=== PATIENT | male | born 1960 | race African-American/Black ===

== ENCOUNTER 2018-09-04 16:33 | Inpatient (IN) | payer MEDICAID, OTHER ==
[~2018-09-04] VITALS: Ht 175.3 cm; Wt 108.0 kg
[~2018-09-04 16:33] MED LIST: ABILIFY2 MG ORAL; ACETAMINOPHEN-1 EAC1 ORAL; BACLOFEN10 MG ORAL; BACTRIM DS TAB1 EAC1 ORAL; CELEBREX200 MG ORAL; COLACE250 MG ORAL; FUROSEMIDE40 MG ORAL; MAGNESIUM OXID400 M1 ORAL; MIRALAX17 G2 ORAL; MULTIVITAMINS1 EAC2 ORAL; NEURONTIN100 MG ORAL; NORCO 10/3251 EA ORAL; POTASSIUM CHLO20 ME2 ORAL; PROZAC40 MG ORAL; TRAMADOL HCL50 MG ORAL; TYLENOL650 MG/20. ORAL; VANCOMYCIN HCL1 G1 IV; VITAMIN C500 M1 ORAL; ZAROXOLYN5 MG ORAL
[2018-09-04 16:38] VITALS: BP 129/83
[2018-09-04] MEDS ORDERED: BISACODYL PO (16:39)
[2018-09-04] MEDS ORDERED: BACTROBAN15 GM TOPIC (16:39)
[2018-09-04] MEDS ORDERED: ZOFRAN4 M1 ORAL (16:48)
[2018-09-04] MEDS ORDERED: Morphine Sulfate 4mg/ml Inj (IV/IM USE ONLY) IVP ONE (17:15)
[2018-09-04 17:27] LABS: BASOPHILS % (AUTO) 0.6 % (0.0-2.0); EOSINOPHILS % (AUTO) 1.3 % (0.0-3.0); HEMATOCRIT 42.5 % (42.0-52.0); HEMOGLOBIN 14.2 G/DL (14.2-18.0); LYMPHOCYTES % (AUTO) 21.1 % (20.0-45.0); MEAN CORPUSCULAR VOLUME 84 FL (80-99); MONOCYTES % (AUTO) 5.4 % (1.0-10.0); NEUTROPHILS % (AUTO) 71.6 % (45.0-75.0); PLATELET COUNT 243 K/UL (150-450); RED BLOOD COUNT 5.05 M/UL (4.70-6.10); RED CELL DISTRIBUTION WIDTH 12.6 % (11.6-14.8); WHITE BLOOD COUNT 9.9 K/UL (4.8-10.8)
[2018-09-04 17:33] LABS: APPEARANCE,URINE CLEAR; BILIRUBIN, URINE NEGATIVE (NEGATIVE); COLOR,URINE PALE YELLOW; GLUCOSE, URINE (UA) NEGATIVE (NEGATIVE); KETONES,URINE NEGATIVE (NEGATIVE); LEUKOCYTE ESTERASE ,URINE NEGATIVE (NEGATIVE); NITRITE,URINE NEGATIVE (NEGATIVE); PH,URINE 6 (4.5-8.0); PROTEIN,URINE NEGATIVE (NEGATIVE); UROBILINOGEN,URINE NORMAL MG/DL (0.0-1.0)
[2018-09-04 17:43] LABS: ALANINE AMINOTRANSFERASE 22 U/L (12-78); ALBUMIN 3.5 G/DL (3.4-5.0); ALBUMIN/GLOBULIN RATIO 0.6 (1.0-2.7); ALKALINE PHOSPHATASE 111 U/L (46-116); ANION GAP 13 mmol/L (5-15); ASPARTATE AMINO TRANSFERASE 13 U/L (15-37); BILIRUBIN,TOTAL 0.3 MG/DL (0.2-1.0); BLOOD UREA NITROGEN 26 mg/dL (7-18); CALCIUM 9.2 MG/DL (8.5-10.1); CARBON DIOXIDE 27 MMOL/L (21-32); CHLORIDE 98 MMOL/L (98-107); CREATINE KINASE 74 U/L (26-308); CREATININE 1.4 MG/DL (0.55-1.30); SODIUM 138 MMOL/L (136-145)
[2018-09-04 17:47] LABS: POTASSIUM 2.6 MMOL/L (3.5-5.1)
--- NOTE | 2018-09-04 18:40 | Emergency Room Report ---
History of Present Illness General Chief Complaint: Abnormal Labs Source: Patient, Medical Record Present Illness HPI The patient is sent in by his private physician as his potassium has and resistant to correction. He's been given oral potassium for several days now and it still remains below 3. The patient complains about weakness. He fell 2 days ago and hit his left shoulder. There is no loss of consciousness. Patient denies any vomiting or diarrhea. He denies taking any diuretics medication at this time (although lasix is one of his medications). He has chronic stasis ulcers on both legs. He denies fever, URI, cough, chest pain, dyspnea, NVD, dysuria, anxiety, headache. H/O schizoaffective disorder. Allergies: Coded Allergies: No Known Allergies (Unverified , 06/22/14) Patient History Past Medical History: see triage record Past Surgical History: other - colostomy Social History: Denies: smoking Social History Narrative SNF Reviewed Nursing Documentation: PMH: Agreed; PSxH: Agreed Nursing Documentation-PMH Past Medical History: No History, Except For Hx Hypertension: Yes Hx Cancer: No Hx Gastrointestinal Problems: Yes - colostomy Hx Neurological Problems: No Review of Systems All Other Systems: negative except mentioned in HPI Physical Exam Vital Signs Date Time Temp Pulse Resp B/P (MAP) Pulse Ox O2 Delivery O2 Flow Rate FiO2 09/04/18 16:28 98.2 101 18 129/83 95 Room Air Sp02 EP Interpretation: reviewed, normal General Appearance: no apparent distress, alert, Chronically Ill Head: normocephalic Eyes: bilateral eye normal inspection, bilateral eye PERRL ENT: moist mucus membranes Neck: supple Respiratory: lungs clear, normal breath sounds Cardiovascular #1: regular rate, rhythm Cardiovascular #2: 2+ radial (R) Gastrointestinal: normal inspection, normal bowel sounds, non tender, no mass, non-distended, other - colostomy LLQ Musculoskeletal: back normal, normal range of motion, other - GISELL boots bilat Neurologic: alert, motor strength/tone normal, DTRs symmetric, sensory intact, speech normal, oriented - X2 Psychiatric: mood/affect normal Skin: normal inspection, warm/dry Medical Decision Making Diagnostic Impression: Primary Impression: Hypokalemia Additional Impressions: Hypomagnesemia Renal insufficiency Contusion of left shoulder Qualified Codes: S40.012A - Contusion of left shoulder, initial encounter ER Course Patient presents with weakness and falling episodes a with a history of low potassium. Differential includes hypo-kalemia, hypomagnesemia, surreptitious diuretic use, dumping syndrome amongst others. Patient is evaluated with EKG, chest x-ray, left shoulder x-ray and labs. The patient will begin to get IV potassium replenishment. EKG with sinus tachycardia and flattened T waves. Chest x-ray with atelectasis , left shoulder without fracture. Labs with low potassium and renal insufficiency. His magnesium was also low. Magnesium is ordered. Patient admitted to the hospital for potassium replacement and magnesium replacement to Dr. Quiros. Sling was applied by biotechnologist. Position is excellent and neurovascular is checked by me with improvement. Labs Test 09/04/18 17:00 09/05/18 00:10 09/05/18 05:54 09/06/18 05:42 White Blood Count 9.9 K/UL (4.8-10.8) 8.4 K/UL (4.8-10.8) 7.1 K/UL (4.8-10.8) Red Blood Count 5.05 M/UL (4.70-6.10) 4.90 M/UL (4.70-6.10) 4.87 M/UL (4.70-6.10) Hemoglobin 14.2 G/DL (14.2-18.0) 13.4 G/DL (14.2-18.0) 13.2 G/DL (14.2-18.0) Hematocrit 42.5 % (42.0-52.0) 40.9 % (42.0-52.0) 40.7 % (42.0-52.0) Mean Corpuscular Volume 84 FL (80-99) 83 FL (80-99) 84 FL (80-99) Mean Corpuscular Hemoglobin 28.1 PG (27.0-31.0) 27.4 PG (27.0-31.0) 27.1 PG (27.0-31.0) Mean Corpuscular Hemoglobin Concent 33.4 G/DL (32.0-36.0) 32.8 G/DL (32.0-36.0) 32.4 G/DL (32.0-36.0) Red Cell Distribution Width 12.6 % (11.6-14.8) 13.2 % (11.6-14.8) 13.1 % (11.6-14.8) Platelet Count 243 K/UL (150-450) 232 K/UL (150-450) 235 K/UL (150-450) Mean Platelet Volume 7.3 FL (6.5-10.1) 8.0 FL (6.5-10.1) 7.2 FL (6.5-10.1) Neutrophils (%) (Auto) 71.6 % (45.0-75.0) 59.3 % (45.0-75.0) 60.3 % (45.0-75.0) Lymphocytes (%) (Auto) 21.1 % (20.0-45.0) 31.9 % (20.0-45.0) 31.6 % (20.0-45.0) Monocytes (%) (Auto) 5.4 % (1.0-10.0) 6.9 % (1.0-10.0) 6.1 % (1.0-10.0) Eosinophils (%) (Auto) 1.3 % (0.0-3.0) 1.4 % (0.0-3.0) 1.3 % (0.0-3.0) Basophils (%) (Auto) 0.6 % (0.0-2.0) 0.5 % (0.0-2.0) 0.6 % (0.0-2.0) Prothrombin Time 10.9 SEC (9.30-11.50) Prothromb Time International Ratio 1.0 (0.9-1.1) Activated Partial Thromboplast Time 32 SEC (23-33) Urine Color Pale yellow Urine Appearance Clear Urine pH 6 (4.5-8.0) Urine Specific [place] 1.005 (1.005-1.035) Urine Protein Negative (NEGATIVE) Urine Glucose (UA) Negative (NEGATIVE) Urine Ketones Negative (NEGATIVE) Urine Blood Negative (NEGATIVE) Urine Nitrite Negative (NEGATIVE) Urine Bilirubin Negative (NEGATIVE) Urine Urobilinogen Normal MG/DL (0.0-1.0) Urine Leukocyte Esterase Negative (NEGATIVE) Sodium Level 138 MMOL/L (136-145) 138 MMOL/L (136-145) 137 MMOL/L (136-145) Potassium Level 2.6 MMOL/L (3.5-5.1) 2.9 MMOL/L (3.5-5.1) 3.0 MMOL/L (3.5-5.1) Chloride Level 98 MMOL/L (98-107) 100 MMOL/L (98-107) 99 MMOL/L (98-107) Carbon Dioxide Level 27 MMOL/L (21-32) 29 MMOL/L (21-32) 29 MMOL/L (21-32) Anion Gap 13 mmol/L (5-15) 10 mmol/L (5-15) 10 mmol/L (5-15) Blood Urea Nitrogen 26 mg/dL (7-18) 21 mg/dL (7-18) 22 mg/dL (7-18) Creatinine 1.4 MG/DL (0.55-1.30) 1.1 MG/DL (0.55-1.30) 1.1 MG/DL (0.55-1.30) Estimat Glomerular Filtration Rate > 60 mL/min (>60) > 60 mL/min (>60) > 60 mL/min (>60) Glucose Level 116 MG/DL (74-106) 101 MG/DL (74-106) 107 MG/DL (74-106) Calcium Level 9.2 MG/DL (8.5-10.1) 8.7 MG/DL (8.5-10.1) 8.7 MG/DL (8.5-10.1) Magnesium Level 1.1 MG/DL (1.8-2.4) 2.3 MG/DL (1.8-2.4) 1.5 MG/DL (1.8-2.4) Total Bilirubin 0.3 MG/DL (0.2-1.0) 0.8 MG/DL (0.2-1.0) 0.7 MG/DL (0.2-1.0) Aspartate Amino Transf (AST/SGOT) 13 U/L (15-37) 15 U/L (15-37) 13 U/L (15-37) Alanine Aminotransferase (ALT/SGPT) 22 U/L (12-78) 16 U/L (12-78) 14 U/L (12-78) Alkaline Phosphatase 111 U/L (46-116) 96 U/L (46-116) 95 U/L (46-116) Total Creatine Kinase 74 U/L (26-308) 73 U/L (26-308) 76 U/L (26-308) Troponin I 0.000 ng/mL (0.000-0.056) Pro-B-Type Natriuretic Peptide 61 pg/mL (0-125) 69 pg/mL (0-125) Total Protein 9.2 G/DL (6.4-8.2) 8.3 G/DL (6.4-8.2) 8.5 G/DL (6.4-8.2) Albumin 3.5 G/DL (3.4-5.0) 3.2 G/DL (3.4-5.0) 3.1 G/DL (3.4-5.0) Globulin 5.7 g/dL 5.1 g/dL 5.4 g/dL Albumin/Globulin Ratio 0.6 (1.0-2.7) 0.6 (1.0-2.7) 0.6 (1.0-2.7) Urine Opiates Screen Negative (NEGATIVE) Urine Barbiturates Screen Negative (NEGATIVE) Phencyclidine (PCP) Screen Negative (NEGATIVE) Urine Amphetamines Screen Negative (NEGATIVE) Urine Benzodiazepines Screen Negative (NEGATIVE) Urine Cocaine Screen Negative (NEGATIVE) Urine Marijuana (THC) Screen Negative (NEGATIVE) Urine Random Sodium 45 mmol/L (20-110) Uric Acid 10.9 MG/DL (2.6-7.2) 10.6 MG/DL (2.6-7.2) Phosphorus Level 3.1 MG/DL (2.5-4.9) 2.4 MG/DL (2.5-4.9) Gamma Glutamyl Transpeptidase 19 U/L (5-85) 19 U/L (5-85) C-Reactive Protein, Quantitative 9.4 mg/dL (0.00-0.90) Thyroid Stimulating Hormone (TSH) 1.814 uiU/mL (0.358-3.740) Test 09/06/18 05:45 C-Reactive Protein, Quantitative 17.2 mg/dL (0.00-0.90) EKG Diagnostic Results Rhythm: NSR ST Segments: no acute changes - low T waves Rhythm Strip Diag. Results EP Interpretation: yes Rhythm: no PVC's, no ectopy, other - tachycardia Chest X-Ray Diagnostic Results Chest X-Ray Diagnostic Results : Chest X-Ray Ordered: Yes # of Views/Limited/Complete: 1 View Indication: Other EP Interpretation: Yes Interpretation: no effusion, no pneumothorax, other - atelectasis Impression: Other Electronically Signed by: Electronically signed by Ephraim Chaparro MD Other X-Ray Diagnostic Results Other X-Ray Diagnostic Results : X-Ray ordered: Left shoulder # of Views/Limited Vs Complete: 3 View Indication: Pain Interpretation: no dislocation, no soft tissue swelling Electronically Signed by: Electronically signed by Ephraim Chaparro MD Status: improved Disposition: ADMITTED INPATIENT Condition: Serious Referrals: Jono Quiros MD (PCP) Ephraim hCaparro MD Sep 04, 2018 18:40
[2018-09-04 19:03] VITALS: BP 121/87
[2018-09-04] MEDS ORDERED: GABAPENTIN100 MG ORAL (19:03)
[2018-09-04] MEDS ORDERED: VITAMELTS FAST15 MG PO (19:05)
[2018-09-04] MEDS ORDERED: HEPARIN SO5000 UNIT2 SUBQ (19:05)
[2018-09-04 19:29] VITALS: BP 122/84
[2018-09-04 20:30] VITALS: BP 128/79
[2018-09-04 21:20] VITALS: BP 127/86
[2018-09-04 21:30] VITALS: BP 128/79
[2018-09-04] MEDS ORDERED: D5NS w/KCl 40mEq 1000ml 1,000 ML IV SCH (22:00)
--- NOTE | 2018-09-04 22:31 | History and Physical Report ---
DATE OF ADMISSION: 09/04/2018 HISTORY OF PRESENT ILLNESS: The patient admitted for severe hypokalemia despite taking potassium. The patient has dementia, poor historian. The patient also has azotemia. The patient has no nausea, vomiting, or diarrhea. No fever or chills. No shortness of breath. Denies cough. Denies fever or chills. PAST MEDICAL HISTORY: Hypokalemia, CHF, constipation, organic brain syndrome, chronic pain syndrome, venous stasis, chronic renal insufficiency, and history of decubitus ulcer. MEDICATIONS: Bisacodyl, Colace, Lasix, gabapentin, aspirin, multivitamin, potassium, and tramadol. FAMILY HISTORY: Noncontributory. SOCIAL HISTORY: Denies use of alcohol or street drugs. Comes from a long-term. REVIEW OF SYSTEMS: HEENT: Denies headaches. RESPIRATORY: Denies shortness of breath. Denies cough. CARDIOVASCULAR: Denies chest pain. GASTROINTESTINAL: Denies nausea, vomiting, or diarrhea. EXTREMITIES: No extremity pain. CENTRAL NERVOUS SYSTEM: No change in vision or speech pattern. PHYSICAL EXAMINATION: VITAL SIGNS: Temperature 98.2, pulse is 101, and blood pressure 129/83. HEENT: PERRLA. NECK: Supple. No lymphadenopathy. CHEST: Clear to auscultation. GASTROINTESTINAL: Soft, nontender, and nondistended. EXTREMITIES: No edema. Reflexes are equal on both sides. He is bedbound. LABORATORY DATA: WBC of 9.9, hemoglobin 14.2, and platelets of 243. Sodium , potassium , BUN 22, creatinine 1.3, and glucose of 116. ASSESSMENT/PLAN: Severe hypokalemia despite being on potassium. The most likely reason for hypokalemia is his headaches. Dr. Lee has been consulted for the azotemia as well as for potassium management. We will follow the patient closely for the medications from the long-term. Jono Quiros M.D. DR: ANA JOB#: [id number] CC:
[2018-09-04] MEDS ORDERED: Acetaminophen 650mg/20.3ml ORAL PRN (23:15)
[2018-09-05] VITALS: BP 129/79
[2018-09-05] MEDS: traMADol 50mg tab ORAL PRN (02:08)
[2018-09-05 04:00] VITALS: BP 115/69
[2018-09-05 06:37] LABS: BASOPHILS % (AUTO) 0.5 % (0.0-2.0); EOSINOPHILS % (AUTO) 1.4 % (0.0-3.0); HEMATOCRIT 40.9 % (42.0-52.0); HEMOGLOBIN 13.4 G/DL (14.2-18.0); LYMPHOCYTES % (AUTO) 31.9 % (20.0-45.0); MEAN CORPUSCULAR VOLUME 83 FL (80-99); MONOCYTES % (AUTO) 6.9 % (1.0-10.0); NEUTROPHILS % (AUTO) 59.3 % (45.0-75.0); PLATELET COUNT 232 K/UL (150-450); RED CELL DISTRIBUTION WIDTH 13.2 % (11.6-14.8); WHITE BLOOD COUNT 8.4 K/UL (4.8-10.8)
[2018-09-05 07:31] LABS: ALANINE AMINOTRANSFERASE 16 U/L (12-78); ALBUMIN 3.2 G/DL (3.4-5.0); ALBUMIN/GLOBULIN RATIO 0.6 (1.0-2.7); ALKALINE PHOSPHATASE 96 U/L (46-116); ANION GAP 10 mmol/L (5-15); ASPARTATE AMINO TRANSFERASE 15 U/L (15-37); BILIRUBIN,TOTAL 0.8 MG/DL (0.2-1.0); BLOOD UREA NITROGEN 21 mg/dL (7-18); CALCIUM 8.7 MG/DL (8.5-10.1); CARBON DIOXIDE 29 MMOL/L (21-32); CHLORIDE 100 MMOL/L (98-107); CREATINE KINASE 73 U/L (26-308); CREATININE 1.1 MG/DL (0.55-1.30); GAMMA GLUTAMYL TRANSPEPTIDASE 19 U/L (5-85); PHOSPHORUS 3.1 MG/DL (2.5-4.9); POTASSIUM 2.9 MMOL/L (3.5-5.1); SODIUM 138 MMOL/L (136-145)
[2018-09-05 08:53] VITALS: BP 114/79
[2018-09-05] MEDS ORDERED: Furosemide 40mg tab ORAL SCH (09:00)
[2018-09-05] MEDS ORDERED: Magnesium Oxide 400mg tab ORAL SCH (09:00)
[2018-09-05] MEDS: Ascorbic Acid 500mg tab ORAL SCH (09:21)
[2018-09-05] MEDS: Heparin 5000 units/ml inj SUBQ SCH ×2 (09:28→20:45)
[2018-09-05] MEDS: Docusate 250mg cap ORAL SCH (09:30)
--- NOTE | 2018-09-05 11:16 | Diagnostic Imaging Report ---
Indication: Chest pain Technique: One view of the chest Comparison: none Findings: Suboptimal inspiration. There is atelectasis at the left lung base. The remainder the lungs and pleural spaces are clear. The heart size is normal. Impression: Hypoventilatory exam with left basilar atelectasis. No acute process otherwise
--- NOTE | 2018-09-05 11:17 | Diagnostic Imaging Report ---
Indication: Trauma, pain Technique: 3 views of the left shoulder Comparison: none Findings: No acute fractures. No dislocations. The joint spaces are preserved Impression: Negative
[2018-09-05 12:24] VITALS: BP 113/72
--- NOTE | 2018-09-05 13:19 | Consultation ---
Consult Note Consult Note asked to eval for persistent Low K The patient is sent in by his private physician as his potassium has and resistant to correction. He's been given oral potassium for several days now and it still remains below 3. The patient complains about weakness. He fell 2 days ago and hit his left shoulder. There is no loss of consciousness. Patient denies any vomiting or diarrhea. He denies taking any diuretics medication at this time. Allergies: No Known Allergies (Unverified , 06/22/14) Past Medical History: No History, Except For Hx Hypertension: Yes Hx Gastrointestinal Problems: Yes - colostomy Hx Neurological Problems: No patient un coaporative and easily agitated data reviewed Assessment/Plan Hypokalemia On Lasiz and Zaroxylin Hypomagnesemia Renal insufficiency Contusion of left shoulder Colostomy K and Mag supplement Adjust diuretics on patient's med list Monitor lytes check CPK 2D Echo Per orders Curtis Lee MD Sep 05, 2018 13:19
[2018-09-05] MEDS: D5NS w/KCl 40mEq 1000ml 1,000 ML IV SCH (14:55)
--- NOTE | 2018-09-05 15:04 | Cardiology Report ---
APPROVED REPORT EKG Measurement Heart [id number] Sinus tachycardia Nonspecific ST and T wave abnormality Abnormal ECG
--- NOTE | 2018-09-05 15:07 | Cardiology Report ---
APPROVED REPORT EXAM: Two-dimensional and M-mode echocardiogram with Doppler and color Doppler. INDICATION Congestive Heart Failure M-Mode DIMENSIONS IVSd1.1 (0.7-1.1cm)Left Atrium (MM)2.7 (1.6-4.0cm) LVDd4.9 (3.5-5.6cm)Aortic Root3.5 (2.0-3.7cm) PWd1.3 (0.7-1.1cm)Aortic Cusp Exc.1.6 (1.5-2.0cm) IVSs1.3 cm LVDs3.0 (2.5-4.0cm) PWs1.2 cm Technically difficult study due to poor acoustical windows. Normal left ventricular chamber size, systolic function and wall motion to extent visualized. Left ventricular ejection fraction estimated to be 70 %. Mild left ventricular hypertrophy by 2-D. No evidence of pericardial effusion. All other cardiac chamber sizes are within normal limits. Focal aortic valve sclerosis with adequate cusp excursion. Thickened mitral valve leaflets with normal excursion. Mitral annulus and aortic root calcification. Pulmonic valve not well visualized. Normal tricuspid valve structure. IVC at normal size with physiologic collapse. A color flow and spectral Doppler study was performed and revealed: Trace mitral regurgitation. Mitral inflow indicates normal left ventricular diastolic function. Trace tricuspid regurgitation. Tricuspid systolic velocities suggests peak right ventricular systolic pressure of 20 mmHg.
[2018-09-05 15:56] VITALS: BP 111/71
--- NOTE | 2018-09-05 16:22 | General Progress Note ---
Assessment/Plan Problem List: (1) GIDEON (acute kidney injury) ICD Codes: N17.9 - GIDEON (acute kidney injury) SNOMED: 16071794 (2) Hypokalemia ICD Codes: E87.6 - Hypokalemia SNOMED: 17594556 (3) Hypomagnesemia ICD Codes: E83.42 - Hypomagnesemia SNOMED: 541139884, 282863863 (4) Renal insufficiency ICD Codes: N28.9 - Disorder of kidney and ureter, unspecified SNOMED: 904405380, 573283506 Status: progressing Assessment/Plan afebrile hypokalemia is improving arf is improving needs fluid and k replacement Subjective ROS Limited/Unobtainable: Yes Allergies: Coded Allergies: No Known Allergies (Unverified , 06/22/14) Objective Last 24 Hour Vital Signs Date Time Temp Pulse Resp B/P (MAP) Pulse Ox O2 Delivery O2 Flow Rate FiO2 09/05/18 15:56 99.3 90 20 111/71 (84) 99 09/05/18 12:24 97.2 79 18 113/72 (86) 96 09/05/18 09:00 Room Air 09/05/18 08:53 97.9 87 18 114/79 (91) 95 09/05/18 04:00 98.2 77 19 115/69 (84) 96 09/05/18 00:00 98.8 91 19 129/79 (96) 100 09/04/18 21:58 Room Air 09/04/18 21:20 97.3 100 20 127/86 (100) 97 09/04/18 20:30 92 20 128/79 93 Room Air 09/04/18 20:30 98.4 92 20 128/79 93 Room Air 09/04/18 19:29 98.4 90 18 122/84 96 Room Air 09/04/18 19:29 98.4 09/04/18 19:03 98.5 88 25 121/87 96 Room Air 09/04/18 16:38 98.2 18 129/83 95 Room Air 09/04/18 16:28 98.2 101 18 129/83 95 Room Air Intake and Output 09/04/18 09/05/18 18:59 06:59 Intake Total 220 ml Output Total 700 ml Balance -480 ml Intake Oral 120 ml IV Total 100 ml Output Urine Total 700 ml # Voids 1 Laboratory Tests 09/04/18 17:00: White Blood Count 9.9, Red Blood Count 5.05, Hemoglobin 14.2, Hematocrit 42.5, Mean Corpuscular Volume 84, Mean Corpuscular Hemoglobin 28.1, Mean Corpuscular Hemoglobin Concent 33.4, Red Cell Distribution Width 12.6, Platelet Count 243, Mean Platelet Volume 7.3, Neutrophils (%) (Auto) 71.6, Lymphocytes (%) (Auto) 21.1, Monocytes (%) (Auto) 5.4, Eosinophils (%) (Auto) 1.3, Basophils (%) (Auto ) 0.6, Prothrombin Time 10.9, Prothromb Time International Ratio 1.0, Activated Partial Thromboplast Time 32, Urine Color Pale yellow, Urine Appearance Clear, Urine pH 6, Urine Specific [place] 1.005, Urine Protein Negative, Urine Glucose (UA) Negative, Urine Ketones Negative, Urine Blood Negative, Urine Nitrite Negative, Urine Bilirubin Negative, Urine Urobilinogen Normal, Urine Leukocyte Esterase Negative, Sodium Level 138, Potassium Level 2.6*L, Chloride Level 98, Carbon Dioxide Level 27, Anion Gap 13, Blood Urea Nitrogen 26H, Creatinine 1.4H , Estimat Glomerular Filtration Rate > 60, Glucose Level 116H, Calcium Level 9.2 , Magnesium Level 1.1L, Total Bilirubin 0.3, Aspartate Amino Transf (AST/SGOT) 13L, Alanine Aminotransferase (ALT/SGPT) 22, Alkaline Phosphatase 111, Total Creatine Kinase 74, Troponin I 0.000, Pro-B-Type Natriuretic Peptide 61, Total Protein 9.2H, Albumin 3.5, Globulin 5.7, Albumin/Globulin Ratio 0.6L, Urine Opiates Screen Negative, Urine Barbiturates Screen Negative, Phencyclidine (PCP ) Screen Negative, Urine Amphetamines Screen Negative, Urine Benzodiazepines Screen Negative, Urine Cocaine Screen Negative, Urine Marijuana (THC) Screen Negative 09/05/18 00:10: Urine Random Sodium 45 09/05/18 05:54: White Blood Count 8.4, Red Blood Count 4.90, Hemoglobin 13.4L, Hematocrit 40.9L , Mean Corpuscular Volume 83, Mean Corpuscular Hemoglobin 27.4, Mean Corpuscular Hemoglobin Concent 32.8, Red Cell Distribution Width 13.2, Platelet Count 232, Mean Platelet Volume 8.0, Neutrophils (%) (Auto) 59.3, Lymphocytes (% ) (Auto) 31.9, Monocytes (%) (Auto) 6.9, Eosinophils (%) (Auto) 1.4, Basophils ( %) (Auto) 0.5, Sodium Level 138, Potassium Level 2.9L, Chloride Level 100, Carbon Dioxide Level 29, Anion Gap 10, Blood Urea Nitrogen 21H, Creatinine 1.1, Estimat Glomerular Filtration Rate > 60, Glucose Level 101, Calcium Level 8.7, Magnesium Level 2.3, Total Bilirubin 0.8, Aspartate Amino Transf (AST/SGOT) 15, Alanine Aminotransferase (ALT/SGPT) 16, Alkaline Phosphatase 96, Total Creatine Kinase 73, Pro-B-Type Natriuretic Peptide 69, Total Protein 8.3H, Albumin 3.2L, Globulin 5.1, Albumin/Globulin Ratio 0.6L, Uric Acid 10.9H, Phosphorus Level 3.1 , Gamma Glutamyl Transpeptidase 19, C-Reactive Protein, Quantitative 9.4H, Thyroid Stimulating Hormone (TSH) 1.814 Height (Feet): 5 Height (Inches): 9.00 Weight (Pounds): 190 EENT: PERRL/EOMI Neck: supple Cardiovascular: normal rate Respiratory/Chest: lungs clear Jono Quiros MD Sep 05, 2018 16:22
[2018-09-05 20:00] VITALS: BP 125/72
[2018-09-06] VITALS: BP 121/80
[2018-09-06 04:00] VITALS: BP 130/70
[2018-09-06] MEDS: D5NS w/KCl 40mEq 1000ml 1,000 ML IV SCH ×2 (04:54→16:40)
[2018-09-06 06:15] LABS: BASOPHILS % (AUTO) 0.6 % (0.0-2.0); EOSINOPHILS % (AUTO) 1.3 % (0.0-3.0); HEMATOCRIT 40.7 % (42.0-52.0); HEMOGLOBIN 13.2 G/DL (14.2-18.0); LYMPHOCYTES % (AUTO) 31.6 % (20.0-45.0); MEAN CORPUSCULAR VOLUME 84 FL (80-99); MONOCYTES % (AUTO) 6.1 % (1.0-10.0); NEUTROPHILS % (AUTO) 60.3 % (45.0-75.0); PLATELET COUNT 235 K/UL (150-450); RED BLOOD COUNT 4.87 M/UL (4.70-6.10); RED CELL DISTRIBUTION WIDTH 13.1 % (11.6-14.8); WHITE BLOOD COUNT 7.1 K/UL (4.8-10.8)
[2018-09-06 06:35] LABS: ALANINE AMINOTRANSFERASE 14 U/L (12-78); ALBUMIN 3.1 G/DL (3.4-5.0); ALBUMIN/GLOBULIN RATIO 0.6 (1.0-2.7); ALKALINE PHOSPHATASE 95 U/L (46-116); ANION GAP 10 mmol/L (5-15); ASPARTATE AMINO TRANSFERASE 13 U/L (15-37); BILIRUBIN,TOTAL 0.7 MG/DL (0.2-1.0); BLOOD UREA NITROGEN 22 mg/dL (7-18); CALCIUM 8.7 MG/DL (8.5-10.1); CARBON DIOXIDE 29 MMOL/L (21-32); CHLORIDE 99 MMOL/L (98-107); CREATINE KINASE 76 U/L (26-308); CREATININE 1.1 MG/DL (0.55-1.30); GAMMA GLUTAMYL TRANSPEPTIDASE 19 U/L (5-85); PHOSPHORUS 2.4 MG/DL (2.5-4.9); SODIUM 137 MMOL/L (136-145)
[2018-09-06 08:00] VITALS: BP 123/72
[2018-09-06] MEDS: Heparin 5000 units/ml inj SUBQ SCH ×2 (10:21→20:22)
[2018-09-06] MEDS: traMADol 50mg tab ORAL PRN (10:27)
[2018-09-06] MEDS: Ascorbic Acid 500mg tab ORAL SCH (10:31)
[2018-09-06] MEDS: Docusate 250mg cap ORAL SCH (10:38)
--- NOTE | 2018-09-06 11:17 | Nephrology Progress Note ---
Assessment/Plan Problem List: (1) GIDEON (acute kidney injury) (2) Hypokalemia (3) Hypomagnesemia Assessment Hypokalemia was On Lasix and Zaroxylin Hypomagnesemia Renal insufficiency Contusion of left shoulder Colostomy Plan K and Mag supplement Adjust diuretics on patient's med list Monitor lytes check CPK 2D Echo ej fx 70 % Per orders Subjective ROS Limited/Unobtainable: No Constitutional: Reports: malaise Objective Objective Last 24 Hour Vital Signs Date Time Temp Pulse Resp B/P (MAP) Pulse Ox O2 Delivery O2 Flow Rate FiO2 09/06/18 09:00 Room Air 09/06/18 08:00 98.8 95 20 123/72 (89) 96 09/06/18 04:00 98.0 85 20 130/70 (90) 98 09/06/18 00:00 98.2 91 17 121/80 (94) 97 09/05/18 21:00 Room Air 09/05/18 20:00 98.8 99 18 125/72 (89) 95 09/05/18 15:56 99.3 90 20 111/71 (84) 99 09/05/18 12:24 97.2 79 18 113/72 (86) 96 Intake and Output 09/05/18 09/06/18 19:00 07:00 Intake Total 1320 ml 800 ml Output Total 1425 ml 2000 ml Balance -105 ml -1200 ml Intake Oral 720 ml 800 ml IV Total 600 ml Output Urine Total 1425 ml 2000 ml # Voids 2 Laboratory Tests 09/06/18 05:42: White Blood Count 7.1, Red Blood Count 4.87, Hemoglobin 13.2L, Hematocrit 40.7L , Mean Corpuscular Volume 84, Mean Corpuscular Hemoglobin 27.1, Mean Corpuscular Hemoglobin Concent 32.4, Red Cell Distribution Width 13.1, Platelet Count 235, Mean Platelet Volume 7.2, Neutrophils (%) (Auto) 60.3, Lymphocytes (% ) (Auto) 31.6, Monocytes (%) (Auto) 6.1, Eosinophils (%) (Auto) 1.3, Basophils ( %) (Auto) 0.6, Sodium Level 137, Potassium Level 3.0L, Chloride Level 99, Carbon Dioxide Level 29, Anion Gap 10, Blood Urea Nitrogen 22H, Creatinine 1.1, Estimat Glomerular Filtration Rate > 60, Glucose Level 107H, Uric Acid 10.6H, Calcium Level 8.7, Phosphorus Level 2.4L, Magnesium Level 1.5L, Total Bilirubin 0.7, Gamma Glutamyl Transpeptidase 19, Aspartate Amino Transf (AST/SGOT) 13L, Alanine Aminotransferase (ALT/SGPT) 14, Alkaline Phosphatase 95, Total Creatine Kinase 76, Total Protein 8.5H, Albumin 3.1L, Globulin 5.4, Albumin/Globulin Ratio 0.6L 09/06/18 05:45: C-Reactive Protein, Quantitative 17.2H Height (Feet): 5 Height (Inches): 9.00 Weight (Pounds): 238 General Appearance: no apparent distress Cardiovascular: tachycardia Respiratory/Chest: decreased breath sounds Objective no change Curtis Lee MD Sep 06, 2018 11:17
[2018-09-06 12:00] VITALS: BP 114/71
[2018-09-06] MEDS ORDERED: Metoprolol Tartrate 12.5mg TAB ORAL SCH (12:36)
--- NOTE | 2018-09-06 13:29 | General Progress Note ---
Assessment/Plan Problem List: (1) GIDEON (acute kidney injury) ICD Codes: N17.9 - GIDEON (acute kidney injury) SNOMED: 18200720 (2) Hypokalemia ICD Codes: E87.6 - Hypokalemia SNOMED: 54302912 (3) Hypomagnesemia ICD Codes: E83.42 - Hypomagnesemia SNOMED: 902896221, 192860801 (4) Renal insufficiency ICD Codes: N28.9 - Disorder of kidney and ureter, unspecified SNOMED: 599014785, 636786192 Status: progressing Assessment/Plan afebrile hypokalemia is improving arf is improving check mg level as well afebrile Subjective ROS Limited/Unobtainable: Yes Allergies: Coded Allergies: No Known Allergies (Unverified , 06/22/14) Objective Last 24 Hour Vital Signs Date Time Temp Pulse Resp B/P (MAP) Pulse Ox O2 Delivery O2 Flow Rate FiO2 09/06/18 12:36 91 114/71 09/06/18 12:00 98.2 91 20 114/71 (85) 98 09/06/18 09:00 Room Air 09/06/18 08:00 98.8 95 20 123/72 (89) 96 09/06/18 04:00 98.0 85 20 130/70 (90) 98 09/06/18 00:00 98.2 91 17 121/80 (94) 97 09/05/18 21:00 Room Air 09/05/18 20:00 98.8 99 18 125/72 (89) 95 09/05/18 15:56 99.3 90 20 111/71 (84) 99 Intake and Output 09/05/18 09/06/18 19:00 07:00 Intake Total 1320 ml 800 ml Output Total 1425 ml 2000 ml Balance -105 ml -1200 ml Intake Oral 720 ml 800 ml IV Total 600 ml Output Urine Total 1425 ml 2000 ml # Voids 2 Laboratory Tests 09/06/18 05:42: White Blood Count 7.1, Red Blood Count 4.87, Hemoglobin 13.2L, Hematocrit 40.7L , Mean Corpuscular Volume 84, Mean Corpuscular Hemoglobin 27.1, Mean Corpuscular Hemoglobin Concent 32.4, Red Cell Distribution Width 13.1, Platelet Count 235, Mean Platelet Volume 7.2, Neutrophils (%) (Auto) 60.3, Lymphocytes (% ) (Auto) 31.6, Monocytes (%) (Auto) 6.1, Eosinophils (%) (Auto) 1.3, Basophils ( %) (Auto) 0.6, Sodium Level 137, Potassium Level 3.0L, Chloride Level 99, Carbon Dioxide Level 29, Anion Gap 10, Blood Urea Nitrogen 22H, Creatinine 1.1, Estimat Glomerular Filtration Rate > 60, Glucose Level 107H, Uric Acid 10.6H, Calcium Level 8.7, Phosphorus Level 2.4L, Magnesium Level 1.5L, Total Bilirubin 0.7, Gamma Glutamyl Transpeptidase 19, Aspartate Amino Transf (AST/SGOT) 13L, Alanine Aminotransferase (ALT/SGPT) 14, Alkaline Phosphatase 95, Total Creatine Kinase 76, Total Protein 8.5H, Albumin 3.1L, Globulin 5.4, Albumin/Globulin Ratio 0.6L 09/06/18 05:45: C-Reactive Protein, Quantitative 17.2H Height (Feet): 5 Height (Inches): 9.00 Weight (Pounds): 238 EENT: PERRL/EOMI Neck: supple Cardiovascular: normal rate Respiratory/Chest: lungs clear Jono Quiros MD Sep 06, 2018 13:29
[2018-09-06] MEDS ORDERED: Potassium Phosphate 30 MM in NS 275 ML IV ONE (14:00)
[2018-09-06 16:00] VITALS: BP 116/74
[2018-09-06] MEDS ORDERED: NS 500ML ONE (16:02)
[2018-09-06] MEDS ORDERED: Tubing IV Secondary IV ONE ×2 (16:02→16:53)
[2018-09-06 20:00] VITALS: BP 117/79
[2018-09-06] MEDS: Metoprolol Tartrate 12.5mg TAB ORAL SCH (20:21)
[2018-09-07] VITALS: BP 143/71
[2018-09-07] MEDS: traMADol 50mg tab ORAL PRN ×2 (01:00→23:26)
[2018-09-07 04:00] VITALS: BP 137/81
[2018-09-07] MEDS: D5NS w/KCl 40mEq 1000ml 1,000 ML IV SCH ×2 (05:29→19:20)
[2018-09-07 06:37] LABS: BASOPHILS % (AUTO) 0.3 % (0.0-2.0); EOSINOPHILS % (AUTO) 0.7 % (0.0-3.0); HEMATOCRIT 38.3 % (42.0-52.0); HEMOGLOBIN 12.8 G/DL (14.2-18.0); LYMPHOCYTES % (AUTO) 21.7 % (20.0-45.0); MEAN CORPUSCULAR VOLUME 84 FL (80-99); MONOCYTES % (AUTO) 7.4 % (1.0-10.0); PLATELET COUNT 206 K/UL (150-450); RED BLOOD COUNT 4.58 M/UL (4.70-6.10); RED CELL DISTRIBUTION WIDTH 12.8 % (11.6-14.8); WHITE BLOOD COUNT 8.4 K/UL (4.8-10.8)
[2018-09-07 07:09] LABS: ALANINE AMINOTRANSFERASE 14 U/L (12-78); ALBUMIN 2.8 G/DL (3.4-5.0); ALBUMIN/GLOBULIN RATIO 0.5 (1.0-2.7); ALKALINE PHOSPHATASE 83 U/L (46-116); ANION GAP 5 mmol/L (5-15); ASPARTATE AMINO TRANSFERASE 11 U/L (15-37); BILIRUBIN,TOTAL 0.6 MG/DL (0.2-1.0); BLOOD UREA NITROGEN 19 mg/dL (7-18); CALCIUM 8.7 MG/DL (8.5-10.1); CARBON DIOXIDE 29 MMOL/L (21-32); CHLORIDE 100 MMOL/L (98-107); PHOSPHORUS 2.5 MG/DL (2.5-4.9); POTASSIUM 3.5 MMOL/L (3.5-5.1); SODIUM 134 MMOL/L (136-145)
[2018-09-07 08:00] VITALS: BP 130/81
[2018-09-07] MEDS: Metoprolol Tartrate 12.5mg TAB ORAL SCH ×2 (08:34→20:47)
[2018-09-07] MEDS: Ascorbic Acid 500mg tab ORAL SCH (08:34)
[2018-09-07] MEDS: Docusate 250mg cap ORAL SCH (08:34)
[2018-09-07] MEDS: Heparin 5000 units/ml inj SUBQ SCH ×2 (08:36→20:48)
--- NOTE | 2018-09-07 09:15 | General Progress Note ---
Assessment/Plan Assessment/Plan (1) B/L LE pain (2) B/L LE Non healing ulcers seen dictated Subjective Allergies: Coded Allergies: No Known Allergies (Unverified , 06/22/14) Objective Last 24 Hour Vital Signs Date Time Temp Pulse Resp B/P (MAP) Pulse Ox O2 Delivery O2 Flow Rate FiO2 09/07/18 08:34 100 130/81 09/07/18 08:00 99.4 100 18 130/81 (97) 99 09/07/18 04:00 98.2 95 16 137/81 (99) 92 09/07/18 00:00 99.3 93 18 143/71 (95) 95 09/06/18 21:00 Room Air 09/06/18 20:21 89 117/79 09/06/18 20:00 98.2 89 18 117/79 (92) 96 09/06/18 16:00 98.2 85 20 116/74 (88) 97 09/06/18 12:36 91 114/71 09/06/18 12:00 98.2 91 20 114/71 (85) 98 Intake and Output 09/06/18 09/07/18 19:00 07:00 Intake Total 1080 ml 375 ml Output Total 200 ml 600 ml Balance 880 ml -225 ml Intake Oral 780 ml 300 ml IV Total 300 ml 75 ml Output Urine Total 200 ml 600 ml # Voids 1 Laboratory Tests 09/07/18 06:27: White Blood Count 8.4, Red Blood Count 4.58L, Hemoglobin 12.8L, Hematocrit 38.3L , Mean Corpuscular Volume 84, Mean Corpuscular Hemoglobin 27.8, Mean Corpuscular Hemoglobin Concent 33.3, Red Cell Distribution Width 12.8, Platelet Count 206, Mean Platelet Volume 7.5, Neutrophils (%) (Auto) 70.0, Lymphocytes (% ) (Auto) 21.7, Monocytes (%) (Auto) 7.4, Eosinophils (%) (Auto) 0.7, Basophils ( %) (Auto) 0.3, Sodium Level 134L, Potassium Level 3.5, Chloride Level 100, Carbon Dioxide Level 29, Anion Gap 5, Blood Urea Nitrogen 19H, Creatinine 1.0, Estimat Glomerular Filtration Rate > 60, Glucose Level 114H, Uric Acid 7.4H, Calcium Level 8.7, Phosphorus Level 2.5, Magnesium Level 1.6L, Total Bilirubin 0.6, Aspartate Amino Transf (AST/SGOT) 11L, Alanine Aminotransferase (ALT/SGPT) 14, Alkaline Phosphatase 83, Pro-B-Type Natriuretic Peptide 159H, Total Protein 8.1, Albumin 2.8L, Globulin 5.3, Albumin/Globulin Ratio 0.5L Height (Feet): 5 Height (Inches): 9.00 Weight (Pounds): 238 Lokesh Pierce Sep 07, 2018 09:15
[2018-09-07 12:00] VITALS: BP 123/78
--- NOTE | 2018-09-07 12:36 | Nephrology Progress Note ---
Assessment/Plan Problem List: (1) GIDEON (acute kidney injury) (2) Hypokalemia (3) Hypomagnesemia Assessment Hypokalemia was On Lasix and Zaroxylin Hypomagnesemia Renal insufficiency Contusion of left shoulder Colostomy Plan K and Mag supplement Adjust diuretics on patient's med list Monitor lytes check CPK 2D Echo ej fx 70 % Per orders Subjective ROS Limited/Unobtainable: No Objective Objective Last 24 Hour Vital Signs Date Time Temp Pulse Resp B/P (MAP) Pulse Ox O2 Delivery O2 Flow Rate FiO2 09/07/18 12:00 98.1 86 20 123/78 (93) 95 09/07/18 09:00 Room Air 09/07/18 08:34 100 130/81 09/07/18 08:00 99.4 100 18 130/81 (97) 99 09/07/18 04:00 98.2 95 16 137/81 (99) 92 09/07/18 00:00 99.3 93 18 143/71 (95) 95 09/06/18 21:00 Room Air 09/06/18 20:21 89 117/79 09/06/18 20:00 98.2 89 18 117/79 (92) 96 09/06/18 16:00 98.2 85 20 116/74 (88) 97 09/06/18 12:36 91 114/71 Intake and Output 09/06/18 09/07/18 19:00 07:00 Intake Total 1080 ml 375 ml Output Total 200 ml 600 ml Balance 880 ml -225 ml Intake Oral 780 ml 300 ml IV Total 300 ml 75 ml Output Urine Total 200 ml 600 ml # Voids 1 Laboratory Tests 09/07/18 06:27: White Blood Count 8.4, Red Blood Count 4.58L, Hemoglobin 12.8L, Hematocrit 38.3L , Mean Corpuscular Volume 84, Mean Corpuscular Hemoglobin 27.8, Mean Corpuscular Hemoglobin Concent 33.3, Red Cell Distribution Width 12.8, Platelet Count 206, Mean Platelet Volume 7.5, Neutrophils (%) (Auto) 70.0, Lymphocytes (% ) (Auto) 21.7, Monocytes (%) (Auto) 7.4, Eosinophils (%) (Auto) 0.7, Basophils ( %) (Auto) 0.3, Sodium Level 134L, Potassium Level 3.5, Chloride Level 100, Carbon Dioxide Level 29, Anion Gap 5, Blood Urea Nitrogen 19H, Creatinine 1.0, Estimat Glomerular Filtration Rate > 60, Glucose Level 114H, Uric Acid 7.4H, Calcium Level 8.7, Phosphorus Level 2.5, Magnesium Level 1.6L, Total Bilirubin 0.6, Aspartate Amino Transf (AST/SGOT) 11L, Alanine Aminotransferase (ALT/SGPT) 14, Alkaline Phosphatase 83, Pro-B-Type Natriuretic Peptide 159H, Total Protein 8.1, Albumin 2.8L, Globulin 5.3, Albumin/Globulin Ratio 0.5L Height (Feet): 5 Height (Inches): 9.00 Weight (Pounds): 238 General Appearance: no apparent distress, lethargic Cardiovascular: normal rate Respiratory/Chest: decreased breath sounds Abdomen: soft Objective no change Curtis Lee MD Sep 07, 2018 12:36
[2018-09-07 16:00] VITALS: BP 133/58
--- NOTE | 2018-09-07 18:45 | Consultation ---
DATE OF CONSULTATION: 09/06/2018 CONSULTING PHYSICIAN: Jono Quiros M.D. REASON FOR CONSULTATION: Ulceration to bilateral legs. HISTORY OF PRESENT ILLNESS: This is a 58-year-old with peripheral vascular disease, who was admitted to [facility] with bilateral leg ulceration. The patient states that he has the ulceration for years, has been treating it by himself with local wound care, states that the ulceration is pretty much the same, but has been getting better slowly. He denies fever, chills, nausea, vomiting. WBC was noted to be within normal limits. PAST MEDICAL HISTORY: Per Dr. Quiros. PODIATRY EXAMINATION: VASCULAR: Dorsalis pedis is palpable 2/4. Capillary refilling time is within 2 seconds. Posterior tibial artery is not palpable due to edema of the ankles bilaterally. Edema is noted to both legs consistent with peripheral vascular disease. NEUROLOGIC: Sharp and dull proprioception, vibratory sensation, protected threshold noted to be within normal limits. MUSCULOSKELETAL: The patient has contracted digits 2 through 5 PIPJ consistent with hammertoes. Muscle strength is noted to be 5/5 in the lower quadrants. DERMATOLOGIC: After removal of bandages to bilateral legs, ulcers are noted to lateral aspect of the leg mid leg and right lateral mid leg. There is an ulceration to the posterior aspect of the ankle. Ulceration to bilateral legs noted to be superficial. No drainage, discharge, or purulent matter is noted. There is pretty much granulating base, slight gangrenous changes. No sign of infection noted. Posterior ankle ulceration noted to be 4 cm x 1 cm in diameter into the subcutaneous/tendon junction. Fibrotic base is noted. There gangrenous in nature. No purulent matter is noted. edema is seen. Probing and undermining to subcutaneous tendon junction area. The ulceration site noted to be slightly tender to touch and painful. There is hyperpigmentation throughout both legs consistent with peripheral vascular disease and vein pathology. ASSESSMENT AND PLAN: The patient is a 58-year-old with peripheral vascular disease and venous stasis ulceration to bilateral legs. Order was written to cleanse the wound with normal saline and apply Unna boot to bilateral legs. The patient is stable for discharge. I believe compression dressings with Unna boot would result in better healing to bilateral ulceration. Ephraim Dash D.P.M DR: Sonu JOB#: [id number] CC:
[2018-09-07 20:12] VITALS: BP 122/75
--- NOTE | 2018-09-07 21:38 | General Progress Note ---
Assessment/Plan Problem List: (1) GIDEON (acute kidney injury) ICD Codes: N17.9 - GIDEON (acute kidney injury) SNOMED: 55433739 (2) Hypokalemia ICD Codes: E87.6 - Hypokalemia SNOMED: 04574358 (3) Hypomagnesemia ICD Codes: E83.42 - Hypomagnesemia SNOMED: 389245639, 169379705 (4) Renal insufficiency ICD Codes: N28.9 - Disorder of kidney and ureter, unspecified SNOMED: 801216271, 547426382 Status: progressing Assessment/Plan wound care azotemia improving check lyte in am hypokalemia is improving Subjective ROS Limited/Unobtainable: Yes Allergies: Coded Allergies: No Known Allergies (Unverified , 06/22/14) Objective Last 24 Hour Vital Signs Date Time Temp Pulse Resp B/P (MAP) Pulse Ox O2 Delivery O2 Flow Rate FiO2 09/07/18 20:47 98 122/75 09/07/18 20:12 98.7 98 18 122/75 (91) 96 09/07/18 16:00 97.9 72 20 133/58 (83) 100 09/07/18 12:00 98.1 86 20 123/78 (93) 95 09/07/18 09:00 Room Air 09/07/18 08:34 100 130/81 09/07/18 08:00 99.4 100 18 130/81 (97) 99 09/07/18 04:00 98.2 95 16 137/81 (99) 92 09/07/18 00:00 99.3 93 18 143/71 (95) 95 Intake and Output 09/06/18 09/07/18 18:59 06:59 Intake Total 1080 ml 375 ml Output Total 200 ml 600 ml Balance 880 ml -225 ml Intake Oral 780 ml 300 ml IV Total 300 ml 75 ml Output Urine Total 200 ml 600 ml # Voids 1 Laboratory Tests 09/07/18 06:27: White Blood Count 8.4, Red Blood Count 4.58L, Hemoglobin 12.8L, Hematocrit 38.3L , Mean Corpuscular Volume 84, Mean Corpuscular Hemoglobin 27.8, Mean Corpuscular Hemoglobin Concent 33.3, Red Cell Distribution Width 12.8, Platelet Count 206, Mean Platelet Volume 7.5, Neutrophils (%) (Auto) 70.0, Lymphocytes (% ) (Auto) 21.7, Monocytes (%) (Auto) 7.4, Eosinophils (%) (Auto) 0.7, Basophils ( %) (Auto) 0.3, Sodium Level 134L, Potassium Level 3.5, Chloride Level 100, Carbon Dioxide Level 29, Anion Gap 5, Blood Urea Nitrogen 19H, Creatinine 1.0, Estimat Glomerular Filtration Rate > 60, Glucose Level 114H, Uric Acid 7.4H, Calcium Level 8.7, Phosphorus Level 2.5, Magnesium Level 1.6L, Total Bilirubin 0.6, Aspartate Amino Transf (AST/SGOT) 11L, Alanine Aminotransferase (ALT/SGPT) 14, Alkaline Phosphatase 83, Pro-B-Type Natriuretic Peptide 159H, Total Protein 8.1, Albumin 2.8L, Globulin 5.3, Albumin/Globulin Ratio 0.5L 09/07/18 08:27: C-Reactive Protein, Quantitative 22.1H Height (Feet): 5 Height (Inches): 9.00 Weight (Pounds): 238 Neck: supple Cardiovascular: normal rate Respiratory/Chest: lungs clear Abdomen: soft Jono Quiros MD Sep 07, 2018 21:38
--- NOTE | 2018-09-08 | Consultation ---
DATE OF CONSULTATION: 09/07/2018 CONSULTING PHYSICIAN: Benigno Trevino M.D. REFERRING PHYSICIAN: Jono Quiros M.D. PHYSICIAN [employer] ATTENDANT: Owen Machado CHIEF COMPLAINT: Bilateral lower extremity pain. HISTORY OF PRESENT ILLNESS: This is a 58-year-old male who is being seen on the Med/Surg floor of [facility] for initial comprehensive pain management consultation. The patient was admitted under the care of Dr. Quiros complaining of hypokalemia. He has bilateral lower extremity pain due to nonhealing ulcers. The patient is confused due to history of dementia. Information was mainly received from the patient as well as from the nurse who is taking care of the patient. The patient seems comfortable in the bed. Reports no pain at this time. On tramadol 50 mg tablet every 12 hours. However, does have pain throughout the day and night. Due to this, we were consulted to help the patient to have adequate pain control while here in the hospital. PAST MEDICAL HISTORY: Morbid obesity, dementia, hypertension, CHF, peripheral vascular disease, and history of decubitus ulcer. SOCIAL HISTORY: As per chart, denies smoking, drinking, or drug abuse. ALLERGIES: No known drug allergies. REVIEW OF SYSTEMS: Denies rash, fever, chills, sweating, dizziness, drowsiness, blurred vision, sore throat, or change in weight. C/o pain in bilateral lower extremities. PHYSICAL EXAMINATION: GENERAL: Alert, awake, and oriented. VITAL SIGNS: Blood pressure 130/81, heart rate is 100, oxygen saturation 99%, respiratory rate 18, and temperature is 99.4 degrees Fahrenheit. HEENT: PERRLA. NECK: Range of motion is full in all directions. No tenderness to paracervical muscles. No adenopathy. LUNGS: Decreased breath sounds bilaterally. HEART: S1 and S2 regular. ABDOMEN: Soft and nontender. BACK: Range of motion is full on flexion and extension. EXTREMITIES: Upper extremity range of motion is full in all directions. No cyanosis. No clubbing. No edema. Sensory is intact. Reflexes are not obtainable. No adenopathy. Lower extremity with reduced range of motion due to the patient's condition with bandages applied and tenderness to palpation. ASSESSMENT AND PLAN: This is a 58-year-old male with bilateral nonhealing ulcers and bilateral lower extremity pain. The patient will be continued on tramadol 50 mg tablet every six hours as needed for pain. The patient was discussed with Dr. Trevino and Dr. Trevino concurred. We will follow this patient. Thank you very much for the courtesy of this consultation. Benigno Trevino M.D. ZHANNA Machado DR: EMILY JOB#: [id number] CC: KALIE
[2018-09-08] MEDS: D5NS w/KCl 40mEq 1000ml 1,000 ML IV SCH (00:05)
[2018-09-08 00:07] VITALS: BP 126/86
[2018-09-08 04:00] VITALS: BP 120/76
[2018-09-08 06:18] VITALS: BP 120/76
[2018-09-08 06:47] LABS: BASOPHILS % (AUTO) 0.4 % (0.0-2.0); EOSINOPHILS % (AUTO) 1.7 % (0.0-3.0); HEMATOCRIT 36.8 % (42.0-52.0); HEMOGLOBIN 12.5 G/DL (14.2-18.0); LYMPHOCYTES % (AUTO) 27.3 % (20.0-45.0); MEAN CORPUSCULAR VOLUME 83 FL (80-99); MONOCYTES % (AUTO) 6.5 % (1.0-10.0); NEUTROPHILS % (AUTO) 64.1 % (45.0-75.0); PLATELET COUNT 216 K/UL (150-450); RED BLOOD COUNT 4.41 M/UL (4.70-6.10); RED CELL DISTRIBUTION WIDTH 12.7 % (11.6-14.8); WHITE BLOOD COUNT 8.9 K/UL (4.8-10.8)
[2018-09-08 07:02] LABS: ALANINE AMINOTRANSFERASE 20 U/L (12-78); ALBUMIN 2.7 G/DL (3.4-5.0); ALBUMIN/GLOBULIN RATIO 0.5 (1.0-2.7); ALKALINE PHOSPHATASE 84 U/L (46-116); ANION GAP 7 mmol/L (5-15); ASPARTATE AMINO TRANSFERASE 18 U/L (15-37); BILIRUBIN,TOTAL 0.8 MG/DL (0.2-1.0); BLOOD UREA NITROGEN 16 mg/dL (7-18); CALCIUM 8.9 MG/DL (8.5-10.1); CARBON DIOXIDE 28 MMOL/L (21-32); CHLORIDE 99 MMOL/L (98-107); PHOSPHORUS 2.6 MG/DL (2.5-4.9); POTASSIUM 3.7 MMOL/L (3.5-5.1); SODIUM 134 MMOL/L (136-145)
[2018-09-08 08:00] VITALS: BP 123/83
[2018-09-08] MEDS: Docusate 250mg cap ORAL SCH (09:03)
[2018-09-08] MEDS: Metoprolol Tartrate 12.5mg TAB ORAL SCH (09:03)
[2018-09-08] MEDS: Ascorbic Acid 500mg tab ORAL SCH (09:04)
[2018-09-08] MEDS: Heparin 5000 units/ml inj SUBQ SCH (09:06)
--- NOTE | 2018-09-08 09:10 | General Progress Note ---
Assessment/Plan Assessment/Plan (1) B/L LE pain (2) B/L LE Non healing ulcers Pt to be continued on Tramadol as needed. D/w Dr. Trevino and he concurred. Subjective Date patient seen: Sep 08, 2018 Time patient seen: 07:30 - am Constitutional: Reports: weakness HEENT: Reports: no symptoms Cardiovascular: Reports: no symptoms Respiratory: Reports: no symptoms Gastrointestinal/Abdominal: Reports: no symptoms Genitourinary: Reports: no symptoms Neurologic/Psychiatric: Reports: weakness Endocrine: Reports: no symptoms Hematologic/Lymphatic: Reports: no symptoms Allergies: Coded Allergies: No Known Allergies (Unverified , 06/22/14) Subjective Patient is in bed showing no signs of pain. Says that he is feeling better. Has requested on dose of Tramadol in the last 24hrs. Objective Last 24 Hour Vital Signs Date Time Temp Pulse Resp B/P (MAP) Pulse Ox O2 Delivery O2 Flow Rate FiO2 09/08/18 09:03 89 123/83 09/08/18 08:00 97.9 89 20 123/83 (96) 98 09/08/18 04:00 97.3 86 19 120/76 (91) 97 09/08/18 00:07 98.1 86 19 126/86 (99) 94 09/07/18 23:56 98.7 09/07/18 22:08 Room Air 09/07/18 20:47 98 122/75 09/07/18 20:12 98.7 98 18 122/75 (91) 96 09/07/18 16:00 97.9 72 20 133/58 (83) 100 09/07/18 12:00 98.1 86 20 123/78 (93) 95 Intake and Output 09/07/18 09/08/18 19:00 07:00 Intake Total 1270 ml 1065 ml Output Total 1200 ml 1250 ml Balance 70 ml -185 ml Intake Oral 420 ml 240 ml IV Total 850 ml 825 ml Output Urine Total 1200 ml 1250 ml Laboratory Tests 09/08/18 05:20: White Blood Count 8.9, Red Blood Count 4.41L, Hemoglobin 12.5L, Hematocrit 36.8L , Mean Corpuscular Volume 83, Mean Corpuscular Hemoglobin 28.3, Mean Corpuscular Hemoglobin Concent 33.9, Red Cell Distribution Width 12.7, Platelet Count 216, Mean Platelet Volume 7.5, Neutrophils (%) (Auto) 64.1, Lymphocytes (% ) (Auto) 27.3, Monocytes (%) (Auto) 6.5, Eosinophils (%) (Auto) 1.7, Basophils ( %) (Auto) 0.4, Sodium Level 134L, Potassium Level 3.7, Chloride Level 99, Carbon Dioxide Level 28, Anion Gap 7, Blood Urea Nitrogen 16, Creatinine 1.0, Estimat Glomerular Filtration Rate > 60, Glucose Level 114H, Uric Acid 6.2, Calcium Level 8.9, Phosphorus Level 2.6, Magnesium Level 1.8, Total Bilirubin 0.8, Aspartate Amino Transf (AST/SGOT) 18, Alanine Aminotransferase (ALT/SGPT) 20, Alkaline Phosphatase 84, Total Protein 8.2, Albumin 2.7L, Globulin 5.5, Albumin/Globulin Ratio 0.5L Height (Feet): 5 Height (Inches): 9.00 Weight (Pounds): 238 General Appearance: no apparent distress, alert EENT: PERRL/EOMI, normal ENT inspection Cardiovascular: normal rate, regular rhythm Respiratory/Chest: lungs clear, normal breath sounds Abdomen: non tender, soft Extremities: swelling Edema: trace edema Neurologic: alert, responsive Lokesh Pierce Sep 08, 2018 09:10
[2018-09-08] MEDS: traMADol 50mg tab ORAL PRN (09:14)
--- NOTE | 2018-09-08 09:49 | Nephrology Progress Note ---
Assessment/Plan Problem List: (1) GIDEON (acute kidney injury) (2) Hypokalemia (3) Hypomagnesemia Assessment Hypokalemia was On Lasix and Zaroxylin Hypomagnesemia Renal insufficiency Contusion of left shoulder Colostomy Plan K and Mag supplement Adjust diuretics on patient's med list Monitor lytes check CPK 2D Echo ej fx 70 % Per orders Subjective ROS Limited/Unobtainable: No Objective Objective Last 24 Hour Vital Signs Date Time Temp Pulse Resp B/P (MAP) Pulse Ox O2 Delivery O2 Flow Rate FiO2 09/08/18 09:03 89 123/83 09/08/18 09:00 Room Air 09/08/18 08:00 97.9 89 20 123/83 (96) 98 09/08/18 04:00 97.3 86 19 120/76 (91) 97 09/08/18 00:07 98.1 86 19 126/86 (99) 94 09/07/18 23:56 98.7 09/07/18 22:08 Room Air 09/07/18 20:47 98 122/75 09/07/18 20:12 98.7 98 18 122/75 (91) 96 09/07/18 16:00 97.9 72 20 133/58 (83) 100 09/07/18 12:00 98.1 86 20 123/78 (93) 95 Intake and Output 09/07/18 09/08/18 19:00 07:00 Intake Total 1270 ml 1065 ml Output Total 1200 ml 1250 ml Balance 70 ml -185 ml Intake Oral 420 ml 240 ml IV Total 850 ml 825 ml Output Urine Total 1200 ml 1250 ml Laboratory Tests 09/08/18 05:20: White Blood Count 8.9, Red Blood Count 4.41L, Hemoglobin 12.5L, Hematocrit 36.8L , Mean Corpuscular Volume 83, Mean Corpuscular Hemoglobin 28.3, Mean Corpuscular Hemoglobin Concent 33.9, Red Cell Distribution Width 12.7, Platelet Count 216, Mean Platelet Volume 7.5, Neutrophils (%) (Auto) 64.1, Lymphocytes (% ) (Auto) 27.3, Monocytes (%) (Auto) 6.5, Eosinophils (%) (Auto) 1.7, Basophils ( %) (Auto) 0.4, Sodium Level 134L, Potassium Level 3.7, Chloride Level 99, Carbon Dioxide Level 28, Anion Gap 7, Blood Urea Nitrogen 16, Creatinine 1.0, Estimat Glomerular Filtration Rate > 60, Glucose Level 114H, Uric Acid 6.2, Calcium Level 8.9, Phosphorus Level 2.6, Magnesium Level 1.8, Total Bilirubin 0.8, Aspartate Amino Transf (AST/SGOT) 18, Alanine Aminotransferase (ALT/SGPT) 20, Alkaline Phosphatase 84, Total Protein 8.2, Albumin 2.7L, Globulin 5.5, Albumin/Globulin Ratio 0.5L Height (Feet): 5 Height (Inches): 9.00 Weight (Pounds): 238 General Appearance: no apparent distress Objective no change Curtis Lee MD Sep 08, 2018 09:49
[2018-09-08 12:00] VITALS: BP 121/81
--- NOTE | 2018-09-11 09:47 | Discharge Summary ---
Discharge Summary Discharge Summary _ DATE OF ADMISSION: 09/04/2018 DATE OF DISCHARGE: 09/08/2018 REASON FOR ADMISSION: 58 years old male with past medical history of peripheral vascular disease, hypertension, hypercholesterolemia, colostomy, was sent from the retirement facility by his primary physician for evaluationdue to resistant hypokalemia. Patient also reported fall 2 days ago with ensuing pain in the left shoulder. Patient apparently had hypokalemia , which was resistant to oral replacement . Patient received oral supplementation of potassium for several days, however on admission potassium was still 2.6, magnesium was 1.1 . BMP revealed evidence of renal insufficiency with BUN 26 creatinine 1.4. Troponin was negative. EKG revealed sinus rhythm with flattened T waves. Chest x-ray showed left basilar atelectasis, otherwise no acute process was noted. X-ray of left shoulder revealed no evidence of trauma or dislocation. In emergency department sling to left shoulder was applied. Neurovascular status afterwards was checked and was stable. Patient admitted for replacement of electrolytes and further management with diagnosis of hypokalemia ,hypomagnesemia ,acute kidney injury ,left shoulder contusion, colostomy, peripheral vascular disease. CONSULTANTS: fire truck driver Dr. Lee pain specialist Dr. Trevino [facility] COURSE: Patient admitted to Med Surg floor. Nephrology consult was requested. Patient apparently was on Lasix and Zaroxolyn prior to discovery of low potassium. Potassium and magnesium were repleted. Potassium 3.7 prior to discharge. Echocardiogram revealed preserved ejection fraction of 70%. Renal parameters were closely monitored. Nephrotoxins were avoided. Prior to discharge BUN from 26 down to 16, and creatinine from 1.4 down to 1.0. Acute kidney injury resolve, likely due to diuretic use as well. Diuretic regimen was optimized as per fire truck driver with close further monitoring of electrolytes and renal parameters in the facility. Colostomy care provided. DVT prophylaxis provided. Pain management was addressed as per pain specialist recommendations, and pain was controlled. Podiatry consult was requested due to venous stasis ulcers bilateral legs. Burning Plant Operator recommended wound care with compression dressing and Ulna boots. He anticipated better healing of bilateral ulceration with this treatment. Supportive care provided. Bowel regimen instituted . Patient clinically improved and was stable for discharge back to retirement facility for continuation of care. FINAL DIAGNOSES: Hypokalemia secondary to diuretic ( Lasix and Zaroxyline, resistant to oral replacement) -resolved Hypomagnesemia Acute kidney injury -resolved Left shoulder contusion Colostomy status Peripheral vascular disease Venous stasis ulcer bilateral legs DISCHARGE MEDICATIONS: See Medication Reconciliation list. DISCHARGE INSTRUCTIONS: Patient was discharged to the retirement facility. Follow up with medical doctor at the facility. I have been assigned to dictate discharge summary for this account. I was not involved in the patient's management. Bev Gonzalez NP Sep 11, 2018 09:47
== END 2018-09-08 16:19 | DRG 425 ==
LOC: EDBD 16:33 → EMR 17:18 → 4E 17:35 → EDBEDREQ 18:22 → 4E 09-05 00:07
DX: E87.6 Hypokalemia (principal); N17.9 Acute kidney failure, unspecified; E83.42 Hypomagnesemia; F03.90 Unspecified dementia, unspecified severity, without behavioral disturbance, psychotic disturbance, mood disturbance, and anxiety; I83.018 Varicose veins of right lower extremity with ulcer other part of lower leg; L97.811 Non-pressure chronic ulcer of other part of right lower leg limited to breakdown of skin; Z43.3 Encounter for attention to colostomy; T50.1X5A Adverse effect of loop [high-ceiling] diuretics, initial encounter; T50.2X5A Adverse effect of carbonic-anhydrase inhibitors, benzothiadiazides and other diuretics, initial encounter; S40.012A Contusion of left shoulder, initial encounter; X58.XXXA Exposure to other specified factors, initial encounter; I73.9 Peripheral vascular disease, unspecified; L97.821 Non-pressure chronic ulcer of other part of left lower leg limited to breakdown of skin; I83.028 Varicose veins of left lower extremity with ulcer other part of lower leg
CPT/HCPCS: 36415; 71045; 80053; 80307; 81003; 82550; 82977; 83735; 83880; 84100; 84300; 84443; 84484; 84550; 85025; 85610; 85730; 86140; 87070; 87081; 87181; 87205; 93005; 93306; 96365; 96367; 96375; 99285; J2405; J8499

== ENCOUNTER 2019-06-04 12:18 | Inpatient (IN) | payer MEDICAID ==
[~2019-06-04] VITALS: Ht 165.1 cm; Wt 111.6 kg
[~2019-06-04 12:18] MED LIST changes: +BACTROBAN15 GM TOPIC; +BISACODYL PO; +GABAPENTIN100 MG ORAL; +HEPARIN SO5000 UNIT2 SUBQ; +VITAMELTS FAST15 MG PO; +ZOFRAN4 M1 ORAL
[2019-06-04] MEDS ORDERED: CELEBREX200 MG ORAL (12:30)
--- NOTE | 2019-06-04 12:30 | NUR ---
ED Nurse Note: pt relates he vomited this am while eating breakfast and states he saw a little dark blood in it. relates mild abd discomfort earlier but none now. pt also reports that his colostomy bag is leaking and needs to be changed no heme noted in stool in colostomy bag. pt is awake and alert at his normal mentation
[2019-06-04 12:45] LABS: APPEARANCE,URINE CLEAR; BILIRUBIN, URINE NEGATIVE (NEGATIVE); GLUCOSE, URINE (UA) NEGATIVE (NEGATIVE); KETONES,URINE 1+ (NEGATIVE); LEUKOCYTE ESTERASE ,URINE 1+ (NEGATIVE); NITRITE,URINE NEGATIVE (NEGATIVE); PH,URINE 5 (4.5-8.0); PROTEIN,URINE 1+ (NEGATIVE); UROBILINOGEN,URINE NORMAL MG/DL (0.0-1.0)
[2019-06-04] MEDS ORDERED: Pantoprazole Inj IV ONE (12:45)
[2019-06-04 12:49] LABS: BASOPHILS % (AUTO) 0.4 % (0.0-2.0); EOSINOPHILS % (AUTO) 0.6 % (0.0-3.0); HEMATOCRIT 47.4 % (42.0-52.0); HEMOGLOBIN 14.8 G/DL (14.2-18.0); LYMPHOCYTES % (AUTO) 22.5 % (20.0-45.0); MEAN CORPUSCULAR VOLUME 86 FL (80-99); MONOCYTES % (AUTO) 5.2 % (1.0-10.0); NEUTROPHILS % (AUTO) 71.4 % (45.0-75.0); PLATELET COUNT 324 K/UL (150-450); RED BLOOD COUNT 5.51 M/UL (4.70-6.10); RED CELL DISTRIBUTION WIDTH 12.8 % (11.6-14.8); WHITE BLOOD COUNT 10.3 K/UL (4.8-10.8)
[2019-06-04 12:57] LABS: COLOR,URINE YELLOW
[2019-06-04 13:00] LABS: ANION GAP 9 mmol/L (5-15); BLOOD UREA NITROGEN 38 mg/dL (7-18); CALCIUM 9.4 MG/DL (8.5-10.1); CARBON DIOXIDE 29 MMOL/L (21-32); CHLORIDE 102 MMOL/L (98-107); CREATININE 1.6 MG/DL (0.55-1.30); INR 1.1 (0.9-1.1); POTASSIUM 3.7 MMOL/L (3.5-5.1); SODIUM 140 MMOL/L (136-145)
[2019-06-04 13:05] LABS: ALANINE AMINOTRANSFERASE 16 U/L (12-78); ALBUMIN 3.6 G/DL (3.4-5.0); ALBUMIN/GLOBULIN RATIO 0.7 (1.0-2.7); ALKALINE PHOSPHATASE 102 U/L (46-116); ASPARTATE AMINO TRANSFERASE 17 U/L (15-37); BILIRUBIN,TOTAL 0.5 MG/DL (0.2-1.0)
[2019-06-04 13:10] VITALS: BP 108/68
--- NOTE | 2019-06-04 13:30 | NUR ---
ED Nurse Note: pt without n/v/ abd pain while in ed tolerating ivf well.
--- NOTE | 2019-06-04 13:33 | Emergency Room Report ---
History of Present Illness General Chief Complaint: Gastrointestinal Bleed Source: Medical Record Present Illness HPI 59-year-old male presents ED for evaluation. Brought in by EMS from [facility] facility. Had multiple episodes of coffee-ground emesis this morning. History of dementia. History of colostomy. Denies abdominal pain. States he feels nauseous. Denies fevers or chills. Denies chest pain. No other aggravating relieving factors. Denies any other associated symptoms Allergies: Coded Allergies: No Known Allergies (Unverified , 06/22/14) Patient History Past Medical History: HTN, dementia, other - colostomy Past Surgical History: none Pertinent Family History: none Social History: Denies: smoking, alcohol use, drug use Immunizations: UTD Reviewed Nursing Documentation: PMH: Agreed; PSxH: Agreed Nursing Documentation-PMH Past Medical History: No History, Except For Hx Cardiac Problems: Yes - Hyperlipidemia, generalized atherosclerosis, venous insufficency Hx Hypertension: Yes Hx Cancer: No Hx Gastrointestinal Problems: Yes - colostomy Hx Neurological Problems: Yes Hx Dementia: Yes Review of Systems All Other Systems: negative except mentioned in HPI Physical Exam Vital Signs Date Time Temp Pulse Resp B/P (MAP) Pulse Ox O2 Delivery O2 Flow Rate FiO2 06/04/19 12:24 98.1 72 18 132/85 (101) 99 Room Air Sp02 EP Interpretation: reviewed, normal General Appearance: no apparent distress, alert, GCS 15, non-toxic, obese Head: normocephalic, atraumatic Eyes: bilateral eye normal inspection, bilateral eye PERRL ENT: hearing grossly normal, normal pharynx, no angioedema, normal voice Neck: full range of motion, supple/symm/no masses Respiratory: chest non-tender, lungs clear, normal breath sounds, speaking full sentences Cardiovascular #1: regular rate, rhythm, no edema Cardiovascular #2: 2+ carotid (R), 2+ carotid (L), 2+ radial (R), 2+ radial (L) , 2+ dorsalis pedis (R), 2+ dorsalis pedis (L) Gastrointestinal: normal bowel sounds, non tender, soft, non-distended, no guarding, no rebound, other - colostomy patent Rectal: deferred Genitourinary: normal inspection, no CVA tenderness Musculoskeletal: back normal, gait/station normal, normal range of motion, non- tender Neurologic: alert, oriented x3, responsive, motor strength/tone normal, sensory intact, speech normal Psychiatric: judgement/insight normal, memory normal, mood/affect normal, no suicidal/homicidal ideation Reflexes: 3+ bicep (R), 3+ bicep (L), 3+ tricep (R), 3+ tricep (L), 3+ knee (R) , 3+ knee (L) Lymphatic: no adenopathy Medical Decision Making Diagnostic Impression: Primary Impression: UGIB (upper gastrointestinal bleed) Additional Impression: Renal insufficiency ER Course Hospital Course 59 yo M presents to ED with coffee ground emesis. Differential diagnoses include: UGIB, LGIB, hemorrhoids Clinical course Patient placed on stretcher. library monitor. After initial history and physical I ordered labs, IV fluids, EKG, zofran, pepcid. Labs - no leukocytosis, Hb/Hct stable. BUN/Cr elevated. EKG - NSR, no acute ischemic changes interpreted by me Case discussed with Dr. Quiros and he agreed to accept the patient to his service for further care and support I feel this is a highly complex case requiring extensive working including EKG/ Rhythm strip, Xray/CT/US, Blood/urine lab work, repeat exams while in ED, and administration of strong opiates/narcotics for pain control, admission to hospital or close patient follow up. Diagnosis - UGIB, renal insuffieincy Patient admitted to telemetry in serious condition Labs Test 06/04/19 12:25 06/04/19 12:35 Urine Color Yellow Urine Appearance Clear Urine pH 5 (4.5-8.0) Urine Specific [place] 1.020 (1.005-1.035) Urine Protein 1+ (NEGATIVE) Urine Glucose (UA) Negative (NEGATIVE) Urine Ketones 1+ (NEGATIVE) Urine Blood Negative (NEGATIVE) Urine Nitrite Negative (NEGATIVE) Urine Bilirubin Negative (NEGATIVE) Urine Urobilinogen Normal MG/DL (0.0-1.0) Urine Leukocyte Esterase 1+ (NEGATIVE) Urine RBC 0-2 /HPF (0 - 0) Urine WBC 2-4 /HPF (0 - 0) Urine Squamous Epithelial Cells Occasional /LPF Urine Bacteria Occasional /HPF (NONE) Urine Hyaline Casts 0-2 /LPF (NONE) White Blood Count 10.3 K/UL (4.8-10.8) Red Blood Count 5.51 M/UL (4.70-6.10) Hemoglobin 14.8 G/DL (14.2-18.0) Hematocrit 47.4 % (42.0-52.0) Mean Corpuscular Volume 86 FL (80-99) Mean Corpuscular Hemoglobin 26.8 PG (27.0-31.0) Mean Corpuscular Hemoglobin Concent 31.1 G/DL (32.0-36.0) Red Cell Distribution Width 12.8 % (11.6-14.8) Platelet Count 324 K/UL (150-450) Mean Platelet Volume 7.1 FL (6.5-10.1) Neutrophils (%) (Auto) 71.4 % (45.0-75.0) Lymphocytes (%) (Auto) 22.5 % (20.0-45.0) Monocytes (%) (Auto) 5.2 % (1.0-10.0) Eosinophils (%) (Auto) 0.6 % (0.0-3.0) Basophils (%) (Auto) 0.4 % (0.0-2.0) Prothrombin Time 11.4 SEC (9.30-11.50) Prothromb Time International Ratio 1.1 (0.9-1.1) Activated Partial Thromboplast Time 33 SEC (23-33) Sodium Level 140 MMOL/L (136-145) Potassium Level 3.7 MMOL/L (3.5-5.1) Chloride Level 102 MMOL/L (98-107) Carbon Dioxide Level 29 MMOL/L (21-32) Anion Gap 9 mmol/L (5-15) Blood Urea Nitrogen 38 mg/dL (7-18) Creatinine 1.6 MG/DL (0.55-1.30) Estimat Glomerular Filtration Rate 53.9 mL/min (>60) Glucose Level 92 MG/DL (74-106) Calcium Level 9.4 MG/DL (8.5-10.1) Total Bilirubin 0.5 MG/DL (0.2-1.0) Aspartate Amino Transf (AST/SGOT) 17 U/L (15-37) Alanine Aminotransferase (ALT/SGPT) 16 U/L (12-78) Alkaline Phosphatase 102 U/L (46-116) Total Protein 9.1 G/DL (6.4-8.2) Albumin 3.6 G/DL (3.4-5.0) Globulin 5.5 g/dL Albumin/Globulin Ratio 0.7 (1.0-2.7) Lipase 60 U/L (73-393) EKG Diagnostic Results Rate: normal Rhythm: NSR ST Segments: no acute changes ASA given to the pt in ED: No Rhythm Strip Diag. Results EP Interpretation: yes Rhythm: NSR, no PVC's, no ectopy Last Vital Signs Date Time Temp Pulse Resp B/P (MAP) Pulse Ox O2 Delivery O2 Flow Rate FiO2 06/04/19 13:10 83 16 108/68 99 Room Air 06/04/19 12:24 98.1 Status: improved Disposition: ADMITTED INPATIENT Condition: Serious Referrals: Jono Quiros MD (PCP) Bakari Teixeira MD Jun 04, 2019 13:33
--- NOTE | 2019-06-04 14:10 | NUR ---
ED Nurse Note: pt with cleansing of stoma/colostomy site of stool.new colostomy bag applied. pt with bilat lower legs redressed with kerlix wrap due to skin with crusted serosanguinous wounds. pt tolerates all well. images scanned as noted in emr. mrsa, vre, cre swabs sent as protocol. pt with mild exp wheezes noted when repositioning self during rn interventions.
--- NOTE | 2019-06-04 15:01 | NUR ---
ED Nurse Note: report given to shahrzad madrid
[2019-06-04 15:02] VITALS: BP 108/69
--- NOTE | 2019-06-04 15:02 | NUR ---
ED Nurse Note: PA here to corrina pt prior to tele transfer to 221
--- NOTE | 2019-06-04 15:33 | GI Initial Consult Note ---
History of Present Illness General Date patient seen: Jun 04, 2019 Time patient seen: 15:22 Reason for Hospitalization: Gastrointestinal Bleed Referring physician: VIKTOR RAGSDALE Reason for Consultation: HEMATEMESIS Present Illness HPI 59-year-old male presents ED for evaluation. Brought in by EMS from long term facility. Had multiple episodes of coffee-ground emesis this morning. History of dementia. History of colostomy. Denies abdominal pain. States he feels nauseous. Denies fevers or chills. Denies chest pain. No other aggravating relieving factors. Denies any other associated symptoms. GI consulted for reported multiple episodes of coffee-ground. Patient seen in the emergency room, awake alert and oriented x4. No apparent distress. Denies any abdominal pain at this time. Denies any patient. Noted that the patient has a colostomy present, which the stoma appears of red dark and inflamed and with scant amounts of blood in the colostomy bag. The patient stated he had an episode of hematemesis x1 after p.o. intake. Patient has no history of endoscopy. Labs reviewed: Hemoglobin 14.8, hematocrit 47.4. PT 11.4, INR 1.1, PTT 33. Creatinine 1.6, lipase of 60. Home Meds Reported Medications Celecoxib* (CELEBREX*) 200 Mg Capsule, 200 MG ORAL DAILY, CAP 06/04/19 Heparin Sod (Porcine) (HEPARIN SODIUM*) 5 000/1 Ml Vial, 5000 UNITS SUBQ EVERY 12 HOURS, VIAL 09/04/18 Zinc Oxide (Vitamelts Fast Dissolve) 15 Mg Tab.rapdis, 15 MG PO, TAB 09/04/18 Gabapentin* (GABAPENTIN*) 100 Mg Capsule, 300 MG ORAL THREE TIMES A DAY, CAP 09/04/18 Ondansetron (Zofran) 4 Mg Tablet, 4 MG ORAL Q6H PRN for Nausea & Vomiting, TAB 09/04/18 Bisacodyl (BISACODYL) 1 Gm Powder, 5 MG PO BID, GM 09/04/18 Mupirocin (BACTROBAN CR) 15 Gm Cream..g., 1 APPLIC TOPIC DAILY, GM 09/04/18 Ascorbic Acid* (VITAMIN C*) 500 Mg Tablet, 500 MG ORAL DAILY, #30 TAB 0 Refills 06/22/14 Tramadol Hcl* (ULTRAM*) 50 Mg Tablet, 100 MG ORAL Q6H PRN for For Pain, #30 TAB 0 Refills 06/22/14 Acetaminophen (Acetaminophen) 650 Mg/20.3 Ml Soln, 650 MG ORAL Q6H PRN for Prn Headache/Temp > 101, ML 0 Refills 06/22/14 Potassium Chloride (POTASSIUM CHLORIDE) 20 Meq Packet, 100 MEQ ORAL DAILY, PKT 0 Refills 06/22/14 Multivitamins* (MULTIVITAMINS*) 1 Each Tablet, 1 TAB ORAL DAILY, TAB 0 Refills 06/22/14 Metolazone* (ZAROXOLYN*) 5 Mg Tablet, 5 MG ORAL DAILY, TAB 06/22/14 Magnesium Oxide (MAGNESIUM OXIDE) 400 Mg Tablet, 400 MG ORAL BID, #30 TAB 0 Refills 06/22/14 Furosemide* (LASIX*) 40 Mg Tablet, 40 MG ORAL DAILY, TAB 06/22/14 Docusate Sodium (Docusate Sodium) 250 Mg Cap, 250 MG ORAL DAILY, CAP 06/22/14 Med list reviewed/reconciled: Yes Allergies: Coded Allergies: No Known Allergies (Unverified , 06/22/14) Patient History History Provided By: Patient, Medical Record PMH Narrative Past Medical History: HTN, dementia, other - colostomy Past Surgical History: none Pertinent Family History: none Social History: Denies: smoking, alcohol use, drug use Immunizations: UTD Reviewed Nursing Documentation: PMH: Agreed; PSxH: Agreed Nursing Documentation-PM Past Medical History: No History, Except For Hx Cardiac Problems: Yes - Hyperlipidemia, generalized atherosclerosis, venous insufficiency Hx Hypertension: Yes Hx Cancer: No Hx Gastrointestinal Problems: Yes - colostomy Hx Neurological Problems: Yes Hx Dementia: Yes Social History: Denies: smoking, alcohol use, drug use, other Review of Systems All Other Systems: negative except mentioned in HPI Physical Exam Vital Signs Date Time Temp Pulse Resp B/P (MAP) Pulse Ox O2 Delivery O2 Flow Rate FiO2 06/04/19 12:24 98.1 72 18 132/85 (101) 99 Room Air Sp02 EP Interpretation: reviewed, normal Labs Laboratory Tests Test 06/04/19 12:25 06/04/19 12:35 Urine Color Yellow Urine Appearance Clear Urine pH 5 (4.5-8.0) Urine Specific [place] 1.020 (1.005-1.035) Urine Protein 1+ (NEGATIVE) H Urine Glucose (UA) Negative (NEGATIVE) Urine Ketones 1+ (NEGATIVE) H Urine Blood Negative (NEGATIVE) Urine Nitrite Negative (NEGATIVE) Urine Bilirubin Negative (NEGATIVE) Urine Urobilinogen Normal MG/DL (0.0-1.0) Urine Leukocyte Esterase 1+ (NEGATIVE) H Urine RBC 0-2 /HPF (0 - 0) H Urine WBC 2-4 /HPF (0 - 0) Urine Squamous Epithelial Cells Occasional /LPF Urine Bacteria Occasional /HPF (NONE) Urine Hyaline Casts 0-2 /LPF (NONE) H White Blood Count 10.3 K/UL (4.8-10.8) Red Blood Count 5.51 M/UL (4.70-6.10) Hemoglobin 14.8 G/DL (14.2-18.0) Hematocrit 47.4 % (42.0-52.0) Mean Corpuscular Volume 86 FL (80-99) Mean Corpuscular Hemoglobin 26.8 PG (27.0-31.0) L Mean Corpuscular Hemoglobin Concent 31.1 G/DL (32.0-36.0) L Red Cell Distribution Width 12.8 % (11.6-14.8) Platelet Count 324 K/UL (150-450) Mean Platelet Volume 7.1 FL (6.5-10.1) Neutrophils (%) (Auto) 71.4 % (45.0-75.0) Lymphocytes (%) (Auto) 22.5 % (20.0-45.0) Monocytes (%) (Auto) 5.2 % (1.0-10.0) Eosinophils (%) (Auto) 0.6 % (0.0-3.0) Basophils (%) (Auto) 0.4 % (0.0-2.0) Prothrombin Time 11.4 SEC (9.30-11.50) Prothromb Time International Ratio 1.1 (0.9-1.1) Activated Partial Thromboplast Time 33 SEC (23-33) Sodium Level 140 MMOL/L (136-145) Potassium Level 3.7 MMOL/L (3.5-5.1) Chloride Level 102 MMOL/L (98-107) Carbon Dioxide Level 29 MMOL/L (21-32) Anion Gap 9 mmol/L (5-15) Blood Urea Nitrogen 38 mg/dL (7-18) H Creatinine 1.6 MG/DL (0.55-1.30) H Estimat Glomerular Filtration Rate 53.9 mL/min (>60) Glucose Level 92 MG/DL (74-106) Calcium Level 9.4 MG/DL (8.5-10.1) Total Bilirubin 0.5 MG/DL (0.2-1.0) Aspartate Amino Transf (AST/SGOT) 17 U/L (15-37) Alanine Aminotransferase (ALT/SGPT) 16 U/L (12-78) Alkaline Phosphatase 102 U/L (46-116) C-Reactive Protein, Quantitative 9.7 mg/dL (0.00-0.90) H Total Protein 9.1 G/DL (6.4-8.2) H Albumin 3.6 G/DL (3.4-5.0) Globulin 5.5 g/dL Albumin/Globulin Ratio 0.7 (1.0-2.7) L Lipase 60 U/L (73-393) L General Appearance: well appearing, no apparent distress, alert Head: normocephalic EENT: PERRL/EOMI, normal ENT inspection Neck: supple Respiratory: normal breath sounds, no respiratory distress Cardiovascular: normal rate Gastrointestinal: normal inspection, non tender, soft, normal bowel sounds, non -distended, other - colostomy, see HPI. Rectal: deferred Genitourinary: deferred Musculoskeletal: normal inspection, back normal Neurologic: normal inspection, alert, oriented x3, responsive Psychiatric: normal inspection, judgement/insight normal, memory normal Skin: normal inspection, normal color, no rash, warm/dry, palpation normal, well hydrated Lymphatic: normal inspection, no adenopathy GI: Plan Problems: (1) Bleeding from colostomy (2) UGIB (upper gastrointestinal bleed) (3) Renal insufficiency Plan EGD scheduled for tomorrow. Maintain n.p.o. plus IV fluids PPI twice daily Monitor H&H, PRN transfusions recommend wound care consultation for inflamed stoma Zofran as needed IV and PO hydration follow-up with additional recommendations postprocedure Discussed with Dr. Petersen. Thank you for this patient referral, we will follow. The patient was seen and examined at bedside and all new and available data was reviewed in the patients chart. I agree with the above findings, impression and plan. (Patient seen earlier today. Signature stamp does not reflect patient encounter time.). - MD Silvina BlairDignity [facility] And Medical CenterBryant LI Jun 04, 2019 15:33
--- NOTE | 2019-06-04 16:13 | NUR ---
NURSE NOTES:WOUND CARE NOTES:Pt presented on admission with keloid scar with hyperpigmentation from previous wound sacrum and L ischial area. Xerosis skin R and L lower ext with scattered petechiae. Hemosiderin noted to both lower ext. Pt denied itching. Both heels are soft but blanchable. Tx.Plan: Wash both lower ext with Chlorhexidine Soap .Apply Lac Hydrin 12% lotion to Damp skin. Wrap with Kerlix from base of toes Twice daily and prn. Elevate both lower ext with pillows. Apply Moisture Barrier Paste to sacrum. Cover with Optifoam drsg. Change every 3 days and prn. Apply Moisture Barrier to both ischial areas and scrotum with each perineal care. Reposition at least every 2hours or as tolerated.
[2019-06-04 16:18] VITALS: BP 102/55
--- NOTE | 2019-06-04 16:20 | Consultation ---
Consult Note Consult Note I am asked to evaluate the patient for renal failure- Known to me from his Aug 2018 admission patient vomited last evening which contained blood Past Medical History: No History, Except For Hx Hypertension: Yes Hx Gastrointestinal Problems: Yes - colostomy interviewed examined has colostomy legs are bandaged data reviewed . Assessment/Plan Renal Failure: On Lasix and Zaroxilyn Upper GI bleed Colostomy ? UTI Plan: Urine culture Urine studies slow Hydrate Pain meds per orders Curtis Lee MD Jun 04, 2019 16:20
[2019-06-04] MEDS ORDERED: Acetaminophen 650mg/20.3ml ORAL PRN (16:30)
[2019-06-04] MEDS ORDERED: D5 1/2NS w/KCl 20mEq 1,000 ML IV SCH (17:00)
--- NOTE | 2019-06-04 17:18 | NUR ---
NURSE NOTES: received pt from ER with DX UPPER GI BLEED, awake, alert, oriented, vital signs stable, no co pain, no SOB, respiration regular, no any bleeding noted, pt has discoloration on sacral area, both low legs venous stasis dermatitis, wound nurse asses the pt, changed dressing, dr. Hirsch aware, pt has colostomy, bed in low position, call light within reach.
[2019-06-04] MEDS: Docusate 100mg tablet ORAL SCH (17:49)
[2019-06-04] MEDS: D5 1/2NS w/KCl 20mEq 1,000 ML IV SCH (17:51)
--- NOTE | 2019-06-04 19:21 | NUR ---
HAND-OFF: Report given to DANITA HINOJOSA.
--- NOTE | 2019-06-04 19:30 | NUR ---
NURSE NOTES: Received report fromDara RN, patient in bed resting no acute distress noted. Patient alert and oriented x4, able to make needs known. Will continue to monitor.
[2019-06-04 20:00] VITALS: BP_SYST 146; BP_SYST 86; BP_DIAS 100; BP_DIAS 57
[2019-06-04] MEDS: Pantoprazole Inj IVP SCH (21:32)
[2019-06-05] VITALS: BP_SYST 149; BP_SYST 92; BP_DIAS 63; BP_DIAS 99
[2019-06-05 04:00] VITALS: BP 85/57
[2019-06-05 07:18] LABS: INR 1.1 (0.9-1.1)
[2019-06-05 07:28] LABS: BASOPHILS % (AUTO) 0.7 % (0.0-2.0); EOSINOPHILS % (AUTO) 3.8 % (0.0-3.0); HEMATOCRIT 40.5 % (42.0-52.0); HEMOGLOBIN 12.8 G/DL (14.2-18.0); LYMPHOCYTES % (AUTO) 38.3 % (20.0-45.0); MEAN CORPUSCULAR VOLUME 86 FL (80-99); MONOCYTES % (AUTO) 6.1 % (1.0-10.0); NEUTROPHILS % (AUTO) 51.1 % (45.0-75.0); PLATELET COUNT 252 K/UL (150-450); RED CELL DISTRIBUTION WIDTH 12.7 % (11.6-14.8); WHITE BLOOD COUNT 5.4 K/UL (4.8-10.8)
--- NOTE | 2019-06-05 07:35 | NUR ---
NURSE NOTES: Nurse report given by ASHISH Mcwilliams. Patient's stable, sleeping in bed, supine position, no s/s of acute distress or SOB. Bed at lowest position, break engaged, call light within reach. IV is running fluid, no sign of redness or tenderness. Will continue to monitor.
--- NOTE | 2019-06-05 07:39 | NUR ---
HAND-OFF: Report given to ASHISH Skinner. Patient stable at hand-off.
[2019-06-05 07:43] LABS: % IRON SATURATION 39 % (15-50); IRON 86 ug/dL (50-175); TOTAL IRON BINDING CAPACITY 218 ug/dL (250-450)
--- NOTE | 2019-06-05 07:44 | Anethesia Preoperative Eval ---
Anesthesia Pre-op PMH/ROS General Date of Evaluation: Jun 05, 2019 Time of Evaluation: 07:41 Anesthesiologist: sandy ASA Score: ASA 3 Mallampati Score Class I : Soft palate, uvula, fauces, pillars visible Class II: Soft palate, uvula, fauces visible Class III: Soft palate, base of uvula visible Class IV: Only hard plate visible Mallampati Classification: Class II Surgeon: kamilah Diagnosis: gi bleed Surgical Procedure: egd Anesthesia History: none Social History: smoking - nonsmoker Family History: no anesthesia problems Allergies: Coded Allergies: No Known Allergies (Unverified , 06/22/14) Medications: see eMAR Patient NPO?: Yes Past Medical History Cardiovascular: Reports: HTN, other - atherosclerotic heart disease, hypercholesterolemia Gastrointestinal/Genitourinary: Reports: other - gi bleed, colostomy Neurologic/Psychiatric: Reports: dementia, depression/anxiety Hematology/Immune: Reports: anemia Musculoskeletal/Integumentary: Reports: OA, other - gout, decubitus ulcers, cellulitis Other: obesity Anesthesia Pre-op Phys. Exam Physician Exam Last Vital Signs Date Time Temp Pulse Resp B/P (MAP) Pulse Ox O2 Delivery O2 Flow Rate FiO2 06/05/19 04:00 65 06/05/19 04:00 97.5 16 85/57 (66) 95 06/04/19 21:00 Room Air Airway Exam Mallampati Score: Class II Anesthesia Pre-op A/P Labs Hematology Test 06/04/19 12:35 06/05/19 06:31 White Blood Count 10.3 K/UL (4.8-10.8) 5.4 K/UL (4.8-10.8) Red Blood Count 5.51 M/UL (4.70-6.10) 4.70 M/UL (4.70-6.10) Hemoglobin 14.8 G/DL (14.2-18.0) 12.8 G/DL (14.2-18.0) L Hematocrit 47.4 % (42.0-52.0) 40.5 % (42.0-52.0) L Mean Corpuscular Volume 86 FL (80-99) 86 FL (80-99) Mean Corpuscular Hemoglobin 26.8 PG (27.0-31.0) L 27.2 PG (27.0-31.0) Mean Corpuscular Hemoglobin Concent 31.1 G/DL (32.0-36.0) L 31.5 G/DL (32.0-36.0) L Red Cell Distribution Width 12.8 % (11.6-14.8) 12.7 % (11.6-14.8) Platelet Count 324 K/UL (150-450) 252 K/UL (150-450) Mean Platelet Volume 7.1 FL (6.5-10.1) 7.1 FL (6.5-10.1) Neutrophils (%) (Auto) 71.4 % (45.0-75.0) 51.1 % (45.0-75.0) Lymphocytes (%) (Auto) 22.5 % (20.0-45.0) 38.3 % (20.0-45.0) Monocytes (%) (Auto) 5.2 % (1.0-10.0) 6.1 % (1.0-10.0) Eosinophils (%) (Auto) 0.6 % (0.0-3.0) 3.8 % (0.0-3.0) H Basophils (%) (Auto) 0.4 % (0.0-2.0) 0.7 % (0.0-2.0) Coagulation Test 06/04/19 12:35 06/05/19 06:31 Prothrombin Time 11.4 SEC (9.30-11.50) 11.3 SEC (9.30-11.50) Prothromb Time International Ratio 1.1 (0.9-1.1) 1.1 (0.9-1.1) Activated Partial Thromboplast Time 33 SEC (23-33) 31 SEC (23-33) Chemistry Test 06/04/19 12:35 06/05/19 06:31 Sodium Level 140 MMOL/L (136-145) Pending Potassium Level 3.7 MMOL/L (3.5-5.1) Pending Chloride Level 102 MMOL/L (98-107) Pending Carbon Dioxide Level 29 MMOL/L (21-32) Pending Anion Gap 9 mmol/L (5-15) Blood Urea Nitrogen 38 mg/dL (7-18) H Pending Creatinine 1.6 MG/DL (0.55-1.30) H Pending Estimat Glomerular Filtration Rate 53.9 mL/min (>60) Pending Glucose Level 92 MG/DL (74-106) Pending Calcium Level 9.4 MG/DL (8.5-10.1) Pending Total Bilirubin 0.5 MG/DL (0.2-1.0) Pending Aspartate Amino Transf (AST/SGOT) 17 U/L (15-37) Pending Alanine Aminotransferase (ALT/SGPT) 16 U/L (12-78) Pending Alkaline Phosphatase 102 U/L (46-116) Pending C-Reactive Protein, Quantitative 9.7 mg/dL (0.00-0.90) H Total Protein 9.1 G/DL (6.4-8.2) H Pending Albumin 3.6 G/DL (3.4-5.0) Pending Globulin 5.5 g/dL Pending Albumin/Globulin Ratio 0.7 (1.0-2.7) L Lipase 60 U/L (73-393) L Uric Acid Pending Phosphorus Level Pending Magnesium Level Pending Iron Level Pending Unsaturated Iron Binding Pending Ferritin Pending Gamma Glutamyl Transpeptidase Pending Triglycerides Level Pending Cholesterol Level Pending LDL Cholesterol Pending HDL Cholesterol Pending Cholesterol/HDL Ratio Pending Thyroid Stimulating Hormone (TSH) Pending Risk Assessment & Plan Assessment: asa3 hypotensive. hypokalemia is being corrected with supplemental iv infusion of potassium. Plan: mac when patient's clinical status is optimized Status Change Before Surgery: No Pre-Antibiotics Drug: Jo Chin MD Jun 05, 2019 07:44
[2019-06-05] MEDS ORDERED: Midazolam 2mg/2ml Inj IVP PRN (07:45)
[2019-06-05] MEDS ORDERED: DiphenhydrAMINE 50mg/ml Inj IVP PRN (07:45)
[2019-06-05] MEDS ORDERED: fentaNYL 100 mcg/2 mL IV PRN (07:45)
[2019-06-05] MEDS ORDERED: Atropine Inj 1mg/10ml Syr IV PRN (07:45)
[2019-06-05 08:00] VITALS: BP 102/57
[2019-06-05 08:04] LABS: ALANINE AMINOTRANSFERASE 11 U/L (12-78); ALBUMIN/GLOBULIN RATIO 0.6 (1.0-2.7); ALKALINE PHOSPHATASE 84 U/L (46-116); ANION GAP 7 mmol/L (5-15); ASPARTATE AMINO TRANSFERASE 17 U/L (15-37); BILIRUBIN,TOTAL 0.6 MG/DL (0.2-1.0); BLOOD UREA NITROGEN 28 mg/dL (7-18); CALCIUM 8.7 MG/DL (8.5-10.1); CARBON DIOXIDE 30 MMOL/L (21-32); CHLORIDE 102 MMOL/L (98-107); CHOLESTEROL 133 MG/DL (< 200); CREATININE 1.3 MG/DL (0.55-1.30); FERRITIN 132 NG/ML (8-388); GAMMA GLUTAMYL TRANSPEPTIDASE 11 U/L (5-85); HDL CHOLESTEROL 29 MG/DL (40-60); PHOSPHORUS 2.9 MG/DL (2.5-4.9); POTASSIUM 2.8 MMOL/L (3.5-5.1); SODIUM 139 MMOL/L (136-145); TRIGLYCERIDES 125 MG/DL (30-150)
[2019-06-05] MEDS: Docusate 100mg tablet ORAL SCH ×3 (08:51→18:00)
[2019-06-05] MEDS: Pantoprazole Inj IVP SCH ×2 (08:51→21:13)
--- NOTE | 2019-06-05 10:28 | GI Progress Note ---
Assessment/Plan Problems: (1) UGIB (upper gastrointestinal bleed) ICD Codes: K92.2 - Gastrointestinal hemorrhage, unspecified SNOMED: 87709364 (2) Bleeding from colostomy ICD Codes: K94.01 - Colostomy hemorrhage SNOMED: [id number] Status: unchanged Status Narrative Discussed with Dr. Petersen. Assessment/Plan EGD rescheduled until tomorrow due to hypokalemia. Advance diet, n.p.o. at midnight Electrolyte correction Zofran as needed PPI PRN transfusions Follow-up wound care recommendations The patient was seen and examined at bedside and all new and available data was reviewed in the patients chart. I agree with the above findings, impression and plan. (Patient seen earlier today. Signature stamp does not reflect patient encounter time.). - Dimas Petersen MD Subjective Gastrointestinal/Abdominal: Reports: no symptoms Subjective No recurrent vomiting Objective Last 24 Hour Vital Signs Date Time Temp Pulse Resp B/P (MAP) Pulse Ox O2 Delivery O2 Flow Rate FiO2 06/05/19 04:00 65 06/05/19 04:00 97.5 73 16 85/57 (66) 95 06/05/19 00:00 97.8 76 19 92/63 (73) 97 06/05/19 00:00 73 06/04/19 21:00 Room Air 06/04/19 20:00 96 06/04/19 20:00 98.1 79 18 86/57 (67) 96 06/04/19 16:54 Room Air 06/04/19 16:18 97.3 22 102/55 (71) 96 06/04/19 16:07 83 06/04/19 15:02 98.1 77 18 108/69 98 Room Air 06/04/19 14:58 74 18 108/69 98 Room Air 06/04/19 13:10 83 16 108/68 99 Room Air 06/04/19 13:02 72 18 Room Air 06/04/19 12:24 98.1 72 18 132/85 (101) 99 Room Air Intake and Output 06/04/19 06/05/19 18:59 06:59 Intake Total 1550 ml 600 ml Output Total 260 ml Balance 1290 ml 600 ml Intake Oral 0 ml IV Total 1550 ml 600 ml Output Urine Total 260 ml # Voids 3 # Bowel Movements 1 Laboratory Tests Test 06/04/19 12:25 06/04/19 12:35 06/05/19 06:31 Urine Color Yellow Urine Appearance Clear Urine pH 5 (4.5-8.0) Urine Specific [place] 1.020 (1.005-1.035) Urine Protein 1+ (NEGATIVE) H Urine Glucose (UA) Negative (NEGATIVE) Urine Ketones 1+ (NEGATIVE) H Urine Blood Negative (NEGATIVE) Urine Nitrite Negative (NEGATIVE) Urine Bilirubin Negative (NEGATIVE) Urine Urobilinogen Normal MG/DL (0.0-1.0) Urine Leukocyte Esterase 1+ (NEGATIVE) H Urine RBC 0-2 /HPF (0 - 0) H Urine WBC 2-4 /HPF (0 - 0) Urine Squamous Epithelial Cells Occasional /LPF Urine Bacteria Occasional /HPF (NONE) Urine Hyaline Casts 0-2 /LPF (NONE) H White Blood Count 10.3 K/UL (4.8-10.8) 5.4 K/UL (4.8-10.8) Red Blood Count 5.51 M/UL (4.70-6.10) 4.70 M/UL (4.70-6.10) Hemoglobin 14.8 G/DL (14.2-18.0) 12.8 G/DL (14.2-18.0) L Hematocrit 47.4 % (42.0-52.0) 40.5 % (42.0-52.0) L Mean Corpuscular Volume 86 FL (80-99) 86 FL (80-99) Mean Corpuscular Hemoglobin 26.8 PG (27.0-31.0) L 27.2 PG (27.0-31.0) Mean Corpuscular Hemoglobin Concent 31.1 G/DL (32.0-36.0) L 31.5 G/DL (32.0-36.0) L Red Cell Distribution Width 12.8 % (11.6-14.8) 12.7 % (11.6-14.8) Platelet Count 324 K/UL (150-450) 252 K/UL (150-450) Mean Platelet Volume 7.1 FL (6.5-10.1) 7.1 FL (6.5-10.1) Neutrophils (%) (Auto) 71.4 % (45.0-75.0) 51.1 % (45.0-75.0) Lymphocytes (%) (Auto) 22.5 % (20.0-45.0) 38.3 % (20.0-45.0) Monocytes (%) (Auto) 5.2 % (1.0-10.0) 6.1 % (1.0-10.0) Eosinophils (%) (Auto) 0.6 % (0.0-3.0) 3.8 % (0.0-3.0) H Basophils (%) (Auto) 0.4 % (0.0-2.0) 0.7 % (0.0-2.0) Prothrombin Time 11.4 SEC (9.30-11.50) 11.3 SEC (9.30-11.50) Prothromb Time International Ratio 1.1 (0.9-1.1) 1.1 (0.9-1.1) Activated Partial Thromboplast Time 33 SEC (23-33) 31 SEC (23-33) Sodium Level 140 MMOL/L (136-145) 139 MMOL/L (136-145) Potassium Level 3.7 MMOL/L (3.5-5.1) 2.8 MMOL/L (3.5-5.1) L Chloride Level 102 MMOL/L (98-107) 102 MMOL/L (98-107) Carbon Dioxide Level 29 MMOL/L (21-32) 30 MMOL/L (21-32) Anion Gap 9 mmol/L (5-15) 7 mmol/L (5-15) Blood Urea Nitrogen 38 mg/dL (7-18) H 28 mg/dL (7-18) H Creatinine 1.6 MG/DL (0.55-1.30) H 1.3 MG/DL (0.55-1.30) Estimat Glomerular Filtration Rate 53.9 mL/min (>60) > 60 mL/min (>60) Glucose Level 92 MG/DL (74-106) 103 MG/DL (74-106) Calcium Level 9.4 MG/DL (8.5-10.1) 8.7 MG/DL (8.5-10.1) Total Bilirubin 0.5 MG/DL (0.2-1.0) 0.6 MG/DL (0.2-1.0) Aspartate Amino Transf (AST/SGOT) 17 U/L (15-37) 17 U/L (15-37) Alanine Aminotransferase (ALT/SGPT) 16 U/L (12-78) 11 U/L (12-78) L Alkaline Phosphatase 102 U/L (46-116) 84 U/L (46-116) C-Reactive Protein, Quantitative 9.7 mg/dL (0.00-0.90) H Total Protein 9.1 G/DL (6.4-8.2) H 7.7 G/DL (6.4-8.2) Albumin 3.6 G/DL (3.4-5.0) 3.0 G/DL (3.4-5.0) L Globulin 5.5 g/dL 4.7 g/dL Albumin/Globulin Ratio 0.7 (1.0-2.7) L 0.6 (1.0-2.7) L Lipase 60 U/L (73-393) L Uric Acid 12.8 MG/DL (2.6-7.2) H Phosphorus Level 2.9 MG/DL (2.5-4.9) Magnesium Level 1.4 MG/DL (1.8-2.4) L Iron Level 86 ug/dL (50-175) Total Iron Binding Capacity 218 ug/dL (250-450) L Percent Iron Saturation 39 % (15-50) Unsaturated Iron Binding 132 ug/dL (112-346) Ferritin 132 NG/ML (8-388) Gamma Glutamyl Transpeptidase 11 U/L (5-85) Triglycerides Level 125 MG/DL (30-150) Cholesterol Level 133 MG/DL (< 200) LDL Cholesterol 88 mg/dL (<100) HDL Cholesterol 29 MG/DL (40-60) L Cholesterol/HDL Ratio 4.6 (3.3-4.4) H Thyroid Stimulating Hormone (TSH) 0.726 uiU/mL (0.358-3.740) Microbiology Date/Time Source Procedure Growth Status 06/04/19 19:11 Urine,Clean Catch Urine Culture - Preliminary NO GROWTH Resulted Height (Feet): 5 Height (Inches): 7.00 Weight (Pounds): 200 General Appearance: WD/WN, no apparent distress, alert Cardiovascular: normal rate Respiratory/Chest: normal breath sounds, no respiratory distress Abdominal Exam: normal bowel sounds, non tender, soft Extremities: normal range of motion, non-tender Rickie Cool NP Jun 05, 2019 10:28
--- NOTE | 2019-06-05 11:46 | NUR ---
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
[2019-06-05 12:00] VITALS: BP 98/65
--- NOTE | 2019-06-05 12:23 | Nephrology Progress Note ---
Assessment/Plan Problem List: (1) GIDEON (acute kidney injury) (2) Hypokalemia (3) UGIB (upper gastrointestinal bleed) (4) Colostomy care Assessment Renal Failure: On Lasix and Zaroxilyn Upper GI bleed Colostomy ? UTI Plan Plan: k and Mag supplement Allopurinil Urine culture Urine studies slow Hydrate Pain meds per orders Subjective ROS Limited/Unobtainable: No Constitutional: Reports: malaise Objective Objective Last 24 Hour Vital Signs Date Time Temp Pulse Resp B/P (MAP) Pulse Ox O2 Delivery O2 Flow Rate FiO2 06/05/19 09:00 Room Air 06/05/19 08:00 65 06/05/19 08:00 97.7 70 16 102/57 (72) 95 06/05/19 04:00 65 06/05/19 04:00 97.5 73 16 85/57 (66) 95 06/05/19 00:00 97.8 76 19 92/63 (73) 97 06/05/19 00:00 73 06/04/19 21:00 Room Air 06/04/19 20:00 96 06/04/19 20:00 98.1 79 18 86/57 (67) 96 06/04/19 16:54 Room Air 06/04/19 16:18 97.3 22 102/55 (71) 96 06/04/19 16:07 83 06/04/19 15:02 98.1 77 18 108/69 98 Room Air 06/04/19 14:58 74 18 108/69 98 Room Air 06/04/19 13:10 83 16 108/68 99 Room Air 06/04/19 13:02 72 18 Room Air 06/04/19 12:24 98.1 72 18 132/85 (101) 99 Room Air Intake and Output 06/04/19 06/05/19 19:00 07:00 Intake Total 1550 ml 600 ml Output Total 260 ml Balance 1290 ml 600 ml Intake Oral 0 ml IV Total 1550 ml 600 ml Output Urine Total 260 ml # Voids 3 # Bowel Movements 1 Laboratory Tests 06/04/19 12:25: Urine Color Yellow, Urine Appearance Clear, Urine pH 5, Urine Specific [place] 1.020, Urine Protein 1+H, Urine Glucose (UA) Negative, Urine Ketones 1+H, Urine Blood Negative, Urine Nitrite Negative, Urine Bilirubin Negative, Urine Urobilinogen Normal, Urine Leukocyte Esterase 1+H, Urine RBC 0-2H, Urine WBC 2-4 , Urine Squamous Epithelial Cells Occasional, Urine Bacteria Occasional, Urine Hyaline Casts 0-2H 06/04/19 12:35: White Blood Count 10.3, Red Blood Count 5.51, Hemoglobin 14.8, Hematocrit 47.4, Mean Corpuscular Volume 86, Mean Corpuscular Hemoglobin 26.8L, Mean Corpuscular Hemoglobin Concent 31.1L, Red Cell Distribution Width 12.8, Platelet Count 324, Mean Platelet Volume 7.1, Neutrophils (%) (Auto) 71.4, Lymphocytes (%) (Auto) 22.5, Monocytes (%) (Auto) 5.2, Eosinophils (%) (Auto) 0.6, Basophils (%) (Auto ) 0.4, Prothrombin Time 11.4, Prothromb Time International Ratio 1.1, Activated Partial Thromboplast Time 33, Sodium Level 140, Potassium Level 3.7, Chloride Level 102, Carbon Dioxide Level 29, Anion Gap 9, Blood Urea Nitrogen 38H, Creatinine 1.6H, Estimat Glomerular Filtration Rate 53.9, Glucose Level 92, Calcium Level 9.4, Total Bilirubin 0.5, Aspartate Amino Transf (AST/SGOT) 17, Alanine Aminotransferase (ALT/SGPT) 16, Alkaline Phosphatase 102, C-Reactive Protein, Quantitative 9.7H, Total Protein 9.1H, Albumin 3.6, Globulin 5.5, Albumin/Globulin Ratio 0.7L, Lipase 60L 06/05/19 06:31: White Blood Count 5.4, Red Blood Count 4.70, Hemoglobin 12.8L, Hematocrit 40.5L , Mean Corpuscular Volume 86, Mean Corpuscular Hemoglobin 27.2, Mean Corpuscular Hemoglobin Concent 31.5L, Red Cell Distribution Width 12.7, Platelet Count 252, Mean Platelet Volume 7.1, Neutrophils (%) (Auto) 51.1, Lymphocytes (%) (Auto) 38.3, Monocytes (%) (Auto) 6.1, Eosinophils (%) (Auto) 3.8H, Basophils (%) (Auto) 0.7, Prothrombin Time 11.3, Prothromb Time International Ratio 1.1, Activated Partial Thromboplast Time 31, Sodium Level 139, Potassium Level 2.8L, Chloride Level 102, Carbon Dioxide Level 30, Anion Gap 7, Blood Urea Nitrogen 28H, Creatinine 1.3, Estimat Glomerular Filtration Rate > 60, Glucose Level 103, Calcium Level 8.7, Total Bilirubin 0.6, Aspartate Amino Transf (AST/SGOT) 17, Alanine Aminotransferase (ALT/SGPT) 11L, Alkaline Phosphatase 84, Total Protein 7.7, Albumin 3.0L, Globulin 4.7, Albumin/Globulin Ratio 0.6L, Uric Acid 12.8H, Phosphorus Level 2.9, Magnesium Level 1.4L, Iron Level 86, Total Iron Binding Capacity 218L, Percent Iron Saturation 39, Unsaturated Iron Binding 132, Ferritin 132, Gamma Glutamyl Transpeptidase 11, Triglycerides Level 125, Cholesterol Level 133, LDL Cholesterol 88, HDL Cholesterol 29L, Cholesterol/HDL Ratio 4.6H, Thyroid Stimulating Hormone (TSH) 0.726 Height (Feet): 5 Height (Inches): 7.00 Weight (Pounds): 200 General Appearance: no apparent distress Cardiovascular: normal rate Respiratory/Chest: decreased breath sounds Abdomen: soft, other - colostomy Extremities: other Curtis Lee MD Jun 05, 2019 12:23
--- NOTE | 2019-06-05 13:07 | NUR ---
*-* INSURANCE *-* ALL CLINICALS AND REVIEWS HAVE BEEN FAXED TO: [facility] F: [phone]
[2019-06-05] MEDS: Lac Hydrin 12% Lotion 8oz TOPIC SCH ×2 (13:23→18:00)
[2019-06-05] MEDS: D5 1/2NS w/KCl 20mEq 1,000 ML IV SCH (13:55)
[2019-06-05 16:00] VITALS: BP 107/54
--- NOTE | 2019-06-05 19:40 | NUR ---
HAND-OFF: Report given to ASHISH Bourne. Plan of care endorsed. Patient's in stable condition. :
--- NOTE | 2019-06-05 19:41 | NUR ---
NURSE NOTES: Received report from ASHISH Skinner. Pt is awake resting in bed. AOx2. In no acute distress. Bed in lowest position, call light within reach. Will continue plan of care.
[2019-06-05 20:00] VITALS: BP 118/63
--- NOTE | 2019-06-05 22:07 | Consultation ---
History of Present Illness General Reason for Hospitalization: Gastrointestinal Bleed Present Illness HPI This is a very pleasant 59 year old male with multiple medical comorbidities who presented with coffee ground emesis. Admitted for care and management. on admission noted to have large protrusion of colostomy and LE wounds. surgery called to evaluate and assist with care. states he is unsure why he has a colostomy and that he has had it for some time. unsure how long he has had protrusion. no n/v/f/c. labs noted. Allergies: Coded Allergies: No Known Allergies (Unverified , 06/22/14) Medication History Scheduled Ascorbic Acid* (Vitamin C*), 500 MG ORAL DAILY, (Reported) Bisacodyl (Bisacodyl), 5 MG PO BID, (Reported) Celecoxib* (Celebrex*), 200 MG ORAL DAILY, (Reported) Docusate Sodium (Docusate Sodium), 250 MG ORAL DAILY, (Reported) Furosemide* (Lasix*), 40 MG ORAL DAILY, (Reported) Gabapentin* (Gabapentin*), 300 MG ORAL THREE TIMES A DAY, (Reported) Heparin Sod (Porcine) (Heparin Sodium*), 5,000 UNITS SUBQ EVERY 12 HOURS, ( Reported) Magnesium Oxide (Magnesium Oxide), 400 MG ORAL BID, (Reported) Metolazone* (Zaroxolyn*), 5 MG ORAL DAILY, (Reported) Multivitamins* (Multivitamins*), 1 TAB ORAL DAILY, (Reported) Mupirocin (Bactroban Cr), 1 APPLIC TOPIC DAILY, (Reported) Potassium Chloride (Potassium Chloride), 100 MEQ ORAL DAILY, (Reported) Scheduled PRN Acetaminophen (Acetaminophen), 650 MG ORAL Q6H PRN for Prn Headache/Temp > 101, (Reported) Ondansetron (Zofran), 4 MG ORAL Q6H PRN for Nausea & Vomiting, (Reported) Tramadol Hcl* (Ultram*), 100 MG ORAL Q6H PRN for For Pain, (Reported) Miscellaneous Medications Zinc Oxide (Vitamelts Fast Dissolve), 15 MG PO, (Reported) Patient History Limited by: other History Provided By: Patient, Medical Record, PMD Healthcare decision maker Resuscitation status Full Code Advanced Directive on File No Past Medical/Surgical History Past Medical/Surgical History: (1) Pressure ulcer (2) Transaminitis (3) Wrist pain, acute (4) Fall (5) Venous stasis ulcer (6) Cellulitis (7) Abnormal laboratory test result (8) Renal insufficiency (9) Bleeding from colostomy (10) Wound cellulitis (11) UGIB (upper gastrointestinal bleed) (12) Hypokalemia (13) GIDEON (acute kidney injury) (14) Colostomy care Review of Systems Review of Symptoms General ROS: no weight loss or fever Psychological ROS: no depression or mood changes, no memory loss Ophthalmic ROS: no visual changes or eye irritation ENT ROS: no nasal congestion, hearing loss, dizziness Allergy and Immunology ROS: no allergic symptoms or urticaria Hematological and Lymphatic ROS: no swollen glands, unusual bleeding or bruising Endocrine ROS: no polyuria, polydipsia, weight changes, temperature intolerance Respiratory ROS: no cough, shortness of breath, or wheezing Cardiovascular ROS: no chest pain or dyspnea on exertion Gastrointestinal ROS: denies abdominal pain, bright red blood in stool. Musculoskeletal ROS: no myalgias or arthralgias Neurological ROS: no TIA or stroke symptoms Dermatological ROS: no new or changing skin lesions, rashes or pruritis Physical Exam Physical Exam General appearance: alert, cooperative, no distress, appears stated age Head: Normocephalic, without obvious abnormality, atraumatic Eyes: conjunctivae/corneas clear. PERRL, EOM's intact. Fundi benign Throat: Lips, mucosa, and tongue normal. Teeth and gums normal Neck: supple, symmetrical, trachea midline, no adenopathy, thyroid: not enlarged, symmetric, no tenderness/mass/nodules, no carotid bruit and no JVD Lungs: clear to auscultation bilaterally Heart: regular rate and rhythm, S1, S2 normal, no murmur, click, rub or gallop Abdomen: soft, non-tender. Bowel sounds normal. No masses, no organomegaly + colostomy with hernia Extremities: extremities normal, atraumatic, no cyanosis or edema Pulses: 2+ and symmetric Skin: Skin color, texture, turgor normal. No rashes or lesions Neurologic: Grossly normal Last 24 Hour Vital Signs Date Time Temp Pulse Resp B/P (MAP) Pulse Ox O2 Delivery O2 Flow Rate FiO2 06/05/19 20:00 97.7 87 20 118/63 (81) 95 06/05/19 20:00 87 06/05/19 16:00 97.5 76 20 107/54 (71) 99 06/05/19 16:00 77 06/05/19 12:00 65 06/05/19 12:00 97.9 65 20 98/65 (76) 94 06/05/19 09:00 Room Air 06/05/19 08:00 65 06/05/19 08:00 97.7 70 16 102/57 (72) 95 06/05/19 04:00 65 06/05/19 04:00 97.5 73 16 85/57 (66) 95 06/05/19 00:00 97.8 76 19 92/63 (73) 97 06/05/19 00:00 73 Intake and Output 06/04/19 06/05/19 19:00 07:00 Intake Total 1550 ml 600 ml Output Total 260 ml Balance 1290 ml 600 ml Intake Oral 0 ml IV Total 1550 ml 600 ml Output Urine Total 260 ml # Voids 3 # Bowel Movements 1 Laboratory Tests Test 06/05/19 06:31 White Blood Count 5.4 K/UL (4.8-10.8) Red Blood Count 4.70 M/UL (4.70-6.10) Hemoglobin 12.8 G/DL (14.2-18.0) L Hematocrit 40.5 % (42.0-52.0) L Mean Corpuscular Volume 86 FL (80-99) Mean Corpuscular Hemoglobin 27.2 PG (27.0-31.0) Mean Corpuscular Hemoglobin Concent 31.5 G/DL (32.0-36.0) L Red Cell Distribution Width 12.7 % (11.6-14.8) Platelet Count 252 K/UL (150-450) Mean Platelet Volume 7.1 FL (6.5-10.1) Neutrophils (%) (Auto) 51.1 % (45.0-75.0) Lymphocytes (%) (Auto) 38.3 % (20.0-45.0) Monocytes (%) (Auto) 6.1 % (1.0-10.0) Eosinophils (%) (Auto) 3.8 % (0.0-3.0) H Basophils (%) (Auto) 0.7 % (0.0-2.0) Prothrombin Time 11.3 SEC (9.30-11.50) Prothromb Time International Ratio 1.1 (0.9-1.1) Activated Partial Thromboplast Time 31 SEC (23-33) Sodium Level 139 MMOL/L (136-145) Potassium Level 2.8 MMOL/L (3.5-5.1) L Chloride Level 102 MMOL/L (98-107) Carbon Dioxide Level 30 MMOL/L (21-32) Anion Gap 7 mmol/L (5-15) Blood Urea Nitrogen 28 mg/dL (7-18) H Creatinine 1.3 MG/DL (0.55-1.30) Estimat Glomerular Filtration Rate > 60 mL/min (>60) Glucose Level 103 MG/DL (74-106) Uric Acid 12.8 MG/DL (2.6-7.2) H Calcium Level 8.7 MG/DL (8.5-10.1) Phosphorus Level 2.9 MG/DL (2.5-4.9) Magnesium Level 1.4 MG/DL (1.8-2.4) L Iron Level 86 ug/dL (50-175) Total Iron Binding Capacity 218 ug/dL (250-450) L Percent Iron Saturation 39 % (15-50) Unsaturated Iron Binding 132 ug/dL (112-346) Ferritin 132 NG/ML (8-388) Total Bilirubin 0.6 MG/DL (0.2-1.0) Gamma Glutamyl Transpeptidase 11 U/L (5-85) Aspartate Amino Transf (AST/SGOT) 17 U/L (15-37) Alanine Aminotransferase (ALT/SGPT) 11 U/L (12-78) L Alkaline Phosphatase 84 U/L (46-116) Total Protein 7.7 G/DL (6.4-8.2) Albumin 3.0 G/DL (3.4-5.0) L Globulin 4.7 g/dL Albumin/Globulin Ratio 0.6 (1.0-2.7) L Triglycerides Level 125 MG/DL (30-150) Cholesterol Level 133 MG/DL (< 200) LDL Cholesterol 88 mg/dL (<100) HDL Cholesterol 29 MG/DL (40-60) L Cholesterol/HDL Ratio 4.6 (3.3-4.4) H Thyroid Stimulating Hormone (TSH) 0.726 uiU/mL (0.358-3.740) Height (Feet): 5 Height (Inches): 7.00 Weight (Pounds): 200 Medications Current Medications Medications (Trade) Dose Ordered Sig/Jl Route PRN Reason Start Time Stop Time Status Last Admin Dose Admin Acetaminophen (Tylenol) 650 mg Q6H PRN ORAL Prn Headache/Temp > 101 06/04/19 16:30 07/04/19 16:29 Allopurinol (Allopurinol) 300 mg DAILY ORAL 06/06/19 09:00 07/06/19 08:59 Ammonium Lactate (Lac Hydrin) 1 applic TWICE A DAY TOPIC 06/05/19 12:00 07/05/19 11:59 06/05/19 18:00 Dextrose/ Electrolytes 1,000 ml @ 50 mls/hr Q20H IV 06/04/19 17:00 07/04/19 16:59 06/05/19 13:55 Docusate Sodium (Colace) 100 mg TID ORAL 06/04/19 18:00 07/04/19 17:59 06/05/19 18:00 Gabapentin (Neurontin) 300 mg THREE TIMES A DAY ORAL 06/04/19 18:00 07/04/19 17:59 06/05/19 19:04 Pantoprazole (Protonix) 40 mg EVERY 12 HOURS IVP 06/04/19 21:00 07/04/19 20:59 06/05/19 21:13 Tramadol HCl (Ultram) 50 mg Q6H PRN ORAL For Pain 06/04/19 16:15 06/11/19 16:14 Assessment/Plan Problem List: (1) Parastomal hernia Assessment & Plan: large left sided colostomy parastomal hernia. stable chronic no acute intervention can have elective repair as outpatient ICD Codes: K43.5 - Parastomal hernia without obstruction or gangrene SNOMED: 594587376 (2) UGIB (upper gastrointestinal bleed) Assessment & Plan: as per GI available in case hemorrhage ICD Codes: K92.2 - Gastrointestinal hemorrhage, unspecified SNOMED: 31075215 (3) Cellulitis Assessment & Plan: Pt presented on admission with keloid scar with hyperpigmentation from previous wound sacrum and L ischial area. Xerosis skin R and L lower ext with scattered petechiae. Hemosiderin noted to both lower ext. Pt denied itching. Both heels are soft but blanchable. Tx.Plan: Wash both lower ext with Chlorhexidine Soap .Apply Lac Hydrin 12% lotion to Damp skin. Wrap with Kerlix from base of toes Twice daily and prn. Elevate both lower ext with pillows. Apply Moisture Barrier Paste to sacrum. Cover with Optifoam drsg. Change every 3 days and prn. Apply Moisture Barrier to both ischial areas and scrotum with each perineal care. Reposition at least every 2hours or as tolerated. ICD Codes: L03.90 - Cellulitis SNOMED: 756855233 (4) Venous stasis ulcer ICD Codes: I83.009 - Venous stasis ulcer SNOMED: 364301678 Ricci Sharpe Jun 05, 2019 22:07
[2019-06-06] VITALS (12 sets, daily range): BP systolic 99–120; BP diastolic 55–73
--- NOTE | 2019-06-06 07:17 | NUR ---
HAND-OFF: Report given to ASHISH Skinner.
--- NOTE | 2019-06-06 07:20 | NUR ---
NURSE NOTES: Nurse report given by ASHISH Bourne. Patient's awake and staying in bed. AO x 2-3. Denies pain, no s/s of acute distress or SOB. IV is running fluid, patent and asymptomatic. Bed at lowest position, break engaged and call light within reach. Will continue to monitor.
[2019-06-06 07:28] LABS: BASOPHILS % (AUTO) 0.8 % (0.0-2.0); EOSINOPHILS % (AUTO) 4.2 % (0.0-3.0); HEMATOCRIT 37.8 % (42.0-52.0); HEMOGLOBIN 11.9 G/DL (14.2-18.0); LYMPHOCYTES % (AUTO) 33.4 % (20.0-45.0); MEAN CORPUSCULAR VOLUME 86 FL (80-99); MONOCYTES % (AUTO) 5.7 % (1.0-10.0); NEUTROPHILS % (AUTO) 55.9 % (45.0-75.0); PLATELET COUNT 230 K/UL (150-450); RED BLOOD COUNT 4.42 M/UL (4.70-6.10); RED CELL DISTRIBUTION WIDTH 12.4 % (11.6-14.8); WHITE BLOOD COUNT 5.9 K/UL (4.8-10.8)
[2019-06-06 07:35] LABS: ALANINE AMINOTRANSFERASE 13 U/L (12-78); ALBUMIN 3.1 G/DL (3.4-5.0); ALBUMIN/GLOBULIN RATIO 0.8 (1.0-2.7); ALKALINE PHOSPHATASE 80 U/L (46-116); ANION GAP 7 mmol/L (5-15); ASPARTATE AMINO TRANSFERASE 15 U/L (15-37); BILIRUBIN,TOTAL 0.4 MG/DL (0.2-1.0); BLOOD UREA NITROGEN 15 mg/dL (7-18); CALCIUM 8.4 MG/DL (8.5-10.1); CARBON DIOXIDE 28 MMOL/L (21-32); CHLORIDE 105 MMOL/L (98-107); CREATININE 1.1 MG/DL (0.55-1.30); POTASSIUM 2.9 MMOL/L (3.5-5.1); SODIUM 140 MMOL/L (136-145)
[2019-06-06 07:37] LABS: PHOSPHORUS 2.3 MG/DL (2.5-4.9)
--- NOTE | 2019-06-06 08:44 | History and Physical Report ---
DATE OF ADMISSION: 06/04/2019 HISTORY OF PRESENT ILLNESS: The patient comes from a halfway, admitted for vomiting blood-tinged material. The patient also has chronic venous stasis . Denies abdominal pain. Does have also leg pain. Denies history of peptic ulcer disease. Denies shortness of breath. Denies cough. Denies chills. Denies orthopnea. PAST MEDICAL HISTORY: History of pressure ulcers, history of chronic venous stasis, history of constipation, and degenerative joint disease. PAST SURGICAL HISTORY: None. SOCIAL HISTORY: Denies history of smoking. Does have a history of alcohol abuse. Denies history of drug abuse. ALLERGIES: No known allergies. MEDICATIONS: Bisacodyl, furosemide, multivitamin, potassium, and tramadol. FAMILY HISTORY: Noncontributory. REVIEW OF SYSTEMS: HEENT: Denies headaches. PULMONARY: Denies shortness of breath. Denies cough. CARDIOVASCULAR: Denies chest pain or orthopnea. GASTROINTESTINAL: Reports coffee-ground emesis . Denies constipation. EXTREMITIES: Does have leg pain. CENTRAL NERVOUS SYSTEM: Denies change in vision or speech pattern. PHYSICAL EXAMINATION: VITAL SIGNS: Temperature is 97.7 degrees, pulse 78, and blood pressure 102/67. HEENT: PERRLA. NECK: Supple. No lymphadenopathy. CHEST: Clear to auscultation. CARDIOVASCULAR: Regular rate and rhythm. No murmurs or extra sounds. GI: Soft, nontender, nondistended. No organomegaly. EXTREMITIES: He does have edema, scaly from very poor hygiene. Reflexes, the patient is bedbound with lower extremity weakness, which is chronic. LABORATORY DATA: WBC 10.3, hemoglobin . Sodium 140, potassium 3.7, BUN of 13, creatinine 1.6, and glucose of 92. ASSESSMENT AND PLAN: GI bleed and acute renal failure. I have asked Dr. Lee and Dr. Petersen to see the patient for the workup of the above-mentioned diagnosis as well as for management. Jono Quiros M.D. DR: Tierney JOB#: [id number] CC:
[2019-06-06] MEDS: Docusate 100mg tablet ORAL SCH ×3 (08:52→17:38)
[2019-06-06] MEDS: D5 1/2NS w/KCl 20mEq 1,000 ML IV SCH (09:00)
[2019-06-06] MEDS ORDERED: Lac Hydrin 12% Lotion 8oz TOPIC SCH (09:00)
[2019-06-06] MEDS ORDERED: Potassium Phosphate 30 MM in NS 275 ML IV SCH (10:00)
[2019-06-06] MEDS: Lac Hydrin 12% Lotion 8oz TOPIC SCH ×2 (11:16→18:04)
[2019-06-06] MEDS: Dyna-Hex 2% Top Sol 2oz TOPIC PRN (11:16)
[2019-06-06] MEDS ORDERED: LR 1000ml 1,000 ML IVLG SCH (11:21)
--- NOTE | 2019-06-06 11:23 | General Progress Note ---
Assessment/Plan Problem List: (1) Parastomal hernia ICD Codes: K43.5 - Parastomal hernia without obstruction or gangrene SNOMED: 910601778 (2) Transaminitis ICD Codes: R74.0 - Transaminitis SNOMED: 468722329 (3) UGIB (upper gastrointestinal bleed) ICD Codes: K92.2 - Gastrointestinal hemorrhage, unspecified SNOMED: 78632433 Status: unchanged Assessment/Plan: needs GI procedures no family available for consent plan MD consent Subjective ROS Limited/Unobtainable: No Allergies: Coded Allergies: No Known Allergies (Unverified , 06/22/14) Objective Last 24 Hour Vital Signs Date Time Temp Pulse Resp B/P (MAP) Pulse Ox O2 Delivery O2 Flow Rate FiO2 06/06/19 08:00 98.1 76 18 99/55 (70) 96 06/06/19 04:00 97.5 68 20 107/64 (78) 97 06/06/19 04:00 68 06/06/19 00:00 85 06/06/19 00:00 97.5 87 20 115/63 (80) 95 06/05/19 21:00 Room Air 06/05/19 20:00 97.7 87 20 118/63 (81) 95 06/05/19 20:00 87 06/05/19 16:00 97.5 76 20 107/54 (71) 99 06/05/19 16:00 77 06/05/19 12:00 65 06/05/19 12:00 97.9 65 20 98/65 (76) 94 Intake and Output 06/05/19 06/06/19 19:00 07:00 Intake Total 480 ml 620 ml Output Total 800 ml Balance -320 ml 620 ml Intake Oral 480 ml 120 ml IV Total 500 ml Output Urine Total 800 ml # Voids 3 # Bowel Movements 1 2 Laboratory Tests 06/06/19 06:42: White Blood Count 5.9, Red Blood Count 4.42L, Hemoglobin 11.9L, Hematocrit 37.8L , Mean Corpuscular Volume 86, Mean Corpuscular Hemoglobin 27.0, Mean Corpuscular Hemoglobin Concent 31.6L, Red Cell Distribution Width 12.4, Platelet Count 230, Mean Platelet Volume 6.3L, Neutrophils (%) (Auto) 55.9, Lymphocytes (%) (Auto) 33.4, Monocytes (%) (Auto) 5.7, Eosinophils (%) (Auto) 4.2H, Basophils (%) (Auto) 0.8, Prothrombin Time 10.9, Prothromb Time International Ratio 1.0, Activated Partial Thromboplast Time 30, Sodium Level 140, Potassium Level 2.9L, Chloride Level 105, Carbon Dioxide Level 28, Anion Gap 7, Blood Urea Nitrogen 15, Creatinine 1.1, Estimat Glomerular Filtration Rate > 60, Glucose Level 111H, Uric Acid 10.6H, Calcium Level 8.4L, Phosphorus Level 2.3L, Magnesium Level 1.8, Total Bilirubin 0.4, Aspartate Amino Transf ( AST/SGOT) 15, Alanine Aminotransferase (ALT/SGPT) 13, Alkaline Phosphatase 80, Total Protein 7.2, Albumin 3.1L, Globulin 4.1, Albumin/Globulin Ratio 0.8L, Vitamin B12 Level 673, Folate 16.0 Height (Feet): 5 Height (Inches): 5.00 Weight (Pounds): 246 General Appearance: no apparent distress EENT: normal ENT inspection Neck: supple Cardiovascular: normal rate Respiratory/Chest: lungs clear Abdomen: normal bowel sounds, non tender, soft Extremities: non-tender Dimas Petersen MD Jun 06, 2019 11:23
[2019-06-06] MEDS ORDERED: DiphenhydrAMINE 50mg/ml Inj IVP PRN (11:30)
[2019-06-06] MEDS ORDERED: Lidocaine 1% MPF 10mg/ml 5ml ONE (11:30)
[2019-06-06] MEDS ORDERED: Propofol 200mg/20ml IV ONE (11:30)
--- NOTE | 2019-06-06 11:30 | NUR ---
NURSE NOTES: Patient's off the floor for EGD procedure. Made charge nurse and pharmacy technician program director aware.
[2019-06-06] MEDS ORDERED: NS 500ML IVPB ONE (11:35)
--- NOTE | 2019-06-06 11:40 | Pre-Procedure Note/Attestation ---
Pre-Procedure Note/Attestation Complete Prior to Procedure Planned Procedure: not applicable Procedure Narrative: egd Indications for Procedure Pre-Operative Diagnosis: gib Attestation I attest that I discussed the nature of the procedure; its benefits; risks and complications; and alternatives (and the risks and benefits of such alternatives ), prior to the procedure, with the patient (or the patient's legal sales representative leather goods). I attest that, if there was a reasonable possibility of needing a blood transfusion, the patient (or the patient's legal sales representative leather goods) was given the [facility] standardized written summary, pursuant to the Geovani Deidra Blood Safety Act ([place] Health and Safety Code # 1645, as amended). I attest that I re-evaluated the patient just prior to the surgery and that there has been no change in the patient's H&P, except as documented below: Dimas Petersen MD Jun 06, 2019 11:40
--- NOTE | 2019-06-06 11:51 | Endoscopy Procedure Note ---
Endoscopy Procedure Note General Indication for Procedure: gib Procedures Performed: EGD Operative Findings/Diagnosis: esophagitis Specimen: yes Pt Tolerated Procedure Well: Yes Estimated Blood Loss: none Anesthesia Anesthesiologist: sherri Anesthesia: MAC Inserted Devices Implant(s) used?: No GI Core Measures 50 yrs or older w/o bx or poly: Not Applicable 10yrs. F/U recommended: Not Applicable Dimas Petersen MD Jun 06, 2019 11:51
--- NOTE | 2019-06-06 11:59 | Immediate Post-Op Evaluation ---
Immediate Post-Op Evalulation Immediate Post-Op Evalulation Procedure: EGD Date of Evaluation: Jun 06, 2019 Time of Evaluation: 12:01 IV Fluids: 200 Blood Products: 0 Estimated Blood Loss: 0 Urinary Output: 0 Blood Pressure Systolic: 101 Blood Pressure Diastolic: 68 Pulse Rate: 79 Respiratory Rate: 16 O2 Sat by Pulse Oximetry: 99 Temperature (Fahrenheit): 97 Pain Score (1-10): 0 Nausea: No Vomiting: No Complications 0 Patient Status: awake, reacts, patent, none Hydration Status: adequate Drug: N/A Jess Morrison MD Jun 06, 2019 11:59
--- NOTE | 2019-06-06 11:59 | 48 Hour Post Anesthesia Eval ---
Post Anesthesia Evaluation Procedure: EGD Date of Evaluation: Jun 06, 2019 Airway: patent Nausea: No Vomiting: No Hydration Status: adequate Cardiopulmonary Status: at baseline Mental Status/LOC: patient returned to baseline Post-Anesthesia Complications: 0 Follow-up care needed: N/A - further care as per primary team Jess Morrison MD Jun 06, 2019 11:59
--- NOTE | 2019-06-06 13:34 | Nephrology Progress Note ---
Assessment/Plan Problem List: (1) GIDEON (acute kidney injury) (2) Hypokalemia (3) UGIB (upper gastrointestinal bleed) (4) Colostomy care Assessment Renal Failure: On Lasix and Zaroxilyn Upper GI bleed Colostomy ? UTI Plan Plan: k and Mag supplement Allopurinil Urine culture Urine studies slow Hydrate Pain meds per orders Subjective ROS Limited/Unobtainable: No Objective Objective Last 24 Hour Vital Signs Date Time Temp Pulse Resp B/P (MAP) Pulse Ox O2 Delivery O2 Flow Rate FiO2 06/06/19 12:45 97.6 6 15 118/73 97 Nasal Cannula 3 06/06/19 12:37 97.6 68 16 117/71 97 Nasal Cannula 3 06/06/19 12:20 66 14 120/70 96 Nasal Cannula 3 06/06/19 12:10 65 16 116/73 97 Nasal Cannula 3 06/06/19 12:05 80 17 111/72 95 Nasal Cannula 3 06/06/19 12:00 74 15 104/65 96 Nasal Cannula 3 06/06/19 12:00 97.8 72 20 110/69 (83) 98 06/06/19 11:59 79 16 99 06/06/19 11:56 97.0 79 16 101/68 98 Nasal Cannula 3 06/06/19 09:00 Room Air 06/06/19 08:00 98.1 76 18 99/55 (70) 96 06/06/19 04:00 97.5 68 20 107/64 (78) 97 06/06/19 04:00 68 06/06/19 00:00 85 06/06/19 00:00 97.5 87 20 115/63 (80) 95 06/05/19 21:00 Room Air 06/05/19 20:00 97.7 87 20 118/63 (81) 95 06/05/19 20:00 87 06/05/19 16:00 97.5 76 20 107/54 (71) 99 06/05/19 16:00 77 Intake and Output 06/05/19 06/06/19 19:00 07:00 Intake Total 480 ml 620 ml Output Total 800 ml Balance -320 ml 620 ml Intake Oral 480 ml 120 ml IV Total 500 ml Output Urine Total 800 ml # Voids 3 # Bowel Movements 1 2 Laboratory Tests 06/06/19 06:42: White Blood Count 5.9, Red Blood Count 4.42L, Hemoglobin 11.9L, Hematocrit 37.8L , Mean Corpuscular Volume 86, Mean Corpuscular Hemoglobin 27.0, Mean Corpuscular Hemoglobin Concent 31.6L, Red Cell Distribution Width 12.4, Platelet Count 230, Mean Platelet Volume 6.3L, Neutrophils (%) (Auto) 55.9, Lymphocytes (%) (Auto) 33.4, Monocytes (%) (Auto) 5.7, Eosinophils (%) (Auto) 4.2H, Basophils (%) (Auto) 0.8, Prothrombin Time 10.9, Prothromb Time International Ratio 1.0, Activated Partial Thromboplast Time 30, Sodium Level 140, Potassium Level 2.9L, Chloride Level 105, Carbon Dioxide Level 28, Anion Gap 7, Blood Urea Nitrogen 15, Creatinine 1.1, Estimat Glomerular Filtration Rate > 60, Glucose Level 111H, Uric Acid 10.6H, Calcium Level 8.4L, Phosphorus Level 2.3L, Magnesium Level 1.8, Total Bilirubin 0.4, Aspartate Amino Transf ( AST/SGOT) 15, Alanine Aminotransferase (ALT/SGPT) 13, Alkaline Phosphatase 80, Total Protein 7.2, Albumin 3.1L, Globulin 4.1, Albumin/Globulin Ratio 0.8L, Vitamin B12 Level 673, Folate 16.0 Height (Feet): 5 Height (Inches): 5.00 Weight (Pounds): 246 General Appearance: no apparent distress Objective no change Curtis Lee MD Jun 06, 2019 13:34
--- NOTE | 2019-06-06 16:06 | NUR ---
*-* INSURANCE *-* ALL CLINICALS AND REVIEWS HAVE BEEN FAXED TO: [facility] F: [phone]
--- NOTE | 2019-06-06 16:15 | Procedure Note ---
DATE OF PROCEDURE: 06/06/2019 SURGEON: Dimas Petersen M.D. PROCEDURE: Upper endoscopy with biopsy. ANESTHESIA: Per Dr. Parks. INSTRUMENT: Olympus adult flexible upper endoscope. INDICATION: GI bleeding. REASON FOR PROCEDURE: The procedure, risks, benefits, and possible consequences, including hemorrhage, aspiration, perforation and infection, and alternative treatments, were explained to the patient/legal guardian by Dr. Dimas Petersen and the patient/legal guardian understood and accepted these risks. PROCEDURE IN DETAIL: After informed consent was obtained and the patient was adequately sedated, Olympus upper endoscope was advanced from mouth into the second portion of the duodenum and retroflexion was performed in the stomach. The patient had some retained food material in the stomach making examination of stomach somewhat limited. The patient had evidence of minimum distal esophagitis, some gastritis. Random biopsy from antrum was obtained to rule out H. pylori infection. At this time, the upper endoscope was retrieved and procedure was terminated. SUMMARY OF FINDINGS: 1. Minimum esophagitis. 2. Limited study of the stomach given there was food material in the stomach. 3. Gastritis, status biopsy. RECOMMENDATIONS: 1. Follow labs. 2. PPI daily. 3. Follow pathology. 4. Resume diet. 5. Consider colonoscopy if needed. I want to thank Dr. Quiros for this kind referral. Dimas Petersen M.D. DR: Susan JOB#: [id number] CC: Jono Quiros M.D.; Fax#: [phone]
--- NOTE | 2019-06-06 17:22 | Surgery Progress Note ---
Surgery Progress Note Subjective Additional Comments stoma bag fell and stool spillage. unfortunately has been using small appliance. will get fitted for larger one today Objective Last 24 Hour Vital Signs Date Time Temp Pulse Resp B/P (MAP) Pulse Ox O2 Delivery O2 Flow Rate FiO2 06/06/19 16:00 98.0 80 18 112/73 (86) 100 06/06/19 16:00 72 06/06/19 12:45 97.6 6 15 118/73 97 Nasal Cannula 3 06/06/19 12:37 97.6 68 16 117/71 97 Nasal Cannula 3 06/06/19 12:20 66 14 120/70 96 Nasal Cannula 3 06/06/19 12:10 65 16 116/73 97 Nasal Cannula 3 06/06/19 12:05 80 17 111/72 95 Nasal Cannula 3 06/06/19 12:00 74 15 104/65 96 Nasal Cannula 3 06/06/19 12:00 68 06/06/19 12:00 97.8 72 20 110/69 (83) 98 06/06/19 11:59 79 16 99 06/06/19 11:56 97.0 79 16 101/68 98 Nasal Cannula 3 06/06/19 09:00 Room Air 06/06/19 08:00 98.1 76 18 99/55 (70) 96 06/06/19 08:00 72 06/06/19 04:00 97.5 68 20 107/64 (78) 97 06/06/19 04:00 68 06/06/19 00:00 85 06/06/19 00:00 97.5 87 20 115/63 (80) 95 06/05/19 21:00 Room Air 06/05/19 20:00 97.7 87 20 118/63 (81) 95 06/05/19 20:00 87 I&O Intake and Output 06/05/19 06/06/19 19:00 07:00 Intake Total 480 ml 620 ml Output Total 800 ml Balance -320 ml 620 ml Intake Oral 480 ml 120 ml IV Total 500 ml Output Urine Total 800 ml # Voids 3 # Bowel Movements 1 2 Cardiovascular: RSR Respiratory: clear Abdomen: soft, non-tender, present bowel sounds, other Extremities: edema, other Laboratory Tests Test 06/06/19 06:42 White Blood Count 5.9 K/UL (4.8-10.8) Red Blood Count 4.42 M/UL (4.70-6.10) L Hemoglobin 11.9 G/DL (14.2-18.0) L Hematocrit 37.8 % (42.0-52.0) L Mean Corpuscular Volume 86 FL (80-99) Mean Corpuscular Hemoglobin 27.0 PG (27.0-31.0) Mean Corpuscular Hemoglobin Concent 31.6 G/DL (32.0-36.0) L Red Cell Distribution Width 12.4 % (11.6-14.8) Platelet Count 230 K/UL (150-450) Mean Platelet Volume 6.3 FL (6.5-10.1) L Neutrophils (%) (Auto) 55.9 % (45.0-75.0) Lymphocytes (%) (Auto) 33.4 % (20.0-45.0) Monocytes (%) (Auto) 5.7 % (1.0-10.0) Eosinophils (%) (Auto) 4.2 % (0.0-3.0) H Basophils (%) (Auto) 0.8 % (0.0-2.0) Prothrombin Time 10.9 SEC (9.30-11.50) Prothromb Time International Ratio 1.0 (0.9-1.1) Activated Partial Thromboplast Time 30 SEC (23-33) Sodium Level 140 MMOL/L (136-145) Potassium Level 2.9 MMOL/L (3.5-5.1) L Chloride Level 105 MMOL/L (98-107) Carbon Dioxide Level 28 MMOL/L (21-32) Anion Gap 7 mmol/L (5-15) Blood Urea Nitrogen 15 mg/dL (7-18) Creatinine 1.1 MG/DL (0.55-1.30) Estimat Glomerular Filtration Rate > 60 mL/min (>60) Glucose Level 111 MG/DL (74-106) H Uric Acid 10.6 MG/DL (2.6-7.2) H Calcium Level 8.4 MG/DL (8.5-10.1) L Phosphorus Level 2.3 MG/DL (2.5-4.9) L Magnesium Level 1.8 MG/DL (1.8-2.4) Total Bilirubin 0.4 MG/DL (0.2-1.0) Aspartate Amino Transf (AST/SGOT) 15 U/L (15-37) Alanine Aminotransferase (ALT/SGPT) 13 U/L (12-78) Alkaline Phosphatase 80 U/L (46-116) Total Protein 7.2 G/DL (6.4-8.2) Albumin 3.1 G/DL (3.4-5.0) L Globulin 4.1 g/dL Albumin/Globulin Ratio 0.8 (1.0-2.7) L Vitamin B12 Level 673 PG/ML (193-986) Folate 16.0 NG/ML (8.6-58.9) Plan Problems: (1) Parastomal hernia Assessment & Plan: large left sided colostomy parastomal hernia. stable chronic no acute intervention can have elective repair as outpatient fitted with large 70mm appliance (2) UGIB (upper gastrointestinal bleed) Assessment & Plan: as per GI available in case hemorrhage (3) Cellulitis Assessment & Plan: Pt presented on admission with keloid scar with hyperpigmentation from previous wound sacrum and L ischial area. Xerosis skin R and L lower ext with scattered petechiae. Hemosiderin noted to both lower ext. Pt denied itching. Both heels are soft but blanchable. Tx.Plan: Wash both lower ext with Chlorhexidine Soap .Apply Lac Hydrin 12% lotion to Damp skin. Wrap with Kerlix from base of toes Twice daily and prn. Elevate both lower ext with pillows. Apply Moisture Barrier Paste to sacrum. Cover with Optifoam drsg. Change every 3 days and prn. Apply Moisture Barrier to both ischial areas and scrotum with each perineal care. Reposition at least every 2hours or as tolerated. (4) Venous stasis ulcer Ricci Sharpe Jun 06, 2019 17:22
--- NOTE | 2019-06-06 19:45 | NUR ---
HAND-OFF: Report given to ASHISH Schwartz. Plan of care endorsed.
--- NOTE | 2019-06-06 19:46 | NUR ---
NURSE NOTES: Received patient awake, lying in semi-hutton's; resting comfortably. A/O x 4. Denies pain at this time. No signs of cardio-respiratory distress noted. Checked IV site intact and flushed. No signs of erythema, bleeding or infiltration noted. With colostomy bag intact. Bed at lowest position, brakes on, siderails x 3. Call light within reach. Comfort care provided. Will continue to monitor.
--- NOTE | 2019-06-06 22:22 | General Progress Note ---
Assessment/Plan Problem List: (1) GIDEON (acute kidney injury) ICD Codes: N17.9 - GIDEON (acute kidney injury) SNOMED: 47570356 (2) Hypokalemia ICD Codes: E87.6 - Hypokalemia SNOMED: 94304256 (3) Pressure ulcer ICD Codes: L89.90 - Pressure ulcer SNOMED: 517059488 (4) Venous stasis ulcer ICD Codes: I83.009 - Venous stasis ulcer SNOMED: 001712236 (5) Renal insufficiency ICD Codes: N28.9 - Disorder of kidney and ureter, unspecified SNOMED: 321883124, 309012152 (6) UGIB (upper gastrointestinal bleed) ICD Codes: K92.2 - Gastrointestinal hemorrhage, unspecified SNOMED: 17514341 Status: progressing, unchanged Assessment/Plan: hemetemsis endoscopy per gi afebrile lyte abnormlaity reviewed chart and labs Subjective ROS Limited/Unobtainable: Yes Allergies: Coded Allergies: No Known Allergies (Unverified , 06/22/14) Objective Last 24 Hour Vital Signs Date Time Temp Pulse Resp B/P (MAP) Pulse Ox O2 Delivery O2 Flow Rate FiO2 06/06/19 20:00 76 06/06/19 20:00 97.9 76 18 117/70 (86) 95 06/06/19 16:00 98.0 80 18 112/73 (86) 100 06/06/19 16:00 72 06/06/19 12:45 97.6 6 15 118/73 97 Nasal Cannula 3 06/06/19 12:37 97.6 68 16 117/71 97 Nasal Cannula 3 06/06/19 12:20 66 14 120/70 96 Nasal Cannula 3 06/06/19 12:10 65 16 116/73 97 Nasal Cannula 3 06/06/19 12:05 80 17 111/72 95 Nasal Cannula 3 06/06/19 12:00 74 15 104/65 96 Nasal Cannula 3 06/06/19 12:00 68 06/06/19 12:00 97.8 72 20 110/69 (83) 98 06/06/19 11:59 79 16 99 06/06/19 11:56 97.0 79 16 101/68 98 Nasal Cannula 3 06/06/19 09:00 Room Air 06/06/19 08:00 98.1 76 18 99/55 (70) 96 06/06/19 08:00 72 06/06/19 04:00 97.5 68 20 107/64 (78) 97 06/06/19 04:00 68 06/06/19 00:00 85 06/06/19 00:00 97.5 87 20 115/63 (80) 95 Intake and Output 06/05/19 06/06/19 19:00 07:00 Intake Total 480 ml 620 ml Output Total 800 ml Balance -320 ml 620 ml Intake Oral 480 ml 120 ml IV Total 500 ml Output Urine Total 800 ml # Voids 3 # Bowel Movements 1 2 Laboratory Tests 06/06/19 06:42: White Blood Count 5.9, Red Blood Count 4.42L, Hemoglobin 11.9L, Hematocrit 37.8L , Mean Corpuscular Volume 86, Mean Corpuscular Hemoglobin 27.0, Mean Corpuscular Hemoglobin Concent 31.6L, Red Cell Distribution Width 12.4, Platelet Count 230, Mean Platelet Volume 6.3L, Neutrophils (%) (Auto) 55.9, Lymphocytes (%) (Auto) 33.4, Monocytes (%) (Auto) 5.7, Eosinophils (%) (Auto) 4.2H, Basophils (%) (Auto) 0.8, Prothrombin Time 10.9, Prothromb Time International Ratio 1.0, Activated Partial Thromboplast Time 30, Sodium Level 140, Potassium Level 2.9L, Chloride Level 105, Carbon Dioxide Level 28, Anion Gap 7, Blood Urea Nitrogen 15, Creatinine 1.1, Estimat Glomerular Filtration Rate > 60, Glucose Level 111H, Uric Acid 10.6H, Calcium Level 8.4L, Phosphorus Level 2.3L, Magnesium Level 1.8, Total Bilirubin 0.4, Aspartate Amino Transf ( AST/SGOT) 15, Alanine Aminotransferase (ALT/SGPT) 13, Alkaline Phosphatase 80, Total Protein 7.2, Albumin 3.1L, Globulin 4.1, Albumin/Globulin Ratio 0.8L, Vitamin B12 Level 673, Folate 16.0 Height (Feet): 5 Height (Inches): 5.00 Weight (Pounds): 246 Neck: supple Cardiovascular: normal rate Respiratory/Chest: lungs clear Jono Quiros MD Jun 06, 2019 22:22
[2019-06-07] VITALS: BP 111/70
[2019-06-07] MEDS: D5 1/2NS w/KCl 20mEq 1,000 ML IV SCH (00:45)
--- NOTE | 2019-06-07 03:04 | NUR ---
NURSE NOTES: Rested well, no significant change of condition noted throughout the night. Safety maintained.
[2019-06-07 04:00] VITALS: BP 109/70
[2019-06-07] MEDS: Dyna-Hex 2% Top Sol 2oz TOPIC PRN (05:38)
[2019-06-07 06:45] LABS: ANION GAP 7 mmol/L (5-15); BLOOD UREA NITROGEN 12 mg/dL (7-18); CALCIUM 8.5 MG/DL (8.5-10.1); CARBON DIOXIDE 28 MMOL/L (21-32); CHLORIDE 103 MMOL/L (98-107); POTASSIUM 3.5 MMOL/L (3.5-5.1); SODIUM 137 MMOL/L (136-145)
[2019-06-07 06:52] LABS: ALANINE AMINOTRANSFERASE 14 U/L (12-78); ALBUMIN 3.3 G/DL (3.4-5.0); ALKALINE PHOSPHATASE 90 U/L (46-116); ASPARTATE AMINO TRANSFERASE 14 U/L (15-37); BILIRUBIN,DIRECT < 0.1 MG/DL (0.0-0.3); BILIRUBIN,TOTAL 0.3 MG/DL (0.2-1.0); PHOSPHORUS 2.3 MG/DL (2.5-4.9)
[2019-06-07 07:15] LABS: BASOPHILS % (AUTO) 0.8 % (0.0-2.0); HEMATOCRIT 38.5 % (42.0-52.0); HEMOGLOBIN 12.2 G/DL (14.2-18.0); LYMPHOCYTES % (AUTO) 34.7 % (20.0-45.0); MEAN CORPUSCULAR VOLUME 85 FL (80-99); MONOCYTES % (AUTO) 6.4 % (1.0-10.0); NEUTROPHILS % (AUTO) 52.1 % (45.0-75.0); PLATELET COUNT 241 K/UL (150-450); RED BLOOD COUNT 4.53 M/UL (4.70-6.10); RED CELL DISTRIBUTION WIDTH 12.6 % (11.6-14.8); WHITE BLOOD COUNT 7.3 K/UL (4.8-10.8)
--- NOTE | 2019-06-07 07:43 | NUR ---
HAND-OFF: Report given to ASHISH Quevedo. Plan of care endorsed.
--- NOTE | 2019-06-07 07:46 | NUR ---
NURSE NOTES: Received patient awake, A/O x 4. Denies any pain at this time. No signs of distress noted. IV site intact, patent, and flushed. No signs of erythema, bleeding or infiltration noted. Patient has a colostomy bag and intact. Bed is in lowest position, brakes on, siderails x 3. Call light within reach. Comfort care provided. Will continue with the plan of care.
[2019-06-07 08:00] VITALS: BP 114/68
[2019-06-07] MEDS: Docusate 100mg tablet ORAL SCH ×3 (08:15→17:57)
[2019-06-07] MEDS: Lac Hydrin 12% Lotion 8oz TOPIC SCH ×2 (08:18→17:57)
--- NOTE | 2019-06-07 09:45 | GI Progress Note ---
Assessment/Plan Problems: (1) UGIB (upper gastrointestinal bleed) ICD Codes: K92.2 - Gastrointestinal hemorrhage, unspecified SNOMED: 01312239 (2) Bleeding from colostomy ICD Codes: K94.01 - Colostomy hemorrhage SNOMED: 1024116555031378 Status: stable Status Narrative Discussed with Dr. Petersen. Assessment/Plan SUMMARY OF FINDINGS: 1. Minimum esophagitis. 2. Limited study of the stomach given there was food material in the stomach. 3. Gastritis, status biopsy. RECOMMENDATIONS: Consider colonoscopy if needed. resume diet Electrolyte correction Zofran as needed PPI PRN transfusions wound care The patient was seen and examined at bedside and all new and available data was reviewed in the patients chart. I agree with the above findings, impression and plan. (Patient seen earlier today. Signature stamp does not reflect patient encounter time.). - Dimas Petersen MD Subjective Subjective No recurrent vomiting Objective Last 24 Hour Vital Signs Date Time Temp Pulse Resp B/P (MAP) Pulse Ox O2 Delivery O2 Flow Rate FiO2 06/07/19 04:00 98.0 68 18 109/70 (83) 96 06/07/19 04:00 56 06/07/19 00:00 98.3 75 18 111/70 (84) 95 06/07/19 00:00 69 06/06/19 21:00 Room Air 06/06/19 20:00 76 06/06/19 20:00 97.9 76 18 117/70 (86) 95 06/06/19 16:00 98.0 80 18 112/73 (86) 100 06/06/19 16:00 72 06/06/19 12:45 97.6 6 15 118/73 97 Nasal Cannula 3 06/06/19 12:37 97.6 68 16 117/71 97 Nasal Cannula 3 06/06/19 12:20 66 14 120/70 96 Nasal Cannula 3 06/06/19 12:10 65 16 116/73 97 Nasal Cannula 3 06/06/19 12:05 80 17 111/72 95 Nasal Cannula 3 06/06/19 12:00 74 15 104/65 96 Nasal Cannula 3 06/06/19 12:00 68 06/06/19 12:00 97.8 72 20 110/69 (83) 98 06/06/19 11:59 79 16 99 06/06/19 11:56 97.0 79 16 101/68 98 Nasal Cannula 3 Intake and Output 06/06/19 06/07/19 19:00 07:00 Intake Total 315 ml 563 ml Output Total 550 ml 800 ml Balance -235 ml -237 ml Intake Oral 240 ml IV Total 75 ml 563 ml Output Urine Total 550 ml 800 ml # Bowel Movements 1 1 Laboratory Tests Test 06/07/19 06:10 White Blood Count 7.3 K/UL (4.8-10.8) Red Blood Count 4.53 M/UL (4.70-6.10) L Hemoglobin 12.2 G/DL (14.2-18.0) L Hematocrit 38.5 % (42.0-52.0) L Mean Corpuscular Volume 85 FL (80-99) Mean Corpuscular Hemoglobin 26.9 PG (27.0-31.0) L Mean Corpuscular Hemoglobin Concent 31.6 G/DL (32.0-36.0) L Red Cell Distribution Width 12.6 % (11.6-14.8) Platelet Count 241 K/UL (150-450) Mean Platelet Volume 6.5 FL (6.5-10.1) Neutrophils (%) (Auto) 52.1 % (45.0-75.0) Lymphocytes (%) (Auto) 34.7 % (20.0-45.0) Monocytes (%) (Auto) 6.4 % (1.0-10.0) Eosinophils (%) (Auto) 6.0 % (0.0-3.0) H Basophils (%) (Auto) 0.8 % (0.0-2.0) Sodium Level 137 MMOL/L (136-145) Potassium Level 3.5 MMOL/L (3.5-5.1) Chloride Level 103 MMOL/L (98-107) Carbon Dioxide Level 28 MMOL/L (21-32) Anion Gap 7 mmol/L (5-15) Blood Urea Nitrogen 12 mg/dL (7-18) Creatinine 1.0 MG/DL (0.55-1.30) Estimat Glomerular Filtration Rate > 60 mL/min (>60) Glucose Level 99 MG/DL (74-106) Calcium Level 8.5 MG/DL (8.5-10.1) Phosphorus Level 2.3 MG/DL (2.5-4.9) L Magnesium Level 1.4 MG/DL (1.8-2.4) L Total Bilirubin 0.3 MG/DL (0.2-1.0) Direct Bilirubin < 0.1 MG/DL (0.0-0.3) Aspartate Amino Transf (AST/SGOT) 14 U/L (15-37) L Alanine Aminotransferase (ALT/SGPT) 14 U/L (12-78) Alkaline Phosphatase 90 U/L (46-116) Total Protein 7.0 G/DL (6.4-8.2) Albumin 3.3 G/DL (3.4-5.0) L Height (Feet): 5 Height (Inches): 5.00 Weight (Pounds): 246 General Appearance: WD/WN, no apparent distress, alert Cardiovascular: normal rate Respiratory/Chest: normal breath sounds, no respiratory distress Abdominal Exam: normal bowel sounds, non tender, soft Extremities: non-tender Rickie Cool NP Jun 07, 2019 09:45
[2019-06-07] MEDS ORDERED: Potassium Phosphate 30 MM in NS 275 ML IV SCH (10:00)
[2019-06-07 12:00] VITALS: BP 114/71
--- NOTE | 2019-06-07 12:09 | Nephrology Progress Note ---
Assessment/Plan Problem List: (1) GIDEON (acute kidney injury) (2) Hypokalemia (3) UGIB (upper gastrointestinal bleed) (4) Colostomy care Assessment Renal Failure: On Lasix and Zaroxilyn Upper GI bleed Colostomy ? UTI Plan Plan: k and Mag supplement Allopurinol Urine culture Urine studies slow Hydrate Pain meds per orders med surg Subjective ROS Limited/Unobtainable: No Constitutional: Reports: malaise Objective Objective Last 24 Hour Vital Signs Date Time Temp Pulse Resp B/P (MAP) Pulse Ox O2 Delivery O2 Flow Rate FiO2 06/07/19 09:00 Room Air 06/07/19 08:00 97.5 78 18 114/68 (83) 96 06/07/19 08:00 78 06/07/19 04:00 98.0 68 18 109/70 (83) 96 06/07/19 04:00 56 06/07/19 00:00 98.3 75 18 111/70 (84) 95 06/07/19 00:00 69 06/06/19 21:00 Room Air 06/06/19 20:00 76 06/06/19 20:00 97.9 76 18 117/70 (86) 95 06/06/19 16:00 98.0 80 18 112/73 (86) 100 06/06/19 16:00 72 06/06/19 12:45 97.6 6 15 118/73 97 Nasal Cannula 3 06/06/19 12:37 97.6 68 16 117/71 97 Nasal Cannula 3 06/06/19 12:20 66 14 120/70 96 Nasal Cannula 3 06/06/19 12:10 65 16 116/73 97 Nasal Cannula 3 Intake and Output 06/06/19 06/07/19 19:00 07:00 Intake Total 315 ml 563 ml Output Total 550 ml 800 ml Balance -235 ml -237 ml Intake Oral 240 ml IV Total 75 ml 563 ml Output Urine Total 550 ml 800 ml # Bowel Movements 1 1 Laboratory Tests 06/07/19 06:10: White Blood Count 7.3, Red Blood Count 4.53L, Hemoglobin 12.2L, Hematocrit 38.5L , Mean Corpuscular Volume 85, Mean Corpuscular Hemoglobin 26.9L, Mean Corpuscular Hemoglobin Concent 31.6L, Red Cell Distribution Width 12.6, Platelet Count 241, Mean Platelet Volume 6.5, Neutrophils (%) (Auto) 52.1, Lymphocytes (%) (Auto) 34.7, Monocytes (%) (Auto) 6.4, Eosinophils (%) (Auto) 6.0H, Basophils (%) (Auto) 0.8, Sodium Level 137, Potassium Level 3.5, Chloride Level 103, Carbon Dioxide Level 28, Anion Gap 7, Blood Urea Nitrogen 12, Creatinine 1.0, Estimat Glomerular Filtration Rate > 60, Glucose Level 99, Calcium Level 8.5, Phosphorus Level 2.3L, Magnesium Level 1.4L, Total Bilirubin 0.3, Direct Bilirubin < 0.1, Aspartate Amino Transf (AST/SGOT) 14L, Alanine Aminotransferase (ALT/SGPT) 14, Alkaline Phosphatase 90, Total Protein 7.0, Albumin 3.3L Height (Feet): 5 Height (Inches): 5.00 Weight (Pounds): 246 General Appearance: no apparent distress Cardiovascular: normal rate Respiratory/Chest: lungs clear Abdomen: soft Objective no change Curtis Lee MD Jun 07, 2019 12:09
--- NOTE | 2019-06-07 14:21 | Surgery Progress Note ---
Surgery Progress Note Subjective Symptoms: improved, tolerating diet, passing flatus, pain decreased Objective Last 24 Hour Vital Signs Date Time Temp Pulse Resp B/P (MAP) Pulse Ox O2 Delivery O2 Flow Rate FiO2 06/07/19 12:00 72 06/07/19 12:00 97.4 72 18 114/71 (85) 95 06/07/19 09:00 Room Air 06/07/19 08:00 97.5 78 18 114/68 (83) 96 06/07/19 08:00 78 06/07/19 04:00 98.0 68 18 109/70 (83) 96 06/07/19 04:00 56 06/07/19 00:00 98.3 75 18 111/70 (84) 95 06/07/19 00:00 69 06/06/19 21:00 Room Air 06/06/19 20:00 76 06/06/19 20:00 97.9 76 18 117/70 (86) 95 06/06/19 16:00 98.0 80 18 112/73 (86) 100 06/06/19 16:00 72 I&O Intake and Output 06/06/19 06/07/19 19:00 07:00 Intake Total 315 ml 563 ml Output Total 550 ml 800 ml Balance -235 ml -237 ml Intake Oral 240 ml IV Total 75 ml 563 ml Output Urine Total 550 ml 800 ml # Bowel Movements 1 1 Dressing: dry Wound: clean Cardiovascular: RSR Respiratory: clear Abdomen: soft, non-tender, present bowel sounds Extremities: no cyanosis Laboratory Tests Test 06/07/19 06:10 White Blood Count 7.3 K/UL (4.8-10.8) Red Blood Count 4.53 M/UL (4.70-6.10) L Hemoglobin 12.2 G/DL (14.2-18.0) L Hematocrit 38.5 % (42.0-52.0) L Mean Corpuscular Volume 85 FL (80-99) Mean Corpuscular Hemoglobin 26.9 PG (27.0-31.0) L Mean Corpuscular Hemoglobin Concent 31.6 G/DL (32.0-36.0) L Red Cell Distribution Width 12.6 % (11.6-14.8) Platelet Count 241 K/UL (150-450) Mean Platelet Volume 6.5 FL (6.5-10.1) Neutrophils (%) (Auto) 52.1 % (45.0-75.0) Lymphocytes (%) (Auto) 34.7 % (20.0-45.0) Monocytes (%) (Auto) 6.4 % (1.0-10.0) Eosinophils (%) (Auto) 6.0 % (0.0-3.0) H Basophils (%) (Auto) 0.8 % (0.0-2.0) Sodium Level 137 MMOL/L (136-145) Potassium Level 3.5 MMOL/L (3.5-5.1) Chloride Level 103 MMOL/L (98-107) Carbon Dioxide Level 28 MMOL/L (21-32) Anion Gap 7 mmol/L (5-15) Blood Urea Nitrogen 12 mg/dL (7-18) Creatinine 1.0 MG/DL (0.55-1.30) Estimat Glomerular Filtration Rate > 60 mL/min (>60) Glucose Level 99 MG/DL (74-106) Calcium Level 8.5 MG/DL (8.5-10.1) Phosphorus Level 2.3 MG/DL (2.5-4.9) L Magnesium Level 1.4 MG/DL (1.8-2.4) L Total Bilirubin 0.3 MG/DL (0.2-1.0) Direct Bilirubin < 0.1 MG/DL (0.0-0.3) Aspartate Amino Transf (AST/SGOT) 14 U/L (15-37) L Alanine Aminotransferase (ALT/SGPT) 14 U/L (12-78) Alkaline Phosphatase 90 U/L (46-116) Total Protein 7.0 G/DL (6.4-8.2) Albumin 3.3 G/DL (3.4-5.0) L Plan Problems: (1) Parastomal hernia Assessment & Plan: large left sided colostomy parastomal hernia. stable chronic no acute intervention can have elective repair as outpatient fitted with large 70mm appliance (2) UGIB (upper gastrointestinal bleed) Assessment & Plan: as per GI available in case hemorrhage (3) Cellulitis Assessment & Plan: Pt presented on admission with keloid scar with hyperpigmentation from previous wound sacrum and L ischial area. Xerosis skin R and L lower ext with scattered petechiae. Hemosiderin noted to both lower ext. Pt denied itching. Both heels are soft but blanchable. Tx.Plan: Wash both lower ext with Chlorhexidine Soap .Apply Lac Hydrin 12% lotion to Damp skin. Wrap with Kerlix from base of toes Twice daily and prn. Elevate both lower ext with pillows. Apply Moisture Barrier Paste to sacrum. Cover with Optifoam drsg. Change every 3 days and prn. Apply Moisture Barrier to both ischial areas and scrotum with each perineal care. Reposition at least every 2hours or as tolerated. (4) Venous stasis ulcer Ricci Sharpe Jun 07, 2019 14:21
--- NOTE | 2019-06-07 15:13 | NUR ---
RD ASSESSMENT & RECOMMENDATIONS SEE CARE ACTIVITY FOR COMPLETE ASSESSMENT DAILY ESTIMATED NEEDS: Needs based on Wound, cardiac, pulm 77kg adj 25-30 kcals/kg 0957-5542 total kcals 1.25-1.5 g protein/kg 96-116 g total protein 25-30 mL/kg 3088-5467 total fluid mLs NUTRITION DIAGNOSIS: * Altered nutrition related lab values R/T clinical status as evidenced by low phos (2.3), low mag (1.4). * Obesity R/T excessive energy intake, life style factors as evidenced by possible significant wt gain of 56lbs/29% in 9 months, pt at 151% IBW, BMI >35. CURRENT DIET:REGULAR PO DIET RECOMMENDATIONS: CARDIAC ADDITIONAL RECOMMENDATIONS: 1) Rec standing weight for accurate CBW -> possible wt gain of 56lbs/29% in 9 months since last Aug 2018 adm -> rec weekly wt monitoring 2) Check lytes daily for repletion (low phos and mag)
[2019-06-07 16:00] VITALS: BP 126/76
--- NOTE | 2019-06-07 16:10 | NUR ---
WORK ORDER DETAILERSURGICAL ELASTIC KNITTER SI: UPPER GI BLEED, GIDEON, HYPOKALEMIA T. 98.0 HR 56 RR 18 B/P 109/70 RA SAT 96% PHOSPHORUS 2.3 MAGNESIUM 1.4 AST 14 RBC 4.53 HGB 12.2 HCT 38.5 MCH 26.9 HCHC 31.6 IS: K-DUR ORAL GABAPENTIN ORAL LAC HYDRIN TOPICAL PROTONIX ORAL D5 1/2NS W/ KCL IV ALLOPURINOL ORAL MED SURG STATUS
--- NOTE | 2019-06-07 16:27 | NUR ---
*-* INSURANCE *-* ALL CLINICALS AND REVIEWS HAVE BEEN FAXED TO: [facility] F: [phone]
--- NOTE | 2019-06-07 19:25 | NUR ---
HAND-OFF: Report given to ASHISH Ndiaye.Patient is in stable condition
--- NOTE | 2019-06-07 19:30 | NUR ---
NURSE NOTES: Received report from Gisell Padgett RN. Patient in bed AAO X4 with no complaints of acute pain or discomfort at this time. Patient is on bedrest for bilateral venous ulcers, MD and nurse aware. Kept clean, dry, and comfortable in bed. IV line intact and patent and placed on continuous cardiac monitoring per protocol. Colostomy on LLQ observed, stoma intact with no S/S of infection noted, bag in place and secured. Safety precaution in place; siderails X3 up, call light within reach, bed in lowest position, brakes and alarm on at all times. needs and wants anticipated and attended. Will continue plan of care and monitor for any changes noted.
[2019-06-07 20:00] VITALS: BP 114/59
--- NOTE | 2019-06-07 22:26 | General Progress Note ---
Assessment/Plan Problem List: (1) GIDEON (acute kidney injury) ICD Codes: N17.9 - GIDEON (acute kidney injury) SNOMED: 09938224 (2) Hypokalemia ICD Codes: E87.6 - Hypokalemia SNOMED: 75464968 (3) Pressure ulcer ICD Codes: L89.90 - Pressure ulcer SNOMED: 794889104 (4) Venous stasis ulcer ICD Codes: I83.009 - Venous stasis ulcer SNOMED: 737658749 (5) Renal insufficiency ICD Codes: N28.9 - Disorder of kidney and ureter, unspecified SNOMED: 911491438, 860592135 (6) UGIB (upper gastrointestinal bleed) ICD Codes: K92.2 - Gastrointestinal hemorrhage, unspecified SNOMED: 38847346 Status: stable Assessment/Plan: hemetemsis dc planning afebrile lyte abnormlaity is improving reviewed chart and labs Subjective ROS Limited/Unobtainable: Yes Allergies: Coded Allergies: No Known Allergies (Unverified , 06/22/14) Objective Last 24 Hour Vital Signs Date Time Temp Pulse Resp B/P (MAP) Pulse Ox O2 Delivery O2 Flow Rate FiO2 06/07/19 21:00 Room Air 06/07/19 20:00 97.8 75 20 114/59 (77) 96 06/07/19 16:00 74 06/07/19 16:00 97.3 76 18 126/76 (93) 96 06/07/19 12:00 72 06/07/19 12:00 97.4 72 18 114/71 (85) 95 06/07/19 09:00 Room Air 06/07/19 08:00 97.5 78 18 114/68 (83) 96 06/07/19 08:00 78 06/07/19 04:00 98.0 68 18 109/70 (83) 96 06/07/19 04:00 56 06/07/19 00:00 98.3 75 18 111/70 (84) 95 06/07/19 00:00 69 Intake and Output 06/06/19 06/07/19 19:00 07:00 Intake Total 315 ml 563 ml Output Total 550 ml 800 ml Balance -235 ml -237 ml Intake Oral 240 ml IV Total 75 ml 563 ml Output Urine Total 550 ml 800 ml # Bowel Movements 1 1 Laboratory Tests 06/07/19 06:10: White Blood Count 7.3, Red Blood Count 4.53L, Hemoglobin 12.2L, Hematocrit 38.5L , Mean Corpuscular Volume 85, Mean Corpuscular Hemoglobin 26.9L, Mean Corpuscular Hemoglobin Concent 31.6L, Red Cell Distribution Width 12.6, Platelet Count 241, Mean Platelet Volume 6.5, Neutrophils (%) (Auto) 52.1, Lymphocytes (%) (Auto) 34.7, Monocytes (%) (Auto) 6.4, Eosinophils (%) (Auto) 6.0H, Basophils (%) (Auto) 0.8, Sodium Level 137, Potassium Level 3.5, Chloride Level 103, Carbon Dioxide Level 28, Anion Gap 7, Blood Urea Nitrogen 12, Creatinine 1.0, Estimat Glomerular Filtration Rate > 60, Glucose Level 99, Calcium Level 8.5, Phosphorus Level 2.3L, Magnesium Level 1.4L, Total Bilirubin 0.3, Direct Bilirubin < 0.1, Aspartate Amino Transf (AST/SGOT) 14L, Alanine Aminotransferase (ALT/SGPT) 14, Alkaline Phosphatase 90, Total Protein 7.0, Albumin 3.3L Height (Feet): 5 Height (Inches): 5.00 Weight (Pounds): 246 Cardiovascular: regular rhythm Respiratory/Chest: lungs clear Abdomen: soft Jono Quiros MD Jun 07, 2019 22:26
[2019-06-08] VITALS: BP 118/73
[2019-06-08] MEDS: D5 1/2NS w/KCl 20mEq 1,000 ML IV SCH (00:46)
[2019-06-08 04:00] VITALS: BP 113/75
[2019-06-08 07:00] LABS: ANION GAP 7 mmol/L (5-15); BLOOD UREA NITROGEN 10 mg/dL (7-18); CALCIUM 8.9 MG/DL (8.5-10.1); CARBON DIOXIDE 26 MMOL/L (21-32); CHLORIDE 104 MMOL/L (98-107); POTASSIUM 3.8 MMOL/L (3.5-5.1); SODIUM 136 MMOL/L (136-145)
--- NOTE | 2019-06-08 07:00 | NUR ---
HAND-OFF: Report given to Ethel Mejía RN. Patient asleep in bed with no S/S of distress. Endorsed plan of care.
[2019-06-08 07:01] LABS: BASOPHILS % (AUTO) 1.2 % (0.0-2.0); EOSINOPHILS % (AUTO) 4.5 % (0.0-3.0); HEMATOCRIT 39.8 % (42.0-52.0); HEMOGLOBIN 12.9 G/DL (14.2-18.0); LYMPHOCYTES % (AUTO) 22.5 % (20.0-45.0); MEAN CORPUSCULAR VOLUME 85 FL (80-99); MONOCYTES % (AUTO) 5.5 % (1.0-10.0); NEUTROPHILS % (AUTO) 66.4 % (45.0-75.0); PLATELET COUNT 216 K/UL (150-450); RED BLOOD COUNT 4.67 M/UL (4.70-6.10); RED CELL DISTRIBUTION WIDTH 12.4 % (11.6-14.8); WHITE BLOOD COUNT 9.1 K/UL (4.8-10.8)
--- NOTE | 2019-06-08 07:02 | NUR ---
NURSE NOTES: Received report from ASHISH Ndiaye. Pt is resting in bed. No distress noted. Bed is in lowest position, side rails up X2, and call light is within reach. Will continue to monitor.
[2019-06-08 08:00] VITALS: BP 121/76
[2019-06-08] MEDS: Docusate 100mg tablet ORAL SCH ×3 (08:25→17:22)
[2019-06-08] MEDS: traMADol 50mg tab ORAL PRN ×2 (08:31→14:39)
[2019-06-08 09:32] LABS: PHOSPHORUS 2.5 MG/DL (2.5-4.9)
[2019-06-08] MEDS: Lac Hydrin 12% Lotion 8oz TOPIC SCH (10:36)
--- NOTE | 2019-06-08 10:53 | GI Progress Note ---
Assessment/Plan Problems: (1) UGIB (upper gastrointestinal bleed) ICD Codes: K92.2 - Gastrointestinal hemorrhage, unspecified SNOMED: 12904901 (2) Bleeding from colostomy ICD Codes: K94.01 - Colostomy hemorrhage SNOMED: 1213503260089859 Status: stable Status Narrative Discussed with Dr. Petersen. Assessment/Plan SUMMARY OF FINDINGS: 1. Minimum esophagitis. 2. Limited study of the stomach given there was food material in the stomach. 3. Gastritis, status biopsy. RECOMMENDATIONS: stable H&H, will defer colonoscopy at this time resume diet Electrolyte correction Zofran as needed PPI PRN transfusions wound care dc planning per primary The patient was seen and examined at bedside and all new and available data was reviewed in the patients chart. I agree with the above findings, impression and plan. (Patient seen earlier today. Signature stamp does not reflect patient encounter time.). - Dimas Petersen MD Subjective Subjective No recurrent vomiting Objective Last 24 Hour Vital Signs Date Time Temp Pulse Resp B/P (MAP) Pulse Ox O2 Delivery O2 Flow Rate FiO2 06/08/19 09:00 Room Air 06/08/19 08:00 88 06/08/19 08:00 98.2 86 18 121/76 (91) 95 06/08/19 04:00 98.5 85 20 113/75 (88) 94 06/08/19 04:00 81 06/08/19 00:00 98.0 71 18 118/73 (88) 94 06/08/19 00:00 67 06/07/19 21:00 Room Air 06/07/19 20:00 69 06/07/19 20:00 97.8 75 20 114/59 (77) 96 06/07/19 16:00 74 06/07/19 16:00 97.3 76 18 126/76 (93) 96 06/07/19 12:00 72 06/07/19 12:00 97.4 72 18 114/71 (85) 95 Intake and Output 06/07/19 06/08/19 19:00 07:00 Intake Total 240 ml 360 ml Output Total 500 ml 950 ml Balance -260 ml -590 ml Intake Oral 240 ml 360 ml Output Urine Total 500 ml 950 ml # Bowel Movements 1 1 Laboratory Tests Test 06/08/19 06:12 06/08/19 06:22 Phosphorus Level 2.5 MG/DL (2.5-4.9) Magnesium Level 1.6 MG/DL (1.8-2.4) L White Blood Count 9.1 K/UL (4.8-10.8) Red Blood Count 4.67 M/UL (4.70-6.10) L Hemoglobin 12.9 G/DL (14.2-18.0) L Hematocrit 39.8 % (42.0-52.0) L Mean Corpuscular Volume 85 FL (80-99) Mean Corpuscular Hemoglobin 27.6 PG (27.0-31.0) Mean Corpuscular Hemoglobin Concent 32.4 G/DL (32.0-36.0) Red Cell Distribution Width 12.4 % (11.6-14.8) Platelet Count 216 K/UL (150-450) Mean Platelet Volume 7.3 FL (6.5-10.1) Neutrophils (%) (Auto) 66.4 % (45.0-75.0) Lymphocytes (%) (Auto) 22.5 % (20.0-45.0) Monocytes (%) (Auto) 5.5 % (1.0-10.0) Eosinophils (%) (Auto) 4.5 % (0.0-3.0) H Basophils (%) (Auto) 1.2 % (0.0-2.0) Sodium Level 136 MMOL/L (136-145) Potassium Level 3.8 MMOL/L (3.5-5.1) Chloride Level 104 MMOL/L (98-107) Carbon Dioxide Level 26 MMOL/L (21-32) Anion Gap 7 mmol/L (5-15) Blood Urea Nitrogen 10 mg/dL (7-18) Creatinine 1.0 MG/DL (0.55-1.30) Estimat Glomerular Filtration Rate > 60 mL/min (>60) Glucose Level 112 MG/DL (74-106) H Calcium Level 8.9 MG/DL (8.5-10.1) Height (Feet): 5 Height (Inches): 5.00 Weight (Pounds): 246 General Appearance: WD/WN, no apparent distress, alert Cardiovascular: normal rate Respiratory/Chest: normal breath sounds, no respiratory distress Abdominal Exam: normal bowel sounds, non tender, soft Extremities: normal range of motion, non-tender Rickie Cool NP Jun 08, 2019 10:53
[2019-06-08 12:00] VITALS: BP 117/71
--- NOTE | 2019-06-08 13:44 | Nephrology Progress Note ---
Assessment/Plan Problem List: (1) GIDEON (acute kidney injury) (2) Hypokalemia (3) UGIB (upper gastrointestinal bleed) (4) Colostomy care Assessment Renal Failure: On Lasix and Zaroxilyn Upper GI bleed Colostomy ? UTI Plan Plan: k and Mag supplement Allopurinol Urine culture Urine studies slow Hydrate Pain meds per orders med surg Subjective ROS Limited/Unobtainable: No Constitutional: Reports: malaise Objective Objective Last 24 Hour Vital Signs Date Time Temp Pulse Resp B/P (MAP) Pulse Ox O2 Delivery O2 Flow Rate FiO2 06/08/19 12:00 97.8 81 20 117/71 (86) 93 06/08/19 12:00 84 06/08/19 09:00 Room Air 06/08/19 08:00 88 06/08/19 08:00 98.2 86 18 121/76 (91) 95 06/08/19 04:00 98.5 85 20 113/75 (88) 94 06/08/19 04:00 81 06/08/19 00:00 98.0 71 18 118/73 (88) 94 06/08/19 00:00 67 06/07/19 21:00 Room Air 06/07/19 20:00 69 06/07/19 20:00 97.8 75 20 114/59 (77) 96 06/07/19 16:00 74 06/07/19 16:00 97.3 76 18 126/76 (93) 96 Intake and Output 06/07/19 06/08/19 19:00 07:00 Intake Total 240 ml 360 ml Output Total 500 ml 950 ml Balance -260 ml -590 ml Intake Oral 240 ml 360 ml Output Urine Total 500 ml 950 ml # Bowel Movements 1 1 Laboratory Tests 06/08/19 06:12: Phosphorus Level 2.5, Magnesium Level 1.6L 06/08/19 06:22: White Blood Count 9.1, Red Blood Count 4.67L, Hemoglobin 12.9L, Hematocrit 39.8L , Mean Corpuscular Volume 85, Mean Corpuscular Hemoglobin 27.6, Mean Corpuscular Hemoglobin Concent 32.4, Red Cell Distribution Width 12.4, Platelet Count 216, Mean Platelet Volume 7.3, Neutrophils (%) (Auto) 66.4, Lymphocytes (% ) (Auto) 22.5, Monocytes (%) (Auto) 5.5, Eosinophils (%) (Auto) 4.5H, Basophils (%) (Auto) 1.2, Sodium Level 136, Potassium Level 3.8, Chloride Level 104, Carbon Dioxide Level 26, Anion Gap 7, Blood Urea Nitrogen 10, Creatinine 1.0, Estimat Glomerular Filtration Rate > 60, Glucose Level 112H, Calcium Level 8.9 Height (Feet): 5 Height (Inches): 5.00 Weight (Pounds): 246 General Appearance: no apparent distress Objective no change Curtis Lee MD Jun 08, 2019 13:44
--- NOTE | 2019-06-08 13:51 | Surgery Progress Note ---
Surgery Progress Note Subjective Additional Comments no acute events comfortable stable. no complaints abd exam with ostomy stable. Objective Last 24 Hour Vital Signs Date Time Temp Pulse Resp B/P (MAP) Pulse Ox O2 Delivery O2 Flow Rate FiO2 06/08/19 12:00 97.8 81 20 117/71 (86) 93 06/08/19 12:00 84 06/08/19 09:00 Room Air 06/08/19 08:00 88 06/08/19 08:00 98.2 86 18 121/76 (91) 95 06/08/19 04:00 98.5 85 20 113/75 (88) 94 06/08/19 04:00 81 06/08/19 00:00 98.0 71 18 118/73 (88) 94 06/08/19 00:00 67 06/07/19 21:00 Room Air 06/07/19 20:00 69 06/07/19 20:00 97.8 75 20 114/59 (77) 96 06/07/19 16:00 74 06/07/19 16:00 97.3 76 18 126/76 (93) 96 I&O Intake and Output 06/07/19 06/08/19 19:00 07:00 Intake Total 240 ml 360 ml Output Total 500 ml 950 ml Balance -260 ml -590 ml Intake Oral 240 ml 360 ml Output Urine Total 500 ml 950 ml # Bowel Movements 1 1 Dressing: dry Wound: clean Cardiovascular: RSR Respiratory: clear Abdomen: soft, non-tender, present bowel sounds, other Extremities: other Laboratory Tests Test 06/08/19 06:12 06/08/19 06:22 Phosphorus Level 2.5 MG/DL (2.5-4.9) Magnesium Level 1.6 MG/DL (1.8-2.4) L White Blood Count 9.1 K/UL (4.8-10.8) Red Blood Count 4.67 M/UL (4.70-6.10) L Hemoglobin 12.9 G/DL (14.2-18.0) L Hematocrit 39.8 % (42.0-52.0) L Mean Corpuscular Volume 85 FL (80-99) Mean Corpuscular Hemoglobin 27.6 PG (27.0-31.0) Mean Corpuscular Hemoglobin Concent 32.4 G/DL (32.0-36.0) Red Cell Distribution Width 12.4 % (11.6-14.8) Platelet Count 216 K/UL (150-450) Mean Platelet Volume 7.3 FL (6.5-10.1) Neutrophils (%) (Auto) 66.4 % (45.0-75.0) Lymphocytes (%) (Auto) 22.5 % (20.0-45.0) Monocytes (%) (Auto) 5.5 % (1.0-10.0) Eosinophils (%) (Auto) 4.5 % (0.0-3.0) H Basophils (%) (Auto) 1.2 % (0.0-2.0) Sodium Level 136 MMOL/L (136-145) Potassium Level 3.8 MMOL/L (3.5-5.1) Chloride Level 104 MMOL/L (98-107) Carbon Dioxide Level 26 MMOL/L (21-32) Anion Gap 7 mmol/L (5-15) Blood Urea Nitrogen 10 mg/dL (7-18) Creatinine 1.0 MG/DL (0.55-1.30) Estimat Glomerular Filtration Rate > 60 mL/min (>60) Glucose Level 112 MG/DL (74-106) H Calcium Level 8.9 MG/DL (8.5-10.1) Plan Problems: (1) Parastomal hernia Assessment & Plan: large left sided colostomy parastomal hernia. stable chronic no acute intervention can have elective repair as outpatient fitted with large 70mm appliance (2) UGIB (upper gastrointestinal bleed) Assessment & Plan: as per GI available in case hemorrhage (3) Cellulitis Assessment & Plan: Pt presented on admission with keloid scar with hyperpigmentation from previous wound sacrum and L ischial area. Xerosis skin R and L lower ext with scattered petechiae. Hemosiderin noted to both lower ext. Pt denied itching. Both heels are soft but blanchable. Tx.Plan: Wash both lower ext with Chlorhexidine Soap .Apply Lac Hydrin 12% lotion to Damp skin. Wrap with Kerlix from base of toes Twice daily and prn. Elevate both lower ext with pillows. Apply Moisture Barrier Paste to sacrum. Cover with Optifoam drsg. Change every 3 days and prn. Apply Moisture Barrier to both ischial areas and scrotum with each perineal care. Reposition at least every 2hours or as tolerated. (4) Venous stasis ulcer Ricci Sharpe Jun 08, 2019 13:51
[2019-06-08 16:00] VITALS: BP 116/76
--- NOTE | 2019-06-08 16:12 | NUR ---
*-* DISCHARGE PLANNING *-* PATIENT HAS BEEN REFERRED BACK TO: [facility] P:[phone] F: [phone]
--- NOTE | 2019-06-08 17:04 | NUR ---
NURSE NOTES: Called [facility] to give report. Spoke to Peter. Per Peter, please send patient as early as possible so that an Rn can admit him
[2019-06-08] MEDS ORDERED: 1/2 NS 1000ml IV ONE (17:54)
[2019-06-08] MEDS ORDERED: Tubing IV Secondary IV ONE (17:54)
--- NOTE | 2019-06-08 18:06 | NUR ---
NURSE NOTES: patient was discharged per MD orders. Hear monitor was removed and returned to refrigerating technician. IV was removed. No redness or swelling noted. Belongs accounted for. pt stable at time of DC
--- NOTE | 2019-06-10 18:37 | Discharge Summary ---
Discharge Summary Discharge Summary _ DATE OF ADMISSION: 06/04/2019 DATE OF DISCHARGE: 06/08/2019 DISCHARGED BY: Dr. Jono Frank CONSULTANTS: Dr. Ricci Petersen BRIEF HOSPITAL COURSE: Patient is a 59-year-old male, who was brought in by EMS from senior care facility. He had multiple episodes of coffee-ground emesis. He has history of dementia and has a colostomy. He denied abdominal pain but had nausea. He denied fever or chills. Denied chest pain. On evaluation at the ED, vital signs were stable. Blood work did not show any leukocytosis. Hemoglobin and hematocrit were stable. Electrolytes were normal. BUN was 38 and creatinine was elevated to 1.6. Urinalysis showed +1 ketones, negative nitrite, +1 leukocyte esterase, 0-2 urine RBC and 2-4 urine WBC. EKG showed normal sinus rhythm with no acute ischemic changes. He was then admitted for evaluation of upper GI bleed and renal insufficiency. GI was consulted. Patient with red dark and inflamed stoma with scant amount of blood in the colostomy bag. He was placed on n.p.o. he was given duration. He was placed on IV twice daily. He was recommended EGD. Potassium dropped to 2.8. He was rescheduled for EGD. Air Quality Instrument Specialist was consulted for electrolyte abnormalities. Magnesium was also low. He was given potassium and magnesium supplements. Uric acid was noted to be elevated. He was given allopurinol. Kidney function was monitored. Patient is on Lasix and Zaroxolyn prior to admission. Medications were discontinued. Kidney function eventually normalized. Surgeon was consulted to evaluate the large protrusion on colostomy and lower extremity wounds. He was noted to have a parastomal hernia without any obstruction or gangrene. Appeared to be chronic. No acute intervention needed , however can have elective repair as outpatient. He also had a keloid scar with hyperpigmentation from previous wound sacrum and left ischial area. He had cirrhosis on both right and lower disease with scattered petechiae. Patient denied itching. Both heels were soft but blanchable. He was given local wound care. Recommend to elevate legs with pillows. Moisture barrier was applied to ischial areas and perineal area. Recommended to reposition every 2 hours. On 06/06/2019, he underwent EGD. Findings showed esophagitis and gastritis. Limited study as there was food material in the stomach. He was continued on PPI. Urine culture showed growth of mixed gram-positive organisms. Stoma bag fell and had stool spillage. Unfortunately, had been using small appliance. Patient was fitted with a large 70mm appliance. Abdominal exam was stable. H&H was stable. Pathology from EGD showed chronic gastritis, negative for H. pylori. He was then cleared for discharge back to [facility]. FINAL DIAGNOSES: Upper GI bleed status post EGD Acute kidney injury Hypokalemia Colostomy Esophagitis Gastritis Venous stasis ulcer/cellulitis DISPOSITION: Patient was discharged to a SNF. DISCHARGE MEDICATIONS: Refer to Discharge Medication List. I have been assigned to complete a discharge summary on this account, I was not involved with the patient's management.--GUILLERMO Campos Jacqueline Robles NP Jun 10, 2019 18:37
== END 2019-06-08 17:55 | DRG 253 ==
LOC: EDBD 12:18 → EDUNIT# 12:18 → EMR 12:39 → EDBEDREQ 12:46 → 2E 13:22 → EDBEDREQ 13:52
PROC: 0DB78ZX Excision of Stomach, Pylorus, Via Natural or Artificial Opening Endoscopic, Diagnostic (ICD-10-PCS; principal; 2019-06-06 11:46)
DX: K92.2 Gastrointestinal hemorrhage, unspecified (principal); I95.9 Hypotension, unspecified; E87.6 Hypokalemia; N17.9 Acute kidney failure, unspecified; L03.312 Cellulitis of back [any part except buttock and flank]; K43.5 Parastomal hernia without obstruction or gangrene; Z43.3 Encounter for attention to colostomy; K20.9 Esophagitis, unspecified; K29.70 Gastritis, unspecified, without bleeding; I83.009 Varicose veins of unspecified lower extremity with ulcer of unspecified site; L03.90 Cellulitis, unspecified; E78.5 Hyperlipidemia, unspecified
CPT/HCPCS: 36415; 80048; 80053; 80061; 80076; 81003; 82607; 82728; 82746; 82977; 83540; 83550; 83690; 83735; 84100; 84443; 84550; 85025; 85610; 85730; 86140; 86850; 86900; 86901; 87081; 87086; 93005; 94003; 94150; 96361; 96374; 96375; 99285; J2405; J8499

== ENCOUNTER 2019-09-05 15:01 | Inpatient (IN) | payer MEDICAID ==
[~2019-09-05] VITALS: Ht 175.3 cm; Wt 88.9 kg
[2019-09-05 15:05] VITALS: BP 115/79
[2019-09-05] MEDS ORDERED: BISACODYL5 MG ORAL (15:19)
[2019-09-05] MEDS ORDERED: ACETAMINOPHEN500 M5 ORAL (15:19)
--- NOTE | 2019-09-05 15:26 | Emergency Room Report ---
History of Present Illness General Chief Complaint: Multiple Trauma/Fall Source: Medical Record Present Illness HPI 59 YO Male s/p mechanical fall yesterday cc 08/02 Pain in the entire right upper extremity specifically hand, elbow and shoulder. pt. denies Hitting his head or having LOC. pt. denies midline neck or back pain. He is in a SNF and had x-rays done. Pt. states that they said they "cant handle this here" and sent him to the ED. Pt has pmhx of CHF ,Dementia ,chronic bilaterally LE pressure ulcers. Pt. denies dizziness, SHIELDS, N/V. He denies paresthesias in the affected extremity. Pt. reports pain exacerbated with moving. He also reports swelling. his paperwork also show hx of gout. Pt. denies fevers or chills. He reports bruises on the right hand and previous surgery. HPI and ROS are somewhat limited. Allergies: Coded Allergies: No Known Allergies (Unverified , 06/22/14) Patient History Past Medical History: see triage record, HTN, CHF, ulcer Past Surgical History: other - hand surgery Pertinent Family History: none Reviewed Nursing Documentation: PMH: Agreed; PSxH: Agreed Nursing Documentation-PMH Past Medical History: No History, Except For Hx Cardiac Problems: Yes - Hyperlipidemia, generalized atherosclerosis, venous insufficency Hx Hypertension: Yes Hx Cancer: No Hx Gastrointestinal Problems: Yes - colostomy Hx Neurological Problems: Yes Hx Dementia: Yes Review of Systems All Other Systems: negative except mentioned in HPI Physical Exam Vital Signs Date Time Temp Pulse Resp B/P (MAP) Pulse Ox O2 Delivery O2 Flow Rate FiO2 09/05/19 14:56 98.4 99 20 115/79 (91) 94 Room Air Sp02 EP Interpretation: reviewed, normal General Appearance: no apparent distress, alert, GCS 15, non-toxic Head: normocephalic, atraumatic Eyes: bilateral eye normal inspection, bilateral eye PERRL ENT: hearing grossly normal, normal voice Neck: full range of motion Respiratory: chest non-tender, lungs clear, normal breath sounds, speaking full sentences Cardiovascular #1: regular rate, rhythm, normal capillary refill, other - Bilateral chronic pressure ulcers which are covered with pressure dressing. Cardiovascular #2: 2+ radial (R), 2+ radial (L) Musculoskeletal: back normal, tender - right hand, elbow, shoulder. buising and swelling of the right hand. swelling and erythema of the 2nd metacarpal bone distally. no neck or back ttp Neurologic: alert, oriented x3, responsive, motor strength/tone normal, sensory intact, speech normal, grossly normal Psychiatric: judgement/insight normal - slow response time/ dementia Lymphatic: no adenopathy Medical Decision Making PA Attestation Dr. Alvarez Is my supervising Physician whom patient management has been discussed with. Diagnostic Impression: Primary Impression: Surgical screw in right hand Additional Impressions: Displaced surgical screw of the right hand Hyponatremia ER Course 59 YO Male s/p mechanical fall yesterday cc 08/02 Pain in the entire right upper extremity specifically hand, elbow and shoulder. pt. denies Hitting his head or having LOC. pt. denies midline neck or back pain. He is in a SNF and had x-rays done. Pt. states that they said they "cant handle this here" and sent him to the ED. Pt has pmhx of CHF ,Dementia ,chronic bilaterally LE pressure ulcers. Pt. denies dizziness, SHIELDS, N/V. He denies paresthesias in the affected extremity. Pt. reports pain exacerbated with moving. He also reports swelling. his paperwork also show hx of gout. Pt. denies fevers or chills. He reports bruises on the right hand and previous surgery. HPI and ROS are somewhat limited. Ddx considered but are not limited to Fracture, dislocation, contusion, Sprain/ Strain/Spasm, gout, septic joint head injury, back injury just to name a few.. Vital signs: are WNL, pt. is afebrile H&PE are most consistent with musculoskeletal injury will perform imaging to r/ o fractures/dislocations. ORDERS: - X-ray right Hand,Elbow and Shoulder 3 views each. - CBC: wbc elevated at 15.9. -CMP: Mild hyponatremia and chloremia ED INTERVENTIONS: - Tramadol PO - Rowley PO - Right thumb spika Splint applied by lab support technician. Pt. remains neurovascularly intact. DISPOSITION: at this time pt. will be admitted to Dr. Quiros for displaced surgical screw of the right hand. Dr. Quiros agreed to admit the pt. and to continue pt. care management. Labs Test 09/05/19 20:10 White Blood Count 15.9 K/UL (4.8-10.8) Red Blood Count 5.21 M/UL (4.70-6.10) Hemoglobin 14.3 G/DL (14.2-18.0) Hematocrit 42.1 % (42.0-52.0) Mean Corpuscular Volume 81 FL (80-99) Mean Corpuscular Hemoglobin 27.4 PG (27.0-31.0) Mean Corpuscular Hemoglobin Concent 33.9 G/DL (32.0-36.0) Red Cell Distribution Width 11.6 % (11.6-14.8) Platelet Count 183 K/UL (150-450) Mean Platelet Volume 7.7 FL (6.5-10.1) Neutrophils (%) (Auto) 77.4 % (45.0-75.0) Lymphocytes (%) (Auto) 15.4 % (20.0-45.0) Monocytes (%) (Auto) 6.6 % (1.0-10.0) Eosinophils (%) (Auto) 0.2 % (0.0-3.0) Basophils (%) (Auto) 0.5 % (0.0-2.0) Sodium Level 130 MMOL/L (136-145) Potassium Level 3.3 MMOL/L (3.5-5.1) Chloride Level 92 MMOL/L (98-107) Carbon Dioxide Level 32 MMOL/L (21-32) Anion Gap 6 mmol/L (5-15) Blood Urea Nitrogen 23 mg/dL (7-18) Creatinine 1.3 MG/DL (0.55-1.30) Estimat Glomerular Filtration Rate > 60 mL/min (>60) Glucose Level 113 MG/DL (74-106) Calcium Level 8.6 MG/DL (8.5-10.1) Total Bilirubin 0.8 MG/DL (0.2-1.0) Aspartate Amino Transf (AST/SGOT) 20 U/L (15-37) Alanine Aminotransferase (ALT/SGPT) 16 U/L (12-78) Alkaline Phosphatase 90 U/L (46-116) Total Protein 9.0 G/DL (6.4-8.2) Albumin 3.0 G/DL (3.4-5.0) Globulin 6.0 g/dL Albumin/Globulin Ratio 0.5 (1.0-2.7) Other X-Ray Diagnostic Results Other X-Ray Diagnostic Results #1: X-Ray ordered: Right hand # of Views/Limited Vs Complete: 3 View Indication: Pain EP Interpretation: Yes PA Xray: Interpretation reviewed, by supervising MD, and agrees with findings. Interpretation: other - Displaced surgical screw, moderate amount of joint and bone degradation. Impression: Other - Abnormal Electronically Signed by: Syeda Dc PA-C Other X-Ray Diagnostic Results #2: X-Ray ordered: Right elbow # of Views/Limited Vs Complete: 3 View Indication: Pain EP Interpretation: Yes PA Xray: Interpretation reviewed, by supervising MD, and agrees with findings. Interpretation: no dislocation, no soft tissue swelling, no fractures Impression: No acute disease Electronically Signed by: Syeda Dc PA-C Other X-Ray Diagnostic Results #3: X-Ray ordered: Right shoulder # of Views/Limited Vs Complete: 3 View Indication: Pain EP Interpretation: Yes PA Xray: Interpretation reviewed, by supervising MD, and agrees with findings. Interpretation: no dislocation, no soft tissue swelling, no fractures Impression: No acute disease Electronically Signed by: Syeda Dc PA-C Last Vital Signs Date Time Temp Pulse Resp B/P (MAP) Pulse Ox O2 Delivery O2 Flow Rate FiO2 09/05/19 14:56 98.4 99 20 115/79 (91) 94 Room Air Disposition: ADMITTED INPATIENT Condition: Syeda Maguire Sep 05, 2019 15:26
[2019-09-05] MEDS ORDERED: traMADol 50mg tab ORAL ONE (15:45)
--- NOTE | 2019-09-05 16:05 | Diagnostic Imaging Report ---
Indication: Right shoulder pain COMPARISON: None Findings: 3 views of the right shoulder were obtained. No acute fractures, malalignment, erosions or periostitis are identified. Bones are osteopenic. There is narrowing of the glenohumeral joint consistent with mild osteoarthritis. Soft tissues are unremarkable. Impression: Negative for acute injury
--- NOTE | 2019-09-05 16:33 | Diagnostic Imaging Report ---
Indication: Right hand pain Findings: 3 views of the right hand were obtained. There is severe arthrosis involving the carpal bones. The first carpal row including the scaphoid, lunate appear collapsed. There are multiple lucencies suggestive of cystic changes within the bones. The intercarpal joints are moderately narrowed. There are cystic changes in the base of the third and fourth metacarpals as well. There is a Alexandro screw partially within the scaphoid. This was likely placed for scaphoid fracture but has migrated medially and is partially embedded within the scaphoid and trapezium. There are severe erosive changes present within the intercarpal joints. There are severe erosive changes and deformity characterized by some articular collapse and cyst formation involving the second MCP joint. There is no acute fracture identified. IMPRESSION: No acute fracture identified. Evidence of severe polyarticular inflammatory arthritis characterized by subarticular erosions and cysts involving several of the intercarpal joints and the second MCP joint. Subsequent deformity and superimposed osteoarthritis noted. Displaced Alexandro screw, likely placed for a previous scaphoid fracture. Generalized soft tissue swelling.
--- NOTE | 2019-09-05 16:39 | Diagnostic Imaging Report ---
Indication: Right elbow pain Findings: 3 views of the right elbow were obtained. No acute fractures, malalignment, erosions or periostitis are identified. Soft tissue swelling noted posterior part of the elbow. There is no joint effusion identified. Impression: No acute fracture. Soft tissue swelling noted
[2019-09-05 17:25] VITALS: BP 118/69
[2019-09-05] MEDS ORDERED: HYDROcodone/Acetamin 7.5/325 tab ORAL ONE (20:00)
[2019-09-05 20:30] LABS: BASOPHILS % (AUTO) 0.5 % (0.0-2.0); EOSINOPHILS % (AUTO) 0.2 % (0.0-3.0); HEMATOCRIT 42.1 % (42.0-52.0); HEMOGLOBIN 14.3 G/DL (14.2-18.0); LYMPHOCYTES % (AUTO) 15.4 % (20.0-45.0); MEAN CORPUSCULAR VOLUME 81 FL (80-99); MONOCYTES % (AUTO) 6.6 % (1.0-10.0); NEUTROPHILS % (AUTO) 77.4 % (45.0-75.0); PLATELET COUNT 183 K/UL (150-450); RED BLOOD COUNT 5.21 M/UL (4.70-6.10); RED CELL DISTRIBUTION WIDTH 11.6 % (11.6-14.8); WHITE BLOOD COUNT 15.9 K/UL (4.8-10.8)
[2019-09-05 20:49] LABS: ANION GAP 6 mmol/L (5-15); BLOOD UREA NITROGEN 23 mg/dL (7-18); CALCIUM 8.6 MG/DL (8.5-10.1); CARBON DIOXIDE 32 MMOL/L (21-32); CHLORIDE 92 MMOL/L (98-107); CREATININE 1.3 MG/DL (0.55-1.30); POTASSIUM 3.3 MMOL/L (3.5-5.1); SODIUM 130 MMOL/L (136-145)
[2019-09-05 20:54] LABS: ALANINE AMINOTRANSFERASE 16 U/L (12-78); ALKALINE PHOSPHATASE 90 U/L (46-116); ASPARTATE AMINO TRANSFERASE 20 U/L (15-37); BILIRUBIN,TOTAL 0.8 MG/DL (0.2-1.0)
[2019-09-05 21:03] LABS: ALBUMIN/GLOBULIN RATIO 0.5 (1.0-2.7)
[2019-09-06] VITALS: BP 119/75
[2019-09-06] MEDS ORDERED: Acetaminophen 500mg (ES) tab ORAL SCH
[2019-09-06 04:00] VITALS: BP 117/66
[2019-09-06 07:18] LABS: BASOPHILS % (AUTO) 0.3 % (0.0-2.0); EOSINOPHILS % (AUTO) 0.2 % (0.0-3.0); HEMATOCRIT 40.1 % (42.0-52.0); HEMOGLOBIN 13.1 G/DL (14.2-18.0); MEAN CORPUSCULAR VOLUME 83 FL (80-99); MONOCYTES % (AUTO) 5.3 % (1.0-10.0); NEUTROPHILS % (AUTO) 81.2 % (45.0-75.0); PLATELET COUNT 230 K/UL (150-450); RED BLOOD COUNT 4.84 M/UL (4.70-6.10); RED CELL DISTRIBUTION WIDTH 12.9 % (11.6-14.8)
[2019-09-06 07:45] LABS: ANION GAP 11 mmol/L (5-15); BLOOD UREA NITROGEN 25 mg/dL (7-18); CALCIUM 8.6 MG/DL (8.5-10.1); CARBON DIOXIDE 27 MMOL/L (21-32); CHLORIDE 96 MMOL/L (98-107); CREATININE 1.1 MG/DL (0.55-1.30); POTASSIUM 3.3 MMOL/L (3.5-5.1); SODIUM 134 MMOL/L (136-145)
[2019-09-06 08:00] VITALS: BP 116/75
[2019-09-06] MEDS ORDERED: Magnesium Oxide 400mg tab ORAL SCH (09:00)
[2019-09-06] MEDS: Docusate 250mg cap ORAL SCH (09:00)
[2019-09-06] MEDS: Bisacodyl EC 5mg tab ORAL SCH ×2 (09:33→17:07)
[2019-09-06] MEDS: Ascorbic Acid 500mg tab ORAL SCH (09:34)
--- NOTE | 2019-09-06 09:34 | Consultation ---
History of Present Illness General Date patient seen: Sep 06, 2019 Time patient seen: 08:30 - am Chief Complaint: Right wirst pain Referring physician: Chlua Reason for Consultation: Pain management Present Illness HPI Patient is a 59 y/o male who is being seen on the med/surg floor of [facility] [place]. He was transferred to [facility] [place] from SNF found to have displaced screw from previous surgery due to fracture. He was given a one time dose of Pemberton 7.5/325mg tab last night. However at this time he denies any pain or discomfort. Past Medical History: HTN, CHF, ulcer Past Surgical History: other - hand surgery Hx Cardiac Problems: Yes - Hyperlipidemia, generalized atherosclerosis, venous insufficency Hx Hypertension: Yes Hx Cancer: No Hx Gastrointestinal Problems: Yes - colostomy Hx Neurological Problems: Yes Hx Dementia: Yes Allergies: Coded Allergies: No Known Allergies (Unverified , 06/22/14) Medication History Scheduled Acetaminophen (Acetaminophen), 650 MG ORAL Q6HR, (Reported) Ascorbic Acid* (Vitamin C*), 500 MG ORAL DAILY, (Reported) Bisacodyl (Bisacodyl), 5 MG PO BID, (Reported) Bisacodyl* (Dulcolax*), 5 MG ORAL TWICE A DAY, (Reported) Celecoxib* (Celebrex*), 200 MG ORAL DAILY, (Reported) Docusate Sodium (Docusate Sodium), 250 MG ORAL DAILY, (Reported) Furosemide* (Lasix*), 40 MG ORAL DAILY, (Reported) Gabapentin* (Gabapentin*), 300 MG ORAL THREE TIMES A DAY, (Reported) Heparin Sod (Porcine) (Heparin Sodium*), 5,000 UNITS SUBQ EVERY 12 HOURS, ( Reported) Magnesium Oxide (Magnesium Oxide), 400 MG ORAL BID, (Reported) Metolazone* (Zaroxolyn*), 5 MG ORAL DAILY, (Reported) Multivitamins* (Multivitamins*), 1 TAB ORAL DAILY, (Reported) Mupirocin (Bactroban Cr), 1 APPLIC TOPIC DAILY, (Reported) Potassium Chloride (Potassium Chloride), 100 MEQ ORAL DAILY, (Reported) Scheduled PRN Acetaminophen (Acetaminophen), 650 MG ORAL Q6H PRN for Prn Headache/Temp > 101, (Reported) Ondansetron (Zofran), 4 MG ORAL Q6H PRN for Nausea & Vomiting, (Reported) Tramadol Hcl* (Ultram*), 100 MG ORAL Q6H PRN for For Pain, (Reported) Miscellaneous Medications Zinc Oxide (Vitamelts Fast Dissolve), 15 MG PO, (Reported) Patient History Healthcare decision maker Resuscitation status Advanced Directive on File Review of Systems Constitutional: Reports: weakness Eye: Reports: no symptoms ENT: Reports: no symptoms Respiratory: Reports: no symptoms Cardiovascular: Reports: no symptoms Gastrointestinal: Reports: no symptoms Genitourinary: Reports: no symptoms Musculoskeletal: Reports: no symptoms Skin: Reports: no symptoms Psychiatric: Reports: no symptoms Neurological: Reports: no symptoms Endocrine: Reports: no symptoms Hematologic/Lymphatic: Reports: no symptoms Physical Exam General Appearance: no apparent distress, alert HEENT: PERRL Neck: non-tender, supple Respiratory/Chest: lungs clear, normal breath sounds Cardiovascular/Chest: normal rate, regular rhythm Abdomen: other - colostomy noted Extremities: other - Bilateral chronic pressure ulcers which are covered with pressure dressing. Right hand swelling of the right hand. swelling and erythema of the 2nd metacarpal bone distally. Neurologic: alert, responsive Last 24 Hour Vital Signs Date Time Temp Pulse Resp B/P (MAP) Pulse Ox O2 Delivery O2 Flow Rate FiO2 09/06/19 04:00 97.3 72 18 117/66 (83) 96 09/06/19 00:00 99.1 92 18 119/75 (90) 96 09/05/19 21:44 Room Air 09/05/19 21:25 97.6 86 18 120/68 99 Room Air 09/05/19 21:09 97.6 09/05/19 17:25 97.6 86 19 118/69 97 Room Air 09/05/19 16:20 98.4 09/05/19 15:05 99 20 Room Air 09/05/19 15:05 98.4 78 20 115/79 94 Room Air 09/05/19 14:56 98.4 99 20 115/79 (91) 94 Room Air Intake and Output 09/05/19 09/06/19 19:00 07:00 Intake Total 240 ml Balance 240 ml Intake Oral 240 ml # Voids 1 Laboratory Tests Test 09/05/19 20:10 09/06/19 06:27 White Blood Count 15.9 K/UL (4.8-10.8) H 15.0 K/UL (4.8-10.8) H Red Blood Count 5.21 M/UL (4.70-6.10) 4.84 M/UL (4.70-6.10) Hemoglobin 14.3 G/DL (14.2-18.0) 13.1 G/DL (14.2-18.0) L Hematocrit 42.1 % (42.0-52.0) 40.1 % (42.0-52.0) L Mean Corpuscular Volume 81 FL (80-99) 83 FL (80-99) Mean Corpuscular Hemoglobin 27.4 PG (27.0-31.0) 27.0 PG (27.0-31.0) Mean Corpuscular Hemoglobin Concent 33.9 G/DL (32.0-36.0) 32.6 G/DL (32.0-36.0) Red Cell Distribution Width 11.6 % (11.6-14.8) 12.9 % (11.6-14.8) Platelet Count 183 K/UL (150-450) 230 K/UL (150-450) Mean Platelet Volume 7.7 FL (6.5-10.1) 7.9 FL (6.5-10.1) Neutrophils (%) (Auto) 77.4 % (45.0-75.0) H 81.2 % (45.0-75.0) H Lymphocytes (%) (Auto) 15.4 % (20.0-45.0) L 13.0 % (20.0-45.0) L Monocytes (%) (Auto) 6.6 % (1.0-10.0) 5.3 % (1.0-10.0) Eosinophils (%) (Auto) 0.2 % (0.0-3.0) 0.2 % (0.0-3.0) Basophils (%) (Auto) 0.5 % (0.0-2.0) 0.3 % (0.0-2.0) Sodium Level 130 MMOL/L (136-145) L 134 MMOL/L (136-145) L Potassium Level 3.3 MMOL/L (3.5-5.1) L 3.3 MMOL/L (3.5-5.1) L Chloride Level 92 MMOL/L (98-107) L 96 MMOL/L (98-107) L Carbon Dioxide Level 32 MMOL/L (21-32) 27 MMOL/L (21-32) Anion Gap 6 mmol/L (5-15) 11 mmol/L (5-15) Blood Urea Nitrogen 23 mg/dL (7-18) H 25 mg/dL (7-18) H Creatinine 1.3 MG/DL (0.55-1.30) 1.1 MG/DL (0.55-1.30) Estimat Glomerular Filtration Rate > 60 mL/min (>60) > 60 mL/min (>60) Glucose Level 113 MG/DL (74-106) H 115 MG/DL (74-106) H Calcium Level 8.6 MG/DL (8.5-10.1) 8.6 MG/DL (8.5-10.1) Total Bilirubin 0.8 MG/DL (0.2-1.0) Aspartate Amino Transf (AST/SGOT) 20 U/L (15-37) Alanine Aminotransferase (ALT/SGPT) 16 U/L (12-78) Alkaline Phosphatase 90 U/L (46-116) Total Protein 9.0 G/DL (6.4-8.2) H Albumin 3.0 G/DL (3.4-5.0) L Globulin 6.0 g/dL Albumin/Globulin Ratio 0.5 (1.0-2.7) L Height (Feet): 5 Height (Inches): 9.00 Weight (Pounds): 182 Medications Current Medications Medications (Trade) Dose Ordered Sig/Jl Route PRN Reason Start Time Stop Time Status Last Admin Dose Admin Acetaminophen (Tylenol) 650 mg Q6HR ORAL 09/06/19 00:00 10/06/19 00:00 UNV Ascorbic Acid (Vitamin C) 500 mg DAILY ORAL 09/06/19 09:00 10/06/19 08:59 Bisacodyl (Dulcolax) 5 mg TWICE A DAY ORAL 09/06/19 09:00 10/06/19 08:59 Docusate Sodium (Colace) 250 mg DAILY ORAL 09/06/19 09:00 10/06/19 08:59 Furosemide (Lasix) 40 mg DAILY ORAL 09/06/19 09:00 10/06/19 08:59 Gabapentin (Neurontin) 300 mg TID ORAL 09/06/19 09:00 10/06/19 08:59 Heparin Sodium (Porcine) (Heparin 5000 units/ml) 5,000 units EVERY 12 HOURS SUBQ 09/06/19 09:00 10/06/19 08:59 Magnesium Oxide (Mag-Ox 400mg) 400 mg BID ORAL 09/06/19 09:00 10/06/19 08:59 Metolazone (Zaroxolyn) 5 mg DAILY ORAL 09/06/19 09:00 10/06/19 08:59 Multivitamins (Multivitamins) 1 tab DAILY ORAL 09/06/19 09:00 10/06/19 08:59 Ondansetron HCl (Zofran) 4 mg Q6H PRN ORAL Nausea & Vomiting 09/05/19 23:00 10/05/19 22:59 Potassium Chloride (K-Dur) 120 meq DAILY ORAL 09/06/19 09:00 10/06/19 08:59 Assessment/Plan Assessment/Plan: (1) Right wrist pain (2) H/O Right wrist fracture and ORIF (3) Osteoarthritis (4) Hardware displacement Patient will be continued on Tylenol as needed. D/w nurse. D/w Dr. Trevino and he concurred. Lokesh Pierce Sep 06, 2019 09:34
[2019-09-06] MEDS: Furosemide 40mg tab ORAL SCH (09:35)
[2019-09-06] MEDS: Heparin 5000 units/ml inj SUBQ SCH ×2 (09:40→20:24)
[2019-09-06 12:00] VITALS: BP 121/73
[2019-09-06 14:24] LABS: APPEARANCE,URINE CLEAR; BILIRUBIN, URINE NEGATIVE (NEGATIVE); GLUCOSE, URINE (UA) NEGATIVE (NEGATIVE); KETONES,URINE NEGATIVE (NEGATIVE); LEUKOCYTE ESTERASE ,URINE NEGATIVE (NEGATIVE); NITRITE,URINE NEGATIVE (NEGATIVE); PH,URINE 7 (4.5-8.0); PROTEIN,URINE 3+ (NEGATIVE); UROBILINOGEN,URINE 1 MG/DL (0.0-1.0)
[2019-09-06 14:27] LABS: COLOR,URINE YELLOW
--- NOTE | 2019-09-06 15:01 | Consultation ---
Consult Note Consult Note asked to eval for abnormal electrolytes by Dr Zac Clifton Historian 59 YO Male s/p mechanical fall yesterday cc 08/02 Pain in the entire right upper extremity specifically hand, elbow and shoulder. pt. denies Hitting his head or having LOC. pt. denies midline neck or back pain. He is in a SNF and had x-rays done. Pt. states that they said they "cant handle this here" and sent him to the ED. Pt has pmhx of CHF ,Dementia ,chronic bilaterally LE pressure ulcers. Pt. denies dizziness, SHIELDS, N/V. He denies paresthesias in the affected extremity. Pt. reports pain exacerbated with moving. He also reports swelling. his paperwork also show hx of gout. Pt. denies fevers or chills. He reports bruises on the right hand and previous surgery. HPI and ROS are somewhat limited. No Known Allergies (Unverified , 06/22/14) Past Medical History: see triage record, HTN, CHF, ulcer Past Surgical History: other - hand surgery Past Medical History: No History, Except For Hx Cardiac Problems: Yes - Hyperlipidemia, generalized atherosclerosis, venous insufficency Hx Hypertension: Yes Hx Gastrointestinal Problems: Yes - colostomy Hx Neurological Problems: Yes Hx Dementia: Yes examined data reviewed Assessment/Plan Surgical screw in right hand Displaced surgical screw of the right hand Hyponatremia Mild Azotemia Low K h/o UGI bleed Colostomy care Plan k and Mag Phos supplement as needed Monitor Lytes adjust diuretics Per orders Curtis Lee MD Sep 06, 2019 15:01
[2019-09-06] MEDS ORDERED: traMADol 50mg tab ORAL PRN (15:09)
[2019-09-06 15:51] VITALS: BP 130/75
--- NOTE | 2019-09-06 16:57 | Consultation ---
History of Present Illness General Date patient seen: Sep 06, 2019 Reason for Hospitalization: Multiple Trauma/Fall Present Illness HPI This is a pleasant 59-year-old male with multiple medical comorbidities who had a mechanical fall prior to admission while in rehab facility and now complaining of 10/10 Pain in the entire right upper extremity, hand, elbow and shoulder. pt. denies Hitting his head or having LOC. pt. denies midline neck or back pain. He is in a SNF and had x-rays done. Pt. states that they said they "cant handle this here" and sent him to the ED. upon admission work-up for fall initiated and pain complaints. Imaging noted. Furthermore identified to have bilateral lower extremity wounds requiring care and management. Surgery called to evaluate and assist with care. Patient seen, patient evaluated, chart reviewed. Patient states he has had these lower extremity wounds for some time now. He is not sure how long but states that occasionally he receives care while in nursing facilities. He cannot remember the name of any of the physicians assisting him with these care plans. He states that he has not been amatory for some time and prior had a wheelchair but has not had one since it was lost/stolen. Allergies: Coded Allergies: No Known Allergies (Unverified , 06/22/14) Medication History Scheduled Acetaminophen (Acetaminophen), 650 MG ORAL Q6HR, (Reported) Ascorbic Acid* (Vitamin C*), 500 MG ORAL DAILY, (Reported) Bisacodyl (Bisacodyl), 5 MG PO BID, (Reported) Bisacodyl* (Dulcolax*), 5 MG ORAL TWICE A DAY, (Reported) Celecoxib* (Celebrex*), 200 MG ORAL DAILY, (Reported) Docusate Sodium (Docusate Sodium), 250 MG ORAL DAILY, (Reported) Furosemide* (Lasix*), 40 MG ORAL DAILY, (Reported) Gabapentin* (Gabapentin*), 300 MG ORAL THREE TIMES A DAY, (Reported) Heparin Sod (Porcine) (Heparin Sodium*), 5,000 UNITS SUBQ EVERY 12 HOURS, ( Reported) Magnesium Oxide (Magnesium Oxide), 400 MG ORAL BID, (Reported) Metolazone* (Zaroxolyn*), 5 MG ORAL DAILY, (Reported) Multivitamins* (Multivitamins*), 1 TAB ORAL DAILY, (Reported) Mupirocin (Bactroban Cr), 1 APPLIC TOPIC DAILY, (Reported) Potassium Chloride (Potassium Chloride), 100 MEQ ORAL DAILY, (Reported) Scheduled PRN Acetaminophen (Acetaminophen), 650 MG ORAL Q6H PRN for Prn Headache/Temp > 101, (Reported) Ondansetron (Zofran), 4 MG ORAL Q6H PRN for Nausea & Vomiting, (Reported) Tramadol Hcl* (Ultram*), 100 MG ORAL Q6H PRN for For Pain, (Reported) Miscellaneous Medications Zinc Oxide (Vitamelts Fast Dissolve), 15 MG PO, (Reported) Patient History Limited by: medical condition History Provided By: Patient, Medical Record, PMD Healthcare decision maker Resuscitation status Advanced Directive on File Past Medical/Surgical History Past Medical/Surgical History: (1) Bleeding from colostomy (2) Hypokalemia (3) GIDEON (acute kidney injury) (4) Colostomy care (5) Pressure ulcer (6) Cellulitis (7) Fall (8) Transaminitis (9) Abnormal laboratory test result (10) Venous stasis ulcer (11) Wrist pain, acute (12) Wound cellulitis (13) Parastomal hernia (14) Hyponatremia (15) Surgical screw in right hand (16) Status post fall Review of Systems Review of Symptoms General ROS: no weight loss or fever Psychological ROS: no depression or mood changes, no memory loss Ophthalmic ROS: no visual changes or eye irritation ENT ROS: no nasal congestion, hearing loss, dizziness Allergy and Immunology ROS: no allergic symptoms or urticaria Hematological and Lymphatic ROS: no swollen glands, unusual bleeding or bruising Endocrine ROS: no polyuria, polydipsia, weight changes, temperature intolerance Respiratory ROS: no cough, shortness of breath, or wheezing Cardiovascular ROS: no chest pain or dyspnea on exertion Gastrointestinal ROS: denies abdominal pain, bright red blood in stool. Musculoskeletal ROS: Pain Neurological ROS: no TIA or stroke symptoms Dermatological ROS: no new or changing skin lesions, rashes or pruritis Physical Exam Physical Exam General appearance: alert, cooperative, no distress, appears stated age Head: Normocephalic, without obvious abnormality, atraumatic Eyes: conjunctivae/corneas clear. PERRL, EOM's intact. Fundi benign Throat: Lips, mucosa, and tongue normal. Teeth and gums normal Neck: supple, symmetrical, trachea midline, no adenopathy, thyroid: not enlarged, symmetric, no tenderness/mass/nodules, no carotid bruit and no JVD Lungs: clear to auscultation bilaterally Heart: regular rate and rhythm, S1, S2 normal, no murmur, click, rub or gallop Abdomen: soft, non-tender. Bowel sounds normal. No masses, no organomegaly++Os Extremities: extremities with ulcerations/chronic skin changes Pulses: decreased and symmetric Skin: Skin color, texture, turgor normal. No rashes or lesions Neurologic: Grossly normal Last 24 Hour Vital Signs Date Time Temp Pulse Resp B/P (MAP) Pulse Ox O2 Delivery O2 Flow Rate FiO2 09/06/19 15:51 98.2 105 20 130/75 (93) 97 09/06/19 12:00 98.0 101 20 121/73 (89) 97 09/06/19 09:00 Room Air 09/06/19 08:00 97.3 100 18 116/75 (89) 96 09/06/19 04:00 97.3 72 18 117/66 (83) 96 09/06/19 00:00 99.1 92 18 119/75 (90) 96 09/05/19 21:44 Room Air 09/05/19 21:25 97.6 86 18 120/68 99 Room Air 09/05/19 21:09 97.6 09/05/19 17:25 97.6 86 19 118/69 97 Room Air Intake and Output 09/05/19 09/06/19 19:00 07:00 Intake Total 240 ml Balance 240 ml Intake Oral 240 ml # Voids 1 Laboratory Tests Test 09/05/19 20:10 09/06/19 06:27 09/06/19 13:35 White Blood Count 15.9 K/UL (4.8-10.8) H 15.0 K/UL (4.8-10.8) H Red Blood Count 5.21 M/UL (4.70-6.10) 4.84 M/UL (4.70-6.10) Hemoglobin 14.3 G/DL (14.2-18.0) 13.1 G/DL (14.2-18.0) L Hematocrit 42.1 % (42.0-52.0) 40.1 % (42.0-52.0) L Mean Corpuscular Volume 81 FL (80-99) 83 FL (80-99) Mean Corpuscular Hemoglobin 27.4 PG (27.0-31.0) 27.0 PG (27.0-31.0) Mean Corpuscular Hemoglobin Concent 33.9 G/DL (32.0-36.0) 32.6 G/DL (32.0-36.0) Red Cell Distribution Width 11.6 % (11.6-14.8) 12.9 % (11.6-14.8) Platelet Count 183 K/UL (150-450) 230 K/UL (150-450) Mean Platelet Volume 7.7 FL (6.5-10.1) 7.9 FL (6.5-10.1) Neutrophils (%) (Auto) 77.4 % (45.0-75.0) H 81.2 % (45.0-75.0) H Lymphocytes (%) (Auto) 15.4 % (20.0-45.0) L 13.0 % (20.0-45.0) L Monocytes (%) (Auto) 6.6 % (1.0-10.0) 5.3 % (1.0-10.0) Eosinophils (%) (Auto) 0.2 % (0.0-3.0) 0.2 % (0.0-3.0) Basophils (%) (Auto) 0.5 % (0.0-2.0) 0.3 % (0.0-2.0) Sodium Level 130 MMOL/L (136-145) L 134 MMOL/L (136-145) L Potassium Level 3.3 MMOL/L (3.5-5.1) L 3.3 MMOL/L (3.5-5.1) L Chloride Level 92 MMOL/L (98-107) L 96 MMOL/L (98-107) L Carbon Dioxide Level 32 MMOL/L (21-32) 27 MMOL/L (21-32) Anion Gap 6 mmol/L (5-15) 11 mmol/L (5-15) Blood Urea Nitrogen 23 mg/dL (7-18) H 25 mg/dL (7-18) H Creatinine 1.3 MG/DL (0.55-1.30) 1.1 MG/DL (0.55-1.30) Estimat Glomerular Filtration Rate > 60 mL/min (>60) > 60 mL/min (>60) Glucose Level 113 MG/DL (74-106) H 115 MG/DL (74-106) H Calcium Level 8.6 MG/DL (8.5-10.1) 8.6 MG/DL (8.5-10.1) Total Bilirubin 0.8 MG/DL (0.2-1.0) Aspartate Amino Transf (AST/SGOT) 20 U/L (15-37) Alanine Aminotransferase (ALT/SGPT) 16 U/L (12-78) Alkaline Phosphatase 90 U/L (46-116) Total Protein 9.0 G/DL (6.4-8.2) H Albumin 3.0 G/DL (3.4-5.0) L Globulin 6.0 g/dL Albumin/Globulin Ratio 0.5 (1.0-2.7) L Urine Color Yellow Urine Appearance Clear Urine pH 7 (4.5-8.0) Urine Specific [place] 1.010 (1.005-1.035) Urine Protein 3+ (NEGATIVE) H Urine Glucose (UA) Negative (NEGATIVE) Urine Ketones Negative (NEGATIVE) Urine Blood 1+ (NEGATIVE) H Urine Nitrite Negative (NEGATIVE) Urine Bilirubin Negative (NEGATIVE) Urine Urobilinogen 1 MG/DL (0.0-1.0) H Urine Leukocyte Esterase Negative (NEGATIVE) Urine RBC 2-4 /HPF (0 - 0) H Urine WBC 0-2 /HPF (0 - 0) Urine Squamous Epithelial Cells Occasional /LPF Urine Bacteria Occasional /HPF (NONE) Height (Feet): 5 Height (Inches): 9.00 Weight (Pounds): 182 Medications Current Medications Medications (Trade) Dose Ordered Sig/Jl Route PRN Reason Start Time Stop Time Status Last Admin Dose Admin Acetaminophen (Tylenol) 650 mg Q6H PRN ORAL mild pain 09/06/19 16:20 10/06/19 16:19 Ascorbic Acid (Vitamin C) 500 mg DAILY ORAL 09/06/19 09:00 10/06/19 08:59 09/06/19 09:34 Bisacodyl (Dulcolax) 5 mg TWICE A DAY ORAL 09/06/19 09:00 10/06/19 08:59 09/06/19 09:33 Docusate Sodium (Colace) 250 mg DAILY ORAL 09/06/19 09:00 10/06/19 08:59 Furosemide (Lasix) 40 mg DAILY ORAL 09/06/19 09:00 10/06/19 08:59 09/06/19 09:35 Gabapentin (Neurontin) 300 mg TID ORAL 09/06/19 09:00 10/06/19 08:59 09/06/19 12:48 Heparin Sodium (Porcine) (Heparin 5000 units/ml) 5,000 units EVERY 12 HOURS SUBQ 09/06/19 09:00 10/06/19 08:59 09/06/19 09:40 Metolazone (Zaroxolyn) 5 mg DAILY ORAL 09/06/19 09:00 10/06/19 08:59 09/06/19 09:33 Multivitamins (Multivitamins) 1 tab DAILY ORAL 09/06/19 09:00 10/06/19 08:59 09/06/19 09:34 Ondansetron HCl (Zofran) 4 mg Q6H PRN ORAL Nausea & Vomiting 09/05/19 23:00 10/05/19 22:59 Potassium Chloride (K-Dur) 120 meq DAILY ORAL 09/06/19 09:00 10/06/19 08:59 09/06/19 09:38 Tramadol HCl (Ultram) 100 mg Q6H PRN ORAL pain 4-10 09/06/19 16:30 09/13/19 15:08 Assessment/Plan Problem List: (1) Pressure ulcer Assessment & Plan: DAILY ESTIMATED NEEDS: Needs based on Cardiac, pulm, obese 81.5kg adj 20-25 kcals/kg [id number] total kcals 1-1.5 g protein/kg 82-122 g total protein Fluid per MD, on lasix NUTRITION DIAGNOSIS: * Altered nutrition related lab values R/T clinical status as evidenced by low K(3.3). (CURRENT DIET: GOOD) PO DIET RECOMMENDATIONS: Rec Low NA/ Low Fat ADDITIONAL RECOMMENDATIONS: 1) Rec standing weight for accurate CBW -> OR recalibrated bed scale for accurate CBW -> On lasix, requiring daily wts 2) Check lytes daily for repletion (low K) 3) F/up w/ Wound care eval - etiology unknown MVI ICD Codes: L89.90 - Pressure ulcer SNOMED: 026076188 (2) Venous stasis ulcer Assessment & Plan: Patient presents with venous stasis ulcer on the left lower extremity. 4 cm x 3 cm x 2 mm deep. No active drainage mild serous oozing. No signs of acute active infection with but does have some erythema in the periwound. No purulent drainage. States he has had it for some time now and has been cared for an outside facility. Bilateral heel soft. Offload pressure from heels with pillow. Hydrogel impregnated gauze to ulcer bed followed by foam dressing. Wash lower extremities daily and apply skin protectant moisturizer followed by ABD and wrap pending duplex studies dressings changes daily will monitor and f/u with plan ICD Codes: I83.009 - Venous stasis ulcer SNOMED: 798454584 (3) Cellulitis ICD Codes: L03.90 - Cellulitis SNOMED: 753698393 (4) Wrist pain, acute Assessment & Plan: Procedure: XRAY Elbow Min 3v R Indication: Right elbow pain Findings: 3 views of the right elbow were obtained. No acute fractures, malalignment, erosions or periostitis are identified. Soft tissue swelling noted posterior part of the elbow. There is no joint effusion identified. Impression: No acute fracture. Soft tissue swelling noted There is severe arthrosis involving the carpal bones. The first carpal row including the scaphoid, lunate appear collapsed. There are multiple lucencies suggestive of cystic changes within the bones. The intercarpal joints are moderately narrowed. There are cystic changes in the base of the third and fourth metacarpals as well. There is a Alexandro screw partially within the scaphoid. This was likely placed for scaphoid fracture but has migrated medially and is partially embedded within the scaphoid and trapezium. There are severe erosive changes present within the intercarpal joints. There are severe erosive changes and deformity characterized by some articular collapse and cyst formation involving the second MCP joint. There is no acute fracture identified. IMPRESSION: No acute fracture identified. Evidence of severe polyarticular inflammatory arthritis characterized by subarticular erosions and cysts involving several of the intercarpal joints and the second MCP joint. Subsequent deformity and superimposed osteoarthritis noted. Displaced Alexandro screw, likely placed for a previous scaphoid fracture. Generalized soft tissue swelling. Findings: 3 views of the right shoulder were obtained. No acute fractures, malalignment, erosions or periostitis are identified. Bones are osteopenic. There is narrowing of the glenohumeral joint consistent with mild osteoarthritis. Soft tissues are unremarkable. Impression: Negative for acute injury displaced screw noted. seemingly chronic. outpatient hand sx consult ICD Codes: M25.539 - Pain in unspecified wrist SNOMED: 55890180 (5) Status post fall ICD Codes: Z91.81 - History of falling SNOMED: 252832033 Ricci Sharpe Sep 06, 2019 16:57
--- NOTE | 2019-09-06 18:43 | Cardiology Progress Note ---
Assessment/Plan Assessment/Plan The patient is seen and examined, full consult note will be dictated shortly. Objective Last 24 Hour Vital Signs Date Time Temp Pulse Resp B/P (MAP) Pulse Ox O2 Delivery O2 Flow Rate FiO2 09/06/19 15:51 98.2 105 20 130/75 (93) 97 09/06/19 12:00 98.0 101 20 121/73 (89) 97 09/06/19 09:00 Room Air 09/06/19 08:00 97.3 100 18 116/75 (89) 96 09/06/19 04:00 97.3 72 18 117/66 (83) 96 09/06/19 00:00 99.1 92 18 119/75 (90) 96 09/05/19 21:44 Room Air 09/05/19 21:25 97.6 86 18 120/68 99 Room Air 09/05/19 21:09 97.6 Intake and Output 09/05/19 09/06/19 19:00 07:00 Intake Total 240 ml Balance 240 ml Intake Oral 240 ml # Voids 1 Laboratory Tests Test 09/05/19 20:10 09/06/19 06:27 09/06/19 13:35 White Blood Count 15.9 K/UL (4.8-10.8) H 15.0 K/UL (4.8-10.8) H Red Blood Count 5.21 M/UL (4.70-6.10) 4.84 M/UL (4.70-6.10) Hemoglobin 14.3 G/DL (14.2-18.0) 13.1 G/DL (14.2-18.0) L Hematocrit 42.1 % (42.0-52.0) 40.1 % (42.0-52.0) L Mean Corpuscular Volume 81 FL (80-99) 83 FL (80-99) Mean Corpuscular Hemoglobin 27.4 PG (27.0-31.0) 27.0 PG (27.0-31.0) Mean Corpuscular Hemoglobin Concent 33.9 G/DL (32.0-36.0) 32.6 G/DL (32.0-36.0) Red Cell Distribution Width 11.6 % (11.6-14.8) 12.9 % (11.6-14.8) Platelet Count 183 K/UL (150-450) 230 K/UL (150-450) Mean Platelet Volume 7.7 FL (6.5-10.1) 7.9 FL (6.5-10.1) Neutrophils (%) (Auto) 77.4 % (45.0-75.0) H 81.2 % (45.0-75.0) H Lymphocytes (%) (Auto) 15.4 % (20.0-45.0) L 13.0 % (20.0-45.0) L Monocytes (%) (Auto) 6.6 % (1.0-10.0) 5.3 % (1.0-10.0) Eosinophils (%) (Auto) 0.2 % (0.0-3.0) 0.2 % (0.0-3.0) Basophils (%) (Auto) 0.5 % (0.0-2.0) 0.3 % (0.0-2.0) Sodium Level 130 MMOL/L (136-145) L 134 MMOL/L (136-145) L Potassium Level 3.3 MMOL/L (3.5-5.1) L 3.3 MMOL/L (3.5-5.1) L Chloride Level 92 MMOL/L (98-107) L 96 MMOL/L (98-107) L Carbon Dioxide Level 32 MMOL/L (21-32) 27 MMOL/L (21-32) Anion Gap 6 mmol/L (5-15) 11 mmol/L (5-15) Blood Urea Nitrogen 23 mg/dL (7-18) H 25 mg/dL (7-18) H Creatinine 1.3 MG/DL (0.55-1.30) 1.1 MG/DL (0.55-1.30) Estimat Glomerular Filtration Rate > 60 mL/min (>60) > 60 mL/min (>60) Glucose Level 113 MG/DL (74-106) H 115 MG/DL (74-106) H Calcium Level 8.6 MG/DL (8.5-10.1) 8.6 MG/DL (8.5-10.1) Total Bilirubin 0.8 MG/DL (0.2-1.0) Aspartate Amino Transf (AST/SGOT) 20 U/L (15-37) Alanine Aminotransferase (ALT/SGPT) 16 U/L (12-78) Alkaline Phosphatase 90 U/L (46-116) Total Protein 9.0 G/DL (6.4-8.2) H Albumin 3.0 G/DL (3.4-5.0) L Globulin 6.0 g/dL Albumin/Globulin Ratio 0.5 (1.0-2.7) L Urine Color Yellow Urine Appearance Clear Urine pH 7 (4.5-8.0) Urine Specific [place] 1.010 (1.005-1.035) Urine Protein 3+ (NEGATIVE) H Urine Glucose (UA) Negative (NEGATIVE) Urine Ketones Negative (NEGATIVE) Urine Blood 1+ (NEGATIVE) H Urine Nitrite Negative (NEGATIVE) Urine Bilirubin Negative (NEGATIVE) Urine Urobilinogen 1 MG/DL (0.0-1.0) H Urine Leukocyte Esterase Negative (NEGATIVE) Urine RBC 2-4 /HPF (0 - 0) H Urine WBC 0-2 /HPF (0 - 0) Urine Squamous Epithelial Cells Occasional /LPF Urine Bacteria Occasional /HPF (NONE) Robert Nina MD Sep 06, 2019 18:43
[2019-09-06 20:00] VITALS: BP 139/74
--- NOTE | 2019-09-06 20:01 | Consultation ---
DATE OF CONSULTATION: 09/06/2019 INFECTIOUS DISEASE CONSULTATION CONSULTING PHYSICIAN: Jesus Hernandez M.D. PRIMARY ATTENDING: Jono Quiros M.D. REASON FOR CONSULT: Leukocytosis. HISTORY OF PRESENT ILLNESS: This is a 59-year-old male admitted yesterday after mechanical fall. The patient had a fall on right side of the body and complained of severe right upper extremity pain. The patient also had chronic skin lesion and ulceration in the left leg. Currently the pain is controlled. PAST MEDICAL HISTORY: Significant for hypertension, chronic venous insufficiency, had history of GI bleeding and endoscopy showed chronic gastritis, dementia, heart failure, osteoarthritis, history of right wrist fracture open reduction and internal fixation. SOCIAL HISTORY: alf resident. Previous history of alcohol abuse. Denies drug abuse and smoking. MEDICATIONS: Vitamin C, Bisacodyl, Lasix, gabapentin, magnesium oxide, , potassium chloride, Zofran. REVIEW OF SYSTEMS: Currently has no fever. No chills. Pain is controlled. No nausea. No vomiting. No diarrhea. Has no dysuria. PHYSICAL EXAMINATION: VITAL SIGNS: Temperature 98, pulse 101, blood pressure 121/73. GENERAL APPEARANCE: No acute distress. HEAD AND NECK: [place] conjunctiva. HEART: Normal rate. LUNGS: Clear. ABDOMEN: Soft, nontender. EXTREMITIES: Has edema of lower extremities. The patient has right hand edema and arthritis changes. SKIN: Has chronic skin changes and skin scaling and shallow ulcer on both legs. LABORATORY AND DIAGNOSTIC DATA: WBC 15, hemoglobin 13.1, hematocrit 40.1, platelets is 230. Sodium 134, potassium 3.3, chloride 96, bicarb 27, BUN 25, creatinine 1.1, glucose was 115. Hand x-ray shows no acute fracture, severe and articular inflammatory arthritis, displaced Alexandro Screw placed for previous scaphoid fracture, soft tissue swelling. IMPRESSION: Leukocytosis, likely secondary to trauma and fall. The patient has fall and displaced right wrist hardware and soft tissue swelling. Has mild dementia, stasis dermatitis of legs, hypertension, hyperlipidemia, hand arthritis. RECOMMENDATION: Observe off antibiotic. We will follow up CBC. We will follow up clinically. At the end of my exam, I thank Dr. Quiros for involving me in the care of this patient. Jesus Hernandez M.D. DR: JOHANA JOB#: [id number] CC: KALIE
[2019-09-07] VITALS: BP 115/65
--- NOTE | 2019-09-07 00:01 | History and Physical Report ---
DATE OF ADMISSION: 09/05/2019 HISTORY OF PRESENT ILLNESS: The patient had some hand trauma. X-ray showed that there is no acute fracture, but it is displaced from previous surgery erosive changes. The patient also been admitted for hypokalemia, hyponatremia, azotemia, and elevated WBC as well. The patient does complain of pain in the hand. Denies nausea, vomiting, or diarrhea. Denies any fever or chills. Denies shortness of breath. Denies cough. Denies chills. Denies dysuria. PAST MEDICAL HISTORY: Significant for constipation, degenerative joint disease, neuropathy, hypokalemia, history of decubitus ulcers, history of hernia, status post fall. PAST SURGICAL HISTORY: Hand surgery, history of colostomy in the past. MEDICATIONS: Bisacodyl, vitamin C, Colace, furosemide, gabapentin, heparin, potassium, zinc sulfate. ALLERGIES: No known allergies. FAMILY HISTORY: Noncontributory. SOCIAL HISTORY: Denies history of smoking, alcohol, or illicit drugs. Comes from a group home. REVIEW OF SYSTEMS: HEENT: Denies headaches. RESPIRATORY: Denies shortness of breath. Denies cough. CARDIOVASCULAR: Denies chest pain. GASTROINTESTINAL: Denies nausea, vomiting, or diarrhea. EXTREMITIES: Does have in the hand. CENTRAL NERVOUS SYSTEM: Denies any changes in vision or speech pattern. Feels weak. PHYSICAL EXAMINATION: VITAL SIGNS: Temperature is 99.1, pulse is 92, blood pressure 119/75. HEENT: PERRLA. NECK: Supple. No lymphadenopathy. CHEST: Clear to auscultation. CARDIOVASCULAR: Regular rate and rhythm. No murmurs or extra sounds. GASTROINTESTINAL: Soft, nontender, nondistended. No organomegaly. EXTREMITIES: The patient does have decreased range of motion and pain on the hand. There is no acute fracture found on x-ray. There is evidence of severe polyarticular inflammatory arthritis and displays Alexandro screw more likely placed for previous scaphoid fracture. This is on the right hand. Lower extremities, no edema. LABORATORY DATA: WBC of 15.9, hemoglobin 14.3, platelets 183. Sodium 130, potassium 3.3, BUN of 23, creatinine 1.3, glucose 113. ASSESSMENT AND PLAN: Displaced hardware from previous surgery, hyponatremia, hypokalemia, azotemia, wounds. I have asked Dr. Sharpe see the patient for wound consult as well as Dr. Johnson to follow up the displaced hardware as well as Dr. Lee for azotemia and hyponatremia and hypokalemia and Dr. Jesus Hernandez has been consulted for the leukocytosis and Dr. Nina has been consulted for tachycardia. Jono Quiros M.D. DR: ANA JOB#: [id number] CC:
[2019-09-07 04:00] VITALS: BP 114/65
[2019-09-07 06:43] LABS: BASOPHILS % (AUTO) 0.7 % (0.0-2.0); EOSINOPHILS % (AUTO) 0.3 % (0.0-3.0); HEMATOCRIT 39.5 % (42.0-52.0); HEMOGLOBIN 12.9 G/DL (14.2-18.0); LYMPHOCYTES % (AUTO) 19.2 % (20.0-45.0); MEAN CORPUSCULAR VOLUME 83 FL (80-99); MONOCYTES % (AUTO) 7.6 % (1.0-10.0); NEUTROPHILS % (AUTO) 72.3 % (45.0-75.0); PLATELET COUNT 250 K/UL (150-450); RED BLOOD COUNT 4.74 M/UL (4.70-6.10); RED CELL DISTRIBUTION WIDTH 13.1 % (11.6-14.8); WHITE BLOOD COUNT 12.8 K/UL (4.8-10.8)
[2019-09-07 07:51] LABS: ALANINE AMINOTRANSFERASE 44 U/L (12-78); ALBUMIN 2.8 G/DL (3.4-5.0); ALBUMIN/GLOBULIN RATIO 0.6 (1.0-2.7); ALKALINE PHOSPHATASE 94 U/L (46-116); ANION GAP 12 mmol/L (5-15); ASPARTATE AMINO TRANSFERASE 42 U/L (15-37); BILIRUBIN,TOTAL 0.9 MG/DL (0.2-1.0); BLOOD UREA NITROGEN 27 mg/dL (7-18); CALCIUM 8.5 MG/DL (8.5-10.1); CARBON DIOXIDE 27 MMOL/L (21-32); CHLORIDE 97 MMOL/L (98-107); CHOLESTEROL 155 MG/DL (< 200); CREATININE 1.2 MG/DL (0.55-1.30); FERRITIN 790 NG/ML (8-388); GAMMA GLUTAMYL TRANSPEPTIDASE 45 U/L (5-85); HDL CHOLESTEROL 21 MG/DL (40-60); PHOSPHORUS 3.3 MG/DL (2.5-4.9); POTASSIUM 3.8 MMOL/L (3.5-5.1); SODIUM 136 MMOL/L (136-145); TRIGLYCERIDES 164 MG/DL (30-150)
[2019-09-07 08:00] VITALS: BP 113/69
[2019-09-07 08:05] LABS: % IRON SATURATION 9 % (15-50); IRON 19 ug/dL (50-175); TOTAL IRON BINDING CAPACITY 202 ug/dL (250-450)
--- NOTE | 2019-09-07 08:51 | General Progress Note ---
Assessment/Plan Assessment/Plan: (1) Right wrist pain (2) H/O Right wrist fracture and ORIF (3) Osteoarthritis (4) Hardware displacement Patient will be continued on Tylenol as needed D/w Dr. Trevino and he concurred. Subjective Date patient seen: Sep 07, 2019 Time patient seen: 08:30 - am Constitutional: Reports: weakness HEENT: Reports: no symptoms Cardiovascular: Reports: no symptoms Respiratory: Reports: no symptoms Gastrointestinal/Abdominal: Reports: no symptoms Genitourinary: Reports: no symptoms Neurologic/Psychiatric: Reports: weakness Endocrine: Reports: no symptoms Hematologic/Lymphatic: Reports: no symptoms Allergies: Coded Allergies: No Known Allergies (Unverified , 06/22/14) Subjective He denies pain and is comfortable in the bed. No new complaints at this time. Objective Last 24 Hour Vital Signs Date Time Temp Pulse Resp B/P (MAP) Pulse Ox O2 Delivery O2 Flow Rate FiO2 09/07/19 08:00 99.0 98 18 113/69 (84) 94 09/07/19 04:00 100.4 110 18 114/65 (81) 98 09/07/19 00:00 100.2 111 18 115/65 (82) 98 09/06/19 21:00 Room Air 09/06/19 20:00 99.8 65 20 139/74 (95) 96 09/06/19 15:51 98.2 105 20 130/75 (93) 97 09/06/19 12:00 98.0 101 20 121/73 (89) 97 09/06/19 09:00 Room Air Intake and Output 09/06/19 09/07/19 18:59 06:59 Intake Total 1200 ml Output Total 600 ml 600 ml Balance 600 ml -600 ml Intake Oral 1200 ml Output Urine Total 600 ml 600 ml # Voids 2 Laboratory Tests 09/06/19 13:35: Urine Color Yellow, Urine Appearance Clear, Urine pH 7, Urine Specific [place] 1.010, Urine Protein 3+H, Urine Glucose (UA) Negative, Urine Ketones Negative, Urine Blood 1+H, Urine Nitrite Negative, Urine Bilirubin Negative, Urine Urobilinogen 1H, Urine Leukocyte Esterase Negative, Urine RBC 2-4H, Urine WBC 0- 2, Urine Squamous Epithelial Cells Occasional, Urine Bacteria Occasional 09/07/19 05:28: White Blood Count 12.8H, Red Blood Count 4.74, Hemoglobin 12.9L, Hematocrit 39.5L, Mean Corpuscular Volume 83, Mean Corpuscular Hemoglobin 27.1, Mean Corpuscular Hemoglobin Concent 32.5, Red Cell Distribution Width 13.1, Platelet Count 250, Mean Platelet Volume 8.1, Neutrophils (%) (Auto) 72.3, Lymphocytes (% ) (Auto) 19.2L, Monocytes (%) (Auto) 7.6, Eosinophils (%) (Auto) 0.3, Basophils (%) (Auto) 0.7, Sodium Level 136, Potassium Level 3.8, Chloride Level 97L, Carbon Dioxide Level 27, Anion Gap 12, Blood Urea Nitrogen 27H, Creatinine 1.2, Estimat Glomerular Filtration Rate > 60, Glucose Level 121H, Uric Acid 10.4H, Calcium Level 8.5, Phosphorus Level 3.3, Magnesium Level 1.5L, Iron Level 19L, Total Iron Binding Capacity 202L, Percent Iron Saturation 9L, Unsaturated Iron Binding 183, Ferritin 790H, Total Bilirubin 0.9, Gamma Glutamyl Transpeptidase 45, Aspartate Amino Transf (AST/SGOT) 42H, Alanine Aminotransferase (ALT/SGPT) 44, Alkaline Phosphatase 94, C-Reactive Protein, Quantitative 38.8H, Pro-B-Type Natriuretic Peptide 409H, Total Protein 7.6, Albumin 2.8L, Globulin 4.8, Albumin /Globulin Ratio 0.6L, Triglycerides Level 164H, Cholesterol Level 155, LDL Cholesterol 94, HDL Cholesterol 21L, Cholesterol/HDL Ratio 7.4H, Vitamin B12 Level 417, Folate 15.9, Thyroid Stimulating Hormone (TSH) 0.650 Height (Feet): 5 Height (Inches): 9.00 Weight (Pounds): 182 General Appearance: no apparent distress, alert EENT: PERRL/EOMI, normal ENT inspection Neck: non-tender, normal alignment Cardiovascular: normal rate, regular rhythm Respiratory/Chest: lungs clear, normal breath sounds Abdomen: non tender, soft Edema: no edema noted Generalized Neurologic: alert, oriented x 3 Skin: normal pigmentation Lokesh Pierce Sep 07, 2019 08:51
[2019-09-07] MEDS: Furosemide 40mg tab ORAL SCH (09:36)
[2019-09-07] MEDS: Docusate 250mg cap ORAL SCH (09:36)
[2019-09-07] MEDS: Bisacodyl EC 5mg tab ORAL SCH ×2 (09:36→17:13)
[2019-09-07] MEDS: Heparin 5000 units/ml inj SUBQ SCH ×2 (09:37→20:47)
[2019-09-07] MEDS: Ascorbic Acid 500mg tab ORAL SCH (09:38)
[2019-09-07] MEDS: Digoxin 0.125mg tab ORAL SCH (09:38)
--- NOTE | 2019-09-07 10:21 | Nephrology Progress Note ---
Assessment/Plan Problem List: (1) Hypokalemia (2) Hyponatremia (3) Colostomy care Assessment Surgical screw in right hand Displaced surgical screw of the right hand Hyponatremia Mild Azotemia Low K h/o UGI bleed Colostomy care Plan Plan: k and Mag Phos supplement as needed Monitor Lytes adjust diuretics Per orders Subjective ROS Limited/Unobtainable: No Constitutional: Reports: malaise, weakness Objective Objective Last 24 Hour Vital Signs Date Time Temp Pulse Resp B/P (MAP) Pulse Ox O2 Delivery O2 Flow Rate FiO2 09/07/19 09:38 98 09/07/19 08:00 99.0 98 18 113/69 (84) 94 09/07/19 04:00 100.4 110 18 114/65 (81) 98 09/07/19 00:00 100.2 111 18 115/65 (82) 98 09/06/19 21:00 Room Air 09/06/19 20:00 99.8 65 20 139/74 (95) 96 09/06/19 15:51 98.2 105 20 130/75 (93) 97 09/06/19 12:00 98.0 101 20 121/73 (89) 97 Intake and Output 09/06/19 09/07/19 18:59 06:59 Intake Total 1200 ml Output Total 600 ml 600 ml Balance 600 ml -600 ml Intake Oral 1200 ml Output Urine Total 600 ml 600 ml # Voids 2 Laboratory Tests 09/06/19 13:35: Urine Color Yellow, Urine Appearance Clear, Urine pH 7, Urine Specific [place] 1.010, Urine Protein 3+H, Urine Glucose (UA) Negative, Urine Ketones Negative, Urine Blood 1+H, Urine Nitrite Negative, Urine Bilirubin Negative, Urine Urobilinogen 1H, Urine Leukocyte Esterase Negative, Urine RBC 2-4H, Urine WBC 0- 2, Urine Squamous Epithelial Cells Occasional, Urine Bacteria Occasional 09/07/19 05:28: White Blood Count 12.8H, Red Blood Count 4.74, Hemoglobin 12.9L, Hematocrit 39.5L, Mean Corpuscular Volume 83, Mean Corpuscular Hemoglobin 27.1, Mean Corpuscular Hemoglobin Concent 32.5, Red Cell Distribution Width 13.1, Platelet Count 250, Mean Platelet Volume 8.1, Neutrophils (%) (Auto) 72.3, Lymphocytes (% ) (Auto) 19.2L, Monocytes (%) (Auto) 7.6, Eosinophils (%) (Auto) 0.3, Basophils (%) (Auto) 0.7, Sodium Level 136, Potassium Level 3.8, Chloride Level 97L, Carbon Dioxide Level 27, Anion Gap 12, Blood Urea Nitrogen 27H, Creatinine 1.2, Estimat Glomerular Filtration Rate > 60, Glucose Level 121H, Uric Acid 10.4H, Calcium Level 8.5, Phosphorus Level 3.3, Magnesium Level 1.5L, Iron Level 19L, Total Iron Binding Capacity 202L, Percent Iron Saturation 9L, Unsaturated Iron Binding 183, Ferritin 790H, Total Bilirubin 0.9, Gamma Glutamyl Transpeptidase 45, Aspartate Amino Transf (AST/SGOT) 42H, Alanine Aminotransferase (ALT/SGPT) 44, Alkaline Phosphatase 94, C-Reactive Protein, Quantitative 38.8H, Pro-B-Type Natriuretic Peptide 409H, Total Protein 7.6, Albumin 2.8L, Globulin 4.8, Albumin /Globulin Ratio 0.6L, Triglycerides Level 164H, Cholesterol Level 155, LDL Cholesterol 94, HDL Cholesterol 21L, Cholesterol/HDL Ratio 7.4H, Vitamin B12 Level 417, Folate 15.9, Thyroid Stimulating Hormone (TSH) 0.650 Height (Feet): 5 Height (Inches): 9.00 Weight (Pounds): 182 General Appearance: no apparent distress Cardiovascular: tachycardia Respiratory/Chest: decreased breath sounds Abdomen: distended, other - colostomy Curtis Lee MD Sep 07, 2019 10:21
[2019-09-07 12:00] VITALS: BP 115/65
--- NOTE | 2019-09-07 12:06 | Infectious Diseases Prog Note ---
Assessment/Plan Assessment/Plan IMPRESSION: Leukocytosis, likely secondary to trauma and fall. Displaced right wrist hardware mild dementia, stasis dermatitis of legs, hypertension, hyperlipidemia, hand arthritis. RECOMMENDATION: Observe off antibiotic Will be seen by orthopedic surgeon Subjective ROS Limited/Unobtainable: No Constitutional: Reports: fever, other - Sexd=459.4 Respiratory: Reports: no symptoms Cardiovascular: Reports: no symptoms Gastrointestinal/Abdominal: Reports: no symptoms Genitourinary: Reports: no symptoms Musculoskeletal: Reports: pain, other - right hand, legs Allergies: Coded Allergies: No Known Allergies (Unverified , 06/22/14) Objective Vital Signs Last 24 Hour Vital Signs Date Time Temp Pulse Resp B/P (MAP) Pulse Ox O2 Delivery O2 Flow Rate FiO2 09/07/19 09:38 98 09/07/19 09:00 Room Air 09/07/19 08:00 99.0 98 18 113/69 (84) 94 09/07/19 04:00 100.4 110 18 114/65 (81) 98 09/07/19 00:00 100.2 111 18 115/65 (82) 98 09/06/19 21:00 Room Air 09/06/19 20:00 99.8 65 20 139/74 (95) 96 09/06/19 15:51 98.2 105 20 130/75 (93) 97 Height (Feet): 5 Height (Inches): 9.00 Weight (Pounds): 182 General Appearance: no acute distress HEENT: mucous membranes moist Respiratory/Chest: lungs clear Cardiovascular: normal rate Abdomen: soft, non tender, other - s/p colostomy , ventral hernia Extremities: other - R hand edema & arthritic changes Neurologic/Psychiatric: alert, oriented x 3, responsive Laboratory Tests Test 09/06/19 13:35 09/07/19 05:28 Urine Color Yellow Urine Appearance Clear Urine pH 7 (4.5-8.0) Urine Specific [place] 1.010 (1.005-1.035) Urine Protein 3+ (NEGATIVE) H Urine Glucose (UA) Negative (NEGATIVE) Urine Ketones Negative (NEGATIVE) Urine Blood 1+ (NEGATIVE) H Urine Nitrite Negative (NEGATIVE) Urine Bilirubin Negative (NEGATIVE) Urine Urobilinogen 1 MG/DL (0.0-1.0) H Urine Leukocyte Esterase Negative (NEGATIVE) Urine RBC 2-4 /HPF (0 - 0) H Urine WBC 0-2 /HPF (0 - 0) Urine Squamous Epithelial Cells Occasional /LPF Urine Bacteria Occasional /HPF (NONE) White Blood Count 12.8 K/UL (4.8-10.8) H Red Blood Count 4.74 M/UL (4.70-6.10) Hemoglobin 12.9 G/DL (14.2-18.0) L Hematocrit 39.5 % (42.0-52.0) L Mean Corpuscular Volume 83 FL (80-99) Mean Corpuscular Hemoglobin 27.1 PG (27.0-31.0) Mean Corpuscular Hemoglobin Concent 32.5 G/DL (32.0-36.0) Red Cell Distribution Width 13.1 % (11.6-14.8) Platelet Count 250 K/UL (150-450) Mean Platelet Volume 8.1 FL (6.5-10.1) Neutrophils (%) (Auto) 72.3 % (45.0-75.0) Lymphocytes (%) (Auto) 19.2 % (20.0-45.0) L Monocytes (%) (Auto) 7.6 % (1.0-10.0) Eosinophils (%) (Auto) 0.3 % (0.0-3.0) Basophils (%) (Auto) 0.7 % (0.0-2.0) Sodium Level 136 MMOL/L (136-145) Potassium Level 3.8 MMOL/L (3.5-5.1) Chloride Level 97 MMOL/L (98-107) L Carbon Dioxide Level 27 MMOL/L (21-32) Anion Gap 12 mmol/L (5-15) Blood Urea Nitrogen 27 mg/dL (7-18) H Creatinine 1.2 MG/DL (0.55-1.30) Estimat Glomerular Filtration Rate > 60 mL/min (>60) Glucose Level 121 MG/DL (74-106) H Uric Acid 10.4 MG/DL (2.6-7.2) H Calcium Level 8.5 MG/DL (8.5-10.1) Phosphorus Level 3.3 MG/DL (2.5-4.9) Magnesium Level 1.5 MG/DL (1.8-2.4) L Iron Level 19 ug/dL (50-175) L Total Iron Binding Capacity 202 ug/dL (250-450) L Percent Iron Saturation 9 % (15-50) L Unsaturated Iron Binding 183 ug/dL (112-346) Ferritin 790 NG/ML (8-388) H Total Bilirubin 0.9 MG/DL (0.2-1.0) Gamma Glutamyl Transpeptidase 45 U/L (5-85) Aspartate Amino Transf (AST/SGOT) 42 U/L (15-37) H Alanine Aminotransferase (ALT/SGPT) 44 U/L (12-78) Alkaline Phosphatase 94 U/L (46-116) C-Reactive Protein, Quantitative 38.8 mg/dL (0.00-0.90) H Pro-B-Type Natriuretic Peptide 409 pg/mL (0-125) H Total Protein 7.6 G/DL (6.4-8.2) Albumin 2.8 G/DL (3.4-5.0) L Globulin 4.8 g/dL Albumin/Globulin Ratio 0.6 (1.0-2.7) L Triglycerides Level 164 MG/DL (30-150) H Cholesterol Level 155 MG/DL (< 200) LDL Cholesterol 94 mg/dL (<100) HDL Cholesterol 21 MG/DL (40-60) L Cholesterol/HDL Ratio 7.4 (3.3-4.4) H Vitamin B12 Level 417 PG/ML (193-986) Folate 15.9 NG/ML (8.6-58.9) Thyroid Stimulating Hormone (TSH) 0.650 uiU/mL (0.358-3.740) Current Medications Medications (Trade) Dose Ordered Sig/Jl Route PRN Reason Start Time Stop Time Status Last Admin Dose Admin Acetaminophen (Tylenol) 650 mg Q6H PRN ORAL mild pain 09/06/19 16:20 10/06/19 16:19 09/07/19 04:50 Ascorbic Acid (Vitamin C) 500 mg DAILY ORAL 09/06/19 09:00 10/06/19 08:59 09/07/19 09:38 Bisacodyl (Dulcolax) 5 mg TWICE A DAY ORAL 09/06/19 09:00 10/06/19 08:59 09/07/19 09:36 Digoxin (Lanoxin) 0.125 mg DAILY ORAL 09/07/19 09:00 10/07/19 08:59 09/07/19 09:38 Docusate Sodium (Colace) 250 mg DAILY ORAL 09/06/19 09:00 10/06/19 08:59 09/07/19 09:36 Furosemide (Lasix) 40 mg DAILY ORAL 09/06/19 09:00 10/06/19 08:59 09/07/19 09:36 Gabapentin (Neurontin) 300 mg TID ORAL 09/06/19 09:00 10/06/19 08:59 09/07/19 09:36 Heparin Sodium (Porcine) (Heparin 5000 units/ml) 5,000 units EVERY 12 HOURS SUBQ 09/06/19 09:00 10/06/19 08:59 09/07/19 09:37 Metolazone (Zaroxolyn) 5 mg DAILY ORAL 09/06/19 09:00 10/06/19 08:59 09/07/19 09:36 Multivitamins (Multivitamins) 1 tab DAILY ORAL 09/07/19 09:00 10/07/19 08:59 09/07/19 09:38 Ondansetron HCl (Zofran) 4 mg Q6H PRN ORAL Nausea & Vomiting 09/05/19 23:00 10/05/19 22:59 Potassium Chloride (K-Dur) 120 meq DAILY ORAL 09/06/19 09:00 10/06/19 08:59 09/07/19 09:37 Tramadol HCl (Ultram) 100 mg Q6H PRN ORAL pain 4-10 09/06/19 16:30 09/13/19 15:08 Jesus Hernandez MD Sep 07, 2019 12:05
[2019-09-07] MEDS: traMADol 50mg tab ORAL PRN ×2 (14:29→20:52)
--- NOTE | 2019-09-07 15:14 | Cardiology Report ---
APPROVED REPORT EXAM: Two-dimensional and M-mode echocardiogram with Doppler and color Doppler. INDICATION Tachycardia M-Mode DIMENSIONS IVSd1.0 (0.7-1.1cm)Left Atrium (MM)3.8 (1.6-4.0cm) LVDd4.3 (3.5-5.6cm)Aortic Root2.6 (2.0-3.7cm) PWd1.3 (0.7-1.1cm)Aortic Cusp Exc.1.7 (1.5-2.0cm) IVSs1.9 cm LVDs1.9 (2.5-4.0cm) PWs2.4 cm Technically difficult study due to poor acoustical windows. Normal left ventricular chamber size, systolic function and wall motion to extent visualized. Left ventricular ejection fraction estimated to be 55 %. Study quality precludes accurate assessment of regional wall motion. No evidence of left ventricular hypertrophy. No evidence of pericardial effusion. All other cardiac chamber sizes are within normal limits. Focal aortic valve sclerosis with adequate cusp excursion. Thickened mitral valve leaflets with normal excursion. Mitral annulus and aortic root calcification. Pulmonic valve not well visualized. Normal tricuspid valve structure. IVC at normal size with physiologic collapse. A color flow and spectral Doppler study was performed and revealed: Trace mitral regurgitation. Mitral inflow indicates normal left ventricular diastolic function. Trace tricuspid regurgitation. Tricuspid systolic velocities suggests peak right ventricular systolic pressure of 12 mmHg.
--- NOTE | 2019-09-07 15:40 | Surgery Progress Note ---
Surgery Progress Note Subjective Additional Comments leukocytosis improving no n/v/f/c pain in right hand but has been for a while splint in place Objective Last 24 Hour Vital Signs Date Time Temp Pulse Resp B/P (MAP) Pulse Ox O2 Delivery O2 Flow Rate FiO2 09/07/19 14:59 98.1 09/07/19 12:00 98.1 96 18 115/65 (82) 94 09/07/19 09:38 98 09/07/19 09:00 Room Air 09/07/19 08:00 99.0 98 18 113/69 (84) 94 09/07/19 04:00 100.4 110 18 114/65 (81) 98 09/07/19 00:00 100.2 111 18 115/65 (82) 98 09/06/19 21:00 Room Air 09/06/19 20:00 99.8 65 20 139/74 (95) 96 09/06/19 15:51 98.2 105 20 130/75 (93) 97 I&O Intake and Output 09/06/19 09/07/19 19:00 07:00 Intake Total 1200 ml Output Total 600 ml 600 ml Balance 600 ml -600 ml Intake Oral 1200 ml Output Urine Total 600 ml 600 ml # Voids 2 Dressing: dry Wound: clean Drains: other Cardiovascular: RSR Respiratory: decreased breath sounds Abdomen: soft, present bowel sounds, non-distended Extremities: other Laboratory Tests Test 09/07/19 05:28 White Blood Count 12.8 K/UL (4.8-10.8) H Red Blood Count 4.74 M/UL (4.70-6.10) Hemoglobin 12.9 G/DL (14.2-18.0) L Hematocrit 39.5 % (42.0-52.0) L Mean Corpuscular Volume 83 FL (80-99) Mean Corpuscular Hemoglobin 27.1 PG (27.0-31.0) Mean Corpuscular Hemoglobin Concent 32.5 G/DL (32.0-36.0) Red Cell Distribution Width 13.1 % (11.6-14.8) Platelet Count 250 K/UL (150-450) Mean Platelet Volume 8.1 FL (6.5-10.1) Neutrophils (%) (Auto) 72.3 % (45.0-75.0) Lymphocytes (%) (Auto) 19.2 % (20.0-45.0) L Monocytes (%) (Auto) 7.6 % (1.0-10.0) Eosinophils (%) (Auto) 0.3 % (0.0-3.0) Basophils (%) (Auto) 0.7 % (0.0-2.0) Sodium Level 136 MMOL/L (136-145) Potassium Level 3.8 MMOL/L (3.5-5.1) Chloride Level 97 MMOL/L (98-107) L Carbon Dioxide Level 27 MMOL/L (21-32) Anion Gap 12 mmol/L (5-15) Blood Urea Nitrogen 27 mg/dL (7-18) H Creatinine 1.2 MG/DL (0.55-1.30) Estimat Glomerular Filtration Rate > 60 mL/min (>60) Glucose Level 121 MG/DL (74-106) H Uric Acid 10.4 MG/DL (2.6-7.2) H Calcium Level 8.5 MG/DL (8.5-10.1) Phosphorus Level 3.3 MG/DL (2.5-4.9) Magnesium Level 1.5 MG/DL (1.8-2.4) L Iron Level 19 ug/dL (50-175) L Total Iron Binding Capacity 202 ug/dL (250-450) L Percent Iron Saturation 9 % (15-50) L Unsaturated Iron Binding 183 ug/dL (112-346) Ferritin 790 NG/ML (8-388) H Total Bilirubin 0.9 MG/DL (0.2-1.0) Gamma Glutamyl Transpeptidase 45 U/L (5-85) Aspartate Amino Transf (AST/SGOT) 42 U/L (15-37) H Alanine Aminotransferase (ALT/SGPT) 44 U/L (12-78) Alkaline Phosphatase 94 U/L (46-116) C-Reactive Protein, Quantitative 38.8 mg/dL (0.00-0.90) H Pro-B-Type Natriuretic Peptide 409 pg/mL (0-125) H Total Protein 7.6 G/DL (6.4-8.2) Albumin 2.8 G/DL (3.4-5.0) L Globulin 4.8 g/dL Albumin/Globulin Ratio 0.6 (1.0-2.7) L Triglycerides Level 164 MG/DL (30-150) H Cholesterol Level 155 MG/DL (< 200) LDL Cholesterol 94 mg/dL (<100) HDL Cholesterol 21 MG/DL (40-60) L Cholesterol/HDL Ratio 7.4 (3.3-4.4) H Vitamin B12 Level 417 PG/ML (193-986) Folate 15.9 NG/ML (8.6-58.9) Thyroid Stimulating Hormone (TSH) 0.650 uiU/mL (0.358-3.740) Plan Problems: (1) Pressure ulcer Assessment & Plan: DAILY ESTIMATED NEEDS: Needs based on Cardiac, pulm, obese 81.5kg adj 20-25 kcals/kg [id number] total kcals 1-1.5 g protein/kg 82-122 g total protein Fluid per MD, on lasix NUTRITION DIAGNOSIS: * Altered nutrition related lab values R/T clinical status as evidenced by low K(3.3). (CURRENT DIET: GOOD) PO DIET RECOMMENDATIONS: Rec Low NA/ Low Fat ADDITIONAL RECOMMENDATIONS: 1) Rec standing weight for accurate CBW -> OR recalibrated bed scale for accurate CBW -> On lasix, requiring daily wts 2) Check lytes daily for repletion (low K) 3) F/up w/ Wound care eval - etiology unknown MVI (2) Venous stasis ulcer Assessment & Plan: Patient presents with venous stasis ulcer on the left lower extremity. 4 cm x 3 cm x 2 mm deep. No active drainage mild serous oozing. No signs of acute active infection with but does have some erythema in the periwound. No purulent drainage. States he has had it for some time now and has been cared for an outside facility. Bilateral heel soft. Offload pressure from heels with pillow. Hydrogel impregnated gauze to ulcer bed followed by foam dressing. Wash lower extremities daily and apply skin protectant moisturizer followed by ABD and wrap pending duplex studies dressings changes daily will monitor and f/u with plan (3) Cellulitis (4) Wrist pain, acute Assessment & Plan: Procedure: XRAY Elbow Min 3v R Indication: Right elbow pain Findings: 3 views of the right elbow were obtained. No acute fractures, malalignment, erosions or periostitis are identified. Soft tissue swelling noted posterior part of the elbow. There is no joint effusion identified. Impression: No acute fracture. Soft tissue swelling noted There is severe arthrosis involving the carpal bones. The first carpal row including the scaphoid, lunate appear collapsed. There are multiple lucencies suggestive of cystic changes within the bones. The intercarpal joints are moderately narrowed. There are cystic changes in the base of the third and fourth metacarpals as well. There is a Alexandro screw partially within the scaphoid. This was likely placed for scaphoid fracture but has migrated medially and is partially embedded within the scaphoid and trapezium. There are severe erosive changes present within the intercarpal joints. There are severe erosive changes and deformity characterized by some articular collapse and cyst formation involving the second MCP joint. There is no acute fracture identified. IMPRESSION: No acute fracture identified. Evidence of severe polyarticular inflammatory arthritis characterized by subarticular erosions and cysts involving several of the intercarpal joints and the second MCP joint. Subsequent deformity and superimposed osteoarthritis noted. Displaced Alexandro screw, likely placed for a previous scaphoid fracture. Generalized soft tissue swelling. Findings: 3 views of the right shoulder were obtained. No acute fractures, malalignment, erosions or periostitis are identified. Bones are osteopenic. There is narrowing of the glenohumeral joint consistent with mild osteoarthritis. Soft tissues are unremarkable. Impression: Negative for acute injury displaced screw noted. seemingly chronic. outpatient hand sx consult (5) Status post fall Ricci Sharpe Sep 07, 2019 15:40
[2019-09-07 15:59] VITALS: BP 136/74
[2019-09-07] MEDS ORDERED: ACETAMINOPHEN325 M1 ORAL (19:51)
[2019-09-07] MEDS ORDERED: POTASSIUM CHLO20 ME1 ORAL (19:51)
[2019-09-07] MEDS ORDERED: MULTIVITAMINS1 EAC8 ORAL (19:51)
[2019-09-07 20:00] VITALS: BP 111/75
--- NOTE | 2019-09-07 22:16 | General Progress Note ---
Assessment/Plan Problem List: (1) Hypokalemia ICD Codes: E87.6 - Hypokalemia SNOMED: 00391279 (2) Surgical screw in right hand ICD Codes: Z96.7 - Presence of other bone and tendon implants SNOMED: 556682797 Status: progressing Assessment/Plan: consulted dr renee re possible hardware displaced from previous hand surgey low k replace per renal afebrile Subjective ROS Limited/Unobtainable: Yes Allergies: Coded Allergies: No Known Allergies (Unverified , 06/22/14) Objective Last 24 Hour Vital Signs Date Time Temp Pulse Resp B/P (MAP) Pulse Ox O2 Delivery O2 Flow Rate FiO2 09/07/19 21:29 98.8 09/07/19 21:11 Room Air 09/07/19 20:00 98.8 70 18 111/75 (87) 93 09/07/19 15:59 99.0 108 20 136/74 (94) 95 09/07/19 12:00 98.1 96 18 115/65 (82) 94 09/07/19 09:38 98 09/07/19 09:00 Room Air 09/07/19 08:00 99.0 98 18 113/69 (84) 94 09/07/19 04:00 100.4 110 18 114/65 (81) 98 09/07/19 00:00 100.2 111 18 115/65 (82) 98 Intake and Output 09/06/19 09/07/19 19:00 07:00 Intake Total 1200 ml Output Total 600 ml 600 ml Balance 600 ml -600 ml Intake Oral 1200 ml Output Urine Total 600 ml 600 ml # Voids 2 Laboratory Tests 09/07/19 05:28: White Blood Count 12.8H, Red Blood Count 4.74, Hemoglobin 12.9L, Hematocrit 39.5L, Mean Corpuscular Volume 83, Mean Corpuscular Hemoglobin 27.1, Mean Corpuscular Hemoglobin Concent 32.5, Red Cell Distribution Width 13.1, Platelet Count 250, Mean Platelet Volume 8.1, Neutrophils (%) (Auto) 72.3, Lymphocytes (% ) (Auto) 19.2L, Monocytes (%) (Auto) 7.6, Eosinophils (%) (Auto) 0.3, Basophils (%) (Auto) 0.7, Sodium Level 136, Potassium Level 3.8, Chloride Level 97L, Carbon Dioxide Level 27, Anion Gap 12, Blood Urea Nitrogen 27H, Creatinine 1.2, Estimat Glomerular Filtration Rate > 60, Glucose Level 121H, Uric Acid 10.4H, Calcium Level 8.5, Phosphorus Level 3.3, Magnesium Level 1.5L, Iron Level 19L, Total Iron Binding Capacity 202L, Percent Iron Saturation 9L, Unsaturated Iron Binding 183, Ferritin 790H, Total Bilirubin 0.9, Gamma Glutamyl Transpeptidase 45, Aspartate Amino Transf (AST/SGOT) 42H, Alanine Aminotransferase (ALT/SGPT) 44, Alkaline Phosphatase 94, C-Reactive Protein, Quantitative 38.8H, Pro-B-Type Natriuretic Peptide 409H, Total Protein 7.6, Albumin 2.8L, Globulin 4.8, Albumin /Globulin Ratio 0.6L, Triglycerides Level 164H, Cholesterol Level 155, LDL Cholesterol 94, HDL Cholesterol 21L, Cholesterol/HDL Ratio 7.4H, Vitamin B12 Level 417, Folate 15.9, Thyroid Stimulating Hormone (TSH) 0.650 Height (Feet): 5 Height (Inches): 9.00 Weight (Pounds): 182 Neck: supple Cardiovascular: normal rate Respiratory/Chest: lungs clear Abdomen: soft Jono Quiros MD Sep 07, 2019 22:16
[2019-09-08] VITALS (7 sets, daily range): BP systolic 115–137; BP diastolic 60–81
[2019-09-08] MEDS: traMADol 50mg tab ORAL PRN ×3 (04:51→20:57)
[2019-09-08] MEDS: Docusate 250mg cap ORAL SCH (09:19)
[2019-09-08] MEDS: Bisacodyl EC 5mg tab ORAL SCH ×2 (09:19→17:44)
[2019-09-08] MEDS: Ascorbic Acid 500mg tab ORAL SCH (09:20)
[2019-09-08] MEDS: Furosemide 40mg tab ORAL SCH (09:20)
[2019-09-08] MEDS: Digoxin 0.125mg tab ORAL SCH (09:21)
[2019-09-08] MEDS: Heparin 5000 units/ml inj SUBQ SCH ×2 (09:30→20:57)
--- NOTE | 2019-09-08 12:10 | Nephrology Progress Note ---
Assessment/Plan Problem List: (1) Hypokalemia (2) Hyponatremia (3) Colostomy care Assessment Surgical screw in right hand Displaced surgical screw of the right hand Hyponatremia Mild Azotemia Low K h/o UGI bleed Colostomy care Plan no labs today k and Mag Phos supplement as needed Monitor Lytes adjust diuretics Per orders Subjective ROS Limited/Unobtainable: No Constitutional: Reports: malaise Objective Objective Last 24 Hour Vital Signs Date Time Temp Pulse Resp B/P (MAP) Pulse Ox O2 Delivery O2 Flow Rate FiO2 09/08/19 09:21 92 09/08/19 08:00 98.2 102 18 126/70 (88) 94 09/08/19 05:26 99.0 09/08/19 04:00 98.1 105 20 115/81 (92) 98 09/08/19 01:24 99.0 09/08/19 00:00 99.9 107 20 125/77 (93) 94 09/07/19 21:11 Room Air 09/07/19 20:00 98.8 70 18 111/75 (87) 93 09/07/19 15:59 99.0 108 20 136/74 (94) 95 Intake and Output 09/07/19 09/08/19 18:59 06:59 Intake Total 1060 ml Output Total 1300 ml Balance -240 ml Intake Oral 760 ml IV Total 300 ml Output Urine Total 1300 ml Height (Feet): 5 Height (Inches): 9.00 Weight (Pounds): 182 General Appearance: no apparent distress Objective no change Curtis Lee MD Sep 08, 2019 12:10
--- NOTE | 2019-09-08 14:28 | Surgery Progress Note ---
Surgery Progress Note Subjective Symptoms: improved, tolerating diet, voiding well, passing flatus, pain decreased Objective Last 24 Hour Vital Signs Date Time Temp Pulse Resp B/P (MAP) Pulse Ox O2 Delivery O2 Flow Rate FiO2 09/08/19 12:00 98.1 94 22 116/73 (87) 93 09/08/19 09:21 92 09/08/19 08:00 98.2 102 18 126/70 (88) 94 09/08/19 05:26 99.0 09/08/19 04:00 98.1 105 20 115/81 (92) 98 09/08/19 01:24 99.0 09/08/19 00:00 99.9 107 20 125/77 (93) 94 09/07/19 21:11 Room Air 09/07/19 20:00 98.8 70 18 111/75 (87) 93 09/07/19 15:59 99.0 108 20 136/74 (94) 95 I&O Intake and Output 09/07/19 09/08/19 19:00 07:00 Intake Total 1060 ml Output Total 1300 ml Balance -240 ml Intake Oral 760 ml IV Total 300 ml Output Urine Total 1300 ml Dressing: saturated Wound: other Drains: other Cardiovascular: RSR Respiratory: decreased breath sounds Abdomen: soft, present bowel sounds Extremities: no cyanosis, other Plan Problems: (1) Pressure ulcer Assessment & Plan: DAILY ESTIMATED NEEDS: Needs based on Cardiac, pulm, obese 81.5kg adj 20-25 kcals/kg 6035-8867 total kcals 1-1.5 g protein/kg 82-122 g total protein Fluid per MD, on lasix NUTRITION DIAGNOSIS: * Altered nutrition related lab values R/T clinical status as evidenced by low K(3.3). (CURRENT DIET: GOOD) PO DIET RECOMMENDATIONS: Rec Low NA/ Low Fat ADDITIONAL RECOMMENDATIONS: 1) Rec standing weight for accurate CBW -> OR recalibrated bed scale for accurate CBW -> On lasix, requiring daily wts 2) Check lytes daily for repletion (low K) 3) F/up w/ Wound care eval - etiology unknown MVI (2) Venous stasis ulcer Assessment & Plan: Patient presents with venous stasis ulcer on the left lower extremity. 4 cm x 3 cm x 2 mm deep. No active drainage mild serous oozing. No signs of acute active infection with but does have some erythema in the periwound. No purulent drainage. States he has had it for some time now and has been cared for an outside facility. Bilateral heel soft. Offload pressure from heels with pillow. Hydrogel impregnated gauze to ulcer bed followed by foam dressing. Wash lower extremities daily and apply skin protectant moisturizer followed by ABD and wrap pending duplex studies dressings changes daily will monitor and f/u with plan (3) Cellulitis (4) Wrist pain, acute Assessment & Plan: Procedure: XRAY Elbow Min 3v R Indication: Right elbow pain Findings: 3 views of the right elbow were obtained. No acute fractures, malalignment, erosions or periostitis are identified. Soft tissue swelling noted posterior part of the elbow. There is no joint effusion identified. Impression: No acute fracture. Soft tissue swelling noted There is severe arthrosis involving the carpal bones. The first carpal row including the scaphoid, lunate appear collapsed. There are multiple lucencies suggestive of cystic changes within the bones. The intercarpal joints are moderately narrowed. There are cystic changes in the base of the third and fourth metacarpals as well. There is a Alexandro screw partially within the scaphoid. This was likely placed for scaphoid fracture but has migrated medially and is partially embedded within the scaphoid and trapezium. There are severe erosive changes present within the intercarpal joints. There are severe erosive changes and deformity characterized by some articular collapse and cyst formation involving the second MCP joint. There is no acute fracture identified. IMPRESSION: No acute fracture identified. Evidence of severe polyarticular inflammatory arthritis characterized by subarticular erosions and cysts involving several of the intercarpal joints and the second MCP joint. Subsequent deformity and superimposed osteoarthritis noted. Displaced Alexandro screw, likely placed for a previous scaphoid fracture. Generalized soft tissue swelling. Findings: 3 views of the right shoulder were obtained. No acute fractures, malalignment, erosions or periostitis are identified. Bones are osteopenic. There is narrowing of the glenohumeral joint consistent with mild osteoarthritis. Soft tissues are unremarkable. Impression: Negative for acute injury displaced screw noted. seemingly chronic. outpatient hand sx consult (5) Status post fall Ricci Sharpe Sep 08, 2019 14:28
--- NOTE | 2019-09-08 14:53 | Cardiology Report ---
APPROVED REPORT EKG Measurement Heart [id number] Sinus tachycardia with frequent premature ventricular complexes Otherwise normal ECG
--- NOTE | 2019-09-08 20:33 | Diagnostic Imaging Report ---
APPROVED REPORT CPT Code: 18908 Present Symptoms Comments: BILATERAL LEGS PAIN. BILATERAL: Imaging reveals a patent deep venous system bilaterally. There is no evidence of thrombus within the femoral, popliteal or tibial segments. The greater saphenous veins are also within normal limits. Doppler indicates normal spontaneous flow within these segments.
--- NOTE | 2019-09-08 20:50 | General Progress Note ---
Assessment/Plan Problem List: (1) Hypokalemia ICD Codes: E87.6 - Hypokalemia SNOMED: 63710832 (2) Surgical screw in right hand ICD Codes: Z96.7 - Presence of other bone and tendon implants SNOMED: 702938409 Status: progressing Assessment/Plan: afebrile nac low k uti and febrile Subjective ROS Limited/Unobtainable: Yes Allergies: Coded Allergies: No Known Allergies (Unverified , 06/22/14) Objective Last 24 Hour Vital Signs Date Time Temp Pulse Resp B/P (MAP) Pulse Ox O2 Delivery O2 Flow Rate FiO2 09/08/19 20:40 Room Air 09/08/19 20:24 98.2 95 18 123/73 (90) 98 09/08/19 16:12 101.7 09/08/19 16:00 101.8 69 20 133/76 (95) 93 09/08/19 12:00 98.1 94 22 116/73 (87) 93 09/08/19 09:21 92 09/08/19 09:00 Room Air 09/08/19 08:00 98.2 102 18 126/70 (88) 94 09/08/19 05:26 99.0 09/08/19 04:00 98.1 105 20 115/81 (92) 98 09/08/19 01:24 99.0 09/08/19 00:00 99.9 107 20 125/77 (93) 94 09/07/19 21:11 Room Air Intake and Output 09/07/19 09/08/19 19:00 07:00 Intake Total 1060 ml Output Total 1300 ml Balance -240 ml Intake Oral 760 ml IV Total 300 ml Output Urine Total 1300 ml Height (Feet): 5 Height (Inches): 9.00 Weight (Pounds): 182 Neck: supple Cardiovascular: normal rate Respiratory/Chest: lungs clear Abdomen: soft Jono Quiros MD Sep 08, 2019 20:50
[2019-09-09 04:10] VITALS: BP 117/64
[2019-09-09 06:38] LABS: HEMATOCRIT 37.6 % (42.0-52.0); HEMOGLOBIN 12.2 G/DL (14.2-18.0); MEAN CORPUSCULAR VOLUME 83 FL (80-99); PLATELET COUNT 281 K/UL (150-450); RED BLOOD COUNT 4.53 M/UL (4.70-6.10); RED CELL DISTRIBUTION WIDTH 12.9 % (11.6-14.8); WHITE BLOOD COUNT 18.5 K/UL (4.8-10.8)
[2019-09-09 07:33] LABS: ALANINE AMINOTRANSFERASE 185 U/L (12-78); ALBUMIN 2.3 G/DL (3.4-5.0); ALBUMIN/GLOBULIN RATIO 0.4 (1.0-2.7); ALKALINE PHOSPHATASE 135 U/L (46-116); ANION GAP 8 mmol/L (5-15); ASPARTATE AMINO TRANSFERASE 177 U/L (15-37); BILIRUBIN,TOTAL 1.4 MG/DL (0.2-1.0); BLOOD UREA NITROGEN 32 mg/dL (7-18); CALCIUM 8.9 MG/DL (8.5-10.1); CARBON DIOXIDE 27 MMOL/L (21-32); CHLORIDE 92 MMOL/L (98-107); CREATININE 1.5 MG/DL (0.55-1.30); PHOSPHORUS 3.4 MG/DL (2.5-4.9); POTASSIUM 3.2 MMOL/L (3.5-5.1); SODIUM 127 MMOL/L (136-145)
[2019-09-09 07:34] LABS: BILIRUBIN,DIRECT 0.7 MG/DL (0.0-0.3)
[2019-09-09 08:00] VITALS: BP 124/76
[2019-09-09] MEDS: Ascorbic Acid 500mg tab ORAL SCH (08:55)
[2019-09-09] MEDS: Bisacodyl EC 5mg tab ORAL SCH ×2 (08:55→17:16)
[2019-09-09] MEDS: Digoxin 0.125mg tab ORAL SCH (08:56)
[2019-09-09] MEDS: Furosemide 40mg tab ORAL SCH (08:57)
[2019-09-09] MEDS: Heparin 5000 units/ml inj SUBQ SCH ×2 (09:01→20:37)
[2019-09-09] MEDS: Spironolactone 25mg tab ORAL SCH (09:06)
[2019-09-09] MEDS: Docusate 250mg cap ORAL SCH (09:06)
[2019-09-09] MEDS ORDERED: Vancomycin 1.5gm/NS Premix q24h IVPB SCH (10:00)
[2019-09-09] MEDS ORDERED: NaCl 3% 500ml 500 ML IV ONE (10:00)
--- NOTE | 2019-09-09 10:22 | Nephrology Progress Note ---
Assessment/Plan Problem List: (1) Hypokalemia (2) Hyponatremia (3) Colostomy care (4) Leukocytosis Assessment Surgical screw in right hand Displaced surgical screw of the right hand Hyponatremia Mild Azotemia Low K h/o UGI bleed Colostomy care Plan k and Mag Phos supplement as needed Monitor Lytes adjust diuretics Per orders Subjective ROS Limited/Unobtainable: No Constitutional: Reports: malaise, weakness Objective Objective Last 24 Hour Vital Signs Date Time Temp Pulse Resp B/P (MAP) Pulse Ox O2 Delivery O2 Flow Rate FiO2 09/09/19 08:56 63 09/09/19 08:00 97.5 63 19 124/76 (92) 93 09/09/19 04:50 99.2 09/09/19 04:10 101.8 105 18 117/64 (81) 94 09/08/19 23:52 99.2 70 18 137/60 (85) 94 09/08/19 21:28 98.2 09/08/19 20:40 Room Air 09/08/19 20:24 98.2 95 18 123/73 (90) 98 09/08/19 16:12 101.7 09/08/19 16:00 101.8 69 20 133/76 (95) 93 09/08/19 12:00 98.1 94 22 116/73 (87) 93 Intake and Output 09/08/19 09/09/19 18:59 06:59 Intake Total 840 ml 400 ml Output Total 0 ml Balance 840 ml 400 ml Intake Oral 840 ml 400 ml Stool Total 0 ml # Voids 3 4 # Bowel Movements 1 Laboratory Tests 09/09/19 05:00: White Blood Count 18.5H, Red Blood Count 4.53L, Hemoglobin 12.2L, Hematocrit 37.6L, Mean Corpuscular Volume 83, Mean Corpuscular Hemoglobin 26.9L, Mean Corpuscular Hemoglobin Concent 32.4, Red Cell Distribution Width 12.9, Platelet Count 281, Mean Platelet Volume 7.4, Neutrophils (%) (Auto) , Lymphocytes (%) ( Auto) , Monocytes (%) (Auto) , Eosinophils (%) (Auto) , Basophils (%) (Auto) , Differential Total Cells Counted 100, Neutrophils % (Manual) 74, Lymphocytes % ( Manual) 18L, Monocytes % (Manual) 8, Eosinophils % (Manual) 0, Basophils % ( Manual) 0, Band Neutrophils 0, Platelet Estimate Adequate, Platelet Morphology Normal, Red Blood Cell Morphology Normal, Sodium Level 127L, Potassium Level 3.2L, Chloride Level 92L, Carbon Dioxide Level 27, Anion Gap 8, Blood Urea Nitrogen 32H, Creatinine 1.5H, Estimat Glomerular Filtration Rate 58.1, Glucose Level 115H, Calcium Level 8.9, Phosphorus Level 3.4, Magnesium Level 1.7L, Total Bilirubin 1.4H, Direct Bilirubin 0.7H, Aspartate Amino Transf (AST/SGOT) 177H, Alanine Aminotransferase (ALT/SGPT) 185H, Alkaline Phosphatase 135H, C- Reactive Protein, Quantitative > 70.0H, Total Protein 8.4H, Albumin 2.3L, Globulin 6.1, Albumin/Globulin Ratio 0.4L Height (Feet): 5 Height (Inches): 9.00 Weight (Pounds): 182 General Appearance: no apparent distress Cardiovascular: other - variable Respiratory/Chest: decreased breath sounds Abdomen: distended, other - colostomy Objective no change Curtis Lee MD Sep 09, 2019 10:22
--- NOTE | 2019-09-09 10:25 | Diagnostic Imaging Report ---
EXAM: XR Chest, 1 View CLINICAL HISTORY: INFECT TECHNIQUE: Frontal view of the chest. COMPARISON: Chest radiograph on 09 04 2018 FINDINGS: Hardware: None. Lungs pleura: Slightly low lung volumes. Subsegmental atelectasis or scarring at the lung bases. No focal consolidation. No pleural effusion or pneumothorax. Heart mediastinum: Stable mild enlargement of the cardiac silhouette Soft tissues: Unremarkable. Bones: No acute fracture. Upper abdomen: Normal. IMPRESSION: Bibasilar atelectasis or scarring. No acute disease identified.
--- NOTE | 2019-09-09 11:00 | Surgery Progress Note ---
Surgery Progress Note Subjective Symptoms: improved Objective Last 24 Hour Vital Signs Date Time Temp Pulse Resp B/P (MAP) Pulse Ox O2 Delivery O2 Flow Rate FiO2 09/09/19 09:00 Room Air 09/09/19 08:56 63 09/09/19 08:00 97.5 63 19 124/76 (92) 93 09/09/19 04:50 99.2 09/09/19 04:10 101.8 105 18 117/64 (81) 94 09/08/19 23:52 99.2 70 18 137/60 (85) 94 09/08/19 21:28 98.2 09/08/19 20:40 Room Air 09/08/19 20:24 98.2 95 18 123/73 (90) 98 09/08/19 16:12 101.7 09/08/19 16:00 101.8 69 20 133/76 (95) 93 09/08/19 12:00 98.1 94 22 116/73 (87) 93 I&O Intake and Output 09/08/19 09/09/19 19:00 07:00 Intake Total 840 ml 400 ml Output Total 0 ml Balance 840 ml 400 ml Intake Oral 840 ml 400 ml Stool Total 0 ml # Voids 3 4 # Bowel Movements 1 Dressing: saturated Wound: clean Cardiovascular: RSR Respiratory: clear Abdomen: soft, present bowel sounds Extremities: no cyanosis Laboratory Tests Test 09/09/19 05:00 White Blood Count 18.5 K/UL (4.8-10.8) H Red Blood Count 4.53 M/UL (4.70-6.10) L Hemoglobin 12.2 G/DL (14.2-18.0) L Hematocrit 37.6 % (42.0-52.0) L Mean Corpuscular Volume 83 FL (80-99) Mean Corpuscular Hemoglobin 26.9 PG (27.0-31.0) L Mean Corpuscular Hemoglobin Concent 32.4 G/DL (32.0-36.0) Red Cell Distribution Width 12.9 % (11.6-14.8) Platelet Count 281 K/UL (150-450) Mean Platelet Volume 7.4 FL (6.5-10.1) Neutrophils (%) (Auto) % (45.0-75.0) Lymphocytes (%) (Auto) % (20.0-45.0) Monocytes (%) (Auto) % (1.0-10.0) Eosinophils (%) (Auto) % (0.0-3.0) Basophils (%) (Auto) % (0.0-2.0) Differential Total Cells Counted 100 Neutrophils % (Manual) 74 % (45-75) Lymphocytes % (Manual) 18 % (20-45) L Monocytes % (Manual) 8 % (1-10) Eosinophils % (Manual) 0 % (0-3) Basophils % (Manual) 0 % (0-2) Band Neutrophils 0 % (0-8) Platelet Estimate Adequate Platelet Morphology Normal Red Blood Cell Morphology Normal Sodium Level 127 MMOL/L (136-145) L Potassium Level 3.2 MMOL/L (3.5-5.1) L Chloride Level 92 MMOL/L (98-107) L Carbon Dioxide Level 27 MMOL/L (21-32) Anion Gap 8 mmol/L (5-15) Blood Urea Nitrogen 32 mg/dL (7-18) H Creatinine 1.5 MG/DL (0.55-1.30) H Estimat Glomerular Filtration Rate 58.1 mL/min (>60) Glucose Level 115 MG/DL (74-106) H Calcium Level 8.9 MG/DL (8.5-10.1) Phosphorus Level 3.4 MG/DL (2.5-4.9) Magnesium Level 1.7 MG/DL (1.8-2.4) L Total Bilirubin 1.4 MG/DL (0.2-1.0) H Direct Bilirubin 0.7 MG/DL (0.0-0.3) H Aspartate Amino Transf (AST/SGOT) 177 U/L (15-37) H Alanine Aminotransferase (ALT/SGPT) 185 U/L (12-78) H Alkaline Phosphatase 135 U/L (46-116) H C-Reactive Protein, Quantitative > 70.0 mg/dL (0.00-0.90) H Total Protein 8.4 G/DL (6.4-8.2) H Albumin 2.3 G/DL (3.4-5.0) L Globulin 6.1 g/dL Albumin/Globulin Ratio 0.4 (1.0-2.7) L Plan Problems: (1) Pressure ulcer Assessment & Plan: DAILY ESTIMATED NEEDS: Needs based on Cardiac, pulm, obese 81.5kg adj 20-25 kcals/kg 4549-6954 total kcals 1-1.5 g protein/kg 82-122 g total protein Fluid per MD, on lasix NUTRITION DIAGNOSIS: * Altered nutrition related lab values R/T clinical status as evidenced by low K(3.3). (CURRENT DIET: GOOD) PO DIET RECOMMENDATIONS: Rec Low NA/ Low Fat ADDITIONAL RECOMMENDATIONS: 1) Rec standing weight for accurate CBW -> OR recalibrated bed scale for accurate CBW -> On lasix, requiring daily wts 2) Check lytes daily for repletion (low K) 3) F/up w/ Wound care eval - etiology unknown MVI (2) Venous stasis ulcer Assessment & Plan: Patient presents with venous stasis ulcer on the left lower extremity. 4 cm x 3 cm x 2 mm deep. No active drainage mild serous oozing. No signs of acute active infection with but does have some erythema in the periwound. No purulent drainage. States he has had it for some time now and has been cared for an outside facility. Bilateral heel soft. Offload pressure from heels with pillow. Hydrogel impregnated gauze to ulcer bed followed by foam dressing. Wash lower extremities daily and apply skin protectant moisturizer followed by ABD and wrap pending duplex studies dressings changes daily will monitor and f/u with plan (3) Cellulitis (4) Wrist pain, acute Assessment & Plan: Procedure: XRAY Elbow Min 3v R Indication: Right elbow pain Findings: 3 views of the right elbow were obtained. No acute fractures, malalignment, erosions or periostitis are identified. Soft tissue swelling noted posterior part of the elbow. There is no joint effusion identified. Impression: No acute fracture. Soft tissue swelling noted There is severe arthrosis involving the carpal bones. The first carpal row including the scaphoid, lunate appear collapsed. There are multiple lucencies suggestive of cystic changes within the bones. The intercarpal joints are moderately narrowed. There are cystic changes in the base of the third and fourth metacarpals as well. There is a Alexandro screw partially within the scaphoid. This was likely placed for scaphoid fracture but has migrated medially and is partially embedded within the scaphoid and trapezium. There are severe erosive changes present within the intercarpal joints. There are severe erosive changes and deformity characterized by some articular collapse and cyst formation involving the second MCP joint. There is no acute fracture identified. IMPRESSION: No acute fracture identified. Evidence of severe polyarticular inflammatory arthritis characterized by subarticular erosions and cysts involving several of the intercarpal joints and the second MCP joint. Subsequent deformity and superimposed osteoarthritis noted. Displaced Alexandro screw, likely placed for a previous scaphoid fracture. Generalized soft tissue swelling. Findings: 3 views of the right shoulder were obtained. No acute fractures, malalignment, erosions or periostitis are identified. Bones are osteopenic. There is narrowing of the glenohumeral joint consistent with mild osteoarthritis. Soft tissues are unremarkable. Impression: Negative for acute injury displaced screw noted. seemingly chronic. outpatient hand sx consult (5) Status post fall Ricci Sharpe Sep 09, 2019 11:00
[2019-09-09] MEDS: Vancomycin 1.5gm/D5W 275ml IVPB SCH ×4 (11:39→22:13)
[2019-09-09] MEDS: traMADol 50mg tab ORAL PRN (11:45)
[2019-09-09 11:57] VITALS: BP 103/56
--- NOTE | 2019-09-09 12:57 | General Progress Note ---
Assessment/Plan Assessment/Plan: (1) Right wrist pain (2) H/O Right wrist fracture and ORIF (3) Osteoarthritis (4) Hardware displacement Patient will be continued on tramadol and Tylenol as needed D/w Dr. Trevino and he concurred. Subjective Date patient seen: Sep 09, 2019 Time patient seen: 12:00 - pm Constitutional: Reports: weakness HEENT: Reports: no symptoms Cardiovascular: Reports: no symptoms Respiratory: Reports: no symptoms Gastrointestinal/Abdominal: Reports: no symptoms Genitourinary: Reports: no symptoms Neurologic/Psychiatric: Reports: weakness Endocrine: Reports: no symptoms Hematologic/Lymphatic: Reports: no symptoms Allergies: Coded Allergies: No Known Allergies (Unverified , 06/22/14) Subjective Patient is in bed and had been c/o pain which he was started on Tramadol 100mg PO 1 tab Q6H PRN. At this time has used 3 doses in the last 24hrs. No new complaints at this time. Objective Last 24 Hour Vital Signs Date Time Temp Pulse Resp B/P (MAP) Pulse Ox O2 Delivery O2 Flow Rate FiO2 09/09/19 12:15 99.7 09/09/19 11:57 99.7 64 20 103/56 (72) 93 09/09/19 09:00 Room Air 09/09/19 08:56 63 09/09/19 08:00 97.5 63 19 124/76 (92) 93 09/09/19 04:50 99.2 09/09/19 04:10 101.8 105 18 117/64 (81) 94 09/08/19 23:52 99.2 70 18 137/60 (85) 94 09/08/19 20:40 Room Air 09/08/19 20:24 98.2 95 18 123/73 (90) 98 09/08/19 16:12 101.7 09/08/19 16:00 101.8 69 20 133/76 (95) 93 Intake and Output 09/08/19 09/09/19 18:59 06:59 Intake Total 840 ml 400 ml Output Total 0 ml Balance 840 ml 400 ml Intake Oral 840 ml 400 ml Stool Total 0 ml # Voids 3 4 # Bowel Movements 1 Laboratory Tests 09/09/19 05:00: White Blood Count 18.5H, Red Blood Count 4.53L, Hemoglobin 12.2L, Hematocrit 37.6L, Mean Corpuscular Volume 83, Mean Corpuscular Hemoglobin 26.9L, Mean Corpuscular Hemoglobin Concent 32.4, Red Cell Distribution Width 12.9, Platelet Count 281, Mean Platelet Volume 7.4, Neutrophils (%) (Auto) , Lymphocytes (%) ( Auto) , Monocytes (%) (Auto) , Eosinophils (%) (Auto) , Basophils (%) (Auto) , Differential Total Cells Counted 100, Neutrophils % (Manual) 74, Lymphocytes % ( Manual) 18L, Monocytes % (Manual) 8, Eosinophils % (Manual) 0, Basophils % ( Manual) 0, Band Neutrophils 0, Platelet Estimate Adequate, Platelet Morphology Normal, Red Blood Cell Morphology Normal, Sodium Level 127L, Potassium Level 3.2L, Chloride Level 92L, Carbon Dioxide Level 27, Anion Gap 8, Blood Urea Nitrogen 32H, Creatinine 1.5H, Estimat Glomerular Filtration Rate 58.1, Glucose Level 115H, Calcium Level 8.9, Phosphorus Level 3.4, Magnesium Level 1.7L, Total Bilirubin 1.4H, Direct Bilirubin 0.7H, Aspartate Amino Transf (AST/SGOT) 177H, Alanine Aminotransferase (ALT/SGPT) 185H, Alkaline Phosphatase 135H, C- Reactive Protein, Quantitative > 70.0H, Total Protein 8.4H, Albumin 2.3L, Globulin 6.1, Albumin/Globulin Ratio 0.4L 09/09/19 08:30: Urine Color [Pending], Urine Appearance [Pending], Urine pH [Pending], Urine Specific [place] [Pending], Urine Protein [Pending], Urine Glucose (UA) [Pending ], Urine Ketones [Pending], Urine Blood [Pending], Urine Nitrite [Pending], Urine Bilirubin [Pending], Urine Urobilinogen [Pending], Urine Leukocyte Esterase [Pending], Urine RBC [Pending], Urine WBC [Pending], Urine Squamous Epithelial Cells [Pending], Urine Bacteria [Pending] Height (Feet): 5 Height (Inches): 9.00 Weight (Pounds): 182 Objective General Appearance: no apparent distress, alert EENT: PERRL/EOMI, normal ENT inspection Neck: non-tender, normal alignment Cardiovascular: normal rate, regular rhythm Respiratory/Chest: lungs clear, normal breath sounds Abdomen: non tender, soft Edema: no edema noted Generalized Neurologic: alert, oriented x 3 Skin: normal pigmentation Lokesh Pierce Sep 09, 2019 12:57
[2019-09-09 13:08] LABS: APPEARANCE,URINE CLEAR; BILIRUBIN, URINE NEGATIVE (NEGATIVE); COLOR,URINE YELLOW; GLUCOSE, URINE (UA) NEGATIVE (NEGATIVE); KETONES,URINE NEGATIVE (NEGATIVE); LEUKOCYTE ESTERASE ,URINE NEGATIVE (NEGATIVE); NITRITE,URINE NEGATIVE (NEGATIVE); PH,URINE 5 (4.5-8.0); PROTEIN,URINE 2+ (NEGATIVE); UROBILINOGEN,URINE 4 MG/DL (0.0-1.0)
--- NOTE | 2019-09-09 13:31 | Infectious Diseases Prog Note ---
Assessment/Plan Assessment/Plan IMPRESSION: Leukocytosis, worse Fever Displaced right wrist hardware mild dementia, stasis dermatitis of legs, hypertension, hyperlipidemia, hand arthritis. RECOMMENDATION: Continue IV Vancomycin Will f/u blood culture Will be seen by orthopedic surgeon Subjective ROS Limited/Unobtainable: No Constitutional: Reports: fever, other - Wnhy=[id number] Respiratory: Reports: no symptoms Cardiovascular: Reports: no symptoms Gastrointestinal/Abdominal: Reports: no symptoms Genitourinary: Reports: no symptoms Musculoskeletal: Reports: pain, other - in right hand decreased Allergies: Coded Allergies: No Known Allergies (Unverified , 06/22/14) Objective Vital Signs Last 24 Hour Vital Signs Date Time Temp Pulse Resp B/P (MAP) Pulse Ox O2 Delivery O2 Flow Rate FiO2 09/09/19 12:15 99.7 09/09/19 11:57 99.7 64 20 103/56 (72) 93 09/09/19 09:00 Room Air 09/09/19 08:56 63 09/09/19 08:00 97.5 63 19 124/76 (92) 93 09/09/19 04:50 99.2 09/09/19 04:10 101.8 105 18 117/64 (81) 94 09/08/19 23:52 99.2 70 18 137/60 (85) 94 09/08/19 20:40 Room Air 09/08/19 20:24 98.2 95 18 123/73 (90) 98 09/08/19 16:12 101.7 09/08/19 16:00 101.8 69 20 133/76 (95) 93 Height (Feet): 5 Height (Inches): 9.00 Weight (Pounds): 182 General Appearance: no acute distress HEENT: mucous membranes moist Respiratory/Chest: lungs clear Cardiovascular: normal rate Abdomen: soft, non tender Extremities: other - left hand edema & contracture Neurologic/Psychiatric: alert, oriented x 3, responsive Laboratory Tests Test 09/09/19 05:00 09/09/19 08:30 White Blood Count 18.5 K/UL (4.8-10.8) H Red Blood Count 4.53 M/UL (4.70-6.10) L Hemoglobin 12.2 G/DL (14.2-18.0) L Hematocrit 37.6 % (42.0-52.0) L Mean Corpuscular Volume 83 FL (80-99) Mean Corpuscular Hemoglobin 26.9 PG (27.0-31.0) L Mean Corpuscular Hemoglobin Concent 32.4 G/DL (32.0-36.0) Red Cell Distribution Width 12.9 % (11.6-14.8) Platelet Count 281 K/UL (150-450) Mean Platelet Volume 7.4 FL (6.5-10.1) Neutrophils (%) (Auto) % (45.0-75.0) Lymphocytes (%) (Auto) % (20.0-45.0) Monocytes (%) (Auto) % (1.0-10.0) Eosinophils (%) (Auto) % (0.0-3.0) Basophils (%) (Auto) % (0.0-2.0) Differential Total Cells Counted 100 Neutrophils % (Manual) 74 % (45-75) Lymphocytes % (Manual) 18 % (20-45) L Monocytes % (Manual) 8 % (1-10) Eosinophils % (Manual) 0 % (0-3) Basophils % (Manual) 0 % (0-2) Band Neutrophils 0 % (0-8) Platelet Estimate Adequate Platelet Morphology Normal Red Blood Cell Morphology Normal Sodium Level 127 MMOL/L (136-145) L Potassium Level 3.2 MMOL/L (3.5-5.1) L Chloride Level 92 MMOL/L (98-107) L Carbon Dioxide Level 27 MMOL/L (21-32) Anion Gap 8 mmol/L (5-15) Blood Urea Nitrogen 32 mg/dL (7-18) H Creatinine 1.5 MG/DL (0.55-1.30) H Estimat Glomerular Filtration Rate 58.1 mL/min (>60) Glucose Level 115 MG/DL (74-106) H Calcium Level 8.9 MG/DL (8.5-10.1) Phosphorus Level 3.4 MG/DL (2.5-4.9) Magnesium Level 1.7 MG/DL (1.8-2.4) L Total Bilirubin 1.4 MG/DL (0.2-1.0) H Direct Bilirubin 0.7 MG/DL (0.0-0.3) H Aspartate Amino Transf (AST/SGOT) 177 U/L (15-37) H Alanine Aminotransferase (ALT/SGPT) 185 U/L (12-78) H Alkaline Phosphatase 135 U/L (46-116) H C-Reactive Protein, Quantitative > 70.0 mg/dL (0.00-0.90) H Total Protein 8.4 G/DL (6.4-8.2) H Albumin 2.3 G/DL (3.4-5.0) L Globulin 6.1 g/dL Albumin/Globulin Ratio 0.4 (1.0-2.7) L Urine Color Yellow Urine Appearance Clear Urine pH 5 (4.5-8.0) Urine Specific [place] 1.015 (1.005-1.035) Urine Protein 2+ (NEGATIVE) H Urine Glucose (UA) Negative (NEGATIVE) Urine Ketones Negative (NEGATIVE) Urine Blood 1+ (NEGATIVE) H Urine Nitrite Negative (NEGATIVE) Urine Bilirubin Negative (NEGATIVE) Urine Urobilinogen 4 MG/DL (0.0-1.0) H Urine Leukocyte Esterase Negative (NEGATIVE) Urine RBC 0-2 /HPF (0 - 0) H Urine WBC 0 /HPF (0 - 0) Urine Squamous Epithelial Cells Occasional /LPF Urine Bacteria Few /HPF (NONE) Current Medications Medications (Trade) Dose Ordered Sig/Jl Route PRN Reason Start Time Stop Time Status Last Admin Dose Admin Acetaminophen (Tylenol) 650 mg Q6H PRN ORAL mild pain 09/06/19 16:20 10/06/19 16:19 09/09/19 04:14 Ascorbic Acid (Vitamin C) 500 mg DAILY ORAL 09/06/19 09:00 10/06/19 08:59 09/09/19 08:55 Bisacodyl (Dulcolax) 5 mg TWICE A DAY ORAL 09/06/19 09:00 10/06/19 08:59 09/09/19 08:55 Digoxin (Lanoxin) 0.125 mg DAILY ORAL 09/07/19 09:00 10/07/19 08:59 09/09/19 08:56 Docusate Sodium (Colace) 250 mg DAILY ORAL 09/06/19 09:00 10/06/19 08:59 09/09/19 09:06 Furosemide (Lasix) 40 mg DAILY ORAL 09/06/19 09:00 10/06/19 08:59 09/09/19 08:57 Gabapentin (Neurontin) 300 mg TID ORAL 09/06/19 09:00 10/06/19 08:59 09/09/19 08:55 Heparin Sodium (Porcine) (Heparin 5000 units/ml) 5,000 units EVERY 12 HOURS SUBQ 09/06/19 09:00 10/06/19 08:59 09/09/19 09:01 Magnesium Oxide (Mag-Ox 400mg) 400 mg THREE TIMES A DAY ORAL 09/09/19 13:00 10/09/19 12:59 Multivitamins (Multivitamins) 1 tab DAILY ORAL 09/07/19 09:00 10/07/19 08:59 09/09/19 08:55 Ondansetron HCl (Zofran) 4 mg Q6H PRN ORAL Nausea & Vomiting 09/05/19 23:00 10/05/19 22:59 Potassium Chloride (K-Dur) 120 meq DAILY ORAL 09/06/19 09:00 10/06/19 08:59 09/09/19 08:54 Sodium Chloride 500 ml @ 30 mls/hr ONCE ONCE IV 09/09/19 10:00 09/10/19 02:39 09/09/19 10:55 Spironolactone (Aldactone) 25 mg DAILY ORAL 09/09/19 09:00 10/09/19 08:59 09/09/19 09:06 Tramadol HCl (Ultram) 100 mg Q6H PRN ORAL pain 4-10 09/06/19 16:30 09/13/19 15:08 09/09/19 11:45 Vancomycin HCl (Vanco rx to dose) 1 ea DAILY PRN MISC Per rx protocol 09/09/19 08:45 10/09/19 08:44 Vancomycin HCl 1.5 gm/Dextrose 275 ml @ 137.5 mls/ hr Q12H IVPB 09/09/19 10:00 09/14/19 09:59 09/09/19 11:39 Jesus Hernandez MD Sep 09, 2019 13:31
[2019-09-09] MEDS: Magnesium Oxide 400mg tab ORAL SCH ×2 (13:43→17:16)
[2019-09-09 16:00] VITALS: BP 111/68
--- NOTE | 2019-09-09 18:29 | Cardiology Progress Note ---
Assessment/Plan Assessment/Plan 1. Sinus tachycardia, likely inflammation or infection, the patient being febrile, worsening of leukocytosis, IV ABx, hydration. Will consider holding on the diuretics. 2. Hx of HTN 3. Mechanical fall with no syncope, 2D echo reveals normal LV systolic and diastolic function. Subjective Subjective Febrile. No cardiac events reported. Objective Last 24 Hour Vital Signs Date Time Temp Pulse Resp B/P (MAP) Pulse Ox O2 Delivery O2 Flow Rate FiO2 09/09/19 16:00 100.8 108 20 111/68 (82) 98 09/09/19 12:15 99.7 09/09/19 11:57 99.7 64 20 103/56 (72) 93 09/09/19 09:00 Room Air 09/09/19 08:56 63 09/09/19 08:00 97.5 63 19 124/76 (92) 93 09/09/19 04:50 99.2 09/09/19 04:10 101.8 105 18 117/64 (81) 94 09/08/19 23:52 99.2 70 18 137/60 (85) 94 09/08/19 20:40 Room Air 09/08/19 20:24 98.2 95 18 123/73 (90) 98 Intake and Output 09/08/19 09/09/19 19:00 07:00 Intake Total 840 ml 400 ml Output Total 0 ml Balance 840 ml 400 ml Intake Oral 840 ml 400 ml Stool Total 0 ml # Voids 3 4 # Bowel Movements 1 2D Echo: LVEF 55%, Normal LV Diastolic Fxn, RVSP 12 mmHg Laboratory Tests Test 09/09/19 05:00 09/09/19 08:30 White Blood Count 18.5 K/UL (4.8-10.8) H Red Blood Count 4.53 M/UL (4.70-6.10) L Hemoglobin 12.2 G/DL (14.2-18.0) L Hematocrit 37.6 % (42.0-52.0) L Mean Corpuscular Volume 83 FL (80-99) Mean Corpuscular Hemoglobin 26.9 PG (27.0-31.0) L Mean Corpuscular Hemoglobin Concent 32.4 G/DL (32.0-36.0) Red Cell Distribution Width 12.9 % (11.6-14.8) Platelet Count 281 K/UL (150-450) Mean Platelet Volume 7.4 FL (6.5-10.1) Neutrophils (%) (Auto) % (45.0-75.0) Lymphocytes (%) (Auto) % (20.0-45.0) Monocytes (%) (Auto) % (1.0-10.0) Eosinophils (%) (Auto) % (0.0-3.0) Basophils (%) (Auto) % (0.0-2.0) Differential Total Cells Counted 100 Neutrophils % (Manual) 74 % (45-75) Lymphocytes % (Manual) 18 % (20-45) L Monocytes % (Manual) 8 % (1-10) Eosinophils % (Manual) 0 % (0-3) Basophils % (Manual) 0 % (0-2) Band Neutrophils 0 % (0-8) Platelet Estimate Adequate Platelet Morphology Normal Red Blood Cell Morphology Normal Sodium Level 127 MMOL/L (136-145) L Potassium Level 3.2 MMOL/L (3.5-5.1) L Chloride Level 92 MMOL/L (98-107) L Carbon Dioxide Level 27 MMOL/L (21-32) Anion Gap 8 mmol/L (5-15) Blood Urea Nitrogen 32 mg/dL (7-18) H Creatinine 1.5 MG/DL (0.55-1.30) H Estimat Glomerular Filtration Rate 58.1 mL/min (>60) Glucose Level 115 MG/DL (74-106) H Calcium Level 8.9 MG/DL (8.5-10.1) Phosphorus Level 3.4 MG/DL (2.5-4.9) Magnesium Level 1.7 MG/DL (1.8-2.4) L Total Bilirubin 1.4 MG/DL (0.2-1.0) H Direct Bilirubin 0.7 MG/DL (0.0-0.3) H Aspartate Amino Transf (AST/SGOT) 177 U/L (15-37) H Alanine Aminotransferase (ALT/SGPT) 185 U/L (12-78) H Alkaline Phosphatase 135 U/L (46-116) H C-Reactive Protein, Quantitative > 70.0 mg/dL (0.00-0.90) H Total Protein 8.4 G/DL (6.4-8.2) H Albumin 2.3 G/DL (3.4-5.0) L Globulin 6.1 g/dL Albumin/Globulin Ratio 0.4 (1.0-2.7) L Urine Color Yellow Urine Appearance Clear Urine pH 5 (4.5-8.0) Urine Specific [place] 1.015 (1.005-1.035) Urine Protein 2+ (NEGATIVE) H Urine Glucose (UA) Negative (NEGATIVE) Urine Ketones Negative (NEGATIVE) Urine Blood 1+ (NEGATIVE) H Urine Nitrite Negative (NEGATIVE) Urine Bilirubin Negative (NEGATIVE) Urine Urobilinogen 4 MG/DL (0.0-1.0) H Urine Leukocyte Esterase Negative (NEGATIVE) Urine RBC 0-2 /HPF (0 - 0) H Urine WBC 0 /HPF (0 - 0) Urine Squamous Epithelial Cells Occasional /LPF Urine Bacteria Few /HPF (NONE) Objective HEENT: Normocephalic, PERRLA, Extraocular muscle intact. NECK: Negative JVD, no carotid bruit, carotid upstroke 2+ B/L. CHEST: Clear to auscultation B/L. CARDIOVASCULAR: Regular rate and rhythm. Tachycardic. No murmurs, gallops or rubs. GASTROINTESTINAL: Soft, nontender, nondistended. No organomegaly. EXTREMITIES: No edema, clubbing or cyanosis. Decreased range of motion and tenderness on the hand. Robert Nina MD Sep 09, 2019 18:29
[2019-09-09 20:00] VITALS: BP 106/79
--- NOTE | 2019-09-09 20:00 | Consultation ---
DATE OF CONSULTATION: 09/06/2019 CARDIOLOGY CONSULTATION CONSULTING PHYSICIAN: Robert Nina M.D. REFERRING PHYSICIAN: Jono Quiros M.D. REASON FOR CONSULTATION: Management of tachycardia, status post fall. HISTORY OF PRESENT ILLNESS: The patient is a very unfortunate 59-year-old gentleman, who was brought in after he sustained a mechanical fall on 09/04/2019, leading to right upper extremity trauma especially hand, elbow, and right shoulder. The patient denies any loss of consciousness or having any blunt trauma to the head. He is a resident of a detention facility and was transferred to this hospital for pain in the above locations mainly exacerbated by moving. He also reports swelling of the right hand and elbow. At the time of arrival to this facility, blood pressure was 115/79 and pulse of 99. A 12-lead EKG in the emergency department showed sinus tachycardia, rate of 115 with frequent premature ventricular complexes, but no acute ischemic features. An echocardiography was also done upon arrival to the . The patient was admitted to Med/Surg unit for further evaluation and management of the mechanical fall and trauma to the right upper extremity. Cardiology consultation was made for assessment and management of tachycardia. PAST MEDICAL HISTORY: History of hypertension, history of congestive heart failure, history of right hand bruises, history of hyperlipidemia, history of venous insufficiency, history of colostomy placement, and history of dementia. PAST SURGICAL HISTORY: 1. Colostomy placement. 2. Hand surgery. ALLERGIES: No known drug allergies. MEDICATIONS: List of medications in the detention facility includes acetaminophen 650 q.6 hours p.r.n. mild pain, vitamin C 500 mg daily, Dulcolax 5 mg twice daily, Colace 250 mg daily, Lasix 40 mg daily, gabapentin 300 mg 3 times a day, heparin 5000 units subcu q.12 hours, magnesium oxide 400 mg twice daily, Zaroxolyn 5 mg p.o. daily, multivitamin one tablet daily, Zofran 4 mg q.6 hours p.r.n. nausea or vomiting, and potassium chloride six tablets of 20 at bedtime. FAMILY HISTORY: No premature coronary artery disease in the first-degree relatives. REVIEW OF SYSTEMS: A 12-system review done and essentially negative except what was mentioned in the history of present illness. PHYSICAL EXAMINATION: VITAL SIGNS: At the time of arrival to the hospital, blood pressure was 115/79, respirations 20, pulse of 99, temperature 98.4 degrees Fahrenheit, and O2 saturation 94% on room air. GENERAL: Very unfortunate 58-year-old, in no apparent respiratory distress. GCS of 15. Alert and oriented. HEENT: Atraumatic and normocephalic. Anicteric. Pupils are equal, round, and reactive to light and accommodation. Extraocular muscles intact. NECK: JVP less than 5 cm. No carotid bruit. Carotid upstroke is 2+ bilaterally. CARDIOVASCULAR SYSTEM: Normal S1 and S2. Tachycardic. No murmurs, gallops, or rubs. PMI is at fourth intercostal space at the midclavicular line. LUNGS: Clear to auscultation bilaterally. ABDOMEN: Soft, nontender, and nondistended. No hepatosplenomegaly. Positive bowel sounds. EXTREMITIES: Bilateral chronic pressure ulcers covered by pressure dressing. There was also right hand, elbow, and shoulder bruising and swelling of the right hand and swelling and erythema of second metacarpal bone. LABORATORY FINDINGS: WBC 15.9, hemoglobin 14.3, hematocrit 42.1, and platelet count is 183,000. Sodium 130, potassium is 3.3, chloride 92, bicarbonate 32, BUN of 23, creatinine 1.3, glucose is 113, and calcium is 8.6. Triglycerides 164, total cholesterol 155, LDL 94, and HDL of 21. ASSESSMENT AND PLAN: The patient is a very unfortunate 59-year-old gentleman, who is seen in Cardiology consultation. 1. Sinus tachycardia, most likely secondary to the patient's pain. Laboratory finding also showed some electrolyte abnormality including hyponatremia and hypokalemia, which could be secondary to diuretic therapy. We will put a hold on Lasix at this time and replace potassium. The ratio of BUN and creatinine is in the favor of intravascular volume contraction. We will like to obtain 2D echocardiography for evaluation and management of hemodynamics as well as assessment of LV systolic function. 2. History of lower extremity venous insufficiency. The patient will benefit from compression stocking mainly. 3. History of hyperlipidemia. 4. History of hypertension. I would avoid calcium-channel salma due to side effects of intravascular volume and side effects of peripheral edema. I agree with spironolactone and possibly adding ARBs. I would like to thank, Dr. Quiros, for allowing me to participate in the care of this patient. Robert Nina M.D. DR: Henri JOB#: [id number] CC:
--- NOTE | 2019-09-09 21:45 | General Progress Note ---
Assessment/Plan Problem List: (1) Hypokalemia ICD Codes: E87.6 - Hypokalemia SNOMED: 76440446 (2) Surgical screw in right hand ICD Codes: Z96.7 - Presence of other bone and tendon implants SNOMED: 448023962 Status: progressing Assessment/Plan: febrile leukocytosis consulted dr reilly for fever low k replacement per renal uti and febrile Subjective ROS Limited/Unobtainable: Yes Allergies: Coded Allergies: No Known Allergies (Unverified , 06/22/14) Objective Last 24 Hour Vital Signs Date Time Temp Pulse Resp B/P (MAP) Pulse Ox O2 Delivery O2 Flow Rate FiO2 09/09/19 21:24 Room Air 09/09/19 16:00 100.8 108 20 111/68 (82) 98 09/09/19 12:15 99.7 09/09/19 11:57 99.7 64 20 103/56 (72) 93 09/09/19 09:00 Room Air 09/09/19 08:56 63 09/09/19 08:00 97.5 63 19 124/76 (92) 93 09/09/19 04:50 99.2 09/09/19 04:10 101.8 105 18 117/64 (81) 94 09/08/19 23:52 99.2 70 18 137/60 (85) 94 Intake and Output 09/08/19 09/09/19 19:00 07:00 Intake Total 840 ml 400 ml Output Total 0 ml Balance 840 ml 400 ml Intake Oral 840 ml 400 ml Stool Total 0 ml # Voids 3 4 # Bowel Movements 1 Laboratory Tests 09/09/19 05:00: White Blood Count 18.5H, Red Blood Count 4.53L, Hemoglobin 12.2L, Hematocrit 37.6L, Mean Corpuscular Volume 83, Mean Corpuscular Hemoglobin 26.9L, Mean Corpuscular Hemoglobin Concent 32.4, Red Cell Distribution Width 12.9, Platelet Count 281, Mean Platelet Volume 7.4, Neutrophils (%) (Auto) , Lymphocytes (%) ( Auto) , Monocytes (%) (Auto) , Eosinophils (%) (Auto) , Basophils (%) (Auto) , Differential Total Cells Counted 100, Neutrophils % (Manual) 74, Lymphocytes % ( Manual) 18L, Monocytes % (Manual) 8, Eosinophils % (Manual) 0, Basophils % ( Manual) 0, Band Neutrophils 0, Platelet Estimate Adequate, Platelet Morphology Normal, Red Blood Cell Morphology Normal, Sodium Level 127L, Potassium Level 3.2L, Chloride Level 92L, Carbon Dioxide Level 27, Anion Gap 8, Blood Urea Nitrogen 32H, Creatinine 1.5H, Estimat Glomerular Filtration Rate 58.1, Glucose Level 115H, Calcium Level 8.9, Phosphorus Level 3.4, Magnesium Level 1.7L, Total Bilirubin 1.4H, Direct Bilirubin 0.7H, Aspartate Amino Transf (AST/SGOT) 177H, Alanine Aminotransferase (ALT/SGPT) 185H, Alkaline Phosphatase 135H, C- Reactive Protein, Quantitative > 70.0H, Total Protein 8.4H, Albumin 2.3L, Globulin 6.1, Albumin/Globulin Ratio 0.4L 09/09/19 08:30: Urine Color Yellow, Urine Appearance Clear, Urine pH 5, Urine Specific [place] 1.015, Urine Protein 2+H, Urine Glucose (UA) Negative, Urine Ketones Negative, Urine Blood 1+H, Urine Nitrite Negative, Urine Bilirubin Negative, Urine Urobilinogen 4H, Urine Leukocyte Esterase Negative, Urine RBC 0-2H, Urine WBC 0 , Urine Squamous Epithelial Cells Occasional, Urine Bacteria Few Height (Feet): 5 Height (Inches): 9.00 Weight (Pounds): 182 Cardiovascular: normal rate Respiratory/Chest: lungs clear Abdomen: soft, no organomegaly Jono Quiros MD Sep 09, 2019 21:45
[2019-09-09] MEDS ORDERED: NS 250 ML IV ONE (22:00)
[2019-09-10] VITALS: BP 112/68
[2019-09-10 04:00] VITALS: BP 125/55
[2019-09-10 07:21] LABS: HEMATOCRIT 36.2 % (42.0-52.0); HEMOGLOBIN 12.1 G/DL (14.2-18.0); MEAN CORPUSCULAR VOLUME 82 FL (80-99); PLATELET COUNT 304 K/UL (150-450); RED BLOOD COUNT 4.42 M/UL (4.70-6.10); RED CELL DISTRIBUTION WIDTH 11.6 % (11.6-14.8); WHITE BLOOD COUNT 19.1 K/UL (4.8-10.8)
[2019-09-10 07:31] LABS: ALANINE AMINOTRANSFERASE 178 U/L (12-78); ALBUMIN 2.1 G/DL (3.4-5.0); ALBUMIN/GLOBULIN RATIO 0.3 (1.0-2.7); ALKALINE PHOSPHATASE 151 U/L (46-116); ANION GAP 12 mmol/L (5-15); ASPARTATE AMINO TRANSFERASE 142 U/L (15-37); BILIRUBIN,TOTAL 1.8 MG/DL (0.2-1.0); BLOOD UREA NITROGEN 40 mg/dL (7-18); CALCIUM 9.3 MG/DL (8.5-10.1); CARBON DIOXIDE 25 MMOL/L (21-32); CHLORIDE 100 MMOL/L (98-107); CREATININE 1.5 MG/DL (0.55-1.30); PHOSPHORUS 3.7 MG/DL (2.5-4.9); POTASSIUM 3.7 MMOL/L (3.5-5.1); SODIUM 137 MMOL/L (136-145)
[2019-09-10 07:32] LABS: BILIRUBIN,DIRECT 1.2 MG/DL (0.0-0.3)
[2019-09-10 08:00] VITALS: BP 125/76
--- NOTE | 2019-09-10 08:30 | General Progress Note ---
Assessment/Plan Assessment/Plan: (1) Right wrist pain (2) H/O Right wrist fracture and ORIF (3) Osteoarthritis (4) Hardware displacement Patient will be continued on tramadol and Tylenol as needed D/w Dr. Trevino and he concurred. Subjective Date patient seen: Sep 10, 2019 Time patient seen: 08:15 - am Allergies: Coded Allergies: No Known Allergies (Unverified , 06/22/14) Subjective Constitutional: Reports: weakness HEENT: Reports: no symptoms Cardiovascular: Reports: no symptoms Respiratory: Reports: no symptoms Gastrointestinal/Abdominal: Reports: no symptoms Genitourinary: Reports: no symptoms Neurologic/Psychiatric: Reports: weakness Endocrine: Reports: no symptoms Hematologic/Lymphatic: Reports: no symptoms Subjective Patient reports no pain at this time. He has no signs of distress and using the Tramadol as needed. No new complaints at this time. Objective Last 24 Hour Vital Signs Date Time Temp Pulse Resp B/P (MAP) Pulse Ox O2 Delivery O2 Flow Rate FiO2 09/10/19 08:00 98.4 90 21 125/76 (92) 95 09/10/19 04:00 98.1 69 20 125/55 (78) 95 09/10/19 00:00 101.8 107 19 112/68 (83) 95 09/09/19 22:22 102.0 09/09/19 21:24 Room Air 09/09/19 20:00 102.9 128 21 106/79 (88) 95 09/09/19 16:00 100.8 108 20 111/68 (82) 98 09/09/19 12:15 99.7 09/09/19 11:57 99.7 64 20 103/56 (72) 93 09/09/19 09:00 Room Air 09/09/19 08:56 63 Intake and Output 09/09/19 09/10/19 19:00 07:00 Intake Total 1095.0 ml Output Total 0 ml Balance 1095.0 ml Intake Oral 700 ml IV Total 395.0 ml Stool Total 0 ml # Voids 1 Laboratory Tests 09/10/19 06:35: White Blood Count 19.1H, Red Blood Count 4.42L, Hemoglobin 12.1L, Hematocrit 36.2L, Mean Corpuscular Volume 82, Mean Corpuscular Hemoglobin 27.5, Mean Corpuscular Hemoglobin Concent 33.5, Red Cell Distribution Width 11.6, Platelet Count 304, Mean Platelet Volume 7.6, Neutrophils (%) (Auto) , Lymphocytes (%) ( Auto) , Monocytes (%) (Auto) , Eosinophils (%) (Auto) , Basophils (%) (Auto) , Neutrophils % (Manual) [Pending], Lymphocytes % (Manual) [Pending], Platelet Estimate [Pending], Platelet Morphology [Pending], Sodium Level 137, Potassium Level 3.7, Chloride Level 100, Carbon Dioxide Level 25, Anion Gap 12, Blood Urea Nitrogen 40H, Creatinine 1.5H, Estimat Glomerular Filtration Rate 58.1, Glucose Level 133H, Calcium Level 9.3, Phosphorus Level 3.7, Magnesium Level 2.1 , Total Bilirubin 1.8H, Direct Bilirubin 1.2H, Aspartate Amino Transf (AST/SGOT ) 142H, Alanine Aminotransferase (ALT/SGPT) 178H, Alkaline Phosphatase 151H, C- Reactive Protein, Quantitative 53.4H, Pro-B-Type Natriuretic Peptide 591H, Total Protein 8.2, Albumin 2.1L, Globulin 6.1, Albumin/Globulin Ratio 0.3L Height (Feet): 5 Height (Inches): 9.00 Weight (Pounds): 182 Objective General Appearance: no apparent distress, alert EENT: PERRL/EOMI, normal ENT inspection Neck: non-tender, normal alignment Cardiovascular: normal rate, regular rhythm Respiratory/Chest: lungs clear, normal breath sounds Abdomen: non tender, soft Edema: no edema noted Generalized Neurologic: alert, oriented x 3 Skin: normal pigmentation Lokesh Pierce Sep 10, 2019 08:30
[2019-09-10] MEDS: Docusate 250mg cap ORAL SCH (08:34)
[2019-09-10] MEDS: Digoxin 0.125mg tab ORAL SCH (08:35)
[2019-09-10] MEDS: Spironolactone 25mg tab ORAL SCH (08:35)
[2019-09-10] MEDS: Bisacodyl EC 5mg tab ORAL SCH ×2 (08:35→17:18)
[2019-09-10] MEDS: Ascorbic Acid 500mg tab ORAL SCH (08:36)
[2019-09-10] MEDS: Magnesium Oxide 400mg tab ORAL SCH ×3 (08:36→17:18)
[2019-09-10] MEDS: Heparin 5000 units/ml inj SUBQ SCH ×2 (08:41→22:54)
[2019-09-10] MEDS: traMADol 50mg tab ORAL PRN ×2 (08:46→13:47)
[2019-09-10] MEDS: Vancomycin 1.5gm/D5W 275ml IVPB SCH ×4 (09:53→22:52)
--- NOTE | 2019-09-10 10:33 | Surgery Progress Note ---
Surgery Progress Note Subjective Additional Comments worsening leukocytosis abnormal labs lft's elevated denies n/v/f/c no pain comfortable Objective Last 24 Hour Vital Signs Date Time Temp Pulse Resp B/P (MAP) Pulse Ox O2 Delivery O2 Flow Rate FiO2 09/10/19 09:16 98.4 09/10/19 09:00 Room Air 09/10/19 08:35 90 09/10/19 08:00 98.4 90 21 125/76 (92) 95 09/10/19 04:00 98.1 69 20 125/55 (78) 95 09/10/19 00:00 101.8 107 19 112/68 (83) 95 09/09/19 22:22 102.0 09/09/19 21:24 Room Air 09/09/19 20:00 102.9 128 21 106/79 (88) 95 09/09/19 16:00 100.8 108 20 111/68 (82) 98 09/09/19 11:57 99.7 64 20 103/56 (72) 93 I&O Intake and Output 09/09/19 09/10/19 19:00 07:00 Intake Total 1095.0 ml Output Total 0 ml Balance 1095.0 ml Intake Oral 700 ml IV Total 395.0 ml Stool Total 0 ml # Voids 1 Dressing: other Wound: other Drains: other Cardiovascular: RSR Respiratory: decreased breath sounds Abdomen: soft, present bowel sounds, non-distended Extremities: no tenderness, no cyanosis, other Laboratory Tests Test 09/10/19 06:35 White Blood Count 19.1 K/UL (4.8-10.8) H Red Blood Count 4.42 M/UL (4.70-6.10) L Hemoglobin 12.1 G/DL (14.2-18.0) L Hematocrit 36.2 % (42.0-52.0) L Mean Corpuscular Volume 82 FL (80-99) Mean Corpuscular Hemoglobin 27.5 PG (27.0-31.0) Mean Corpuscular Hemoglobin Concent 33.5 G/DL (32.0-36.0) Red Cell Distribution Width 11.6 % (11.6-14.8) Platelet Count 304 K/UL (150-450) Mean Platelet Volume 7.6 FL (6.5-10.1) Neutrophils (%) (Auto) % (45.0-75.0) Lymphocytes (%) (Auto) % (20.0-45.0) Monocytes (%) (Auto) % (1.0-10.0) Eosinophils (%) (Auto) % (0.0-3.0) Basophils (%) (Auto) % (0.0-2.0) Differential Total Cells Counted 100 Neutrophils % (Manual) 69 % (45-75) Lymphocytes % (Manual) 17 % (20-45) L Monocytes % (Manual) 12 % (1-10) H Eosinophils % (Manual) 1 % (0-3) Basophils % (Manual) 0 % (0-2) Band Neutrophils 1 % (0-8) Platelet Estimate Adequate Platelet Morphology Normal Red Blood Cell Morphology Normal Sodium Level 137 MMOL/L (136-145) Potassium Level 3.7 MMOL/L (3.5-5.1) Chloride Level 100 MMOL/L (98-107) Carbon Dioxide Level 25 MMOL/L (21-32) Anion Gap 12 mmol/L (5-15) Blood Urea Nitrogen 40 mg/dL (7-18) H Creatinine 1.5 MG/DL (0.55-1.30) H Estimat Glomerular Filtration Rate 58.1 mL/min (>60) Glucose Level 133 MG/DL (74-106) H Calcium Level 9.3 MG/DL (8.5-10.1) Phosphorus Level 3.7 MG/DL (2.5-4.9) Magnesium Level 2.1 MG/DL (1.8-2.4) Total Bilirubin 1.8 MG/DL (0.2-1.0) H Direct Bilirubin 1.2 MG/DL (0.0-0.3) H Aspartate Amino Transf (AST/SGOT) 142 U/L (15-37) H Alanine Aminotransferase (ALT/SGPT) 178 U/L (12-78) H Alkaline Phosphatase 151 U/L (46-116) H C-Reactive Protein, Quantitative 53.4 mg/dL (0.00-0.90) H Pro-B-Type Natriuretic Peptide 591 pg/mL (0-125) H Total Protein 8.2 G/DL (6.4-8.2) Albumin 2.1 G/DL (3.4-5.0) L Globulin 6.1 g/dL Albumin/Globulin Ratio 0.3 (1.0-2.7) L Plan Problems: (1) Pressure ulcer Assessment & Plan: DAILY ESTIMATED NEEDS: Needs based on Cardiac, pulm, obese 81.5kg adj 20-25 kcals/kg 2703-0221 total kcals 1-1.5 g protein/kg 82-122 g total protein Fluid per MD, on lasix NUTRITION DIAGNOSIS: * Altered nutrition related lab values R/T clinical status as evidenced by low K(3.3). (CURRENT DIET: GOOD) PO DIET RECOMMENDATIONS: Rec Low NA/ Low Fat ADDITIONAL RECOMMENDATIONS: 1) Rec standing weight for accurate CBW -> OR recalibrated bed scale for accurate CBW -> On lasix, requiring daily wts 2) Check lytes daily for repletion (low K) 3) F/up w/ Wound care eval - etiology unknown MVI (2) Venous stasis ulcer Assessment & Plan: Patient presents with venous stasis ulcer on the left lower extremity. 4 cm x 3 cm x 2 mm deep. No active drainage mild serous oozing. No signs of acute active infection with but does have some erythema in the periwound. No purulent drainage. States he has had it for some time now and has been cared for an outside facility. Bilateral heel soft. Offload pressure from heels with pillow. Hydrogel impregnated gauze to ulcer bed followed by foam dressing. Wash lower extremities daily and apply skin protectant moisturizer followed by ABD and wrap pending duplex studies dressings changes daily will monitor and f/u with plan (3) Cellulitis (4) Wrist pain, acute Assessment & Plan: Procedure: XRAY Elbow Min 3v R Indication: Right elbow pain Findings: 3 views of the right elbow were obtained. No acute fractures, malalignment, erosions or periostitis are identified. Soft tissue swelling noted posterior part of the elbow. There is no joint effusion identified. Impression: No acute fracture. Soft tissue swelling noted There is severe arthrosis involving the carpal bones. The first carpal row including the scaphoid, lunate appear collapsed. There are multiple lucencies suggestive of cystic changes within the bones. The intercarpal joints are moderately narrowed. There are cystic changes in the base of the third and fourth metacarpals as well. There is a Alexandro screw partially within the scaphoid. This was likely placed for scaphoid fracture but has migrated medially and is partially embedded within the scaphoid and trapezium. There are severe erosive changes present within the intercarpal joints. There are severe erosive changes and deformity characterized by some articular collapse and cyst formation involving the second MCP joint. There is no acute fracture identified. IMPRESSION: No acute fracture identified. Evidence of severe polyarticular inflammatory arthritis characterized by subarticular erosions and cysts involving several of the intercarpal joints and the second MCP joint. Subsequent deformity and superimposed osteoarthritis noted. Displaced Alexandro screw, likely placed for a previous scaphoid fracture. Generalized soft tissue swelling. Findings: 3 views of the right shoulder were obtained. No acute fractures, malalignment, erosions or periostitis are identified. Bones are osteopenic. There is narrowing of the glenohumeral joint consistent with mild osteoarthritis. Soft tissues are unremarkable. Impression: Negative for acute injury displaced screw noted. seemingly chronic. outpatient hand sx consult (5) Status post fall (6) Transaminitis Assessment & Plan: lft's elevated US abd ordered clinically no symptoms Ricci Sharpe Sep 10, 2019 10:33
--- NOTE | 2019-09-10 11:31 | Infectious Diseases Prog Note ---
Assessment/Plan Assessment/Plan IMPRESSION: Leukocytosis, worse Fever Elevated transaminase & bilirubin Displaced right wrist hardware mild dementia, stasis dermatitis of legs, hypertension, hyperlipidemia, hand arthritis. RECOMMENDATION: Continue IV Vancomycin Add Zosyn Hepatitis profile Will f/u blood culture Will f/u abdominal US Subjective ROS Limited/Unobtainable: Yes Constitutional: Reports: fever Respiratory: Reports: no symptoms Gastrointestinal/Abdominal: Reports: no symptoms Genitourinary: Reports: no symptoms Allergies: Coded Allergies: No Known Allergies (Unverified , 06/22/14) Objective Vital Signs Last 24 Hour Vital Signs Date Time Temp Pulse Resp B/P (MAP) Pulse Ox O2 Delivery O2 Flow Rate FiO2 09/10/19 09:16 98.4 09/10/19 09:00 Room Air 09/10/19 08:35 90 09/10/19 08:00 98.4 90 21 125/76 (92) 95 09/10/19 04:00 98.1 69 20 125/55 (78) 95 09/10/19 00:00 101.8 107 19 112/68 (83) 95 09/09/19 22:22 102.0 09/09/19 21:24 Room Air 09/09/19 20:00 102.9 128 21 106/79 (88) 95 09/09/19 16:00 100.8 108 20 111/68 (82) 98 09/09/19 11:57 99.7 64 20 103/56 (72) 93 Height (Feet): 5 Height (Inches): 9.00 Weight (Pounds): 182 General Appearance: no acute distress HEENT: mucous membranes moist Respiratory/Chest: lungs clear Cardiovascular: normal rate Abdomen: soft, non tender Extremities: other - right hand & pedal edema Neurologic/Psychiatric: alert, responsive Laboratory Tests Test 09/10/19 06:35 White Blood Count 19.1 K/UL (4.8-10.8) H Red Blood Count 4.42 M/UL (4.70-6.10) L Hemoglobin 12.1 G/DL (14.2-18.0) L Hematocrit 36.2 % (42.0-52.0) L Mean Corpuscular Volume 82 FL (80-99) Mean Corpuscular Hemoglobin 27.5 PG (27.0-31.0) Mean Corpuscular Hemoglobin Concent 33.5 G/DL (32.0-36.0) Red Cell Distribution Width 11.6 % (11.6-14.8) Platelet Count 304 K/UL (150-450) Mean Platelet Volume 7.6 FL (6.5-10.1) Neutrophils (%) (Auto) % (45.0-75.0) Lymphocytes (%) (Auto) % (20.0-45.0) Monocytes (%) (Auto) % (1.0-10.0) Eosinophils (%) (Auto) % (0.0-3.0) Basophils (%) (Auto) % (0.0-2.0) Differential Total Cells Counted 100 Neutrophils % (Manual) 69 % (45-75) Lymphocytes % (Manual) 17 % (20-45) L Monocytes % (Manual) 12 % (1-10) H Eosinophils % (Manual) 1 % (0-3) Basophils % (Manual) 0 % (0-2) Band Neutrophils 1 % (0-8) Platelet Estimate Adequate Platelet Morphology Normal Red Blood Cell Morphology Normal Sodium Level 137 MMOL/L (136-145) Potassium Level 3.7 MMOL/L (3.5-5.1) Chloride Level 100 MMOL/L (98-107) Carbon Dioxide Level 25 MMOL/L (21-32) Anion Gap 12 mmol/L (5-15) Blood Urea Nitrogen 40 mg/dL (7-18) H Creatinine 1.5 MG/DL (0.55-1.30) H Estimat Glomerular Filtration Rate 58.1 mL/min (>60) Glucose Level 133 MG/DL (74-106) H Calcium Level 9.3 MG/DL (8.5-10.1) Phosphorus Level 3.7 MG/DL (2.5-4.9) Magnesium Level 2.1 MG/DL (1.8-2.4) Total Bilirubin 1.8 MG/DL (0.2-1.0) H Direct Bilirubin 1.2 MG/DL (0.0-0.3) H Aspartate Amino Transf (AST/SGOT) 142 U/L (15-37) H Alanine Aminotransferase (ALT/SGPT) 178 U/L (12-78) H Alkaline Phosphatase 151 U/L (46-116) H C-Reactive Protein, Quantitative 53.4 mg/dL (0.00-0.90) H Pro-B-Type Natriuretic Peptide 591 pg/mL (0-125) H Total Protein 8.2 G/DL (6.4-8.2) Albumin 2.1 G/DL (3.4-5.0) L Globulin 6.1 g/dL Albumin/Globulin Ratio 0.3 (1.0-2.7) L Current Medications Medications (Trade) Dose Ordered Sig/Jl Route PRN Reason Start Time Stop Time Status Last Admin Dose Admin Acetaminophen (Tylenol) 650 mg Q6H PRN ORAL mild pain 09/06/19 16:20 10/06/19 16:19 09/09/19 21:44 Ascorbic Acid (Vitamin C) 500 mg DAILY ORAL 09/06/19 09:00 10/06/19 08:59 09/10/19 08:36 Bisacodyl (Dulcolax) 5 mg TWICE A DAY ORAL 09/06/19 09:00 10/06/19 08:59 09/10/19 08:35 Digoxin (Lanoxin) 0.125 mg DAILY ORAL 09/07/19 09:00 10/07/19 08:59 09/10/19 08:35 Docusate Sodium (Colace) 250 mg DAILY ORAL 09/06/19 09:00 10/06/19 08:59 09/10/19 08:34 Gabapentin (Neurontin) 300 mg TID ORAL 09/06/19 09:00 10/06/19 08:59 09/10/19 08:35 Heparin Sodium (Porcine) (Heparin 5000 units/ml) 5,000 units EVERY 12 HOURS SUBQ 09/06/19 09:00 10/06/19 08:59 09/10/19 08:41 Magnesium Oxide (Mag-Ox 400mg) 400 mg THREE TIMES A DAY ORAL 09/09/19 13:00 10/09/19 12:59 09/10/19 08:36 Multivitamins (Multivitamins) 1 tab DAILY ORAL 09/07/19 09:00 10/07/19 08:59 09/10/19 08:35 Ondansetron HCl (Zofran) 4 mg Q6H PRN ORAL Nausea & Vomiting 09/05/19 23:00 10/05/19 22:59 Piperacillin Sod/ Tazobactam Sod 3.375 gm/Sodium Chloride 110 ml @ 27.5 mls/hr EVERY 8 HOURS IVPB 09/10/19 14:00 09/15/19 13:59 UNV Potassium Chloride (K-Dur) 120 meq DAILY ORAL 09/06/19 09:00 10/06/19 08:59 09/10/19 08:45 Spironolactone (Aldactone) 25 mg DAILY ORAL 09/09/19 09:00 10/09/19 08:59 09/10/19 08:35 Tramadol HCl (Ultram) 100 mg Q6H PRN ORAL pain 4-10 09/06/19 16:30 09/13/19 15:08 09/10/19 08:46 Vancomycin HCl (Vanco rx to dose) 1 ea DAILY PRN MISC Per rx protocol 09/09/19 08:45 10/09/19 08:44 Vancomycin HCl 1.5 gm/Dextrose 275 ml @ 137.5 mls/ hr Q12H IVPB 09/09/19 10:00 09/14/19 09:59 09/10/19 09:53 Jesus Hernandez MD Sep 10, 2019 11:31
[2019-09-10 12:00] VITALS: BP 131/63
--- NOTE | 2019-09-10 12:17 | Nephrology Progress Note ---
Assessment/Plan Problem List: (1) Hypokalemia (2) Hyponatremia (3) Colostomy care (4) Leukocytosis Assessment Surgical screw in right hand Displaced surgical screw of the right hand Hyponatremia Mild Azotemia Low K h/o UGI bleed Colostomy care Plan k and Mag Phos supplement as needed Monitor Lytes adjust diuretics Per orders Subjective ROS Limited/Unobtainable: No Constitutional: Reports: malaise, weakness Objective Objective Last 24 Hour Vital Signs Date Time Temp Pulse Resp B/P (MAP) Pulse Ox O2 Delivery O2 Flow Rate FiO2 09/10/19 12:00 98.1 62 18 131/63 (85) 97 09/10/19 09:16 98.4 09/10/19 09:00 Room Air 09/10/19 08:35 90 09/10/19 08:00 98.4 90 21 125/76 (92) 95 09/10/19 04:00 98.1 69 20 125/55 (78) 95 09/10/19 00:00 101.8 107 19 112/68 (83) 95 09/09/19 22:22 102.0 09/09/19 21:24 Room Air 09/09/19 20:00 102.9 128 21 106/79 (88) 95 09/09/19 16:00 100.8 108 20 111/68 (82) 98 Intake and Output 09/09/19 09/10/19 18:59 06:59 Intake Total 1095.0 ml Output Total 0 ml Balance 1095.0 ml Intake Oral 700 ml IV Total 395.0 ml Stool Total 0 ml # Voids 1 Laboratory Tests 09/10/19 06:35: White Blood Count 19.1H, Red Blood Count 4.42L, Hemoglobin 12.1L, Hematocrit 36.2L, Mean Corpuscular Volume 82, Mean Corpuscular Hemoglobin 27.5, Mean Corpuscular Hemoglobin Concent 33.5, Red Cell Distribution Width 11.6, Platelet Count 304, Mean Platelet Volume 7.6, Neutrophils (%) (Auto) , Lymphocytes (%) ( Auto) , Monocytes (%) (Auto) , Eosinophils (%) (Auto) , Basophils (%) (Auto) , Differential Total Cells Counted 100, Neutrophils % (Manual) 69, Lymphocytes % ( Manual) 17L, Monocytes % (Manual) 12H, Eosinophils % (Manual) 1, Basophils % ( Manual) 0, Band Neutrophils 1, Platelet Estimate Adequate, Platelet Morphology Normal, Red Blood Cell Morphology Normal, Sodium Level 137, Potassium Level 3.7 , Chloride Level 100, Carbon Dioxide Level 25, Anion Gap 12, Blood Urea Nitrogen 40H, Creatinine 1.5H, Estimat Glomerular Filtration Rate 58.1, Glucose Level 133H, Calcium Level 9.3, Phosphorus Level 3.7, Magnesium Level 2.1, Total Bilirubin 1.8H, Direct Bilirubin 1.2H, Aspartate Amino Transf (AST/SGOT) 142H, Alanine Aminotransferase (ALT/SGPT) 178H, Alkaline Phosphatase 151H, C-Reactive Protein, Quantitative 53.4H, Pro-B-Type Natriuretic Peptide 591H, Total Protein 8.2, Albumin 2.1L, Globulin 6.1, Albumin/Globulin Ratio 0.3L, Hepatitis B Surface Antigen [Pending], Hepatitis B Surface Antibody, Quant [Pending], Hepatitis C Antibody [Pending] Height (Feet): 5 Height (Inches): 9.00 Weight (Pounds): 182 General Appearance: no apparent distress, lethargic Cardiovascular: normal rate Respiratory/Chest: decreased breath sounds Abdomen: distended, other - colostomy Objective no change Curtis Lee MD Sep 10, 2019 12:17
[2019-09-10] MEDS: Piperacillin/Tazobactam 3.375 GM in NS 110 ML IVPB SCH (13:55)
--- NOTE | 2019-09-10 15:35 | Diagnostic Imaging Report ---
Indication: Abdominal pain, abnormal liver function tests, abnormal renal function tests, history of hypertension Technique: Dickson-scale and duplex images of the upper abdomen were obtained Comparison: 06/25/2014 Findings: Exam is limited, due to patient body habitus and overlying bowel gas Gallbladder could not be visualized. Common bile duct measures 3 mm in diameter. No intrahepatic biliary ductal dilatation. Liver demonstrates diffusely increased echogenicity, consistent with diffuse hepatocellular disease, most likely fatty change. No focal abnormality Portal vein and hepatic veins are patent. Pancreas is incompletely visualized due to overlying bowel gas, visualized portions are unremarkable. Spleen is unremarkable. Left kidney measures 9.8 cm in length. Right kidney measures 10 cm length. Both kidneys demonstrate normal echogenicity. There is no hydronephrosis. Small cysts are seen in the kidneys bilaterally. Small shadowing focus is seen in the left kidney measuring 7 mm diameter . Abdominal aorta is partially obscured by bowel gas, visualized portions are non-aneurysmal . Impression: Limited exam, as described Nonvisualized gallbladder. Either contracted or surgically removed. Correlate with surgical history, consider CT for better characterization if clinically indicated Liver demonstrates diffusely increased echogenicity, consistent with diffuse hepatocellular disease, most likely fatty change. Possible nonobstructive left renal calyceal calculus Note incomplete visualization of the pancreas and abdominal aorta
[2019-09-10 16:00] VITALS: BP 133/65
[2019-09-10 20:00] VITALS: BP 108/58
--- NOTE | 2019-09-10 21:03 | General Progress Note ---
Assessment/Plan Problem List: (1) Hypokalemia ICD Codes: E87.6 - Hypokalemia SNOMED: 28401970 (2) Surgical screw in right hand ICD Codes: Z96.7 - Presence of other bone and tendon implants SNOMED: 372912021 Status: progressing Assessment/Plan: afebrile clinically improving check labs low mg low k replacement per renal uti and febrile Subjective ROS Limited/Unobtainable: Yes Allergies: Coded Allergies: No Known Allergies (Unverified , 06/22/14) Objective Last 24 Hour Vital Signs Date Time Temp Pulse Resp B/P (MAP) Pulse Ox O2 Delivery O2 Flow Rate FiO2 09/10/19 20:00 99.0 121 18 108/58 (75) 95 09/10/19 18:46 Room Air 09/10/19 16:00 98.0 66 18 133/65 (87) 98 09/10/19 14:17 98.1 09/10/19 12:00 98.1 62 18 131/63 (85) 97 09/10/19 09:00 Room Air 09/10/19 08:35 90 09/10/19 08:00 98.4 90 21 125/76 (92) 95 09/10/19 04:00 98.1 69 20 125/55 (78) 95 09/10/19 00:00 101.8 107 19 112/68 (83) 95 09/09/19 22:22 102.0 09/09/19 21:24 Room Air Intake and Output 09/09/19 09/10/19 19:00 07:00 Intake Total 1095.0 ml 30 ml Output Total 0 ml Balance 1095.0 ml 30 ml Intake Oral 700 ml IV Total 395.0 ml 30 ml Stool Total 0 ml # Voids 1 Laboratory Tests 09/10/19 06:35: White Blood Count 19.1H, Red Blood Count 4.42L, Hemoglobin 12.1L, Hematocrit 36.2L, Mean Corpuscular Volume 82, Mean Corpuscular Hemoglobin 27.5, Mean Corpuscular Hemoglobin Concent 33.5, Red Cell Distribution Width 11.6, Platelet Count 304, Mean Platelet Volume 7.6, Neutrophils (%) (Auto) , Lymphocytes (%) ( Auto) , Monocytes (%) (Auto) , Eosinophils (%) (Auto) , Basophils (%) (Auto) , Differential Total Cells Counted 100, Neutrophils % (Manual) 69, Lymphocytes % ( Manual) 17L, Monocytes % (Manual) 12H, Eosinophils % (Manual) 1, Basophils % ( Manual) 0, Band Neutrophils 1, Platelet Estimate Adequate, Platelet Morphology Normal, Red Blood Cell Morphology Normal, Sodium Level 137, Potassium Level 3.7 , Chloride Level 100, Carbon Dioxide Level 25, Anion Gap 12, Blood Urea Nitrogen 40H, Creatinine 1.5H, Estimat Glomerular Filtration Rate 58.1, Glucose Level 133H, Calcium Level 9.3, Phosphorus Level 3.7, Magnesium Level 2.1, Total Bilirubin 1.8H, Direct Bilirubin 1.2H, Aspartate Amino Transf (AST/SGOT) 142H, Alanine Aminotransferase (ALT/SGPT) 178H, Alkaline Phosphatase 151H, C-Reactive Protein, Quantitative 53.4H, Pro-B-Type Natriuretic Peptide 591H, Total Protein 8.2, Albumin 2.1L, Globulin 6.1, Albumin/Globulin Ratio 0.3L, Digoxin Level < 0.3L, Hepatitis B Surface Antigen [Pending], Hepatitis B Surface Antibody, Quant [Pending], Hepatitis C Antibody [Pending] Height (Feet): 5 Height (Inches): 9.00 Weight (Pounds): 182 Cardiovascular: normal rate Respiratory/Chest: lungs clear Abdomen: soft Jono Quiros MD Sep 10, 2019 21:03
--- NOTE | 2019-09-10 23:13 | Cardiology Progress Note ---
Assessment/Plan Assessment/Plan 1. Sinus tachycardia, resolved, likely inflammation or infection, the patient being febrile, worsening of leukocytosis, IV ABx, hydration. 2. Hx of HTN 3. Mechanical fall with no syncope, 2D echo reveals normal LV systolic and diastolic function. Subjective Subjective No cardiac events reported. Objective Last 24 Hour Vital Signs Date Time Temp Pulse Resp B/P (MAP) Pulse Ox O2 Delivery O2 Flow Rate FiO2 09/10/19 20:00 99.0 121 18 108/58 (75) 95 09/10/19 18:46 Room Air 09/10/19 16:00 98.0 66 18 133/65 (87) 98 09/10/19 14:17 98.1 09/10/19 12:00 98.1 62 18 131/63 (85) 97 09/10/19 09:00 Room Air 09/10/19 08:35 90 09/10/19 08:00 98.4 90 21 125/76 (92) 95 09/10/19 04:00 98.1 69 20 125/55 (78) 95 09/10/19 00:00 101.8 107 19 112/68 (83) 95 Intake and Output 09/09/19 09/10/19 19:00 07:00 Intake Total 1095.0 ml 30 ml Output Total 0 ml Balance 1095.0 ml 30 ml Intake Oral 700 ml IV Total 395.0 ml 30 ml Stool Total 0 ml # Voids 1 2D Echo: LVEF 55%, Normal LV Diastolic Fxn, RVSP 12 mmHg Laboratory Tests Test 09/10/19 06:35 09/10/19 21:40 White Blood Count 19.1 K/UL (4.8-10.8) H Red Blood Count 4.42 M/UL (4.70-6.10) L Hemoglobin 12.1 G/DL (14.2-18.0) L Hematocrit 36.2 % (42.0-52.0) L Mean Corpuscular Volume 82 FL (80-99) Mean Corpuscular Hemoglobin 27.5 PG (27.0-31.0) Mean Corpuscular Hemoglobin Concent 33.5 G/DL (32.0-36.0) Red Cell Distribution Width 11.6 % (11.6-14.8) Platelet Count 304 K/UL (150-450) Mean Platelet Volume 7.6 FL (6.5-10.1) Neutrophils (%) (Auto) % (45.0-75.0) Lymphocytes (%) (Auto) % (20.0-45.0) Monocytes (%) (Auto) % (1.0-10.0) Eosinophils (%) (Auto) % (0.0-3.0) Basophils (%) (Auto) % (0.0-2.0) Differential Total Cells Counted 100 Neutrophils % (Manual) 69 % (45-75) Lymphocytes % (Manual) 17 % (20-45) L Monocytes % (Manual) 12 % (1-10) H Eosinophils % (Manual) 1 % (0-3) Basophils % (Manual) 0 % (0-2) Band Neutrophils 1 % (0-8) Platelet Estimate Adequate Platelet Morphology Normal Red Blood Cell Morphology Normal Sodium Level 137 MMOL/L (136-145) Potassium Level 3.7 MMOL/L (3.5-5.1) Chloride Level 100 MMOL/L (98-107) Carbon Dioxide Level 25 MMOL/L (21-32) Anion Gap 12 mmol/L (5-15) Blood Urea Nitrogen 40 mg/dL (7-18) H Creatinine 1.5 MG/DL (0.55-1.30) H Estimat Glomerular Filtration Rate 58.1 mL/min (>60) Glucose Level 133 MG/DL (74-106) H Calcium Level 9.3 MG/DL (8.5-10.1) Phosphorus Level 3.7 MG/DL (2.5-4.9) Magnesium Level 2.1 MG/DL (1.8-2.4) Total Bilirubin 1.8 MG/DL (0.2-1.0) H Direct Bilirubin 1.2 MG/DL (0.0-0.3) H Aspartate Amino Transf (AST/SGOT) 142 U/L (15-37) H Alanine Aminotransferase (ALT/SGPT) 178 U/L (12-78) H Alkaline Phosphatase 151 U/L (46-116) H C-Reactive Protein, Quantitative 53.4 mg/dL (0.00-0.90) H Pro-B-Type Natriuretic Peptide 591 pg/mL (0-125) H Total Protein 8.2 G/DL (6.4-8.2) Albumin 2.1 G/DL (3.4-5.0) L Globulin 6.1 g/dL Albumin/Globulin Ratio 0.3 (1.0-2.7) L Digoxin Level < 0.3 NG/ML (0.5-2.0) L Hepatitis B Surface Antigen Pending Hepatitis B Surface Antibody, Quant Pending Hepatitis C Antibody Pending Vancomycin Level Trough 18.3 ug/mL (5.0-12.0) H Objective HEENT: Normocephalic, PERRLA, Extraocular muscle intact. NECK: Negative JVD, no carotid bruit, carotid upstroke 2+ B/L. CHEST: Clear to auscultation B/L. CARDIOVASCULAR: Regular rate and rhythm. Tachycardic. No murmurs, gallops or rubs. GASTROINTESTINAL: Soft, nontender, nondistended. No organomegaly. EXTREMITIES: No edema, clubbing or cyanosis. Decreased range of motion and tenderness on the hand. Robetr Nina MD Sep 10, 2019 23:13
[2019-09-11] VITALS: BP 120/58
[2019-09-11] MEDS: Piperacillin/Tazobactam 3.375 GM in NS 110 ML IVPB SCH ×4 (01:10→22:01)
[2019-09-11 04:00] VITALS: BP 120/64
[2019-09-11 07:41] VITALS: BP 116/64
[2019-09-11] MEDS: Ascorbic Acid 500mg tab ORAL SCH (08:25)
[2019-09-11] MEDS: Docusate 250mg cap ORAL SCH (08:25)
[2019-09-11] MEDS: Bisacodyl EC 5mg tab ORAL SCH ×2 (08:25→17:03)
[2019-09-11] MEDS: Digoxin 0.125mg tab ORAL SCH (08:26)
[2019-09-11] MEDS: Magnesium Oxide 400mg tab ORAL SCH ×3 (08:26→17:03)
[2019-09-11] MEDS: Spironolactone 25mg tab ORAL SCH (08:26)
[2019-09-11] MEDS: Heparin 5000 units/ml inj SUBQ SCH ×2 (08:29→20:30)
--- NOTE | 2019-09-11 08:35 | General Progress Note ---
Assessment/Plan Status: progressing Assessment/Plan: Assessment - Abnormal LFT, ? etiology, r/o CBD stone - LLQ buldge around ostomy, likely abd wall laxity / hernia - mild azotemia Recommendations - check MRCP of liver - f/u hepatitis serologies - check pelvis MRI at time of MRCP - ostomy care - f/u labs - avoid hepatotoxic meds Thank you Jeramy Colon MD Subjective Allergies: Coded Allergies: No Known Allergies (Unverified , 06/22/14) Objective Last 24 Hour Vital Signs Date Time Temp Pulse Resp B/P (MAP) Pulse Ox O2 Delivery O2 Flow Rate FiO2 09/11/19 08:26 60 09/11/19 07:41 99.5 60 18 116/64 (81) 95 09/11/19 04:00 97.8 60 18 120/64 (82) 95 09/11/19 00:00 99.1 68 20 120/58 (78) 95 09/10/19 21:00 Room Air 09/10/19 20:00 99.0 121 18 108/58 (75) 95 09/10/19 18:46 Room Air 09/10/19 16:00 98.0 66 18 133/65 (87) 98 09/10/19 14:17 98.1 09/10/19 12:00 98.1 62 18 131/63 (85) 97 09/10/19 09:00 Room Air Intake and Output 09/10/19 09/11/19 19:00 07:00 Intake Total 725.0 ml 385.0 ml Output Total 900 ml Balance 725.0 ml -515.0 ml Intake Oral 360 ml IV Total 365.0 ml 385.0 ml Output Urine Total 900 ml # Voids 4 Laboratory Tests 09/10/19 21:40: Vancomycin Level Trough 18.3H Height (Feet): 5 Height (Inches): 9.00 Weight (Pounds): 182 Jeramy Colon MD Sep 11, 2019 08:35
[2019-09-11] MEDS ORDERED: Gadavist 7.5mMol/7.5ml vial IV ONE (08:45)
--- NOTE | 2019-09-11 08:45 | General Progress Note ---
Assessment/Plan Assessment/Plan: (1) Right wrist pain (2) H/O Right wrist fracture and ORIF (3) Osteoarthritis (4) Hardware displacement Patient will be continued on tramadol and Tylenol as needed D/w Dr. Trevino and he concurred. Subjective Date patient seen: Sep 11, 2019 Time patient seen: 08:00 - am Allergies: Coded Allergies: No Known Allergies (Unverified , 06/22/14) Subjective Constitutional: Reports: weakness HEENT: Reports: no symptoms Cardiovascular: Reports: no symptoms Respiratory: Reports: no symptoms Gastrointestinal/Abdominal: Reports: no symptoms Genitourinary: Reports: no symptoms Neurologic/Psychiatric: Reports: weakness Endocrine: Reports: no symptoms Hematologic/Lymphatic: Reports: no symptoms Subjective Patient is in bed and no signs of pain or distress. Denies pain at this time. Objective Last 24 Hour Vital Signs Date Time Temp Pulse Resp B/P (MAP) Pulse Ox O2 Delivery O2 Flow Rate FiO2 09/11/19 08:32 Room Air 09/11/19 08:26 60 09/11/19 07:41 99.5 60 18 116/64 (81) 95 09/11/19 04:00 97.8 60 18 120/64 (82) 95 09/11/19 00:00 99.1 68 20 120/58 (78) 95 09/10/19 21:00 Room Air 09/10/19 20:00 99.0 121 18 108/58 (75) 95 09/10/19 18:46 Room Air 09/10/19 16:00 98.0 66 18 133/65 (87) 98 09/10/19 14:17 98.1 09/10/19 12:00 98.1 62 18 131/63 (85) 97 09/10/19 09:00 Room Air Intake and Output 09/10/19 09/11/19 19:00 07:00 Intake Total 725.0 ml 385.0 ml Output Total 900 ml Balance 725.0 ml -515.0 ml Intake Oral 360 ml IV Total 365.0 ml 385.0 ml Output Urine Total 900 ml # Voids 4 Laboratory Tests 09/10/19 21:40: Vancomycin Level Trough 18.3H Height (Feet): 5 Height (Inches): 9.00 Weight (Pounds): 182 Objective General Appearance: no apparent distress, alert EENT: PERRL/EOMI, normal ENT inspection Neck: non-tender, normal alignment Cardiovascular: normal rate, regular rhythm Respiratory/Chest: lungs clear, normal breath sounds Abdomen: non tender, soft Edema: no edema noted Generalized Neurologic: alert, oriented x 3 Skin: normal pigmentation Lokesh Pierce Sep 11, 2019 08:45
[2019-09-11] MEDS: D5 1/2NS 1,000 ML IV SCH ×2 (10:00→20:00)
[2019-09-11] MEDS: Vancomycin 1.5gm/D5W 275ml IVPB SCH ×2 (10:00)
[2019-09-11] MEDS: traMADol 50mg tab ORAL PRN (10:02)
--- NOTE | 2019-09-11 10:07 | Surgery Progress Note ---
Surgery Progress Note Subjective Additional Comments no acute events comfortable no complaints tolerating diet pain stable leukocytosis 19k today t bili and d bili elevated pending MRI abd/pel Objective Last 24 Hour Vital Signs Date Time Temp Pulse Resp B/P (MAP) Pulse Ox O2 Delivery O2 Flow Rate FiO2 09/11/19 08:32 Room Air 09/11/19 08:26 60 09/11/19 07:41 99.5 60 18 116/64 (81) 95 09/11/19 04:00 97.8 60 18 120/64 (82) 95 09/11/19 00:00 99.1 68 20 120/58 (78) 95 09/10/19 21:00 Room Air 09/10/19 20:00 99.0 121 18 108/58 (75) 95 09/10/19 18:46 Room Air 09/10/19 16:00 98.0 66 18 133/65 (87) 98 09/10/19 14:17 98.1 09/10/19 12:00 98.1 62 18 131/63 (85) 97 I&O Intake and Output 09/10/19 09/11/19 19:00 07:00 Intake Total 725.0 ml 385.0 ml Output Total 900 ml Balance 725.0 ml -515.0 ml Intake Oral 360 ml IV Total 365.0 ml 385.0 ml Output Urine Total 900 ml # Voids 4 Dressing: dry Wound: other Drains: other Cardiovascular: RSR Respiratory: clear Abdomen: soft, non-tender, present bowel sounds, other - stable parastomal hernia , non-distended Extremities: no cyanosis, other Laboratory Tests Test 09/10/19 21:40 Vancomycin Level Trough 18.3 ug/mL (5.0-12.0) H Plan Problems: (1) Pressure ulcer Assessment & Plan: DAILY ESTIMATED NEEDS: Needs based on Cardiac, pulm, obese 81.5kg adj 20-25 kcals/kg [id number] total kcals 1-1.5 g protein/kg 82-122 g total protein Fluid per MD, on lasix NUTRITION DIAGNOSIS: * Altered nutrition related lab values R/T clinical status as evidenced by low K(3.3). (CURRENT DIET: GOOD) PO DIET RECOMMENDATIONS: Rec Low NA/ Low Fat ADDITIONAL RECOMMENDATIONS: 1) Rec standing weight for accurate CBW -> OR recalibrated bed scale for accurate CBW -> On lasix, requiring daily wts 2) Check lytes daily for repletion (low K) 3) F/up w/ Wound care eval - etiology unknown MVI (2) Venous stasis ulcer Assessment & Plan: Patient presents with venous stasis ulcer on the left lower extremity. 4 cm x 3 cm x 2 mm deep. No active drainage mild serous oozing. No signs of acute active infection with but does have some erythema in the periwound. No purulent drainage. States he has had it for some time now and has been cared for an outside facility. Bilateral heel soft. Offload pressure from heels with pillow. Hydrogel impregnated gauze to ulcer bed followed by foam dressing. Wash lower extremities daily and apply skin protectant moisturizer followed by ABD and wrap pending duplex studies dressings changes daily will monitor and f/u with plan (3) Cellulitis (4) Wrist pain, acute Assessment & Plan: Procedure: XRAY Elbow Min 3v R Indication: Right elbow pain Findings: 3 views of the right elbow were obtained. No acute fractures, malalignment, erosions or periostitis are identified. Soft tissue swelling noted posterior part of the elbow. There is no joint effusion identified. Impression: No acute fracture. Soft tissue swelling noted There is severe arthrosis involving the carpal bones. The first carpal row including the scaphoid, lunate appear collapsed. There are multiple lucencies suggestive of cystic changes within the bones. The intercarpal joints are moderately narrowed. There are cystic changes in the base of the third and fourth metacarpals as well. There is a Alexandro screw partially within the scaphoid. This was likely placed for scaphoid fracture but has migrated medially and is partially embedded within the scaphoid and trapezium. There are severe erosive changes present within the intercarpal joints. There are severe erosive changes and deformity characterized by some articular collapse and cyst formation involving the second MCP joint. There is no acute fracture identified. IMPRESSION: No acute fracture identified. Evidence of severe polyarticular inflammatory arthritis characterized by subarticular erosions and cysts involving several of the intercarpal joints and the second MCP joint. Subsequent deformity and superimposed osteoarthritis noted. Displaced Alexandro screw, likely placed for a previous scaphoid fracture. Generalized soft tissue swelling. Findings: 3 views of the right shoulder were obtained. No acute fractures, malalignment, erosions or periostitis are identified. Bones are osteopenic. There is narrowing of the glenohumeral joint consistent with mild osteoarthritis. Soft tissues are unremarkable. Impression: Negative for acute injury displaced screw noted. seemingly chronic. outpatient hand sx consult (5) Status post fall (6) Transaminitis Assessment & Plan: lft's elevated US abd ordered - gb not visualize clinically no symptoms MRI abd/pel pending stable parastomal hernia reducible Ricci Sharpe Sep 11, 2019 10:07
--- NOTE | 2019-09-11 10:38 | Nephrology Progress Note ---
Assessment/Plan Problem List: (1) Hypokalemia (2) Hyponatremia (3) Colostomy care (4) Leukocytosis Assessment Surgical screw in right hand Displaced surgical screw of the right hand Hyponatremia Mild Azotemia Low K h/o UGI bleed Colostomy care Plan no labs today k and Mag Phos supplement as needed Monitor Lytes adjust diuretics Per orders Subjective ROS Limited/Unobtainable: No Constitutional: Reports: malaise, weakness Objective Objective Last 24 Hour Vital Signs Date Time Temp Pulse Resp B/P (MAP) Pulse Ox O2 Delivery O2 Flow Rate FiO2 09/11/19 08:32 Room Air 09/11/19 08:26 60 09/11/19 07:41 99.5 60 18 116/64 (81) 95 09/11/19 04:00 97.8 60 18 120/64 (82) 95 09/11/19 00:00 99.1 68 20 120/58 (78) 95 09/10/19 21:00 Room Air 09/10/19 20:00 99.0 121 18 108/58 (75) 95 09/10/19 18:46 Room Air 09/10/19 16:00 98.0 66 18 133/65 (87) 98 09/10/19 14:17 98.1 09/10/19 12:00 98.1 62 18 131/63 (85) 97 Intake and Output 09/10/19 09/11/19 19:00 07:00 Intake Total 725.0 ml 385.0 ml Output Total 900 ml Balance 725.0 ml -515.0 ml Intake Oral 360 ml IV Total 365.0 ml 385.0 ml Output Urine Total 900 ml # Voids 4 Laboratory Tests 09/10/19 21:40: Vancomycin Level Trough 18.3H Height (Feet): 5 Height (Inches): 9.00 Weight (Pounds): 182 General Appearance: no apparent distress, lethargic Respiratory/Chest: decreased breath sounds Abdomen: distended, other - colostomy Objective no change Curtis Lee MD Sep 11, 2019 10:38
[2019-09-11 12:00] VITALS: BP 128/64
--- NOTE | 2019-09-11 12:21 | Infectious Diseases Prog Note ---
Assessment/Plan Assessment/Plan IMPRESSION: Leukocytosis, worse Fever Elevated transaminase & bilirubin Displaced right wrist hardware mild dementia, stasis dermatitis of legs, hypertension, hyperlipidemia, hand arthritis. s/p cholecystectomy Fatty liver RECOMMENDATION: Continue IV Vancomycin & Zosyn Will f/u Hepatitis profile Will f/u blood culture Will f/u MRCP Subjective ROS Limited/Unobtainable: No Constitutional: Denies: fever Respiratory: Reports: no symptoms Cardiovascular: Reports: no symptoms Gastrointestinal/Abdominal: Reports: no symptoms Genitourinary: Reports: no symptoms Allergies: Coded Allergies: No Known Allergies (Unverified , 06/22/14) Objective Vital Signs Last 24 Hour Vital Signs Date Time Temp Pulse Resp B/P (MAP) Pulse Ox O2 Delivery O2 Flow Rate FiO2 09/11/19 10:32 99.5 09/11/19 08:32 Room Air 09/11/19 08:26 60 09/11/19 07:41 99.5 60 18 116/64 (81) 95 09/11/19 04:00 97.8 60 18 120/64 (82) 95 09/11/19 00:00 99.1 68 20 120/58 (78) 95 09/10/19 21:00 Room Air 09/10/19 20:00 99.0 121 18 108/58 (75) 95 09/10/19 18:46 Room Air 09/10/19 16:00 98.0 66 18 133/65 (87) 98 Height (Feet): 5 Height (Inches): 9.00 Weight (Pounds): 182 General Appearance: no acute distress HEENT: mucous membranes moist Respiratory/Chest: lungs clear Cardiovascular: normal rate Abdomen: soft, non tender, other - s/p colostomy Extremities: other - decreasing edema Neurologic/Psychiatric: alert, oriented x 3, responsive Microbiology Date/Time Source Procedure Growth Status 09/09/19 10:00 Blood Blood Culture - Preliminary NO GROWTH AFTER 24 HOURS Resulted 09/09/19 09:45 Blood Blood Culture - Preliminary NO GROWTH AFTER 24 HOURS Resulted Laboratory Tests Test 09/10/19 21:40 Vancomycin Level Trough 18.3 ug/mL (5.0-12.0) H Current Medications Medications (Trade) Dose Ordered Sig/Jl Route PRN Reason Start Time Stop Time Status Last Admin Dose Admin Acetaminophen (Tylenol) 650 mg Q6H PRN ORAL mild pain 09/06/19 16:20 10/06/19 16:19 09/09/19 21:44 Ascorbic Acid (Vitamin C) 500 mg DAILY ORAL 09/06/19 09:00 10/06/19 08:59 09/11/19 08:25 Bisacodyl (Dulcolax) 5 mg TWICE A DAY ORAL 09/06/19 09:00 10/06/19 08:59 09/11/19 08:25 Dextrose/Sodium Chloride 1,000 ml @ 100 mls/hr Q10H IV 09/11/19 10:00 10/11/19 09:59 09/11/19 10:00 Digoxin (Lanoxin) 0.125 mg DAILY ORAL 09/07/19 09:00 10/07/19 08:59 09/11/19 08:26 Docusate Sodium (Colace) 250 mg DAILY ORAL 09/06/19 09:00 10/06/19 08:59 09/11/19 08:25 Gabapentin (Neurontin) 300 mg TID ORAL 09/06/19 09:00 10/06/19 08:59 09/11/19 08:25 Heparin Sodium (Porcine) (Heparin 5000 units/ml) 5,000 units EVERY 12 HOURS SUBQ 09/06/19 09:00 10/06/19 08:59 09/11/19 08:29 Magnesium Oxide (Mag-Ox 400mg) 400 mg THREE TIMES A DAY ORAL 09/09/19 13:00 10/09/19 12:59 09/11/19 08:26 Multivitamins (Multivitamins) 1 tab DAILY ORAL 09/07/19 09:00 10/07/19 08:59 09/11/19 08:27 Ondansetron HCl (Zofran) 4 mg Q6H PRN ORAL Nausea & Vomiting 09/05/19 23:00 10/05/19 22:59 Piperacillin Sod/ Tazobactam Sod 3.375 gm/Sodium Chloride 110 ml @ 27.5 mls/hr EVERY 8 HOURS IVPB 09/10/19 14:00 09/15/19 13:59 09/11/19 06:09 Potassium Chloride (K-Dur) 120 meq DAILY ORAL 09/06/19 09:00 10/06/19 08:59 09/11/19 08:25 Spironolactone (Aldactone) 25 mg DAILY ORAL 09/09/19 09:00 10/09/19 08:59 09/11/19 08:26 Tramadol HCl (Ultram) 100 mg Q6H PRN ORAL pain 4-10 09/06/19 16:30 09/13/19 15:08 09/11/19 10:02 Vancomycin HCl (Vanco rx to dose) 1 ea DAILY PRN MISC Per rx protocol 09/09/19 08:45 10/09/19 08:44 Vancomycin HCl 1.5 gm/Dextrose 275 ml @ 137.5 mls/ hr Q12H IVPB 09/09/19 10:00 09/11/19 13:00 09/11/19 10:00 Vancomycin/Sodium Chloride 275 ml @ 137.5 mls/ hr Q12HR@1000,2200 IVPB 09/11/19 22:00 09/16/19 21:59 Jesus Hernandez MD Sep 11, 2019 12:21
--- NOTE | 2019-09-11 13:43 | Diagnostic Imaging Report ---
Indication: Abnormal liver function tests, palpable stomal abnormality. Technique: Coronal and axial single shot fast spin-echo breath-hold, axial T2 FRFSE, 2-D thick slab MRCP, AXIAL 2-D FIESTA fat saturated, axial 3-D dual echo breath-hold, water weighted axial LAVA FLEX, revealed 3-D MRCP images were obtained of the abdomen. MIP reconstructions were generated of the bile ducts Comparison: Reference made to abdominal ultrasound dated 09/10/2019 Findings: There is some image degradation due to patient motion artifact. The gallbladder is demonstrated, contains multiple small calculi. No gallbladder wall thickening or evidence of pericholecystic inflammation noted. No biliary ductal dilatation. No filling defects to suggest calculi demonstrated. However, there is questionably some narrowing of the common hepatic duct over most of its length. The common bile duct and intrahepatic ducts are normal in caliber. The pancreatic duct is normal in appearance. The liver contains a few small cysts. The pancreas is unremarkable. The spleen demonstrates at least 2 upper pole cysts. The adrenals and left kidney are unremarkable. A cyst is seen coming off of the interpolar region of the right kidney. In the left lower quadrant, there is a colostomy. This appears to be a double barrel colostomy, with a distal descending colostomy and a separate mucous fistula. There is some redundancy of the distal descending colon within the colostomy defect, and there may be herniation of a small amount of colon. There is also one or more loops of small bowel present no definite significant infiltration of the fat within the colostomy is demonstrated, and there is no small bowel distention. No free intraperitoneal gas or fluid is evident. There is a small right pleural effusion Impression: Cholelithiasis. No gallbladder wall thickening or evidence of pericholecystic inflammation No evidence of choledocholithiasis. However, there is questionably narrowing of the common hepatic duct which if real could indicate stricture or compression by tumor. Left lower quadrant descending colostomy/mucous fistula. There is a peristomal hernia which contains a few loops of small bowel. This does not appear to be obstructed or strangulated Small right pleural effusion Incidental findings as noted, including right interpolar region cyst, 2 upper pole splenic cysts, and scattered hepatic cysts
--- NOTE | 2019-09-11 14:08 | Diagnostic Imaging Report ---
Indication: Pain and swelling Technique: 3 views of the right ankle Comparison: none Findings: Exam is somewhat limited due to lack of the true mortise view; per technologist, patient was very difficult to position. No definite acute fractures. No dislocations. The joint spaces are preserved. There are mild degenerative changes of the midfoot. Impression: Limited exam, as described No definite acute bony trauma
--- NOTE | 2019-09-11 14:10 | Diagnostic Imaging Report ---
Indication: Ankle pain and swelling Technique: 3 views of the left ankle Comparison: none Findings: Exam is very limited; per technologist, positioning was difficult. There is questionable abnormal morphology of the talus, but this could just be an artifact of positioning. There is bony fusion of the distal shafts of the tibia and fibula. No definite acute fractures or dislocations. There are midfoot degenerative changes. Impression: Very limited exam, as described No definite acute bony trauma Cannot rule out significant deformity of the talus although this is probably chest and artifact of positioning
[2019-09-11 16:00] VITALS: BP 135/68
--- NOTE | 2019-09-11 19:39 | General Progress Note ---
Assessment/Plan Problem List: (1) Hypokalemia ICD Codes: E87.6 - Hypokalemia SNOMED: 71740119 (2) Surgical screw in right hand ICD Codes: Z96.7 - Presence of other bone and tendon implants SNOMED: 417749500 Status: progressing Assessment/Plan: afebrile r/p infection in lower extremity consulted podiatry and orderd xray of feet low mg sepsis uti and febrile Subjective ROS Limited/Unobtainable: Yes Allergies: Coded Allergies: No Known Allergies (Unverified , 06/22/14) Objective Last 24 Hour Vital Signs Date Time Temp Pulse Resp B/P (MAP) Pulse Ox O2 Delivery O2 Flow Rate FiO2 09/11/19 16:00 97.3 60 18 135/68 (90) 95 09/11/19 12:00 98.0 60 18 128/64 (85) 95 09/11/19 10:32 99.5 09/11/19 08:32 Room Air 09/11/19 08:26 60 09/11/19 07:41 99.5 60 18 116/64 (81) 95 09/11/19 04:00 97.8 60 18 120/64 (82) 95 09/11/19 00:00 99.1 68 20 120/58 (78) 95 09/10/19 21:00 Room Air 09/10/19 20:00 99.0 121 18 108/58 (75) 95 Intake and Output 09/10/19 09/11/19 18:59 06:59 Intake Total 755.0 ml 385.0 ml Output Total 900 ml Balance 755.0 ml -515.0 ml Intake Oral 360 ml IV Total 395.0 ml 385.0 ml Output Urine Total 900 ml # Voids 4 Laboratory Tests 09/10/19 21:40: Vancomycin Level Trough 18.3H Height (Feet): 5 Height (Inches): 9.00 Weight (Pounds): 182 Neck: supple Cardiovascular: regular rhythm Respiratory/Chest: lungs clear Abdomen: soft Jono Quiros MD Sep 11, 2019 19:39
[2019-09-11 20:00] VITALS: BP 156/86
[2019-09-11] MEDS: Vancomycin 1.5gm/NS Premix IVPB SCH (20:29)
[2019-09-12] VITALS: BP 112/66
--- NOTE | 2019-09-12 | Cardiology Progress Note ---
Assessment/Plan Assessment/Plan LATE NOTE ENTRY: DATE OF ENCOUNTER: 09/11/19 TIME OF ENCOUNTER: 19:20 1. Sinus tachycardia, resolved, likely inflammation or infection, the patient being febrile, worsening of leukocytosis, IV ABx, hydration. 2. Hx of HTN 3. Mechanical fall with no syncope, 2D echo reveals normal LV systolic and diastolic function. Subjective Subjective No cardiac events reported. Objective Last 24 Hour Vital Signs Date Time Temp Pulse Resp B/P (MAP) Pulse Ox O2 Delivery O2 Flow Rate FiO2 09/11/19 20:58 Room Air 09/11/19 20:00 99.6 61 18 156/86 (109) 96 09/11/19 16:00 97.3 60 18 135/68 (90) 95 09/11/19 12:00 98.0 60 18 128/64 (85) 95 09/11/19 10:32 99.5 09/11/19 08:32 Room Air 09/11/19 08:26 60 09/11/19 07:41 99.5 60 18 116/64 (81) 95 09/11/19 04:00 97.8 60 18 120/64 (82) 95 Intake and Output 09/11/19 09/12/19 19:00 07:00 Intake Total 1325.0 ml 302.5 ml Output Total 600 ml Balance 725.0 ml 302.5 ml Intake Oral 840 ml IV Total 485.0 ml 302.5 ml Output Urine Total 600 ml 2D Echo: LVEF 55%, Normal LV Diastolic Fxn, RVSP 12 mmHg Microbiology Date/Time Source Procedure Growth Status 09/09/19 10:00 Blood Blood Culture - Preliminary NO GROWTH AFTER 24 HOURS Resulted 09/09/19 09:45 Blood Blood Culture - Preliminary NO GROWTH AFTER 24 HOURS Resulted Objective HEENT: Normocephalic, PERRLA, Extraocular muscle intact. NECK: Negative JVD, no carotid bruit, carotid upstroke 2+ B/L. CHEST: Clear to auscultation B/L. CARDIOVASCULAR: Regular rate and rhythm. Tachycardic. No murmurs, gallops or rubs. GASTROINTESTINAL: Soft, nontender, nondistended. No organomegaly. EXTREMITIES: No edema, clubbing or cyanosis. Decreased range of motion and tenderness on the hand. Robert Nina MD Sep 12, 2019 00:00
[2019-09-12] MEDS: Piperacillin/Tazobactam 3.375 GM in NS 110 ML IVPB SCH ×3 (03:56→21:00)
[2019-09-12 04:00] VITALS: BP 124/73
[2019-09-12] MEDS: D5 1/2NS 1,000 ML IV SCH ×2 (06:00→19:02)
[2019-09-12 08:00] VITALS: BP 122/63
--- NOTE | 2019-09-12 08:47 | General Progress Note ---
Assessment/Plan Assessment/Plan: (1) Right wrist pain (2) H/O Right wrist fracture and ORIF (3) Osteoarthritis (4) Hardware displacement Patient will be continued on tramadol and Tylenol as needed D/w Dr. Trevino and he concurred. Subjective Date patient seen: Sep 12, 2019 Time patient seen: 07:45 - am Allergies: Coded Allergies: No Known Allergies (Unverified , 06/22/14) Subjective Constitutional: Reports: weakness HEENT: Reports: no symptoms Cardiovascular: Reports: no symptoms Respiratory: Reports: no symptoms Gastrointestinal/Abdominal: Reports: no symptoms Genitourinary: Reports: no symptoms Neurologic/Psychiatric: Reports: weakness Endocrine: Reports: no symptoms Hematologic/Lymphatic: Reports: no symptoms Subjective Patient is in bed pain is at a moderate level tolerated on the Tramadol. No new complaints at this time. Objective Last 24 Hour Vital Signs Date Time Temp Pulse Resp B/P (MAP) Pulse Ox O2 Delivery O2 Flow Rate FiO2 09/12/19 04:00 99.1 65 17 124/73 (90) 96 09/12/19 00:00 99.4 68 20 112/66 (81) 96 09/11/19 20:58 Room Air 09/11/19 20:00 99.6 61 18 156/86 (109) 96 09/11/19 16:00 97.3 60 18 135/68 (90) 95 09/11/19 12:00 98.0 60 18 128/64 (85) 95 09/11/19 10:32 99.5 Intake and Output 09/11/19 09/12/19 19:00 07:00 Intake Total 1325.0 ml 1147.5 ml Output Total 600 ml Balance 725.0 ml 1147.5 ml Intake Oral 840 ml 480 ml IV Total 485.0 ml 667.5 ml Output Urine Total 600 ml # Voids 4 # Bowel Movements 1 Height (Feet): 5 Height (Inches): 9.00 Weight (Pounds): 196 Objective General Appearance: no apparent distress, alert EENT: PERRL/EOMI, normal ENT inspection Neck: non-tender, normal alignment Cardiovascular: normal rate, regular rhythm Respiratory/Chest: lungs clear, normal breath sounds Abdomen: non tender, soft Edema: no edema noted Generalized Neurologic: alert, oriented x 3 Skin: normal pigmentation Lokesh Pierce Sep 12, 2019 08:47
[2019-09-12 09:27] LABS: BASOPHILS % (AUTO) 0.3 % (0.0-2.0); EOSINOPHILS % (AUTO) 1.3 % (0.0-3.0); HEMATOCRIT 35.2 % (42.0-52.0); HEMOGLOBIN 11.1 G/DL (14.2-18.0); LYMPHOCYTES % (AUTO) 16.3 % (20.0-45.0); MEAN CORPUSCULAR VOLUME 84 FL (80-99); MONOCYTES % (AUTO) 5.7 % (1.0-10.0); NEUTROPHILS % (AUTO) 76.4 % (45.0-75.0); PLATELET COUNT 371 K/UL (150-450); RED BLOOD COUNT 4.17 M/UL (4.70-6.10); RED CELL DISTRIBUTION WIDTH 13.3 % (11.6-14.8); WHITE BLOOD COUNT 10.6 K/UL (4.8-10.8)
[2019-09-12 09:32] LABS: INR 1.1 (0.9-1.1)
[2019-09-12 09:40] LABS: ALANINE AMINOTRANSFERASE 187 U/L (12-78); ALBUMIN 1.9 G/DL (3.4-5.0); ALBUMIN/GLOBULIN RATIO 0.3 (1.0-2.7); ALKALINE PHOSPHATASE 147 U/L (46-116); ANION GAP 11 mmol/L (5-15); ASPARTATE AMINO TRANSFERASE 155 U/L (15-37); BILIRUBIN,TOTAL 0.9 MG/DL (0.2-1.0); BLOOD UREA NITROGEN 23 mg/dL (7-18); CALCIUM 9.3 MG/DL (8.5-10.1); CARBON DIOXIDE 25 MMOL/L (21-32); CHLORIDE 100 MMOL/L (98-107); CREATININE 1.1 MG/DL (0.55-1.30); POTASSIUM 3.6 MMOL/L (3.5-5.1); SODIUM 136 MMOL/L (136-145)
[2019-09-12] MEDS: Vancomycin 1.5gm/NS Premix IVPB SCH (10:00)
[2019-09-12 10:16] LABS: AMYLASE 52 U/L (25-115)
[2019-09-12 10:37] LABS: PHOSPHORUS 2.7 MG/DL (2.5-4.9)
--- NOTE | 2019-09-12 10:41 | Nephrology Progress Note ---
Assessment/Plan Problem List: (1) Hypokalemia (2) Hyponatremia (3) Colostomy care (4) Leukocytosis Assessment Surgical screw in right hand Displaced surgical screw of the right hand Hyponatremia Mild Azotemia Low K h/o UGI bleed Colostomy care Plan no labs today k and Mag Phos supplement as needed Monitor Lytes adjust diuretics Per orders Subjective ROS Limited/Unobtainable: No Constitutional: Reports: malaise Objective Objective Last 24 Hour Vital Signs Date Time Temp Pulse Resp B/P (MAP) Pulse Ox O2 Delivery O2 Flow Rate FiO2 09/12/19 08:54 Room Air 09/12/19 08:00 97.3 73 26 122/63 (82) 100 09/12/19 04:00 99.1 65 17 124/73 (90) 96 09/12/19 00:00 99.4 68 20 112/66 (81) 96 09/11/19 20:58 Room Air 09/11/19 20:00 99.6 61 18 156/86 (109) 96 09/11/19 16:00 97.3 60 18 135/68 (90) 95 09/11/19 12:00 98.0 60 18 128/64 (85) 95 Intake and Output 09/11/19 09/12/19 19:00 07:00 Intake Total 1325.0 ml 1147.5 ml Output Total 600 ml Balance 725.0 ml 1147.5 ml Intake Oral 840 ml 480 ml IV Total 485.0 ml 667.5 ml Output Urine Total 600 ml # Voids 4 # Bowel Movements 1 Laboratory Tests 09/12/19 09:00: White Blood Count 10.6, Red Blood Count 4.17L, Hemoglobin 11.1L, Hematocrit 35.2L, Mean Corpuscular Volume 84, Mean Corpuscular Hemoglobin 26.5L, Mean Corpuscular Hemoglobin Concent 31.4L, Red Cell Distribution Width 13.3, Platelet Count 371, Mean Platelet Volume 7.4, Neutrophils (%) (Auto) 76.4H, Lymphocytes (%) (Auto) 16.3L, Monocytes (%) (Auto) 5.7, Eosinophils (%) (Auto) 1.3, Basophils (%) (Auto) 0.3, Prothrombin Time 11.6H, Prothromb Time International Ratio 1.1, Activated Partial Thromboplast Time 37H, Sodium Level 136, Potassium Level 3.6, Chloride Level 100, Carbon Dioxide Level 25, Anion Gap 11, Blood Urea Nitrogen 23H, Creatinine 1.1, Estimat Glomerular Filtration Rate > 60, Glucose Level 144H, Calcium Level 9.3, Phosphorus Level [Pending], Magnesium Level [Pending], Total Bilirubin 0.9, Aspartate Amino Transf (AST/SGOT ) 155H, Alanine Aminotransferase (ALT/SGPT) 187H, Alkaline Phosphatase 147H, Total Protein 7.9, Albumin 1.9L, Globulin 6.0, Albumin/Globulin Ratio 0.3L, Amylase Level 52, Lipase 222, Vancomycin Level Trough 18.3H Height (Feet): 5 Height (Inches): 9.00 Weight (Pounds): 196 General Appearance: no apparent distress Cardiovascular: normal rate Respiratory/Chest: decreased breath sounds Abdomen: soft Objective no change Curtis Lee MD Sep 12, 2019 10:41
--- NOTE | 2019-09-12 10:44 | Infectious Diseases Prog Note ---
Assessment/Plan Assessment/Plan IMPRESSION: Leukocytosis,resolved Fever Elevated transaminase & bilirubin ? CBD narrowing Displaced right wrist hardware mild dementia, stasis dermatitis of legs, hypertension, hyperlipidemia, hand arthritis. s/p cholecystectomy Fatty liver RECOMMENDATION: Discontinue IV Vancomycin Continue Zosyn Will f/u Hepatitis profile Case was D/W GI specialist Subjective ROS Limited/Unobtainable: No Constitutional: Reports: no symptoms Cardiovascular: Reports: no symptoms Gastrointestinal/Abdominal: Reports: no symptoms Musculoskeletal: Reports: pain, other - in both legs Allergies: Coded Allergies: No Known Allergies (Unverified , 06/22/14) Objective Vital Signs Last 24 Hour Vital Signs Date Time Temp Pulse Resp B/P (MAP) Pulse Ox O2 Delivery O2 Flow Rate FiO2 09/12/19 08:54 Room Air 09/12/19 08:00 97.3 73 26 122/63 (82) 100 09/12/19 04:00 99.1 65 17 124/73 (90) 96 09/12/19 00:00 99.4 68 20 112/66 (81) 96 09/11/19 20:58 Room Air 09/11/19 20:00 99.6 61 18 156/86 (109) 96 09/11/19 16:00 97.3 60 18 135/68 (90) 95 09/11/19 12:00 98.0 60 18 128/64 (85) 95 Height (Feet): 5 Height (Inches): 9.00 Weight (Pounds): 196 General Appearance: no acute distress HEENT: mucous membranes moist Respiratory/Chest: lungs clear Cardiovascular: normal rate Abdomen: soft, non tender, other - s/p colostomy Extremities: other - edema Skin: ulcers Neurologic/Psychiatric: alert, oriented x 3, responsive Laboratory Tests Test 09/12/19 09:00 White Blood Count 10.6 K/UL (4.8-10.8) Red Blood Count 4.17 M/UL (4.70-6.10) L Hemoglobin 11.1 G/DL (14.2-18.0) L Hematocrit 35.2 % (42.0-52.0) L Mean Corpuscular Volume 84 FL (80-99) Mean Corpuscular Hemoglobin 26.5 PG (27.0-31.0) L Mean Corpuscular Hemoglobin Concent 31.4 G/DL (32.0-36.0) L Red Cell Distribution Width 13.3 % (11.6-14.8) Platelet Count 371 K/UL (150-450) Mean Platelet Volume 7.4 FL (6.5-10.1) Neutrophils (%) (Auto) 76.4 % (45.0-75.0) H Lymphocytes (%) (Auto) 16.3 % (20.0-45.0) L Monocytes (%) (Auto) 5.7 % (1.0-10.0) Eosinophils (%) (Auto) 1.3 % (0.0-3.0) Basophils (%) (Auto) 0.3 % (0.0-2.0) Prothrombin Time 11.6 SEC (9.30-11.50) H Prothromb Time International Ratio 1.1 (0.9-1.1) Activated Partial Thromboplast Time 37 SEC (23-33) H Sodium Level 136 MMOL/L (136-145) Potassium Level 3.6 MMOL/L (3.5-5.1) Chloride Level 100 MMOL/L (98-107) Carbon Dioxide Level 25 MMOL/L (21-32) Anion Gap 11 mmol/L (5-15) Blood Urea Nitrogen 23 mg/dL (7-18) H Creatinine 1.1 MG/DL (0.55-1.30) Estimat Glomerular Filtration Rate > 60 mL/min (>60) Glucose Level 144 MG/DL (74-106) H Calcium Level 9.3 MG/DL (8.5-10.1) Phosphorus Level Pending Magnesium Level Pending Total Bilirubin 0.9 MG/DL (0.2-1.0) Aspartate Amino Transf (AST/SGOT) 155 U/L (15-37) H Alanine Aminotransferase (ALT/SGPT) 187 U/L (12-78) H Alkaline Phosphatase 147 U/L (46-116) H Total Protein 7.9 G/DL (6.4-8.2) Albumin 1.9 G/DL (3.4-5.0) L Globulin 6.0 g/dL Albumin/Globulin Ratio 0.3 (1.0-2.7) L Amylase Level 52 U/L (25-115) Lipase 222 U/L (73-393) Vancomycin Level Trough 18.3 ug/mL (5.0-12.0) H Current Medications Medications (Trade) Dose Ordered Sig/Jl Route PRN Reason Start Time Stop Time Status Last Admin Dose Admin Acetaminophen (Tylenol) 650 mg Q6H PRN ORAL mild pain 09/06/19 16:20 10/06/19 16:19 09/09/19 21:44 Ascorbic Acid (Vitamin C) 500 mg DAILY ORAL 09/06/19 09:00 10/06/19 08:59 09/11/19 08:25 Bisacodyl (Dulcolax) 5 mg TWICE A DAY ORAL 09/06/19 09:00 10/06/19 08:59 09/11/19 17:03 Dextrose/Sodium Chloride 1,000 ml @ 100 mls/hr Q10H IV 09/11/19 10:00 10/11/19 09:59 09/11/19 10:00 Docusate Sodium (Colace) 250 mg DAILY ORAL 09/06/19 09:00 10/06/19 08:59 09/11/19 08:25 Gabapentin (Neurontin) 300 mg TID ORAL 09/06/19 09:00 10/06/19 08:59 09/11/19 17:03 Heparin Sodium (Porcine) (Heparin 5000 units/ml) 5,000 units EVERY 12 HOURS SUBQ 09/06/19 09:00 10/06/19 08:59 09/11/19 20:30 Magnesium Oxide (Mag-Ox 400mg) 400 mg THREE TIMES A DAY ORAL 09/09/19 13:00 10/09/19 12:59 09/11/19 17:03 Multivitamins (Multivitamins) 1 tab DAILY ORAL 09/07/19 09:00 10/07/19 08:59 09/11/19 08:27 Ondansetron HCl (Zofran) 4 mg Q6H PRN ORAL Nausea & Vomiting 09/05/19 23:00 10/05/19 22:59 Piperacillin Sod/ Tazobactam Sod 3.375 gm/Sodium Chloride 110 ml @ 27.5 mls/hr EVERY 8 HOURS IVPB 09/10/19 14:00 09/15/19 13:59 09/12/19 03:56 Potassium Chloride (K-Dur) 120 meq DAILY ORAL 09/06/19 09:00 10/06/19 08:59 09/11/19 08:25 Spironolactone (Aldactone) 25 mg DAILY ORAL 09/09/19 09:00 10/09/19 08:59 09/11/19 08:26 Tramadol HCl (Ultram) 100 mg Q6H PRN ORAL pain 4-10 09/12/19 10:30 09/19/19 09:08 Vancomycin HCl (Vanco rx to dose) 1 ea DAILY PRN MISC Per rx protocol 09/09/19 08:45 10/09/19 08:44 Vancomycin/Sodium Chloride 275 ml @ 137.5 mls/ hr Q12HR@1000,2200 IVPB 09/11/19 22:00 09/16/19 21:59 09/11/19 20:29 Jesus Hernandez MD Sep 12, 2019 10:44
[2019-09-12] MEDS: Magnesium Oxide 400mg tab ORAL SCH ×4 (10:47→19:51)
[2019-09-12] MEDS: Heparin 5000 units/ml inj SUBQ SCH ×2 (10:49→21:01)
[2019-09-12] MEDS: Ascorbic Acid 500mg tab ORAL SCH (10:50)
[2019-09-12] MEDS: Docusate 250mg cap ORAL SCH (10:51)
[2019-09-12] MEDS: Spironolactone 25mg tab ORAL SCH (10:51)
[2019-09-12] MEDS: Bisacodyl EC 5mg tab ORAL SCH ×2 (10:53→19:51)
[2019-09-12 12:00] VITALS: BP 116/74
[2019-09-12 16:00] VITALS: BP 130/70
--- NOTE | 2019-09-12 17:26 | Surgery Progress Note ---
Surgery Progress Note Subjective Additional Comments wbc resolved h/h stable labs noted comfortable no complaints no n/v/f/c Objective Last 24 Hour Vital Signs Date Time Temp Pulse Resp B/P (MAP) Pulse Ox O2 Delivery O2 Flow Rate FiO2 09/12/19 12:00 97.7 70 26 116/74 (88) 98 09/12/19 08:54 Room Air 09/12/19 08:00 97.3 73 26 122/63 (82) 100 09/12/19 04:00 99.1 65 17 124/73 (90) 96 09/12/19 00:00 99.4 68 20 112/66 (81) 96 09/11/19 20:58 Room Air 09/11/19 20:00 99.6 61 18 156/86 (109) 96 I&O Intake and Output 09/11/19 09/12/19 19:00 07:00 Intake Total 1325.0 ml 1147.5 ml Output Total 600 ml Balance 725.0 ml 1147.5 ml Intake Oral 840 ml 480 ml IV Total 485.0 ml 667.5 ml Output Urine Total 600 ml # Voids 4 # Bowel Movements 1 Dressing: dry Wound: clean Cardiovascular: RSR Respiratory: clear Abdomen: soft, non-tender, present bowel sounds Extremities: no edema, no tenderness, no cyanosis Laboratory Tests Test 09/12/19 09:00 White Blood Count 10.6 K/UL (4.8-10.8) Red Blood Count 4.17 M/UL (4.70-6.10) L Hemoglobin 11.1 G/DL (14.2-18.0) L Hematocrit 35.2 % (42.0-52.0) L Mean Corpuscular Volume 84 FL (80-99) Mean Corpuscular Hemoglobin 26.5 PG (27.0-31.0) L Mean Corpuscular Hemoglobin Concent 31.4 G/DL (32.0-36.0) L Red Cell Distribution Width 13.3 % (11.6-14.8) Platelet Count 371 K/UL (150-450) Mean Platelet Volume 7.4 FL (6.5-10.1) Neutrophils (%) (Auto) 76.4 % (45.0-75.0) H Lymphocytes (%) (Auto) 16.3 % (20.0-45.0) L Monocytes (%) (Auto) 5.7 % (1.0-10.0) Eosinophils (%) (Auto) 1.3 % (0.0-3.0) Basophils (%) (Auto) 0.3 % (0.0-2.0) Prothrombin Time 11.6 SEC (9.30-11.50) H Prothromb Time International Ratio 1.1 (0.9-1.1) Activated Partial Thromboplast Time 37 SEC (23-33) H Sodium Level 136 MMOL/L (136-145) Potassium Level 3.6 MMOL/L (3.5-5.1) Chloride Level 100 MMOL/L (98-107) Carbon Dioxide Level 25 MMOL/L (21-32) Anion Gap 11 mmol/L (5-15) Blood Urea Nitrogen 23 mg/dL (7-18) H Creatinine 1.1 MG/DL (0.55-1.30) Estimat Glomerular Filtration Rate > 60 mL/min (>60) Glucose Level 144 MG/DL (74-106) H Calcium Level 9.3 MG/DL (8.5-10.1) Phosphorus Level 2.7 MG/DL (2.5-4.9) Magnesium Level 1.7 MG/DL (1.8-2.4) L Total Bilirubin 0.9 MG/DL (0.2-1.0) Aspartate Amino Transf (AST/SGOT) 155 U/L (15-37) H Alanine Aminotransferase (ALT/SGPT) 187 U/L (12-78) H Alkaline Phosphatase 147 U/L (46-116) H Total Protein 7.9 G/DL (6.4-8.2) Albumin 1.9 G/DL (3.4-5.0) L Globulin 6.0 g/dL Albumin/Globulin Ratio 0.3 (1.0-2.7) L Amylase Level 52 U/L (25-115) Lipase 222 U/L (73-393) Vancomycin Level Trough 18.3 ug/mL (5.0-12.0) H Plan Problems: (1) Pressure ulcer Assessment & Plan: DAILY ESTIMATED NEEDS: Needs based on Cardiac, pulm, obese 81.5kg adj 20-25 kcals/kg [id number] total kcals 1-1.5 g protein/kg 82-122 g total protein Fluid per MD, on lasix NUTRITION DIAGNOSIS: * Altered nutrition related lab values R/T clinical status as evidenced by low K(3.3). (CURRENT DIET: GOOD) PO DIET RECOMMENDATIONS: Rec Low NA/ Low Fat ADDITIONAL RECOMMENDATIONS: 1) Rec standing weight for accurate CBW -> OR recalibrated bed scale for accurate CBW -> On lasix, requiring daily wts 2) Check lytes daily for repletion (low K) 3) F/up w/ Wound care eval - etiology unknown MVI (2) Venous stasis ulcer Assessment & Plan: Patient presents with venous stasis ulcer on the left lower extremity. 4 cm x 3 cm x 2 mm deep. No active drainage mild serous oozing. No signs of acute active infection with but does have some erythema in the periwound. No purulent drainage. States he has had it for some time now and has been cared for an outside facility. Bilateral heel soft. Offload pressure from heels with pillow. Hydrogel impregnated gauze to ulcer bed followed by foam dressing. Wash lower extremities daily and apply skin protectant moisturizer followed by ABD and wrap duplex okay dressings changes daily improving will monitor and f/u with plan (3) Cellulitis (4) Wrist pain, acute Assessment & Plan: Procedure: XRAY Elbow Min 3v R Indication: Right elbow pain Findings: 3 views of the right elbow were obtained. No acute fractures, malalignment, erosions or periostitis are identified. Soft tissue swelling noted posterior part of the elbow. There is no joint effusion identified. Impression: No acute fracture. Soft tissue swelling noted There is severe arthrosis involving the carpal bones. The first carpal row including the scaphoid, lunate appear collapsed. There are multiple lucencies suggestive of cystic changes within the bones. The intercarpal joints are moderately narrowed. There are cystic changes in the base of the third and fourth metacarpals as well. There is a Alexandro screw partially within the scaphoid. This was likely placed for scaphoid fracture but has migrated medially and is partially embedded within the scaphoid and trapezium. There are severe erosive changes present within the intercarpal joints. There are severe erosive changes and deformity characterized by some articular collapse and cyst formation involving the second MCP joint. There is no acute fracture identified. IMPRESSION: No acute fracture identified. Evidence of severe polyarticular inflammatory arthritis characterized by subarticular erosions and cysts involving several of the intercarpal joints and the second MCP joint. Subsequent deformity and superimposed osteoarthritis noted. Displaced Alexandro screw, likely placed for a previous scaphoid fracture. Generalized soft tissue swelling. Findings: 3 views of the right shoulder were obtained. No acute fractures, malalignment, erosions or periostitis are identified. Bones are osteopenic. There is narrowing of the glenohumeral joint consistent with mild osteoarthritis. Soft tissues are unremarkable. Impression: Negative for acute injury displaced screw noted. seemingly chronic. outpatient hand sx consult (5) Status post fall (6) Transaminitis Assessment & Plan: lft's elevated US abd ordered - gb not visualize clinically no symptoms Impression: Cholelithiasis. No gallbladder wall thickening or evidence of pericholecystic inflammation No evidence of choledocholithiasis. However, there is questionably narrowing of the common hepatic duct which if real could indicate stricture or compression by tumor. Left lower quadrant descending colostomy/mucous fistula. There is a peristomal hernia which contains a few loops of small bowel. This does not appear to be obstructed or strangulated Small right pleural effusion Incidental findings as noted, including right interpolar region cyst, 2 upper pole splenic cysts, and scattered hepatic cysts stable parastomal hernia reducible Ricci Sharpe Sep 12, 2019 17:26
[2019-09-12 20:00] VITALS: BP 131/71
--- NOTE | 2019-09-12 22:09 | General Progress Note ---
Assessment/Plan Problem List: (1) Hypokalemia ICD Codes: E87.6 - Hypokalemia SNOMED: 39715897 (2) Surgical screw in right hand ICD Codes: Z96.7 - Presence of other bone and tendon implants SNOMED: 667995712 Status: progressing Assessment/Plan: lyte abnormality intermittent fever evaulated by ortho has splint low mg sepsis uti and febrile Subjective ROS Limited/Unobtainable: Yes Allergies: Coded Allergies: No Known Allergies (Unverified , 06/22/14) Objective Last 24 Hour Vital Signs Date Time Temp Pulse Resp B/P (MAP) Pulse Ox O2 Delivery O2 Flow Rate FiO2 09/12/19 20:32 Room Air 09/12/19 20:00 99.5 107 20 131/71 (91) 98 09/12/19 16:00 98.4 110 20 130/70 (90) 96 09/12/19 12:00 97.7 70 26 116/74 (88) 98 09/12/19 08:54 Room Air 09/12/19 08:00 97.3 73 26 122/63 (82) 100 09/12/19 04:00 99.1 65 17 124/73 (90) 96 09/12/19 00:00 99.4 68 20 112/66 (81) 96 Intake and Output 09/11/19 09/12/19 19:00 07:00 Intake Total 1325.0 ml 1147.5 ml Output Total 600 ml Balance 725.0 ml 1147.5 ml Intake Oral 840 ml 480 ml IV Total 485.0 ml 667.5 ml Output Urine Total 600 ml # Voids 4 # Bowel Movements 1 Laboratory Tests 09/12/19 09:00: White Blood Count 10.6, Red Blood Count 4.17L, Hemoglobin 11.1L, Hematocrit 35.2L, Mean Corpuscular Volume 84, Mean Corpuscular Hemoglobin 26.5L, Mean Corpuscular Hemoglobin Concent 31.4L, Red Cell Distribution Width 13.3, Platelet Count 371, Mean Platelet Volume 7.4, Neutrophils (%) (Auto) 76.4H, Lymphocytes (%) (Auto) 16.3L, Monocytes (%) (Auto) 5.7, Eosinophils (%) (Auto) 1.3, Basophils (%) (Auto) 0.3, Prothrombin Time 11.6H, Prothromb Time International Ratio 1.1, Activated Partial Thromboplast Time 37H, Sodium Level 136, Potassium Level 3.6, Chloride Level 100, Carbon Dioxide Level 25, Anion Gap 11, Blood Urea Nitrogen 23H, Creatinine 1.1, Estimat Glomerular Filtration Rate > 60, Glucose Level 144H, Calcium Level 9.3, Phosphorus Level 2.7, Magnesium Level 1.7L, Total Bilirubin 0.9, Aspartate Amino Transf (AST/SGOT) 155H, Alanine Aminotransferase (ALT/SGPT) 187H, Alkaline Phosphatase 147H, Total Protein 7.9, Albumin 1.9L, Globulin 6.0, Albumin/Globulin Ratio 0.3L, Amylase Level 52, Lipase 222, Vancomycin Level Trough 18.3H Height (Feet): 5 Height (Inches): 9.00 Weight (Pounds): 196 EENT: PERRL/EOMI Cardiovascular: normal rate Respiratory/Chest: lungs clear Jono Quiros MD Sep 12, 2019 22:09
--- NOTE | 2019-09-12 22:53 | General Progress Note ---
Assessment/Plan Status: progressing Assessment/Plan: Assessment - Abnormal LFT, ? etiology, No CBD stone on MRI - possible narrowing of hepatic duct - will arrange for ERCP later this week - LLQ buldge around ostomy, abd wall laxity / hernia - mild azotemia Recommendations - f/u hepatitis serologies - will arrange for ERCP later this week - ostomy care - f/u labs - avoid hepatotoxic meds Subjective Allergies: Coded Allergies: No Known Allergies (Unverified , 06/22/14) Subjective Seen this am feeling OK no abd pain Objective Last 24 Hour Vital Signs Date Time Temp Pulse Resp B/P (MAP) Pulse Ox O2 Delivery O2 Flow Rate FiO2 09/12/19 20:32 Room Air 09/12/19 20:00 99.5 107 20 131/71 (91) 98 09/12/19 16:00 98.4 110 20 130/70 (90) 96 09/12/19 12:00 97.7 70 26 116/74 (88) 98 09/12/19 08:54 Room Air 09/12/19 08:00 97.3 73 26 122/63 (82) 100 09/12/19 04:00 99.1 65 17 124/73 (90) 96 09/12/19 00:00 99.4 68 20 112/66 (81) 96 Intake and Output 09/11/19 09/12/19 18:59 06:59 Intake Total 1325.0 ml 1120.0 ml Output Total 600 ml Balance 725.0 ml 1120.0 ml Intake Oral 840 ml 480 ml IV Total 485.0 ml 640.0 ml Output Urine Total 600 ml # Voids 4 # Bowel Movements 1 Laboratory Tests 09/12/19 09:00: White Blood Count 10.6, Red Blood Count 4.17L, Hemoglobin 11.1L, Hematocrit 35.2L, Mean Corpuscular Volume 84, Mean Corpuscular Hemoglobin 26.5L, Mean Corpuscular Hemoglobin Concent 31.4L, Red Cell Distribution Width 13.3, Platelet Count 371, Mean Platelet Volume 7.4, Neutrophils (%) (Auto) 76.4H, Lymphocytes (%) (Auto) 16.3L, Monocytes (%) (Auto) 5.7, Eosinophils (%) (Auto) 1.3, Basophils (%) (Auto) 0.3, Prothrombin Time 11.6H, Prothromb Time International Ratio 1.1, Activated Partial Thromboplast Time 37H, Sodium Level 136, Potassium Level 3.6, Chloride Level 100, Carbon Dioxide Level 25, Anion Gap 11, Blood Urea Nitrogen 23H, Creatinine 1.1, Estimat Glomerular Filtration Rate > 60, Glucose Level 144H, Calcium Level 9.3, Phosphorus Level 2.7, Magnesium Level 1.7L, Total Bilirubin 0.9, Aspartate Amino Transf (AST/SGOT) 155H, Alanine Aminotransferase (ALT/SGPT) 187H, Alkaline Phosphatase 147H, Total Protein 7.9, Albumin 1.9L, Globulin 6.0, Albumin/Globulin Ratio 0.3L, Amylase Level 52, Lipase 222, Vancomycin Level Trough 18.3H Height (Feet): 5 Height (Inches): 9.00 Weight (Pounds): 196 Objective WDWN NCAT supple CTA RR abd soft, NT, (+) LLQ ostomy no edema Jeramy Colon MD Sep 12, 2019 22:53
--- NOTE | 2019-09-12 23:57 | Cardiology Progress Note ---
Assessment/Plan Assessment/Plan 1. Sinus tachycardia, resolved, likely inflammation or infection, the patient being febrile, worsening of leukocytosis, IV ABx, hydration. 2. Hx of HTN 3. Mechanical fall with no syncope, 2D echo reveals normal LV systolic and diastolic function. 4. GIDEON, resolved. 5. Elevated transaminase. Subjective Subjective No cardiac events reported. Denies chest pain or SOB. Objective Last 24 Hour Vital Signs Date Time Temp Pulse Resp B/P (MAP) Pulse Ox O2 Delivery O2 Flow Rate FiO2 09/12/19 20:32 Room Air 09/12/19 20:00 99.5 107 20 131/71 (91) 98 09/12/19 16:00 98.4 110 20 130/70 (90) 96 09/12/19 12:00 97.7 70 26 116/74 (88) 98 09/12/19 08:54 Room Air 09/12/19 08:00 97.3 73 26 122/63 (82) 100 09/12/19 04:00 99.1 65 17 124/73 (90) 96 09/12/19 00:00 99.4 68 20 112/66 (81) 96 Intake and Output 09/11/19 09/12/19 18:59 06:59 Intake Total 1325.0 ml 1120.0 ml Output Total 600 ml Balance 725.0 ml 1120.0 ml Intake Oral 840 ml 480 ml IV Total 485.0 ml 640.0 ml Output Urine Total 600 ml # Voids 4 # Bowel Movements 1 2D Echo: LVEF 55%, Normal LV Diastolic Fxn, RVSP 12 mmHg Laboratory Tests Test 09/12/19 09:00 White Blood Count 10.6 K/UL (4.8-10.8) Red Blood Count 4.17 M/UL (4.70-6.10) L Hemoglobin 11.1 G/DL (14.2-18.0) L Hematocrit 35.2 % (42.0-52.0) L Mean Corpuscular Volume 84 FL (80-99) Mean Corpuscular Hemoglobin 26.5 PG (27.0-31.0) L Mean Corpuscular Hemoglobin Concent 31.4 G/DL (32.0-36.0) L Red Cell Distribution Width 13.3 % (11.6-14.8) Platelet Count 371 K/UL (150-450) Mean Platelet Volume 7.4 FL (6.5-10.1) Neutrophils (%) (Auto) 76.4 % (45.0-75.0) H Lymphocytes (%) (Auto) 16.3 % (20.0-45.0) L Monocytes (%) (Auto) 5.7 % (1.0-10.0) Eosinophils (%) (Auto) 1.3 % (0.0-3.0) Basophils (%) (Auto) 0.3 % (0.0-2.0) Prothrombin Time 11.6 SEC (9.30-11.50) H Prothromb Time International Ratio 1.1 (0.9-1.1) Activated Partial Thromboplast Time 37 SEC (23-33) H Sodium Level 136 MMOL/L (136-145) Potassium Level 3.6 MMOL/L (3.5-5.1) Chloride Level 100 MMOL/L (98-107) Carbon Dioxide Level 25 MMOL/L (21-32) Anion Gap 11 mmol/L (5-15) Blood Urea Nitrogen 23 mg/dL (7-18) H Creatinine 1.1 MG/DL (0.55-1.30) Estimat Glomerular Filtration Rate > 60 mL/min (>60) Glucose Level 144 MG/DL (74-106) H Calcium Level 9.3 MG/DL (8.5-10.1) Phosphorus Level 2.7 MG/DL (2.5-4.9) Magnesium Level 1.7 MG/DL (1.8-2.4) L Total Bilirubin 0.9 MG/DL (0.2-1.0) Aspartate Amino Transf (AST/SGOT) 155 U/L (15-37) H Alanine Aminotransferase (ALT/SGPT) 187 U/L (12-78) H Alkaline Phosphatase 147 U/L (46-116) H Total Protein 7.9 G/DL (6.4-8.2) Albumin 1.9 G/DL (3.4-5.0) L Globulin 6.0 g/dL Albumin/Globulin Ratio 0.3 (1.0-2.7) L Amylase Level 52 U/L (25-115) Lipase 222 U/L (73-393) Vancomycin Level Trough 18.3 ug/mL (5.0-12.0) H Objective HEENT: Normocephalic, PERRLA, Extraocular muscle intact. NECK: Negative JVD, no carotid bruit, carotid upstroke 2+ B/L. CHEST: Clear to auscultation B/L. CARDIOVASCULAR: Regular rate and rhythm.. Normal S1 S2 No murmurs, gallops or rubs. GASTROINTESTINAL: Soft, nontender, nondistended. No organomegaly. EXTREMITIES: No edema, clubbing or cyanosis. Decreased range of motion and tenderness on the hand. Robert Nina MD Sep 12, 2019 23:57
[2019-09-13] VITALS (7 sets, daily range): BP systolic 102–131; BP diastolic 57–81
[2019-09-13] MEDS: D5 1/2NS 1,000 ML IV SCH (02:00)
[2019-09-13] MEDS: Piperacillin/Tazobactam 3.375 GM in NS 110 ML IVPB SCH ×3 (04:14→20:52)
[2019-09-13 06:33] LABS: BASOPHILS % (AUTO) 0.5 % (0.0-2.0); EOSINOPHILS % (AUTO) 1.2 % (0.0-3.0); HEMATOCRIT 33.9 % (42.0-52.0); HEMOGLOBIN 10.8 G/DL (14.2-18.0); LYMPHOCYTES % (AUTO) 18.2 % (20.0-45.0); MEAN CORPUSCULAR VOLUME 84 FL (80-99); MONOCYTES % (AUTO) 6.9 % (1.0-10.0); NEUTROPHILS % (AUTO) 73.1 % (45.0-75.0); PLATELET COUNT 398 K/UL (150-450); RED BLOOD COUNT 4.02 M/UL (4.70-6.10); RED CELL DISTRIBUTION WIDTH 13.2 % (11.6-14.8); WHITE BLOOD COUNT 12.7 K/UL (4.8-10.8)
[2019-09-13 06:44] LABS: INR 1.1 (0.9-1.1)
[2019-09-13 07:09] LABS: ALANINE AMINOTRANSFERASE 180 U/L (12-78); ALBUMIN 1.8 G/DL (3.4-5.0); ALBUMIN/GLOBULIN RATIO 0.3 (1.0-2.7); ALKALINE PHOSPHATASE 147 U/L (46-116); ANION GAP 6 mmol/L (5-15); ASPARTATE AMINO TRANSFERASE 137 U/L (15-37); BILIRUBIN,TOTAL 0.7 MG/DL (0.2-1.0); BLOOD UREA NITROGEN 16 mg/dL (7-18); CALCIUM 8.8 MG/DL (8.5-10.1); CARBON DIOXIDE 28 MMOL/L (21-32); CHLORIDE 98 MMOL/L (98-107); CREATININE 1.1 MG/DL (0.55-1.30); POTASSIUM 4.5 MMOL/L (3.5-5.1); SODIUM 132 MMOL/L (136-145)
--- NOTE | 2019-09-13 08:48 | General Progress Note ---
Assessment/Plan Assessment/Plan: (1) Right wrist pain (2) H/O Right wrist fracture and ORIF (3) Osteoarthritis (4) Hardware displacement Patient will be continued on tramadol and Tylenol as needed D/w Dr. Trevino and he concurred. Subjective Date patient seen: Sep 13, 2019 Time patient seen: 07:45 - am Allergies: Coded Allergies: No Known Allergies (Unverified , 06/22/14) Subjective Constitutional: Reports: weakness HEENT: Reports: no symptoms Cardiovascular: Reports: no symptoms Respiratory: Reports: no symptoms Gastrointestinal/Abdominal: Reports: no symptoms Genitourinary: Reports: no symptoms Neurologic/Psychiatric: Reports: weakness Endocrine: Reports: no symptoms Hematologic/Lymphatic: Reports: no symptoms Subjective Patient continues to c/o pain which has been stable and at a moderate level on the Tramadol. No new complaints at this time. Objective Last 24 Hour Vital Signs Date Time Temp Pulse Resp B/P (MAP) Pulse Ox O2 Delivery O2 Flow Rate FiO2 09/13/19 04:00 99.7 100 20 131/81 (98) 100 09/13/19 00:19 98.4 105 20 126/70 (88) 98 09/12/19 20:32 Room Air 09/12/19 20:00 99.5 107 20 131/71 (91) 98 09/12/19 16:00 98.4 110 20 130/70 (90) 96 09/12/19 12:00 97.7 70 26 116/74 (88) 98 09/12/19 08:54 Room Air Intake and Output 09/12/19 09/13/19 19:00 07:00 Intake Total 600 ml 692.5 ml Output Total 650 ml 100 ml Balance -50 ml 592.5 ml Intake Oral 600 ml IV Total 692.5 ml Output Urine Total 650 ml Stool Total 100 ml # Voids 4 # Bowel Movements 1 1 Laboratory Tests 09/12/19 09:00: White Blood Count 10.6, Red Blood Count 4.17L, Hemoglobin 11.1L, Hematocrit 35.2L, Mean Corpuscular Volume 84, Mean Corpuscular Hemoglobin 26.5L, Mean Corpuscular Hemoglobin Concent 31.4L, Red Cell Distribution Width 13.3, Platelet Count 371, Mean Platelet Volume 7.4, Neutrophils (%) (Auto) 76.4H, Lymphocytes (%) (Auto) 16.3L, Monocytes (%) (Auto) 5.7, Eosinophils (%) (Auto) 1.3, Basophils (%) (Auto) 0.3, Prothrombin Time 11.6H, Prothromb Time International Ratio 1.1, Activated Partial Thromboplast Time 37H, Sodium Level 136, Potassium Level 3.6, Chloride Level 100, Carbon Dioxide Level 25, Anion Gap 11, Blood Urea Nitrogen 23H, Creatinine 1.1, Estimat Glomerular Filtration Rate > 60, Glucose Level 144H, Calcium Level 9.3, Phosphorus Level 2.7, Magnesium Level 1.7L, Total Bilirubin 0.9, Aspartate Amino Transf (AST/SGOT) 155H, Alanine Aminotransferase (ALT/SGPT) 187H, Alkaline Phosphatase 147H, Total Protein 7.9, Albumin 1.9L, Globulin 6.0, Albumin/Globulin Ratio 0.3L, Amylase Level 52, Lipase 222, Vancomycin Level Trough 18.3H 09/13/19 05:55: White Blood Count 12.7H, Red Blood Count 4.02L, Hemoglobin 10.8L, Hematocrit 33.9L, Mean Corpuscular Volume 84, Mean Corpuscular Hemoglobin 26.8L, Mean Corpuscular Hemoglobin Concent 31.8L, Red Cell Distribution Width 13.2, Platelet Count 398, Mean Platelet Volume 7.2, Neutrophils (%) (Auto) 73.1, Lymphocytes (%) (Auto) 18.2L, Monocytes (%) (Auto) 6.9, Eosinophils (%) (Auto) 1.2, Basophils (%) (Auto) 0.5, Prothrombin Time 11.7H, Prothromb Time International Ratio 1.1, Sodium Level 132L, Potassium Level 4.5, Chloride Level 98, Carbon Dioxide Level 28, Anion Gap 6, Blood Urea Nitrogen 16, Creatinine 1.1 , Estimat Glomerular Filtration Rate > 60, Glucose Level 109H, Calcium Level 8.8 , Total Bilirubin 0.7, Aspartate Amino Transf (AST/SGOT) 137H, Alanine Aminotransferase (ALT/SGPT) 180H, Alkaline Phosphatase 147H, Total Protein 7.8, Albumin 1.8L, Globulin 6.0, Albumin/Globulin Ratio 0.3L Height (Feet): 5 Height (Inches): 9.00 Weight (Pounds): 196 Objective General Appearance: no apparent distress, alert EENT: PERRL/EOMI, normal ENT inspection Neck: non-tender, normal alignment Cardiovascular: normal rate, regular rhythm Respiratory/Chest: lungs clear, normal breath sounds Abdomen: non tender, soft Edema: no edema noted Generalized Neurologic: alert, oriented x 3 Skin: normal pigmentation Lokesh Pierce Sep 13, 2019 08:48
[2019-09-13 09:13] LABS: PHOSPHORUS 2.8 MG/DL (2.5-4.9)
[2019-09-13] MEDS: Docusate 250mg cap ORAL SCH (10:04)
[2019-09-13] MEDS: Bisacodyl EC 5mg tab ORAL SCH ×2 (10:04→19:18)
[2019-09-13] MEDS: Spironolactone 25mg tab ORAL SCH (10:04)
[2019-09-13] MEDS: Ascorbic Acid 500mg tab ORAL SCH (10:05)
[2019-09-13] MEDS: Magnesium Oxide 400mg tab ORAL SCH ×3 (10:05→19:18)
[2019-09-13] MEDS: Heparin 5000 units/ml inj SUBQ SCH ×2 (10:07→20:54)
--- NOTE | 2019-09-13 12:09 | General Progress Note ---
Assessment/Plan Assessment/Plan: Assessment - Abnormal LFT, likely due to chronic hep B - possible narrowing of hepatic duct - will arrange for ERCP tomorrow - LLQ buldge around ostomy, abd wall laxity / hernia - mild azotemia Recommendations - check Hep B quantitative PCR - will arrange for ERCP tomorrow - ostomy care - f/u labs - avoid hepatotoxic meds Subjective Allergies: Coded Allergies: No Known Allergies (Unverified , 06/22/14) Subjective Seen this am feeling OK no abd pain Hepatitis B Antigen (+) Objective Last 24 Hour Vital Signs Date Time Temp Pulse Resp B/P (MAP) Pulse Ox O2 Delivery O2 Flow Rate FiO2 09/13/19 09:00 Room Air 09/13/19 08:00 98.1 93 17 102/63 (76) 96 09/13/19 04:00 99.7 100 20 131/81 (98) 100 09/13/19 00:19 98.4 105 20 126/70 (88) 98 09/12/19 20:32 Room Air 09/12/19 20:00 99.5 107 20 131/71 (91) 98 09/12/19 16:00 98.4 110 20 130/70 (90) 96 Intake and Output 09/12/19 09/13/19 19:00 07:00 Intake Total 600 ml 692.5 ml Output Total 650 ml 100 ml Balance -50 ml 592.5 ml Intake Oral 600 ml IV Total 692.5 ml Output Urine Total 650 ml Stool Total 100 ml # Voids 4 # Bowel Movements 1 1 Laboratory Tests 09/13/19 05:55: White Blood Count 12.7H, Red Blood Count 4.02L, Hemoglobin 10.8L, Hematocrit 33.9L, Mean Corpuscular Volume 84, Mean Corpuscular Hemoglobin 26.8L, Mean Corpuscular Hemoglobin Concent 31.8L, Red Cell Distribution Width 13.2, Platelet Count 398, Mean Platelet Volume 7.2, Neutrophils (%) (Auto) 73.1, Lymphocytes (%) (Auto) 18.2L, Monocytes (%) (Auto) 6.9, Eosinophils (%) (Auto) 1.2, Basophils (%) (Auto) 0.5, Prothrombin Time 11.7H, Prothromb Time International Ratio 1.1, Sodium Level 132L, Potassium Level 4.5, Chloride Level 98, Carbon Dioxide Level 28, Anion Gap 6, Blood Urea Nitrogen 16, Creatinine 1.1 , Estimat Glomerular Filtration Rate > 60, Glucose Level 109H, Calcium Level 8.8 , Phosphorus Level 2.8, Magnesium Level 1.6L, Total Bilirubin 0.7, Aspartate Amino Transf (AST/SGOT) 137H, Alanine Aminotransferase (ALT/SGPT) 180H, Alkaline Phosphatase 147H, Total Protein 7.8, Albumin 1.8L, Globulin 6.0, Albumin/Globulin Ratio 0.3L Height (Feet): 5 Height (Inches): 9.00 Weight (Pounds): 196 Objective WDWN NCAT supple CTA RR abd soft, NT, (+) LLQ ostomy no edema Jeramy Colon MD Sep 13, 2019 12:09
--- NOTE | 2019-09-13 13:21 | Nephrology Progress Note ---
Assessment/Plan Problem List: (1) Hypokalemia (2) Hyponatremia (3) Colostomy care (4) Leukocytosis Assessment Surgical screw in right hand Displaced surgical screw of the right hand Hyponatremia Mild Azotemia Low K h/o UGI bleed Colostomy care Plan down on kcl dose- 3% saline and Mag IV k and Mag Phos supplement as needed Monitor Lytes adjust diuretics Per orders Subjective ROS Limited/Unobtainable: No Constitutional: Reports: malaise Objective Objective Last 24 Hour Vital Signs Date Time Temp Pulse Resp B/P (MAP) Pulse Ox O2 Delivery O2 Flow Rate FiO2 09/13/19 09:00 Room Air 09/13/19 08:00 98.1 93 17 102/63 (76) 96 09/13/19 04:00 99.7 100 20 131/81 (98) 100 09/13/19 00:19 98.4 105 20 126/70 (88) 98 09/12/19 20:32 Room Air 09/12/19 20:00 99.5 107 20 131/71 (91) 98 09/12/19 16:00 98.4 110 20 130/70 (90) 96 Intake and Output 09/12/19 09/13/19 19:00 07:00 Intake Total 600 ml 692.5 ml Output Total 650 ml 100 ml Balance -50 ml 592.5 ml Intake Oral 600 ml IV Total 692.5 ml Output Urine Total 650 ml Stool Total 100 ml # Voids 4 # Bowel Movements 1 1 Laboratory Tests 09/13/19 05:55: White Blood Count 12.7H, Red Blood Count 4.02L, Hemoglobin 10.8L, Hematocrit 33.9L, Mean Corpuscular Volume 84, Mean Corpuscular Hemoglobin 26.8L, Mean Corpuscular Hemoglobin Concent 31.8L, Red Cell Distribution Width 13.2, Platelet Count 398, Mean Platelet Volume 7.2, Neutrophils (%) (Auto) 73.1, Lymphocytes (%) (Auto) 18.2L, Monocytes (%) (Auto) 6.9, Eosinophils (%) (Auto) 1.2, Basophils (%) (Auto) 0.5, Prothrombin Time 11.7H, Prothromb Time International Ratio 1.1, Sodium Level 132L, Potassium Level 4.5, Chloride Level 98, Carbon Dioxide Level 28, Anion Gap 6, Blood Urea Nitrogen 16, Creatinine 1.1 , Estimat Glomerular Filtration Rate > 60, Glucose Level 109H, Calcium Level 8.8 , Phosphorus Level 2.8, Magnesium Level 1.6L, Total Bilirubin 0.7, Aspartate Amino Transf (AST/SGOT) 137H, Alanine Aminotransferase (ALT/SGPT) 180H, Alkaline Phosphatase 147H, Total Protein 7.8, Albumin 1.8L, Globulin 6.0, Albumin/Globulin Ratio 0.3L Height (Feet): 5 Height (Inches): 9.00 Weight (Pounds): 196 General Appearance: no apparent distress Objective no change Curtis Lee MD Sep 13, 2019 13:21
--- NOTE | 2019-09-13 14:20 | Infectious Diseases Prog Note ---
Assessment/Plan Assessment/Plan IMPRESSION: Leukocytosis, Fever resolved Elevated transaminase & bilirubin ? CBD narrowing Displaced right wrist hardware mild dementia, stasis dermatitis of legs, hypertension, hyperlipidemia, hand arthritis. s/p cholecystectomy Fatty liver Hepatitis B RECOMMENDATION: HIV test Continue Zosyn Subjective ROS Limited/Unobtainable: No Constitutional: Reports: no symptoms Respiratory: Reports: no symptoms Cardiovascular: Reports: no symptoms Gastrointestinal/Abdominal: Reports: no symptoms Genitourinary: Reports: no symptoms Allergies: Coded Allergies: No Known Allergies (Unverified , 06/22/14) Objective Vital Signs Last 24 Hour Vital Signs Date Time Temp Pulse Resp B/P (MAP) Pulse Ox O2 Delivery O2 Flow Rate FiO2 09/13/19 12:00 97.5 89 17 110/69 (83) 97 09/13/19 09:00 Room Air 09/13/19 08:00 98.1 93 17 102/63 (76) 96 09/13/19 04:00 99.7 100 20 131/81 (98) 100 09/13/19 00:19 98.4 105 20 126/70 (88) 98 09/12/19 20:32 Room Air 09/12/19 20:00 99.5 107 20 131/71 (91) 98 09/12/19 16:00 98.4 110 20 130/70 (90) 96 Height (Feet): 5 Height (Inches): 9.00 Weight (Pounds): 196 HEENT: mucous membranes moist Respiratory/Chest: lungs clear Cardiovascular: normal rate Abdomen: soft, non tender Extremities: no edema Neurologic/Psychiatric: abnormal gait, alert, responsive Laboratory Tests Test 09/13/19 05:55 White Blood Count 12.7 K/UL (4.8-10.8) H Red Blood Count 4.02 M/UL (4.70-6.10) L Hemoglobin 10.8 G/DL (14.2-18.0) L Hematocrit 33.9 % (42.0-52.0) L Mean Corpuscular Volume 84 FL (80-99) Mean Corpuscular Hemoglobin 26.8 PG (27.0-31.0) L Mean Corpuscular Hemoglobin Concent 31.8 G/DL (32.0-36.0) L Red Cell Distribution Width 13.2 % (11.6-14.8) Platelet Count 398 K/UL (150-450) Mean Platelet Volume 7.2 FL (6.5-10.1) Neutrophils (%) (Auto) 73.1 % (45.0-75.0) Lymphocytes (%) (Auto) 18.2 % (20.0-45.0) L Monocytes (%) (Auto) 6.9 % (1.0-10.0) Eosinophils (%) (Auto) 1.2 % (0.0-3.0) Basophils (%) (Auto) 0.5 % (0.0-2.0) Prothrombin Time 11.7 SEC (9.30-11.50) H Prothromb Time International Ratio 1.1 (0.9-1.1) Sodium Level 132 MMOL/L (136-145) L Potassium Level 4.5 MMOL/L (3.5-5.1) Chloride Level 98 MMOL/L (98-107) Carbon Dioxide Level 28 MMOL/L (21-32) Anion Gap 6 mmol/L (5-15) Blood Urea Nitrogen 16 mg/dL (7-18) Creatinine 1.1 MG/DL (0.55-1.30) Estimat Glomerular Filtration Rate > 60 mL/min (>60) Glucose Level 109 MG/DL (74-106) H Calcium Level 8.8 MG/DL (8.5-10.1) Phosphorus Level 2.8 MG/DL (2.5-4.9) Magnesium Level 1.6 MG/DL (1.8-2.4) L Total Bilirubin 0.7 MG/DL (0.2-1.0) Aspartate Amino Transf (AST/SGOT) 137 U/L (15-37) H Alanine Aminotransferase (ALT/SGPT) 180 U/L (12-78) H Alkaline Phosphatase 147 U/L (46-116) H Total Protein 7.8 G/DL (6.4-8.2) Albumin 1.8 G/DL (3.4-5.0) L Globulin 6.0 g/dL Albumin/Globulin Ratio 0.3 (1.0-2.7) L Current Medications Medications (Trade) Dose Ordered Sig/Jl Route PRN Reason Start Time Stop Time Status Last Admin Dose Admin Acetaminophen (Tylenol) 650 mg Q6H PRN ORAL mild pain 09/06/19 16:20 10/06/19 16:19 09/09/19 21:44 Ascorbic Acid (Vitamin C) 500 mg DAILY ORAL 09/06/19 09:00 10/06/19 08:59 09/13/19 10:05 Bisacodyl (Dulcolax) 5 mg TWICE A DAY ORAL 09/06/19 09:00 10/06/19 08:59 09/13/19 10:04 Docusate Sodium (Colace) 250 mg DAILY ORAL 09/06/19 09:00 10/06/19 08:59 09/13/19 10:04 Gabapentin (Neurontin) 300 mg TID ORAL 09/06/19 09:00 10/06/19 08:59 09/13/19 14:07 Heparin Sodium (Porcine) (Heparin 5000 units/ml) 5,000 units EVERY 12 HOURS SUBQ 09/06/19 09:00 10/06/19 08:59 09/13/19 10:07 Magnesium Oxide (Mag-Ox 400mg) 400 mg THREE TIMES A DAY ORAL 09/09/19 13:00 10/09/19 12:59 09/13/19 14:07 Magnesium Sulfate 100 ml @ 100 mls/hr Q1H IVPB 09/13/19 13:30 09/13/19 17:29 09/13/19 13:40 Multivitamins (Multivitamins) 1 tab DAILY ORAL 09/07/19 09:00 10/07/19 08:59 09/13/19 10:05 Ondansetron HCl (Zofran) 4 mg Q6H PRN ORAL Nausea & Vomiting 09/05/19 23:00 10/05/19 22:59 Piperacillin Sod/ Tazobactam Sod 3.375 gm/Sodium Chloride 110 ml @ 27.5 mls/hr EVERY 8 HOURS IVPB 09/10/19 14:00 09/15/19 13:59 09/13/19 04:14 Potassium Chloride (K-Dur) 40 meq DAILY ORAL 09/14/19 09:00 10/06/19 08:59 Sodium Chloride 250 ml @ 30 mls/hr ONCE IV 09/13/19 15:00 09/13/19 23:19 Spironolactone (Aldactone) 25 mg DAILY ORAL 09/09/19 09:00 10/09/19 08:59 09/13/19 10:04 Tramadol HCl (Ultram) 100 mg Q6H PRN ORAL pain 4-10 09/12/19 10:30 09/19/19 09:08 Jesus Hernandez MD Sep 13, 2019 14:20
[2019-09-13] MEDS ORDERED: NaCl 3% 500ml 250 ML IV SCH (15:00)
[2019-09-13] MEDS ORDERED: Heparin1,000 units/500ml Premix(Conc:2 units/ml) IV PRN (17:45)
[2019-09-13] MEDS ORDERED: Lidocaine 1% Plain 30 ml INJ PRN (17:45)
--- NOTE | 2019-09-13 17:49 | Surgery Progress Note ---
Surgery Progress Note Subjective Symptoms: improved, tolerating diet, voiding well, passing flatus Objective Last 24 Hour Vital Signs Date Time Temp Pulse Resp B/P (MAP) Pulse Ox O2 Delivery O2 Flow Rate FiO2 09/13/19 12:00 97.5 89 17 110/69 (83) 97 09/13/19 09:00 Room Air 09/13/19 08:00 98.1 93 17 102/63 (76) 96 09/13/19 04:00 99.7 100 20 131/81 (98) 100 09/13/19 00:19 98.4 105 20 126/70 (88) 98 09/12/19 20:32 Room Air 09/12/19 20:00 99.5 107 20 131/71 (91) 98 I&O Intake and Output 09/12/19 09/13/19 19:00 07:00 Intake Total 600 ml 692.5 ml Output Total 650 ml 100 ml Balance -50 ml 592.5 ml Intake Oral 600 ml IV Total 692.5 ml Output Urine Total 650 ml Stool Total 100 ml # Voids 4 # Bowel Movements 1 1 Dressing: saturated Wound: clean Cardiovascular: RSR Respiratory: clear Abdomen: soft, non-tender, present bowel sounds Extremities: no cyanosis, other Laboratory Tests Test 09/13/19 05:55 White Blood Count 12.7 K/UL (4.8-10.8) H Red Blood Count 4.02 M/UL (4.70-6.10) L Hemoglobin 10.8 G/DL (14.2-18.0) L Hematocrit 33.9 % (42.0-52.0) L Mean Corpuscular Volume 84 FL (80-99) Mean Corpuscular Hemoglobin 26.8 PG (27.0-31.0) L Mean Corpuscular Hemoglobin Concent 31.8 G/DL (32.0-36.0) L Red Cell Distribution Width 13.2 % (11.6-14.8) Platelet Count 398 K/UL (150-450) Mean Platelet Volume 7.2 FL (6.5-10.1) Neutrophils (%) (Auto) 73.1 % (45.0-75.0) Lymphocytes (%) (Auto) 18.2 % (20.0-45.0) L Monocytes (%) (Auto) 6.9 % (1.0-10.0) Eosinophils (%) (Auto) 1.2 % (0.0-3.0) Basophils (%) (Auto) 0.5 % (0.0-2.0) Prothrombin Time 11.7 SEC (9.30-11.50) H Prothromb Time International Ratio 1.1 (0.9-1.1) Sodium Level 132 MMOL/L (136-145) L Potassium Level 4.5 MMOL/L (3.5-5.1) Chloride Level 98 MMOL/L (98-107) Carbon Dioxide Level 28 MMOL/L (21-32) Anion Gap 6 mmol/L (5-15) Blood Urea Nitrogen 16 mg/dL (7-18) Creatinine 1.1 MG/DL (0.55-1.30) Estimat Glomerular Filtration Rate > 60 mL/min (>60) Glucose Level 109 MG/DL (74-106) H Calcium Level 8.8 MG/DL (8.5-10.1) Phosphorus Level 2.8 MG/DL (2.5-4.9) Magnesium Level 1.6 MG/DL (1.8-2.4) L Total Bilirubin 0.7 MG/DL (0.2-1.0) Aspartate Amino Transf (AST/SGOT) 137 U/L (15-37) H Alanine Aminotransferase (ALT/SGPT) 180 U/L (12-78) H Alkaline Phosphatase 147 U/L (46-116) H Total Protein 7.8 G/DL (6.4-8.2) Albumin 1.8 G/DL (3.4-5.0) L Globulin 6.0 g/dL Albumin/Globulin Ratio 0.3 (1.0-2.7) L Plan Problems: (1) Pressure ulcer Assessment & Plan: DAILY ESTIMATED NEEDS: Needs based on Cardiac, pulm, obese 81.5kg adj 20-25 kcals/kg [id number] total kcals 1-1.5 g protein/kg 82-122 g total protein Fluid per MD, on lasix NUTRITION DIAGNOSIS: * Altered nutrition related lab values R/T clinical status as evidenced by low K(3.3). (CURRENT DIET: GOOD) PO DIET RECOMMENDATIONS: Rec Low NA/ Low Fat ADDITIONAL RECOMMENDATIONS: 1) Rec standing weight for accurate CBW -> OR recalibrated bed scale for accurate CBW -> On lasix, requiring daily wts 2) Check lytes daily for repletion (low K) 3) F/up w/ Wound care eval - etiology unknown MVI (2) Venous stasis ulcer Assessment & Plan: Patient presents with venous stasis ulcer on the left lower extremity. 4 cm x 3 cm x 2 mm deep. No active drainage mild serous oozing. No signs of acute active infection with but does have some erythema in the periwound. No purulent drainage. States he has had it for some time now and has been cared for an outside facility. Bilateral heel soft. Offload pressure from heels with pillow. Hydrogel impregnated gauze to ulcer bed followed by foam dressing. Wash lower extremities daily and apply skin protectant moisturizer followed by ABD and wrap duplex okay dressings changes daily improving will monitor and f/u with plan (3) Cellulitis (4) Wrist pain, acute Assessment & Plan: Procedure: XRAY Elbow Min 3v R Indication: Right elbow pain Findings: 3 views of the right elbow were obtained. No acute fractures, malalignment, erosions or periostitis are identified. Soft tissue swelling noted posterior part of the elbow. There is no joint effusion identified. Impression: No acute fracture. Soft tissue swelling noted There is severe arthrosis involving the carpal bones. The first carpal row including the scaphoid, lunate appear collapsed. There are multiple lucencies suggestive of cystic changes within the bones. The intercarpal joints are moderately narrowed. There are cystic changes in the base of the third and fourth metacarpals as well. There is a Alexandro screw partially within the scaphoid. This was likely placed for scaphoid fracture but has migrated medially and is partially embedded within the scaphoid and trapezium. There are severe erosive changes present within the intercarpal joints. There are severe erosive changes and deformity characterized by some articular collapse and cyst formation involving the second MCP joint. There is no acute fracture identified. IMPRESSION: No acute fracture identified. Evidence of severe polyarticular inflammatory arthritis characterized by subarticular erosions and cysts involving several of the intercarpal joints and the second MCP joint. Subsequent deformity and superimposed osteoarthritis noted. Displaced Alexandro screw, likely placed for a previous scaphoid fracture. Generalized soft tissue swelling. Findings: 3 views of the right shoulder were obtained. No acute fractures, malalignment, erosions or periostitis are identified. Bones are osteopenic. There is narrowing of the glenohumeral joint consistent with mild osteoarthritis. Soft tissues are unremarkable. Impression: Negative for acute injury displaced screw noted. seemingly chronic. outpatient hand sx consult (5) Status post fall (6) Transaminitis Assessment & Plan: lft's elevated US abd ordered - gb not visualize clinically no symptoms Impression: Cholelithiasis. No gallbladder wall thickening or evidence of pericholecystic inflammation No evidence of choledocholithiasis. However, there is questionably narrowing of the common hepatic duct which if real could indicate stricture or compression by tumor. Left lower quadrant descending colostomy/mucous fistula. There is a peristomal hernia which contains a few loops of small bowel. This does not appear to be obstructed or strangulated Small right pleural effusion Incidental findings as noted, including right interpolar region cyst, 2 upper pole splenic cysts, and scattered hepatic cysts stable parastomal hernia reducible Additional Comments d/c planning for placement Ricci Sharpe Sep 13, 2019 17:49
[2019-09-13] MEDS: Dyna-Hex 2% Top Sol 2oz TOPIC SCH (20:00)
--- NOTE | 2019-09-13 21:05 | General Progress Note ---
Assessment/Plan Problem List: (1) Hypokalemia ICD Codes: E87.6 - Hypokalemia SNOMED: 89289527 (2) Surgical screw in right hand ICD Codes: Z96.7 - Presence of other bone and tendon implants SNOMED: 852782880 Status: progressing Assessment/Plan: low k sepsis cleared by ortho afebrile abx per id check labs and lytes weak Subjective ROS Limited/Unobtainable: Yes Allergies: Coded Allergies: No Known Allergies (Unverified , 06/22/14) Objective Last 24 Hour Vital Signs Date Time Temp Pulse Resp B/P (MAP) Pulse Ox O2 Delivery O2 Flow Rate FiO2 09/13/19 12:00 97.5 89 17 110/69 (83) 97 09/13/19 09:00 Room Air 09/13/19 08:00 98.1 93 17 102/63 (76) 96 09/13/19 04:00 99.7 100 20 131/81 (98) 100 09/13/19 00:19 98.4 105 20 126/70 (88) 98 Intake and Output 09/12/19 09/13/19 19:00 07:00 Intake Total 600 ml 692.5 ml Output Total 650 ml 100 ml Balance -50 ml 592.5 ml Intake Oral 600 ml IV Total 692.5 ml Output Urine Total 650 ml Stool Total 100 ml # Voids 4 # Bowel Movements 1 1 Laboratory Tests 09/13/19 05:55: White Blood Count 12.7H, Red Blood Count 4.02L, Hemoglobin 10.8L, Hematocrit 33.9L, Mean Corpuscular Volume 84, Mean Corpuscular Hemoglobin 26.8L, Mean Corpuscular Hemoglobin Concent 31.8L, Red Cell Distribution Width 13.2, Platelet Count 398, Mean Platelet Volume 7.2, Neutrophils (%) (Auto) 73.1, Lymphocytes (%) (Auto) 18.2L, Monocytes (%) (Auto) 6.9, Eosinophils (%) (Auto) 1.2, Basophils (%) (Auto) 0.5, Prothrombin Time 11.7H, Prothromb Time International Ratio 1.1, Sodium Level 132L, Potassium Level 4.5, Chloride Level 98, Carbon Dioxide Level 28, Anion Gap 6, Blood Urea Nitrogen 16, Creatinine 1.1 , Estimat Glomerular Filtration Rate > 60, Glucose Level 109H, Calcium Level 8.8 , Phosphorus Level 2.8, Magnesium Level 1.6L, Total Bilirubin 0.7, Aspartate Amino Transf (AST/SGOT) 137H, Alanine Aminotransferase (ALT/SGPT) 180H, Alkaline Phosphatase 147H, Total Protein 7.8, Albumin 1.8L, Globulin 6.0, Albumin/Globulin Ratio 0.3L Height (Feet): 5 Height (Inches): 9.00 Weight (Pounds): 196 Cardiovascular: regular rhythm Respiratory/Chest: lungs clear Abdomen: soft Jono Quiros MD Sep 13, 2019 21:05
[2019-09-14] VITALS (10 sets, daily range): BP systolic 102–134; BP diastolic 62–80
[2019-09-14] MEDS: Piperacillin/Tazobactam 3.375 GM in NS 110 ML IVPB SCH ×3 (06:14→21:17)
[2019-09-14 06:52] LABS: BASOPHILS % (AUTO) 0.2 % (0.0-2.0); HEMOGLOBIN 10.8 G/DL (14.2-18.0); LYMPHOCYTES % (AUTO) 19.1 % (20.0-45.0); MEAN CORPUSCULAR VOLUME 83 FL (80-99); MONOCYTES % (AUTO) 5.5 % (1.0-10.0); NEUTROPHILS % (AUTO) 73.2 % (45.0-75.0); PLATELET COUNT 462 K/UL (150-450); RED BLOOD COUNT 4.08 M/UL (4.70-6.10); RED CELL DISTRIBUTION WIDTH 13.4 % (11.6-14.8); WHITE BLOOD COUNT 11.3 K/UL (4.8-10.8)
[2019-09-14 07:23] LABS: ALANINE AMINOTRANSFERASE 140 U/L (12-78); ALBUMIN 1.8 G/DL (3.4-5.0); ALBUMIN/GLOBULIN RATIO 0.3 (1.0-2.7); ALKALINE PHOSPHATASE 137 U/L (46-116); ANION GAP 2 mmol/L (5-15); ASPARTATE AMINO TRANSFERASE 74 U/L (15-37); BILIRUBIN,TOTAL 0.4 MG/DL (0.2-1.0); BLOOD UREA NITROGEN 18 mg/dL (7-18); CALCIUM 8.8 MG/DL (8.5-10.1); CARBON DIOXIDE 28 MMOL/L (21-32); CHLORIDE 101 MMOL/L (98-107); PHOSPHORUS 3.1 MG/DL (2.5-4.9); POTASSIUM 4.1 MMOL/L (3.5-5.1); SODIUM 131 MMOL/L (136-145)
--- NOTE | 2019-09-14 08:58 | General Progress Note ---
Assessment/Plan Assessment/Plan: (1) Right wrist pain (2) H/O Right wrist fracture and ORIF (3) Osteoarthritis (4) Hardware displacement Patient will be continued on tramadol and Tylenol as needed D/w Dr. Trevino and he concurred. Subjective Date patient seen: Sep 14, 2019 Time patient seen: 08:15 - am Allergies: Coded Allergies: No Known Allergies (Unverified , 06/22/14) Subjective Constitutional: Reports: weakness HEENT: Reports: no symptoms Cardiovascular: Reports: no symptoms Respiratory: Reports: no symptoms Gastrointestinal/Abdominal: Reports: no symptoms Genitourinary: Reports: no symptoms Neurologic/Psychiatric: Reports: weakness Endocrine: Reports: no symptoms Hematologic/Lymphatic: Reports: no symptoms Subjective Patient is in bed states he has no pain at this time. Has not requested the Tramadol in the last 24hrs. No new complaints at this time. Objective Last 24 Hour Vital Signs Date Time Temp Pulse Resp B/P (MAP) Pulse Ox O2 Delivery O2 Flow Rate FiO2 09/14/19 04:00 97.7 77 18 134/74 (94) 100 09/13/19 23:58 98.8 92 18 118/69 (85) 96 09/13/19 21:00 Room Air 09/13/19 20:00 99.0 95 18 114/61 (78) 96 09/13/19 16:00 97.7 80 18 114/63 (80) 98 09/13/19 12:00 97.5 89 17 110/69 (83) 97 09/13/19 09:00 Room Air Intake and Output 09/13/19 09/14/19 19:00 07:00 Intake Total 1547.5 ml 290.0 ml Output Total 1250 ml 900 ml Balance 297.5 ml -610.0 ml Intake Oral 120 ml IV Total 227.5 ml 290.0 ml Other 1200 ml Output Urine Total 850 ml 900 ml Stool Total 400 ml # Bowel Movements 1 Laboratory Tests 09/14/19 06:35: White Blood Count 11.3H, Red Blood Count 4.08L, Hemoglobin 10.8L, Hematocrit 34.0L, Mean Corpuscular Volume 83, Mean Corpuscular Hemoglobin 26.6L, Mean Corpuscular Hemoglobin Concent 31.9L, Red Cell Distribution Width 13.4, Platelet Count 462H, Mean Platelet Volume 6.4L, Neutrophils (%) (Auto) 73.2, Lymphocytes (%) (Auto) 19.1L, Monocytes (%) (Auto) 5.5, Eosinophils (%) (Auto) 2.0, Basophils (%) (Auto) 0.2, Sodium Level 131L, Potassium Level 4.1, Chloride Level 101, Carbon Dioxide Level 28, Anion Gap 2L, Blood Urea Nitrogen 18, Creatinine 1.0, Estimat Glomerular Filtration Rate > 60, Glucose Level 119H, Uric Acid 5.1, Calcium Level 8.8, Phosphorus Level 3.1, Magnesium Level 2.1, Total Bilirubin 0.4, Aspartate Amino Transf (AST/SGOT) 74H, Alanine Aminotransferase (ALT/SGPT) 140H, Alkaline Phosphatase 137H, Total Protein 7.4, Albumin 1.8L, Globulin 5.6, Albumin/Globulin Ratio 0.3L, HIV (1&2) Antibody Rapid Negative Height (Feet): 5 Height (Inches): 9.00 Weight (Pounds): 196 Objective General Appearance: no apparent distress, alert EENT: PERRL/EOMI, normal ENT inspection Neck: non-tender, normal alignment Cardiovascular: normal rate, regular rhythm Respiratory/Chest: lungs clear, normal breath sounds Abdomen: non tender, soft Edema: no edema noted Generalized Neurologic: alert, oriented x 3 Skin: normal pigmentation Lokesh Pierce Sep 14, 2019 08:58
[2019-09-14] MEDS: Bisacodyl EC 5mg tab ORAL SCH ×2 (09:00→19:40)
[2019-09-14] MEDS: Heparin 5000 units/ml inj SUBQ SCH ×2 (09:00→21:16)
[2019-09-14] MEDS: Docusate 250mg cap ORAL SCH (09:00)
[2019-09-14] MEDS: Ascorbic Acid 500mg tab ORAL SCH (09:00)
[2019-09-14] MEDS: Spironolactone 25mg tab ORAL SCH (09:29)
[2019-09-14] MEDS: Magnesium Oxide 400mg tab ORAL SCH ×3 (09:30→19:40)
[2019-09-14] MEDS ORDERED: NaCl 3% 500ml 250 ML IV ONE (10:00)
[2019-09-14] MEDS ORDERED: Succinylcholine 20mg/ml 10ml vial ONE (11:46)
[2019-09-14] MEDS ORDERED: Iothalamate Meglumine 60% 30ML INJ ONE (12:09)
--- NOTE | 2019-09-14 12:11 | Pre-Procedure Note/Attestation ---
Pre-Procedure Note/Attestation Complete Prior to Procedure Planned Procedure: not applicable Procedure Narrative: ercp Indications for Procedure Pre-Operative Diagnosis: biliary stricture Attestation I attest that I discussed the nature of the procedure; its benefits; risks and complications; and alternatives (and the risks and benefits of such alternatives ), prior to the procedure, with the patient (or the patient's legal lead customer service representative). I attest that, if there was a reasonable possibility of needing a blood transfusion, the patient (or the patient's legal lead customer service representative) was given the [facility] standardized written summary, pursuant to the Geovani Deidra Blood Safety Act ([place] Health and Safety Code # 1645, as amended). I attest that I re-evaluated the patient just prior to the surgery and that there has been no change in the patient's H&P, except as documented below: Dimas Petersen MD Sep 14, 2019 12:11
[2019-09-14] MEDS ORDERED: NS 500ML IVPB ONE (12:42)
--- NOTE | 2019-09-14 13:13 | Endoscopy Procedure Note ---
Endoscopy Procedure Note General Indication for Procedure: biliary stricture Procedures Performed: ERCP Operative Findings/Diagnosis: same Specimen: yes Pt Tolerated Procedure Well: Yes Estimated Blood Loss: none Anesthesia Anesthesiologist: keara Anesthesia: MAC Inserted Devices Implant(s) used?: No GI Core Measures 50 yrs or older w/o bx or poly: Not Applicable 10yrs. F/U recommended: Not Applicable Dimas Petersen MD Sep 14, 2019 13:13
--- NOTE | 2019-09-14 13:14 | Nephrology Progress Note ---
Assessment/Plan Problem List: (1) Hypokalemia (2) Hyponatremia (3) Colostomy care (4) Leukocytosis Assessment Surgical screw in right hand Displaced surgical screw of the right hand Hyponatremia Mild Azotemia Low K h/o UGI bleed Colostomy care Plan down on kcl dose- 3% saline and Mag IV k and Mag Phos supplement as needed Monitor Lytes adjust diuretics Per orders Subjective ROS Limited/Unobtainable: No Constitutional: Reports: malaise, weakness Objective Objective Last 24 Hour Vital Signs Date Time Temp Pulse Resp B/P (MAP) Pulse Ox O2 Delivery O2 Flow Rate FiO2 09/14/19 12:00 97.7 83 20 103/66 (78) 95 09/14/19 09:00 Room Air 09/14/19 08:00 98.1 86 18 107/63 (78) 97 09/14/19 04:00 97.7 77 18 134/74 (94) 100 09/13/19 23:58 98.8 92 18 118/69 (85) 96 09/13/19 21:00 Room Air 09/13/19 20:00 99.0 95 18 114/61 (78) 96 09/13/19 16:00 97.7 80 18 114/63 (80) 98 Intake and Output 09/13/19 09/14/19 19:00 07:00 Intake Total 1547.5 ml 290.0 ml Output Total 1250 ml 900 ml Balance 297.5 ml -610.0 ml Intake Oral 120 ml IV Total 227.5 ml 290.0 ml Other 1200 ml Output Urine Total 850 ml 900 ml Stool Total 400 ml # Bowel Movements 1 Laboratory Tests 09/14/19 06:35: White Blood Count 11.3H, Red Blood Count 4.08L, Hemoglobin 10.8L, Hematocrit 34.0L, Mean Corpuscular Volume 83, Mean Corpuscular Hemoglobin 26.6L, Mean Corpuscular Hemoglobin Concent 31.9L, Red Cell Distribution Width 13.4, Platelet Count 462H, Mean Platelet Volume 6.4L, Neutrophils (%) (Auto) 73.2, Lymphocytes (%) (Auto) 19.1L, Monocytes (%) (Auto) 5.5, Eosinophils (%) (Auto) 2.0, Basophils (%) (Auto) 0.2, Sodium Level 131L, Potassium Level 4.1, Chloride Level 101, Carbon Dioxide Level 28, Anion Gap 2L, Blood Urea Nitrogen 18, Creatinine 1.0, Estimat Glomerular Filtration Rate > 60, Glucose Level 119H, Uric Acid 5.1, Calcium Level 8.8, Phosphorus Level 3.1, Magnesium Level 2.1, Total Bilirubin 0.4, Aspartate Amino Transf (AST/SGOT) 74H, Alanine Aminotransferase (ALT/SGPT) 140H, Alkaline Phosphatase 137H, Total Protein 7.4, Albumin 1.8L, Globulin 5.6, Albumin/Globulin Ratio 0.3L, HIV (1&2) Antibody Rapid Negative Height (Feet): 5 Height (Inches): 9.00 Weight (Pounds): 196 General Appearance: no apparent distress Cardiovascular: normal rate Respiratory/Chest: decreased breath sounds Abdomen: distended Objective no change Curtis Lee MD Sep 14, 2019 13:14
--- NOTE | 2019-09-14 13:29 | Anethesia Preoperative Eval ---
Anesthesia Pre-op PMH/ROS General Date of Evaluation: Sep 14, 2019 Time of Evaluation: 12:38 Anesthesiologist: ck ASA Score: ASA 3 Mallampati Score Class I : Soft palate, uvula, fauces, pillars visible Class II: Soft palate, uvula, fauces visible Class III: Soft palate, base of uvula visible Class IV: Only hard plate visible Mallampati Classification: Class II Surgeon: kamilah Diagnosis: Bilitary stricture Surgical Procedure: ERCP Anesthesia History: none Family History: no anesthesia problems Allergies: Coded Allergies: No Known Allergies (Unverified , 06/22/14) Medications: see eMAR Patient NPO?: Yes NPO Date: Sep 14, 2019 NPO Time: 00:01 Past Medical History Cardiovascular: Reports: HTN; Denies: CAD, [place], valve dz, arrhythmia, other Pulmonary: Denies: asthma, COPD, [place], other Gastrointestinal/Genitourinary: Reports: CRI, other - Hep B Neurologic/Psychiatric: Denies: dementia, CVA, depression/anxiety, TIA, other Endocrine: Denies: DM, hypothyroidism, steroids, other HEENT: Denies: cataract (L), cataract (R), glaucoma, [place] (L), [place] (R), other Hematology/Immune: Reports: anemia Other: other - Chronic pain PMH Narrative: (1) Right wrist pain (2) H/O Right wrist fracture and ORIF (3) Osteoarthritis (4) Hardware displacement 5. Multiple sores on legs PSxH Narrative: colostomy Anesthesia Pre-op Phys. Exam Physician Exam Last Vital Signs Date Time Temp Pulse Resp B/P (MAP) Pulse Ox O2 Delivery O2 Flow Rate FiO2 09/14/19 12:00 97.7 83 20 103/66 (78) 95 09/14/19 09:00 Room Air Constitutional: NAD Neurologic: CN 2-12 intact Cardiovascular: RRR Respiratory: CTA Gastrointestinal: S/NT/ND Airway Exam Mallampati Classification 3 Mallampati Score: Class III MO: full Neck: thick TMD: 2fb ROM: full Dentures: no upper, no lower Anesthesia Pre-op A/P Labs Hematology Test 09/14/19 06:35 White Blood Count 11.3 K/UL (4.8-10.8) H Red Blood Count 4.08 M/UL (4.70-6.10) L Hemoglobin 10.8 G/DL (14.2-18.0) L Hematocrit 34.0 % (42.0-52.0) L Mean Corpuscular Volume 83 FL (80-99) Mean Corpuscular Hemoglobin 26.6 PG (27.0-31.0) L Mean Corpuscular Hemoglobin Concent 31.9 G/DL (32.0-36.0) L Red Cell Distribution Width 13.4 % (11.6-14.8) Platelet Count 462 K/UL (150-450) H Mean Platelet Volume 6.4 FL (6.5-10.1) L Neutrophils (%) (Auto) 73.2 % (45.0-75.0) Lymphocytes (%) (Auto) 19.1 % (20.0-45.0) L Monocytes (%) (Auto) 5.5 % (1.0-10.0) Eosinophils (%) (Auto) 2.0 % (0.0-3.0) Basophils (%) (Auto) 0.2 % (0.0-2.0) Chemistry Test 09/14/19 06:35 Sodium Level 131 MMOL/L (136-145) L Potassium Level 4.1 MMOL/L (3.5-5.1) Chloride Level 101 MMOL/L (98-107) Carbon Dioxide Level 28 MMOL/L (21-32) Anion Gap 2 mmol/L (5-15) L Blood Urea Nitrogen 18 mg/dL (7-18) Creatinine 1.0 MG/DL (0.55-1.30) Estimat Glomerular Filtration Rate > 60 mL/min (>60) Glucose Level 119 MG/DL (74-106) H Uric Acid 5.1 MG/DL (2.6-7.2) Calcium Level 8.8 MG/DL (8.5-10.1) Phosphorus Level 3.1 MG/DL (2.5-4.9) Magnesium Level 2.1 MG/DL (1.8-2.4) Total Bilirubin 0.4 MG/DL (0.2-1.0) Aspartate Amino Transf (AST/SGOT) 74 U/L (15-37) H Alanine Aminotransferase (ALT/SGPT) 140 U/L (12-78) H Alkaline Phosphatase 137 U/L (46-116) H Total Protein 7.4 G/DL (6.4-8.2) Albumin 1.8 G/DL (3.4-5.0) L Globulin 5.6 g/dL Albumin/Globulin Ratio 0.3 (1.0-2.7) L Studies Pre-op Studies: EKG - SR Risk Assessment & Plan Assessment: denies changes in health Plan: General Status Change Before Surgery: No Pre-Antibiotics Drug: Declined Shalonda Thompson CRNA Sep 14, 2019 13:29
--- NOTE | 2019-09-14 13:34 | Immediate Post-Op Evaluation ---
Immediate Post-Op Evalulation Immediate Post-Op Evalulation Procedure: ERCP Date of Evaluation: Sep 14, 2019 Time of Evaluation: 13:25 IV Fluids: 300 Blood Pressure Systolic: 106 Blood Pressure Diastolic: 70 Pulse Rate: 87 Respiratory Rate: 14 O2 Sat by Pulse Oximetry: 98 Temperature (Fahrenheit): 97.5 Nausea: No Vomiting: No Complications none Patient Status: awake, reacts, patent Hydration Status: adequate Drug: none Shalonda Thompson CRNA Sep 14, 2019 13:34
[2019-09-14] MEDS ORDERED: fentaNYL 100 mcg/2 mL IV ONE (14:01)
--- NOTE | 2019-09-14 15:32 | Surgery Progress Note ---
Surgery Progress Note Subjective Symptoms: improved, tolerating diet, voiding well, passing flatus, pain decreased Objective Last 24 Hour Vital Signs Date Time Temp Pulse Resp B/P (MAP) Pulse Ox O2 Delivery O2 Flow Rate FiO2 09/14/19 13:49 97.6 83 23 104/74 95 Nasal Cannula 3 09/14/19 13:40 84 24 104/69 94 Nasal Cannula 3 09/14/19 13:34 87 14 98 09/14/19 13:30 87 22 106/70 93 Room Air 09/14/19 13:25 88 18 123/78 96 Simple Mask 6 09/14/19 13:20 97.7 90 14 120/80 97 Simple Mask 6 09/14/19 12:00 97.7 83 20 103/66 (78) 95 09/14/19 09:00 Room Air 09/14/19 08:00 98.1 86 18 107/63 (78) 97 09/14/19 04:00 97.7 77 18 134/74 (94) 100 09/13/19 23:58 98.8 92 18 118/69 (85) 96 09/13/19 21:00 Room Air 09/13/19 20:00 99.0 95 18 114/61 (78) 96 09/13/19 16:00 97.7 80 18 114/63 (80) 98 I&O Intake and Output 09/13/19 09/14/19 19:00 07:00 Intake Total 1547.5 ml 290.0 ml Output Total 1250 ml 900 ml Balance 297.5 ml -610.0 ml Intake Oral 120 ml IV Total 227.5 ml 290.0 ml Other 1200 ml Output Urine Total 850 ml 900 ml Stool Total 400 ml # Bowel Movements 1 Dressing: dry Wound: clean Cardiovascular: RSR Respiratory: clear Abdomen: soft, non-tender, present bowel sounds Extremities: no cyanosis, other Laboratory Tests Test 09/14/19 06:35 White Blood Count 11.3 K/UL (4.8-10.8) H Red Blood Count 4.08 M/UL (4.70-6.10) L Hemoglobin 10.8 G/DL (14.2-18.0) L Hematocrit 34.0 % (42.0-52.0) L Mean Corpuscular Volume 83 FL (80-99) Mean Corpuscular Hemoglobin 26.6 PG (27.0-31.0) L Mean Corpuscular Hemoglobin Concent 31.9 G/DL (32.0-36.0) L Red Cell Distribution Width 13.4 % (11.6-14.8) Platelet Count 462 K/UL (150-450) H Mean Platelet Volume 6.4 FL (6.5-10.1) L Neutrophils (%) (Auto) 73.2 % (45.0-75.0) Lymphocytes (%) (Auto) 19.1 % (20.0-45.0) L Monocytes (%) (Auto) 5.5 % (1.0-10.0) Eosinophils (%) (Auto) 2.0 % (0.0-3.0) Basophils (%) (Auto) 0.2 % (0.0-2.0) Sodium Level 131 MMOL/L (136-145) L Potassium Level 4.1 MMOL/L (3.5-5.1) Chloride Level 101 MMOL/L (98-107) Carbon Dioxide Level 28 MMOL/L (21-32) Anion Gap 2 mmol/L (5-15) L Blood Urea Nitrogen 18 mg/dL (7-18) Creatinine 1.0 MG/DL (0.55-1.30) Estimat Glomerular Filtration Rate > 60 mL/min (>60) Glucose Level 119 MG/DL (74-106) H Uric Acid 5.1 MG/DL (2.6-7.2) Calcium Level 8.8 MG/DL (8.5-10.1) Phosphorus Level 3.1 MG/DL (2.5-4.9) Magnesium Level 2.1 MG/DL (1.8-2.4) Total Bilirubin 0.4 MG/DL (0.2-1.0) Aspartate Amino Transf (AST/SGOT) 74 U/L (15-37) H Alanine Aminotransferase (ALT/SGPT) 140 U/L (12-78) H Alkaline Phosphatase 137 U/L (46-116) H Total Protein 7.4 G/DL (6.4-8.2) Albumin 1.8 G/DL (3.4-5.0) L Globulin 5.6 g/dL Albumin/Globulin Ratio 0.3 (1.0-2.7) L HIV (1&2) Antibody Rapid Negative (NEGATIVE) Plan Problems: (1) Pressure ulcer Assessment & Plan: DAILY ESTIMATED NEEDS: Needs based on Cardiac, pulm, obese 81.5kg adj 20-25 kcals/kg [id number] total kcals 1-1.5 g protein/kg 82-122 g total protein Fluid per MD, on lasix NUTRITION DIAGNOSIS: * Altered nutrition related lab values R/T clinical status as evidenced by low K(3.3). (CURRENT DIET: GOOD) PO DIET RECOMMENDATIONS: Rec Low NA/ Low Fat ADDITIONAL RECOMMENDATIONS: 1) Rec standing weight for accurate CBW -> OR recalibrated bed scale for accurate CBW -> On lasix, requiring daily wts 2) Check lytes daily for repletion (low K) 3) F/up w/ Wound care eval - etiology unknown MVI (2) Venous stasis ulcer Assessment & Plan: Patient presents with venous stasis ulcer on the left lower extremity. 4 cm x 3 cm x 2 mm deep. No active drainage mild serous oozing. No signs of acute active infection with but does have some erythema in the periwound. No purulent drainage. States he has had it for some time now and has been cared for an outside facility. Bilateral heel soft. Offload pressure from heels with pillow. Hydrogel impregnated gauze to ulcer bed followed by foam dressing. Wash lower extremities daily and apply skin protectant moisturizer followed by ABD and wrap duplex okay dressings changes daily improving will monitor and f/u with plan (3) Cellulitis (4) Wrist pain, acute Assessment & Plan: Procedure: XRAY Elbow Min 3v R Indication: Right elbow pain Findings: 3 views of the right elbow were obtained. No acute fractures, malalignment, erosions or periostitis are identified. Soft tissue swelling noted posterior part of the elbow. There is no joint effusion identified. Impression: No acute fracture. Soft tissue swelling noted There is severe arthrosis involving the carpal bones. The first carpal row including the scaphoid, lunate appear collapsed. There are multiple lucencies suggestive of cystic changes within the bones. The intercarpal joints are moderately narrowed. There are cystic changes in the base of the third and fourth metacarpals as well. There is a Alexandro screw partially within the scaphoid. This was likely placed for scaphoid fracture but has migrated medially and is partially embedded within the scaphoid and trapezium. There are severe erosive changes present within the intercarpal joints. There are severe erosive changes and deformity characterized by some articular collapse and cyst formation involving the second MCP joint. There is no acute fracture identified. IMPRESSION: No acute fracture identified. Evidence of severe polyarticular inflammatory arthritis characterized by subarticular erosions and cysts involving several of the intercarpal joints and the second MCP joint. Subsequent deformity and superimposed osteoarthritis noted. Displaced Alexandro screw, likely placed for a previous scaphoid fracture. Generalized soft tissue swelling. Findings: 3 views of the right shoulder were obtained. No acute fractures, malalignment, erosions or periostitis are identified. Bones are osteopenic. There is narrowing of the glenohumeral joint consistent with mild osteoarthritis. Soft tissues are unremarkable. Impression: Negative for acute injury displaced screw noted. seemingly chronic. outpatient hand sx consult (5) Status post fall (6) Transaminitis Assessment & Plan: lft's elevated US abd ordered - gb not visualize clinically no symptoms Impression: Cholelithiasis. No gallbladder wall thickening or evidence of pericholecystic inflammation No evidence of choledocholithiasis. However, there is questionably narrowing of the common hepatic duct which if real could indicate stricture or compression by tumor. Left lower quadrant descending colostomy/mucous fistula. There is a peristomal hernia which contains a few loops of small bowel. This does not appear to be obstructed or strangulated Small right pleural effusion Incidental findings as noted, including right interpolar region cyst, 2 upper pole splenic cysts, and scattered hepatic cysts stable parastomal hernia reducible Ricci Sharpe Sep 14, 2019 15:32
--- NOTE | 2019-09-14 15:59 | Diagnostic Imaging Report ---
INDICATION: Pain, intraoperative TECHNIQUE: Intraoperative imaging Fluoroscopy time: 155 seconds Total dose: 1.4 mGym2 Total number of images: 8 COMPARISON: Reference made to MRCP 09/11/2019 FINDINGS: Intraoperative images demonstrate normal caliber common bile duct and common hepatic duct, without evidence of the apparent narrowing reported on recent MRCP IMPRESSION: Normal caliber bile ducts. No evidence of apparent stricture reported on recent MRCP which is most likely artifactual
--- NOTE | 2019-09-14 17:26 | Infectious Diseases Prog Note ---
Assessment/Plan Assessment/Plan IMPRESSION: Leukocytosis, Fever resolved Elevated transaminase & bilirubin ? CBD narrowing Displaced right wrist hardware mild dementia, stasis dermatitis of legs, hypertension, hyperlipidemia, hand arthritis. s/p cholecystectomy Fatty liver Chronic Hepatitis B Biliary stricture RECOMMENDATION: HIV test negative Continue Zosyn until tomorrow Case was D/W GI specialist Waiting for hep B viral load Subjective ROS Limited/Unobtainable: Yes Constitutional: Denies: fever Gastrointestinal/Abdominal: Reports: other - had ERCP today Allergies: Coded Allergies: No Known Allergies (Unverified , 06/22/14) Objective Vital Signs Last 24 Hour Vital Signs Date Time Temp Pulse Resp B/P (MAP) Pulse Ox O2 Delivery O2 Flow Rate FiO2 09/14/19 13:49 97.6 83 23 104/74 95 Nasal Cannula 3 09/14/19 13:40 84 24 104/69 94 Nasal Cannula 3 09/14/19 13:34 87 14 98 09/14/19 13:30 87 22 106/70 93 Room Air 09/14/19 13:25 88 18 123/78 96 Simple Mask 6 09/14/19 13:20 97.7 90 14 120/80 97 Simple Mask 6 09/14/19 12:00 97.7 83 20 103/66 (78) 95 09/14/19 09:00 Room Air 09/14/19 08:00 98.1 86 18 107/63 (78) 97 09/14/19 04:00 97.7 77 18 134/74 (94) 100 09/13/19 23:58 98.8 92 18 118/69 (85) 96 09/13/19 21:00 Room Air 09/13/19 20:00 99.0 95 18 114/61 (78) 96 Height (Feet): 5 Height (Inches): 9.00 Weight (Pounds): 196 General Appearance: no acute distress HEENT: mucous membranes moist Respiratory/Chest: lungs clear Cardiovascular: normal rate Abdomen: soft, non tender Extremities: no edema Neurologic/Psychiatric: other - sleeping Laboratory Tests Test 09/14/19 06:35 White Blood Count 11.3 K/UL (4.8-10.8) H Red Blood Count 4.08 M/UL (4.70-6.10) L Hemoglobin 10.8 G/DL (14.2-18.0) L Hematocrit 34.0 % (42.0-52.0) L Mean Corpuscular Volume 83 FL (80-99) Mean Corpuscular Hemoglobin 26.6 PG (27.0-31.0) L Mean Corpuscular Hemoglobin Concent 31.9 G/DL (32.0-36.0) L Red Cell Distribution Width 13.4 % (11.6-14.8) Platelet Count 462 K/UL (150-450) H Mean Platelet Volume 6.4 FL (6.5-10.1) L Neutrophils (%) (Auto) 73.2 % (45.0-75.0) Lymphocytes (%) (Auto) 19.1 % (20.0-45.0) L Monocytes (%) (Auto) 5.5 % (1.0-10.0) Eosinophils (%) (Auto) 2.0 % (0.0-3.0) Basophils (%) (Auto) 0.2 % (0.0-2.0) Sodium Level 131 MMOL/L (136-145) L Potassium Level 4.1 MMOL/L (3.5-5.1) Chloride Level 101 MMOL/L (98-107) Carbon Dioxide Level 28 MMOL/L (21-32) Anion Gap 2 mmol/L (5-15) L Blood Urea Nitrogen 18 mg/dL (7-18) Creatinine 1.0 MG/DL (0.55-1.30) Estimat Glomerular Filtration Rate > 60 mL/min (>60) Glucose Level 119 MG/DL (74-106) H Uric Acid 5.1 MG/DL (2.6-7.2) Calcium Level 8.8 MG/DL (8.5-10.1) Phosphorus Level 3.1 MG/DL (2.5-4.9) Magnesium Level 2.1 MG/DL (1.8-2.4) Total Bilirubin 0.4 MG/DL (0.2-1.0) Aspartate Amino Transf (AST/SGOT) 74 U/L (15-37) H Alanine Aminotransferase (ALT/SGPT) 140 U/L (12-78) H Alkaline Phosphatase 137 U/L (46-116) H Total Protein 7.4 G/DL (6.4-8.2) Albumin 1.8 G/DL (3.4-5.0) L Globulin 5.6 g/dL Albumin/Globulin Ratio 0.3 (1.0-2.7) L HIV (1&2) Antibody Rapid Negative (NEGATIVE) Current Medications Medications (Trade) Dose Ordered Sig/Jl Route PRN Reason Start Time Stop Time Status Last Admin Dose Admin Acetaminophen (Tylenol) 650 mg Q6H PRN ORAL mild pain 09/06/19 16:20 10/06/19 16:19 09/09/19 21:44 Ascorbic Acid (Vitamin C) 500 mg DAILY ORAL 09/06/19 09:00 10/06/19 08:59 09/13/19 10:05 Bisacodyl (Dulcolax) 5 mg TWICE A DAY ORAL 09/06/19 09:00 10/06/19 08:59 09/13/19 19:18 Chlorhexidine Gluconate (Robyn-Hex 2%) 1 applic DAILY@2000 TOPIC 09/13/19 20:00 10/13/19 19:59 Docusate Sodium (Colace) 250 mg DAILY ORAL 09/06/19 09:00 10/06/19 08:59 09/13/19 10:04 Gabapentin (Neurontin) 300 mg TID ORAL 09/06/19 09:00 10/06/19 08:59 09/14/19 09:29 Heparin Sodium (Porcine) (Heparin 5000 units/ml) 5,000 units EVERY 12 HOURS SUBQ 09/06/19 09:00 10/06/19 08:59 09/13/19 20:54 Magnesium Oxide (Mag-Ox 400mg) 400 mg THREE TIMES A DAY ORAL 09/09/19 13:00 10/09/19 12:59 09/14/19 09:30 Multivitamins (Multivitamins) 1 tab DAILY ORAL 09/07/19 09:00 10/07/19 08:59 09/13/19 10:05 Ondansetron HCl (Zofran) 4 mg Q6H PRN ORAL Nausea & Vomiting 09/05/19 23:00 10/05/19 22:59 Piperacillin Sod/ Tazobactam Sod 3.375 gm/Sodium Chloride 110 ml @ 27.5 mls/hr EVERY 8 HOURS IVPB 09/10/19 14:00 09/15/19 13:59 09/14/19 14:49 Potassium Chloride (K-Dur) 40 meq DAILY ORAL 09/14/19 09:00 10/06/19 08:59 Sodium Chloride 250 ml @ 30 mls/hr ONCE ONCE IV 09/14/19 10:00 09/14/19 18:19 09/14/19 10:26 Spironolactone (Aldactone) 25 mg DAILY ORAL 09/09/19 09:00 10/09/19 08:59 09/14/19 09:29 Tramadol HCl (Ultram) 100 mg Q6H PRN ORAL pain 4-10 09/12/19 10:30 09/19/19 09:08 Jesus Hernandez MD Sep 14, 2019 17:26
--- NOTE | 2019-09-14 19:00 | Cardiology Progress Note ---
Assessment/Plan Assessment/Plan 1. Sinus tachycardia, resolved, likely inflammation or infection, the patient being febrile, worsening of leukocytosis, IV ABx, hydration. 2. Hx of HTN 3. Mechanical fall with no syncope, 2D echo reveals normal LV systolic and diastolic function. 4. GIDEON, resolved. 5. Elevated transaminase. 6. Hyponatremia. 7. Pressure ulcer 8. Venous insufficiency Subjective Subjective No cardiac events reported. Denies chest pain or SOB. Objective Last 24 Hour Vital Signs Date Time Temp Pulse Resp B/P (MAP) Pulse Ox O2 Delivery O2 Flow Rate FiO2 09/14/19 13:49 97.6 83 23 104/74 95 Nasal Cannula 3 09/14/19 13:40 84 24 104/69 94 Nasal Cannula 3 09/14/19 13:34 87 14 98 09/14/19 13:30 87 22 106/70 93 Room Air 09/14/19 13:25 88 18 123/78 96 Simple Mask 6 09/14/19 13:20 97.7 90 14 120/80 97 Simple Mask 6 09/14/19 12:00 97.7 83 20 103/66 (78) 95 09/14/19 09:00 Room Air 09/14/19 08:00 98.1 86 18 107/63 (78) 97 09/14/19 04:00 97.7 77 18 134/74 (94) 100 09/13/19 23:58 98.8 92 18 118/69 (85) 96 09/13/19 21:00 Room Air 09/13/19 20:00 99.0 95 18 114/61 (78) 96 Intake and Output 09/13/19 09/14/19 19:00 07:00 Intake Total 1547.5 ml 290.0 ml Output Total 1250 ml 900 ml Balance 297.5 ml -610.0 ml Intake Oral 120 ml IV Total 227.5 ml 290.0 ml Other 1200 ml Output Urine Total 850 ml 900 ml Stool Total 400 ml # Bowel Movements 1 2D Echo: LVEF 55%, Normal LV Diastolic Fxn, RVSP 12 mmHg Laboratory Tests Test 09/14/19 06:35 White Blood Count 11.3 K/UL (4.8-10.8) H Red Blood Count 4.08 M/UL (4.70-6.10) L Hemoglobin 10.8 G/DL (14.2-18.0) L Hematocrit 34.0 % (42.0-52.0) L Mean Corpuscular Volume 83 FL (80-99) Mean Corpuscular Hemoglobin 26.6 PG (27.0-31.0) L Mean Corpuscular Hemoglobin Concent 31.9 G/DL (32.0-36.0) L Red Cell Distribution Width 13.4 % (11.6-14.8) Platelet Count 462 K/UL (150-450) H Mean Platelet Volume 6.4 FL (6.5-10.1) L Neutrophils (%) (Auto) 73.2 % (45.0-75.0) Lymphocytes (%) (Auto) 19.1 % (20.0-45.0) L Monocytes (%) (Auto) 5.5 % (1.0-10.0) Eosinophils (%) (Auto) 2.0 % (0.0-3.0) Basophils (%) (Auto) 0.2 % (0.0-2.0) Sodium Level 131 MMOL/L (136-145) L Potassium Level 4.1 MMOL/L (3.5-5.1) Chloride Level 101 MMOL/L (98-107) Carbon Dioxide Level 28 MMOL/L (21-32) Anion Gap 2 mmol/L (5-15) L Blood Urea Nitrogen 18 mg/dL (7-18) Creatinine 1.0 MG/DL (0.55-1.30) Estimat Glomerular Filtration Rate > 60 mL/min (>60) Glucose Level 119 MG/DL (74-106) H Uric Acid 5.1 MG/DL (2.6-7.2) Calcium Level 8.8 MG/DL (8.5-10.1) Phosphorus Level 3.1 MG/DL (2.5-4.9) Magnesium Level 2.1 MG/DL (1.8-2.4) Total Bilirubin 0.4 MG/DL (0.2-1.0) Aspartate Amino Transf (AST/SGOT) 74 U/L (15-37) H Alanine Aminotransferase (ALT/SGPT) 140 U/L (12-78) H Alkaline Phosphatase 137 U/L (46-116) H Total Protein 7.4 G/DL (6.4-8.2) Albumin 1.8 G/DL (3.4-5.0) L Globulin 5.6 g/dL Albumin/Globulin Ratio 0.3 (1.0-2.7) L HIV (1&2) Antibody Rapid Negative (NEGATIVE) Objective HEENT: Normocephalic, PERRLA, Extraocular muscle intact. NECK: Negative JVD, no carotid bruit, carotid upstroke 2+ B/L. CHEST: Clear to auscultation B/L. CARDIOVASCULAR: Regular rate and rhythm.. Normal S1 S2 No murmurs, gallops or rubs. GASTROINTESTINAL: Soft, nontender, nondistended. No organomegaly. EXTREMITIES: No edema, clubbing or cyanosis. Decreased range of motion and tenderness on the hand. Robert Nina MD Sep 14, 2019 19:00
--- NOTE | 2019-09-14 20:30 | Procedure Note ---
DATE OF PROCEDURE: 09/14/2019 SURGEON: Dimas Petersen M.D. PROCEDURE: ERCP. ANESTHESIA: Per SITE SUPERVISOR, Shalondaady Bentonrillsyed. INSTRUMENT: Olympus adult flexible ERCP scope. INDICATION: Biliary stricture seen on the MRCP. REASON FOR PROCEDURE: The procedure, risks, benefits, and possible consequences, including hemorrhage, aspiration, perforation and infection, and alternative treatments, were explained to the patient/legal guardian by Dr. Dimas Petersen and the patient/legal guardian understood and accepted these risks. PROCEDURE IN DETAIL: After informed consent was obtained and the patient was adequately sedated, the ERCP scope was advanced from mouth into the second portion of the duodenum. Using a catheter, common bile duct was selectively cannulated. Initial cholangiogram showed right intrahepatic duct looked normal. There was a minimum narrowing getting into the left intrahepatic duct, but when you put a wire in and injected it opened up easily. There was no obvious narrow stricture in that area. There was no intrahepatic duct dilatation on either side of the liver. The rest of the exam looked normal. Common bile duct was not dilated. It measured roughly about I would say about 7 mm. No filling defect was seen in the common bile duct. Cystic duct was seen, but we could not fully inject the gallbladder. At this time, there is no evidence of any active stricture requiring dilation or stenting, so therefore we did not do a sphincterotomy. The procedure was terminated and the patient tolerated the procedure without any complication. SUMMARY OF FINDINGS: No obvious tight stricture in the common bile duct, in the common hepatic duct, or any of the intrahepatics. Minimal narrowing maybe on the opening of the left intrahepatic without any significant intrahepatic dilatation, which was opened up easily with the contrast. RECOMMENDATIONS: Follow labs. The patient to follow with Dr. Colon, the main GI doctor. Dimas Petersen M.D. DR: HOPE JOB#: [id number] CC:
[2019-09-14] MEDS: Dyna-Hex 2% Top Sol 2oz TOPIC SCH (21:14)
--- NOTE | 2019-09-14 21:22 | General Progress Note ---
Assessment/Plan Problem List: (1) Hypokalemia ICD Codes: E87.6 - Hypokalemia SNOMED: 06828132 (2) Surgical screw in right hand ICD Codes: Z96.7 - Presence of other bone and tendon implants SNOMED: 020493664 Status: progressing Assessment/Plan: pain under control afebrile vitals holding check labs and lytes weak Subjective ROS Limited/Unobtainable: Yes Allergies: Coded Allergies: No Known Allergies (Unverified , 06/22/14) Objective Last 24 Hour Vital Signs Date Time Temp Pulse Resp B/P (MAP) Pulse Ox O2 Delivery O2 Flow Rate FiO2 09/14/19 16:00 97.7 83 20 102/62 (75) 100 09/14/19 13:49 97.6 83 23 104/74 95 Nasal Cannula 3 09/14/19 13:40 84 24 104/69 94 Nasal Cannula 3 09/14/19 13:34 87 14 98 09/14/19 13:30 87 22 106/70 93 Room Air 09/14/19 13:25 88 18 123/78 96 Simple Mask 6 09/14/19 13:20 97.7 90 14 120/80 97 Simple Mask 6 09/14/19 12:00 97.7 83 20 103/66 (78) 95 09/14/19 09:00 Room Air 09/14/19 08:00 98.1 86 18 107/63 (78) 97 09/14/19 04:00 97.7 77 18 134/74 (94) 100 09/13/19 23:58 98.8 92 18 118/69 (85) 96 Intake and Output 09/13/19 09/14/19 19:00 07:00 Intake Total 1547.5 ml 290.0 ml Output Total 1250 ml 900 ml Balance 297.5 ml -610.0 ml Intake Oral 120 ml IV Total 227.5 ml 290.0 ml Other 1200 ml Output Urine Total 850 ml 900 ml Stool Total 400 ml # Bowel Movements 1 Laboratory Tests 09/14/19 06:35: White Blood Count 11.3H, Red Blood Count 4.08L, Hemoglobin 10.8L, Hematocrit 34.0L, Mean Corpuscular Volume 83, Mean Corpuscular Hemoglobin 26.6L, Mean Corpuscular Hemoglobin Concent 31.9L, Red Cell Distribution Width 13.4, Platelet Count 462H, Mean Platelet Volume 6.4L, Neutrophils (%) (Auto) 73.2, Lymphocytes (%) (Auto) 19.1L, Monocytes (%) (Auto) 5.5, Eosinophils (%) (Auto) 2.0, Basophils (%) (Auto) 0.2, Sodium Level 131L, Potassium Level 4.1, Chloride Level 101, Carbon Dioxide Level 28, Anion Gap 2L, Blood Urea Nitrogen 18, Creatinine 1.0, Estimat Glomerular Filtration Rate > 60, Glucose Level 119H, Uric Acid 5.1, Calcium Level 8.8, Phosphorus Level 3.1, Magnesium Level 2.1, Total Bilirubin 0.4, Aspartate Amino Transf (AST/SGOT) 74H, Alanine Aminotransferase (ALT/SGPT) 140H, Alkaline Phosphatase 137H, Total Protein 7.4, Albumin 1.8L, Globulin 5.6, Albumin/Globulin Ratio 0.3L, HIV (1&2) Antibody Rapid Negative Height (Feet): 5 Height (Inches): 9.00 Weight (Pounds): 196 Neck: supple Cardiovascular: normal rate Respiratory/Chest: lungs clear Abdomen: soft Jono Quiros MD Sep 14, 2019 21:22
--- NOTE | 2019-09-14 21:27 | General Progress Note ---
Assessment/Plan Status: progressing Assessment/Plan: Assessment - Abnormal LFT, likely due to chronic hep B - possible narrowing of hepatic duct - negative ERCP - LLQ buldge around ostomy, abd wall laxity / hernia - mild azotemia Recommendations - check Hep B quantitative PCR - d/c planning per PMD - can start Viread if PCR > 2000 copies per quantitative PCR assay - ostomy care - avoid hepatotoxic meds - I will return Tuesday to see pt Subjective Allergies: Coded Allergies: No Known Allergies (Unverified , 06/22/14) Subjective Seen this am feeling OK no abd pain Hepatitis B Antigen (+) d/w ID ERCP noted - negative for biliary pathology Objective Last 24 Hour Vital Signs Date Time Temp Pulse Resp B/P (MAP) Pulse Ox O2 Delivery O2 Flow Rate FiO2 09/14/19 16:00 97.7 83 20 102/62 (75) 100 09/14/19 13:49 97.6 83 23 104/74 95 Nasal Cannula 3 09/14/19 13:40 84 24 104/69 94 Nasal Cannula 3 09/14/19 13:34 87 14 98 09/14/19 13:30 87 22 106/70 93 Room Air 09/14/19 13:25 88 18 123/78 96 Simple Mask 6 09/14/19 13:20 97.7 90 14 120/80 97 Simple Mask 6 09/14/19 12:00 97.7 83 20 103/66 (78) 95 09/14/19 09:00 Room Air 09/14/19 08:00 98.1 86 18 107/63 (78) 97 09/14/19 04:00 97.7 77 18 134/74 (94) 100 09/13/19 23:58 98.8 92 18 118/69 (85) 96 Intake and Output 09/13/19 09/14/19 19:00 07:00 Intake Total 1547.5 ml 290.0 ml Output Total 1250 ml 900 ml Balance 297.5 ml -610.0 ml Intake Oral 120 ml IV Total 227.5 ml 290.0 ml Other 1200 ml Output Urine Total 850 ml 900 ml Stool Total 400 ml # Bowel Movements 1 Laboratory Tests 09/14/19 06:35: White Blood Count 11.3H, Red Blood Count 4.08L, Hemoglobin 10.8L, Hematocrit 34.0L, Mean Corpuscular Volume 83, Mean Corpuscular Hemoglobin 26.6L, Mean Corpuscular Hemoglobin Concent 31.9L, Red Cell Distribution Width 13.4, Platelet Count 462H, Mean Platelet Volume 6.4L, Neutrophils (%) (Auto) 73.2, Lymphocytes (%) (Auto) 19.1L, Monocytes (%) (Auto) 5.5, Eosinophils (%) (Auto) 2.0, Basophils (%) (Auto) 0.2, Sodium Level 131L, Potassium Level 4.1, Chloride Level 101, Carbon Dioxide Level 28, Anion Gap 2L, Blood Urea Nitrogen 18, Creatinine 1.0, Estimat Glomerular Filtration Rate > 60, Glucose Level 119H, Uric Acid 5.1, Calcium Level 8.8, Phosphorus Level 3.1, Magnesium Level 2.1, Total Bilirubin 0.4, Aspartate Amino Transf (AST/SGOT) 74H, Alanine Aminotransferase (ALT/SGPT) 140H, Alkaline Phosphatase 137H, Total Protein 7.4, Albumin 1.8L, Globulin 5.6, Albumin/Globulin Ratio 0.3L, HIV (1&2) Antibody Rapid Negative Height (Feet): 5 Height (Inches): 9.00 Weight (Pounds): 196 Objective WDWN NCAT supple CTA RR abd soft, NT, (+) LLQ ostomy no edema Jeramy Colon MD Sep 14, 2019 21:27
[2019-09-15] VITALS: BP 102/59
[2019-09-15 04:00] VITALS: BP 109/63
[2019-09-15] MEDS: Piperacillin/Tazobactam 3.375 GM in NS 110 ML IVPB SCH ×3 (05:07→21:04)
--- NOTE | 2019-09-15 06:35 | General Progress Note ---
Assessment/Plan Status: progressing Assessment/Plan: Assessment/Plan Status: progressing Assessment/Plan: Assessment - Abnormal LFT, likely due to chronic hep B - possible narrowing of hepatic duct - negative ERCP yesterday - LLQ buldge around ostomy, abd wall laxity / hernia - mild azotemia Recommendations - check Hep B quantitative PCR - d/c planning per PMD - can start Viread if PCR > 2000 copies per quantitative PCR assay - ostomy care - avoid hepatotoxic meds =- Subjective Allergies: Coded Allergies: No Known Allergies (Unverified , 06/22/14) Objective Last 24 Hour Vital Signs Date Time Temp Pulse Resp B/P (MAP) Pulse Ox O2 Delivery O2 Flow Rate FiO2 09/15/19 04:00 97.2 85 20 109/63 (78) 98 09/15/19 00:00 97.1 86 18 102/59 (73) 98 09/14/19 21:00 Room Air 09/14/19 20:00 97.3 88 20 102/63 (76) 100 09/14/19 16:00 97.7 83 20 102/62 (75) 100 09/14/19 13:49 97.6 83 23 104/74 95 Nasal Cannula 3 09/14/19 13:40 84 24 104/69 94 Nasal Cannula 3 09/14/19 13:34 87 14 98 09/14/19 13:30 87 22 106/70 93 Room Air 09/14/19 13:25 88 18 123/78 96 Simple Mask 6 09/14/19 13:20 97.7 90 14 120/80 97 Simple Mask 6 09/14/19 12:00 97.7 83 20 103/66 (78) 95 09/14/19 09:00 Room Air 09/14/19 08:00 98.1 86 18 107/63 (78) 97 Intake and Output 09/14/19 09/15/19 18:59 06:59 Intake Total 410.0 ml 110.0 ml Output Total 1000 ml Balance -590.0 ml 110.0 ml IV Total 410.0 ml 110.0 ml Output Urine Total 1000 ml Estimated Blood Loss 0 ml Laboratory Tests 09/14/19 06:35: White Blood Count 11.3H, Red Blood Count 4.08L, Hemoglobin 10.8L, Hematocrit 34.0L, Mean Corpuscular Volume 83, Mean Corpuscular Hemoglobin 26.6L, Mean Corpuscular Hemoglobin Concent 31.9L, Red Cell Distribution Width 13.4, Platelet Count 462H, Mean Platelet Volume 6.4L, Neutrophils (%) (Auto) 73.2, Lymphocytes (%) (Auto) 19.1L, Monocytes (%) (Auto) 5.5, Eosinophils (%) (Auto) 2.0, Basophils (%) (Auto) 0.2, Sodium Level 131L, Potassium Level 4.1, Chloride Level 101, Carbon Dioxide Level 28, Anion Gap 2L, Blood Urea Nitrogen 18, Creatinine 1.0, Estimat Glomerular Filtration Rate > 60, Glucose Level 119H, Uric Acid 5.1, Calcium Level 8.8, Phosphorus Level 3.1, Magnesium Level 2.1, Total Bilirubin 0.4, Aspartate Amino Transf (AST/SGOT) 74H, Alanine Aminotransferase (ALT/SGPT) 140H, Alkaline Phosphatase 137H, Total Protein 7.4, Albumin 1.8L, Globulin 5.6, Albumin/Globulin Ratio 0.3L, HIV (1&2) Antibody Rapid Negative Height (Feet): 5 Height (Inches): 9.00 Weight (Pounds): 196 General Appearance: alert EENT: normal ENT inspection Neck: supple Cardiovascular: normal rate Respiratory/Chest: decreased breath sounds Abdomen: soft, other - colostomy bag in place Extremities: non-tender Dimas Petersen MD Sep 15, 2019 06:35
[2019-09-15 08:00] VITALS: BP 116/68
[2019-09-15 08:09] LABS: BASOPHILS % (AUTO) 0.3 % (0.0-2.0); EOSINOPHILS % (AUTO) 2.4 % (0.0-3.0); HEMATOCRIT 34.4 % (42.0-52.0); HEMOGLOBIN 10.9 G/DL (14.2-18.0); LYMPHOCYTES % (AUTO) 18.8 % (20.0-45.0); MEAN CORPUSCULAR VOLUME 84 FL (80-99); MONOCYTES % (AUTO) 5.5 % (1.0-10.0); NEUTROPHILS % (AUTO) 73.1 % (45.0-75.0); PLATELET COUNT 512 K/UL (150-450); RED BLOOD COUNT 4.09 M/UL (4.70-6.10); RED CELL DISTRIBUTION WIDTH 13.2 % (11.6-14.8); WHITE BLOOD COUNT 8.9 K/UL (4.8-10.8)
[2019-09-15 08:45] LABS: ALANINE AMINOTRANSFERASE 128 U/L (12-78); ALKALINE PHOSPHATASE 155 U/L (46-116); ANION GAP 7 mmol/L (5-15); ASPARTATE AMINO TRANSFERASE 70 U/L (15-37); BILIRUBIN,TOTAL 0.4 MG/DL (0.2-1.0); BLOOD UREA NITROGEN 1 mg/dL (7-18); CARBON DIOXIDE 25 MMOL/L (21-32); CHLORIDE 101 MMOL/L (98-107); POTASSIUM 4.3 MMOL/L (3.5-5.1); SODIUM 133 MMOL/L (136-145)
[2019-09-15] MEDS: Docusate 250mg cap ORAL SCH (08:48)
[2019-09-15] MEDS: Magnesium Oxide 400mg tab ORAL SCH ×3 (08:48→18:27)
[2019-09-15] MEDS: Bisacodyl EC 5mg tab ORAL SCH ×2 (08:48→18:27)
[2019-09-15] MEDS: Spironolactone 25mg tab ORAL SCH (08:48)
[2019-09-15] MEDS: Ascorbic Acid 500mg tab ORAL SCH (08:48)
[2019-09-15] MEDS: Heparin 5000 units/ml inj SUBQ SCH ×2 (08:51→21:04)
[2019-09-15 08:55] LABS: CALCIUM 8.1 MG/DL (8.5-10.1)
[2019-09-15] MEDS: traMADol 50mg tab ORAL PRN (09:00)
[2019-09-15 09:02] LABS: ALBUMIN/GLOBULIN RATIO 0.4 (1.0-2.7)
[2019-09-15 12:00] VITALS: BP 105/71
--- NOTE | 2019-09-15 15:37 | Nephrology Progress Note ---
Assessment/Plan Problem List: (1) Hypokalemia (2) Hyponatremia (3) Colostomy care (4) Leukocytosis Assessment Surgical screw in right hand Displaced surgical screw of the right hand Hyponatremia Mild Azotemia Low K h/o UGI bleed Colostomy care Plan down on kcl dose- 3% saline and Mag IV k and Mag Phos supplement as needed Monitor Lytes adjust diuretics Per orders Subjective ROS Limited/Unobtainable: No Constitutional: Reports: malaise Objective Objective Last 24 Hour Vital Signs Date Time Temp Pulse Resp B/P (MAP) Pulse Ox O2 Delivery O2 Flow Rate FiO2 09/15/19 12:00 97.5 83 17 105/71 (82) 98 09/15/19 09:00 Room Air 09/15/19 08:00 97.6 87 17 116/68 (84) 97 09/15/19 04:00 97.2 85 20 109/63 (78) 98 09/15/19 00:00 97.1 86 18 102/59 (73) 98 09/14/19 21:00 Room Air 09/14/19 20:00 97.3 88 20 102/63 (76) 100 09/14/19 16:00 97.7 83 20 102/62 (75) 100 Intake and Output 09/14/19 09/15/19 19:00 07:00 Intake Total 410.0 ml 110.0 ml Output Total 1000 ml 850 ml Balance -590.0 ml -740.0 ml IV Total 410.0 ml 110.0 ml Output Urine Total 1000 ml 850 ml Estimated Blood Loss 0 ml # Voids 3 Laboratory Tests 09/15/19 07:39: White Blood Count 8.9, Red Blood Count 4.09L, Hemoglobin 10.9L, Hematocrit 34.4L , Mean Corpuscular Volume 84, Mean Corpuscular Hemoglobin 26.6L, Mean Corpuscular Hemoglobin Concent 31.7L, Red Cell Distribution Width 13.2, Platelet Count 512H, Mean Platelet Volume 6.3L, Neutrophils (%) (Auto) 73.1, Lymphocytes (%) (Auto) 18.8L, Monocytes (%) (Auto) 5.5, Eosinophils (%) (Auto) 2.4, Basophils (%) (Auto) 0.3, Sodium Level 133L, Potassium Level 4.3, Chloride Level 101, Carbon Dioxide Level 25, Anion Gap 7, Blood Urea Nitrogen 1L, Creatinine 1.0, Estimat Glomerular Filtration Rate > 60, Glucose Level 115H, Calcium Level 8.1L, Total Bilirubin 0.4, Aspartate Amino Transf (AST/SGOT) 70H, Alanine Aminotransferase (ALT/SGPT) 128H, Alkaline Phosphatase 155H, Total Protein 6.5, Albumin 2.0L, Globulin 4.5, Albumin/Globulin Ratio 0.4L Height (Feet): 5 Height (Inches): 9.00 Weight (Pounds): 196 General Appearance: no apparent distress Cardiovascular: tachycardia Respiratory/Chest: decreased breath sounds Abdomen: distended Objective no change Curtis Lee MD Sep 15, 2019 15:37
[2019-09-15 16:00] VITALS: BP 94/63
--- NOTE | 2019-09-15 19:18 | Surgery Progress Note ---
Surgery Progress Note Subjective Additional Comments improved comfortable no complaints states he is well dressings changed with nursing staff this AM Objective Last 24 Hour Vital Signs Date Time Temp Pulse Resp B/P (MAP) Pulse Ox O2 Delivery O2 Flow Rate FiO2 09/15/19 16:00 98.3 85 16 94/63 (73) 99 09/15/19 12:00 97.5 83 17 105/71 (82) 98 09/15/19 09:00 Room Air 09/15/19 08:00 97.6 87 17 116/68 (84) 97 09/15/19 04:00 97.2 85 20 109/63 (78) 98 09/15/19 00:00 97.1 86 18 102/59 (73) 98 09/14/19 21:00 Room Air 09/14/19 20:00 97.3 88 20 102/63 (76) 100 I&O Intake and Output 09/14/19 09/15/19 19:00 07:00 Intake Total 410.0 ml 110.0 ml Output Total 1000 ml 850 ml Balance -590.0 ml -740.0 ml IV Total 410.0 ml 110.0 ml Output Urine Total 1000 ml 850 ml Estimated Blood Loss 0 ml # Voids 3 Dressing: dry Wound: clean Cardiovascular: RSR Respiratory: clear Abdomen: soft, flat, non-tender, present bowel sounds Extremities: edema, no tenderness, no cyanosis Laboratory Tests Test 09/15/19 07:39 White Blood Count 8.9 K/UL (4.8-10.8) Red Blood Count 4.09 M/UL (4.70-6.10) L Hemoglobin 10.9 G/DL (14.2-18.0) L Hematocrit 34.4 % (42.0-52.0) L Mean Corpuscular Volume 84 FL (80-99) Mean Corpuscular Hemoglobin 26.6 PG (27.0-31.0) L Mean Corpuscular Hemoglobin Concent 31.7 G/DL (32.0-36.0) L Red Cell Distribution Width 13.2 % (11.6-14.8) Platelet Count 512 K/UL (150-450) H Mean Platelet Volume 6.3 FL (6.5-10.1) L Neutrophils (%) (Auto) 73.1 % (45.0-75.0) Lymphocytes (%) (Auto) 18.8 % (20.0-45.0) L Monocytes (%) (Auto) 5.5 % (1.0-10.0) Eosinophils (%) (Auto) 2.4 % (0.0-3.0) Basophils (%) (Auto) 0.3 % (0.0-2.0) Sodium Level 133 MMOL/L (136-145) L Potassium Level 4.3 MMOL/L (3.5-5.1) Chloride Level 101 MMOL/L (98-107) Carbon Dioxide Level 25 MMOL/L (21-32) Anion Gap 7 mmol/L (5-15) Blood Urea Nitrogen 1 mg/dL (7-18) L Creatinine 1.0 MG/DL (0.55-1.30) Estimat Glomerular Filtration Rate > 60 mL/min (>60) Glucose Level 115 MG/DL (74-106) H Calcium Level 8.1 MG/DL (8.5-10.1) L Total Bilirubin 0.4 MG/DL (0.2-1.0) Aspartate Amino Transf (AST/SGOT) 70 U/L (15-37) H Alanine Aminotransferase (ALT/SGPT) 128 U/L (12-78) H Alkaline Phosphatase 155 U/L (46-116) H Total Protein 6.5 G/DL (6.4-8.2) Albumin 2.0 G/DL (3.4-5.0) L Globulin 4.5 g/dL Albumin/Globulin Ratio 0.4 (1.0-2.7) L Plan Problems: (1) Pressure ulcer Assessment & Plan: DAILY ESTIMATED NEEDS: Needs based on Cardiac, pulm, obese 81.5kg adj 20-25 kcals/kg [id number] total kcals 1-1.5 g protein/kg 82-122 g total protein Fluid per MD, on lasix NUTRITION DIAGNOSIS: * Altered nutrition related lab values R/T clinical status as evidenced by low K(3.3). (CURRENT DIET: GOOD) PO DIET RECOMMENDATIONS: Rec Low NA/ Low Fat ADDITIONAL RECOMMENDATIONS: 1) Rec standing weight for accurate CBW -> OR recalibrated bed scale for accurate CBW -> On lasix, requiring daily wts 2) Check lytes daily for repletion (low K) 3) F/up w/ Wound care eval - etiology unknown MVI (2) Venous stasis ulcer Assessment & Plan: Patient presents with venous stasis ulcer on the left lower extremity. 4 cm x 3 cm x 2 mm deep. No active drainage mild serous oozing. No signs of acute active infection with but does have some erythema in the periwound. No purulent drainage. States he has had it for some time now and has been cared for an outside facility. improved since admission. smaller now and with some granulation tissue Bilateral heel soft. Offload pressure from heels with pillow. Hydrogel impregnated gauze to ulcer bed followed by foam dressing. Wash lower extremities daily and apply skin protectant moisturizer followed by ABD and wrap duplex okay dressings changes daily improving will monitor and f/u with plan (3) Cellulitis (4) Wrist pain, acute Assessment & Plan: Procedure: XRAY Elbow Min 3v R Indication: Right elbow pain Findings: 3 views of the right elbow were obtained. No acute fractures, malalignment, erosions or periostitis are identified. Soft tissue swelling noted posterior part of the elbow. There is no joint effusion identified. Impression: No acute fracture. Soft tissue swelling noted There is severe arthrosis involving the carpal bones. The first carpal row including the scaphoid, lunate appear collapsed. There are multiple lucencies suggestive of cystic changes within the bones. The intercarpal joints are moderately narrowed. There are cystic changes in the base of the third and fourth metacarpals as well. There is a Alexandro screw partially within the scaphoid. This was likely placed for scaphoid fracture but has migrated medially and is partially embedded within the scaphoid and trapezium. There are severe erosive changes present within the intercarpal joints. There are severe erosive changes and deformity characterized by some articular collapse and cyst formation involving the second MCP joint. There is no acute fracture identified. IMPRESSION: No acute fracture identified. Evidence of severe polyarticular inflammatory arthritis characterized by subarticular erosions and cysts involving several of the intercarpal joints and the second MCP joint. Subsequent deformity and superimposed osteoarthritis noted. Displaced Alexandro screw, likely placed for a previous scaphoid fracture. Generalized soft tissue swelling. Findings: 3 views of the right shoulder were obtained. No acute fractures, malalignment, erosions or periostitis are identified. Bones are osteopenic. There is narrowing of the glenohumeral joint consistent with mild osteoarthritis. Soft tissues are unremarkable. Impression: Negative for acute injury displaced screw noted. seemingly chronic. outpatient hand sx consult (5) Status post fall (6) Transaminitis Assessment & Plan: lft's elevated US abd ordered - gb not visualize clinically no symptoms Impression: Cholelithiasis. No gallbladder wall thickening or evidence of pericholecystic inflammation No evidence of choledocholithiasis. However, there is questionably narrowing of the common hepatic duct which if real could indicate stricture or compression by tumor. Left lower quadrant descending colostomy/mucous fistula. There is a peristomal hernia which contains a few loops of small bowel. This does not appear to be obstructed or strangulated Small right pleural effusion Incidental findings as noted, including right interpolar region cyst, 2 upper pole splenic cysts, and scattered hepatic cysts stable parastomal hernia reducible Ricci Sharpe Sep 15, 2019 19:18
[2019-09-15] MEDS: Dyna-Hex 2% Top Sol 2oz TOPIC SCH (21:04)
--- NOTE | 2019-09-15 22:45 | General Progress Note ---
Assessment/Plan Problem List: (1) Hypokalemia ICD Codes: E87.6 - Hypokalemia SNOMED: 82355671 (2) Surgical screw in right hand ICD Codes: Z96.7 - Presence of other bone and tendon implants SNOMED: 559751578 Status: progressing Assessment/Plan: afebrile abx per id dc planning reviewed chart check labs and lytes weak Subjective ROS Limited/Unobtainable: Yes Allergies: Coded Allergies: No Known Allergies (Unverified , 06/22/14) Objective Last 24 Hour Vital Signs Date Time Temp Pulse Resp B/P (MAP) Pulse Ox O2 Delivery O2 Flow Rate FiO2 09/15/19 16:00 98.3 85 16 94/63 (73) 99 09/15/19 12:00 97.5 83 17 105/71 (82) 98 09/15/19 09:00 Room Air 09/15/19 08:00 97.6 87 17 116/68 (84) 97 09/15/19 04:00 97.2 85 20 109/63 (78) 98 09/15/19 00:00 97.1 86 18 102/59 (73) 98 Intake and Output 09/14/19 09/15/19 19:00 07:00 Intake Total 410.0 ml 110.0 ml Output Total 1000 ml 850 ml Balance -590.0 ml -740.0 ml IV Total 410.0 ml 110.0 ml Output Urine Total 1000 ml 850 ml Estimated Blood Loss 0 ml # Voids 3 Laboratory Tests 09/15/19 07:39: White Blood Count 8.9, Red Blood Count 4.09L, Hemoglobin 10.9L, Hematocrit 34.4L , Mean Corpuscular Volume 84, Mean Corpuscular Hemoglobin 26.6L, Mean Corpuscular Hemoglobin Concent 31.7L, Red Cell Distribution Width 13.2, Platelet Count 512H, Mean Platelet Volume 6.3L, Neutrophils (%) (Auto) 73.1, Lymphocytes (%) (Auto) 18.8L, Monocytes (%) (Auto) 5.5, Eosinophils (%) (Auto) 2.4, Basophils (%) (Auto) 0.3, Sodium Level 133L, Potassium Level 4.3, Chloride Level 101, Carbon Dioxide Level 25, Anion Gap 7, Blood Urea Nitrogen 1L, Creatinine 1.0, Estimat Glomerular Filtration Rate > 60, Glucose Level 115H, Calcium Level 8.1L, Total Bilirubin 0.4, Aspartate Amino Transf (AST/SGOT) 70H, Alanine Aminotransferase (ALT/SGPT) 128H, Alkaline Phosphatase 155H, Total Protein 6.5, Albumin 2.0L, Globulin 4.5, Albumin/Globulin Ratio 0.4L Height (Feet): 5 Height (Inches): 9.00 Weight (Pounds): 196 Neck: supple Cardiovascular: normal rate Respiratory/Chest: lungs clear Abdomen: soft Jono Quiros MD Sep 15, 2019 22:45
--- NOTE | 2019-09-15 23:17 | Cardiology Progress Note ---
Assessment/Plan Assessment/Plan 1. Sinus tachycardia, resolved, likely inflammation or infection, the patient being febrile, worsening of leukocytosis, IV ABx, hydration. 2. Hx of HTN 3. Mechanical fall with no syncope, 2D echo reveals normal LV systolic and diastolic function. 4. IGDEON, resolved. 5. Elevated transaminase, trending down. 6. Hyponatremia, improving. 7. Pressure ulcer. 8. Venous insufficiency. Subjective Subjective No cardiac events are reported. Objective Last 24 Hour Vital Signs Date Time Temp Pulse Resp B/P (MAP) Pulse Ox O2 Delivery O2 Flow Rate FiO2 09/15/19 16:00 98.3 85 16 94/63 (73) 99 09/15/19 12:00 97.5 83 17 105/71 (82) 98 09/15/19 09:00 Room Air 09/15/19 08:00 97.6 87 17 116/68 (84) 97 09/15/19 04:00 97.2 85 20 109/63 (78) 98 09/15/19 00:00 97.1 86 18 102/59 (73) 98 Intake and Output 09/14/19 09/15/19 19:00 07:00 Intake Total 410.0 ml 110.0 ml Output Total 1000 ml 850 ml Balance -590.0 ml -740.0 ml IV Total 410.0 ml 110.0 ml Output Urine Total 1000 ml 850 ml Estimated Blood Loss 0 ml # Voids 3 2D Echo: LVEF 55%, Normal LV Diastolic Fxn, RVSP 12 mmHg Laboratory Tests Test 09/15/19 07:39 White Blood Count 8.9 K/UL (4.8-10.8) Red Blood Count 4.09 M/UL (4.70-6.10) L Hemoglobin 10.9 G/DL (14.2-18.0) L Hematocrit 34.4 % (42.0-52.0) L Mean Corpuscular Volume 84 FL (80-99) Mean Corpuscular Hemoglobin 26.6 PG (27.0-31.0) L Mean Corpuscular Hemoglobin Concent 31.7 G/DL (32.0-36.0) L Red Cell Distribution Width 13.2 % (11.6-14.8) Platelet Count 512 K/UL (150-450) H Mean Platelet Volume 6.3 FL (6.5-10.1) L Neutrophils (%) (Auto) 73.1 % (45.0-75.0) Lymphocytes (%) (Auto) 18.8 % (20.0-45.0) L Monocytes (%) (Auto) 5.5 % (1.0-10.0) Eosinophils (%) (Auto) 2.4 % (0.0-3.0) Basophils (%) (Auto) 0.3 % (0.0-2.0) Sodium Level 133 MMOL/L (136-145) L Potassium Level 4.3 MMOL/L (3.5-5.1) Chloride Level 101 MMOL/L (98-107) Carbon Dioxide Level 25 MMOL/L (21-32) Anion Gap 7 mmol/L (5-15) Blood Urea Nitrogen 1 mg/dL (7-18) L Creatinine 1.0 MG/DL (0.55-1.30) Estimat Glomerular Filtration Rate > 60 mL/min (>60) Glucose Level 115 MG/DL (74-106) H Calcium Level 8.1 MG/DL (8.5-10.1) L Total Bilirubin 0.4 MG/DL (0.2-1.0) Aspartate Amino Transf (AST/SGOT) 70 U/L (15-37) H Alanine Aminotransferase (ALT/SGPT) 128 U/L (12-78) H Alkaline Phosphatase 155 U/L (46-116) H Total Protein 6.5 G/DL (6.4-8.2) Albumin 2.0 G/DL (3.4-5.0) L Globulin 4.5 g/dL Albumin/Globulin Ratio 0.4 (1.0-2.7) L Objective HEENT: Normocephalic, PERRLA, Extraocular muscle intact. NECK: Negative JVD, no carotid bruit, carotid upstroke 2+ B/L. CHEST: Clear to auscultation B/L. CARDIOVASCULAR: Regular rate and rhythm.. Normal S1 S2 No murmurs, gallops or rubs. GASTROINTESTINAL: Soft, nontender, nondistended. No organomegaly. EXTREMITIES: No edema, clubbing or cyanosis. Decreased range of motion and tenderness on the hand. Robert Nina MD Sep 15, 2019 23:17
[2019-09-16] VITALS: BP 105/67
[2019-09-16 04:00] VITALS: BP 94/64
[2019-09-16] MEDS: Piperacillin/Tazobactam 3.375 GM in NS 110 ML IVPB SCH ×3 (05:36→21:51)
[2019-09-16] MEDS: traMADol 50mg tab ORAL PRN ×2 (06:38→13:29)
[2019-09-16 08:00] VITALS: BP 107/70
[2019-09-16] MEDS: Heparin 5000 units/ml inj SUBQ SCH ×2 (08:29→20:45)
[2019-09-16] MEDS: Ascorbic Acid 500mg tab ORAL SCH (08:31)
[2019-09-16] MEDS: Magnesium Oxide 400mg tab ORAL SCH ×3 (08:32→17:38)
[2019-09-16] MEDS: Bisacodyl EC 5mg tab ORAL SCH ×2 (08:32→17:38)
[2019-09-16] MEDS: Spironolactone 25mg tab ORAL SCH (08:32)
[2019-09-16] MEDS: Docusate 250mg cap ORAL SCH (08:32)
--- NOTE | 2019-09-16 08:53 | General Progress Note ---
Assessment/Plan Status: progressing Assessment/Plan: Assessment/Plan Status: progressing Assessment/Plan: Assessment - Abnormal LFT, likely due to chronic hep B - possible narrowing of hepatic duct - negative ERCP last week - LLQ buldge around ostomy, abd wall laxity / hernia - mild azotemia Recommendations - check Hep B quantitative PCR - d/c planning per PMD - can start Viread if PCR > 2000 copies per quantitative PCR assay - ostomy care - avoid hepatotoxic meds =- Subjective Allergies: Coded Allergies: No Known Allergies (Unverified , 06/22/14) Objective Last 24 Hour Vital Signs Date Time Temp Pulse Resp B/P (MAP) Pulse Ox O2 Delivery O2 Flow Rate FiO2 09/16/19 04:00 98.1 85 20 94/64 (74) 96 09/16/19 00:00 97.6 80 17 105/67 (80) 95 09/15/19 21:00 Room Air 09/15/19 16:00 98.3 85 16 94/63 (73) 99 09/15/19 12:00 97.5 83 17 105/71 (82) 98 09/15/19 09:00 Room Air Intake and Output 09/15/19 09/16/19 18:59 06:59 Intake Total 907.5 ml 527.5 ml Output Total 2000 ml Balance 907.5 ml -1472.5 ml Intake Oral 880 ml 500 ml IV Total 27.5 ml 27.5 ml Output Urine Total 2000 ml # Voids 7 # Bowel Movements 1 Height (Feet): 5 Height (Inches): 9.00 Weight (Pounds): 196 General Appearance: no apparent distress EENT: normal ENT inspection Neck: supple Cardiovascular: normal rate Respiratory/Chest: decreased breath sounds Abdomen: soft, hypoactive bowel sounds Pelvis: other - coloostomy Extremities: non-tender Dimas Petersen MD Sep 16, 2019 08:53
[2019-09-16 12:00] VITALS: BP 105/69
--- NOTE | 2019-09-16 12:31 | Surgery Progress Note ---
Surgery Progress Note Subjective Symptoms: improved Objective Last 24 Hour Vital Signs Date Time Temp Pulse Resp B/P (MAP) Pulse Ox O2 Delivery O2 Flow Rate FiO2 09/16/19 09:00 Room Air 09/16/19 08:00 97.5 88 18 107/70 (82) 95 09/16/19 04:00 98.1 85 20 94/64 (74) 96 09/16/19 00:00 97.6 80 17 105/67 (80) 95 09/15/19 21:00 Room Air 09/15/19 16:00 98.3 85 16 94/63 (73) 99 I&O Intake and Output 09/15/19 09/16/19 18:59 06:59 Intake Total 907.5 ml 527.5 ml Output Total 2000 ml Balance 907.5 ml -1472.5 ml Intake Oral 880 ml 500 ml IV Total 27.5 ml 27.5 ml Output Urine Total 2000 ml # Voids 7 # Bowel Movements 1 Dressing: dry Wound: clean Cardiovascular: RSR Respiratory: clear Abdomen: soft, non-tender, present bowel sounds Extremities: no cyanosis, other Plan Problems: (1) Pressure ulcer Assessment & Plan: DAILY ESTIMATED NEEDS: Needs based on Cardiac, pulm, obese 81.5kg adj 20-25 kcals/kg [id number] total kcals 1-1.5 g protein/kg 82-122 g total protein Fluid per MD, on lasix NUTRITION DIAGNOSIS: * Altered nutrition related lab values R/T clinical status as evidenced by low K(3.3). (CURRENT DIET: GOOD) PO DIET RECOMMENDATIONS: Rec Low NA/ Low Fat ADDITIONAL RECOMMENDATIONS: 1) Rec standing weight for accurate CBW -> OR recalibrated bed scale for accurate CBW -> On lasix, requiring daily wts 2) Check lytes daily for repletion (low K) 3) F/up w/ Wound care eval - etiology unknown MVI (2) Venous stasis ulcer Assessment & Plan: Patient presents with venous stasis ulcer on the left lower extremity. 4 cm x 3 cm x 2 mm deep. No active drainage mild serous oozing. No signs of acute active infection with but does have some erythema in the periwound. No purulent drainage. States he has had it for some time now and has been cared for an outside facility. improved since admission. smaller now and with some granulation tissue Bilateral heel soft. Offload pressure from heels with pillow. Hydrogel impregnated gauze to ulcer bed followed by foam dressing. Wash lower extremities daily and apply skin protectant moisturizer followed by ABD and wrap duplex okay dressings changes daily improving will monitor and f/u with plan (3) Cellulitis (4) Wrist pain, acute Assessment & Plan: Procedure: XRAY Elbow Min 3v R Indication: Right elbow pain Findings: 3 views of the right elbow were obtained. No acute fractures, malalignment, erosions or periostitis are identified. Soft tissue swelling noted posterior part of the elbow. There is no joint effusion identified. Impression: No acute fracture. Soft tissue swelling noted There is severe arthrosis involving the carpal bones. The first carpal row including the scaphoid, lunate appear collapsed. There are multiple lucencies suggestive of cystic changes within the bones. The intercarpal joints are moderately narrowed. There are cystic changes in the base of the third and fourth metacarpals as well. There is a Alexandro screw partially within the scaphoid. This was likely placed for scaphoid fracture but has migrated medially and is partially embedded within the scaphoid and trapezium. There are severe erosive changes present within the intercarpal joints. There are severe erosive changes and deformity characterized by some articular collapse and cyst formation involving the second MCP joint. There is no acute fracture identified. IMPRESSION: No acute fracture identified. Evidence of severe polyarticular inflammatory arthritis characterized by subarticular erosions and cysts involving several of the intercarpal joints and the second MCP joint. Subsequent deformity and superimposed osteoarthritis noted. Displaced Alexandro screw, likely placed for a previous scaphoid fracture. Generalized soft tissue swelling. Findings: 3 views of the right shoulder were obtained. No acute fractures, malalignment, erosions or periostitis are identified. Bones are osteopenic. There is narrowing of the glenohumeral joint consistent with mild osteoarthritis. Soft tissues are unremarkable. Impression: Negative for acute injury displaced screw noted. seemingly chronic. outpatient hand sx consult (5) Status post fall (6) Transaminitis Assessment & Plan: lft's elevated US abd ordered - gb not visualize clinically no symptoms Impression: Cholelithiasis. No gallbladder wall thickening or evidence of pericholecystic inflammation No evidence of choledocholithiasis. However, there is questionably narrowing of the common hepatic duct which if real could indicate stricture or compression by tumor. Left lower quadrant descending colostomy/mucous fistula. There is a peristomal hernia which contains a few loops of small bowel. This does not appear to be obstructed or strangulated Small right pleural effusion Incidental findings as noted, including right interpolar region cyst, 2 upper pole splenic cysts, and scattered hepatic cysts stable parastomal hernia reducible Ricci Sharpe Sep 16, 2019 12:30
--- NOTE | 2019-09-16 12:58 | General Progress Note ---
Assessment/Plan Assessment/Plan: (1) Right wrist pain (2) H/O Right wrist fracture and ORIF (3) Osteoarthritis (4) Hardware displacement Patient will be continued on tramadol and Tylenol as needed D/w Dr. Trevino and he concurred. Subjective Date patient seen: Sep 16, 2019 Time patient seen: 12:00 - pm Allergies: Coded Allergies: No Known Allergies (Unverified , 06/22/14) Subjective Constitutional: Reports: weakness HEENT: Reports: no symptoms Cardiovascular: Reports: no symptoms Respiratory: Reports: no symptoms Gastrointestinal/Abdominal: Reports: no symptoms Genitourinary: Reports: no symptoms Neurologic/Psychiatric: Reports: weakness Endocrine: Reports: no symptoms Hematologic/Lymphatic: Reports: no symptoms Subjective Patient showing no signs of pain or distress. Pain has been at a moderate level and is using the Tramadol as needed. No new complaints at this time. Objective Last 24 Hour Vital Signs Date Time Temp Pulse Resp B/P (MAP) Pulse Ox O2 Delivery O2 Flow Rate FiO2 09/16/19 09:00 Room Air 09/16/19 08:00 97.5 88 18 107/70 (82) 95 09/16/19 04:00 98.1 85 20 94/64 (74) 96 09/16/19 00:00 97.6 80 17 105/67 (80) 95 09/15/19 21:00 Room Air 09/15/19 16:00 98.3 85 16 94/63 (73) 99 Intake and Output 09/15/19 09/16/19 19:00 07:00 Intake Total 907.5 ml 527.5 ml Output Total 2000 ml Balance 907.5 ml -1472.5 ml Intake Oral 880 ml 500 ml IV Total 27.5 ml 27.5 ml Output Urine Total 2000 ml # Voids 7 # Bowel Movements 1 Height (Feet): 5 Height (Inches): 9.00 Weight (Pounds): 196 Objective General Appearance: no apparent distress, alert EENT: PERRL/EOMI, normal ENT inspection Neck: non-tender, normal alignment Cardiovascular: normal rate, regular rhythm Respiratory/Chest: lungs clear, normal breath sounds Abdomen: non tender, soft Edema: no edema noted Generalized Neurologic: alert, oriented x 3 Skin: normal pigmentation Lokesh Pierce Sep 16, 2019 12:58
--- NOTE | 2019-09-16 13:40 | Infectious Diseases Prog Note ---
Assessment/Plan Assessment/Plan IMPRESSION: Leukocytosis,resolved Fever resolved Elevated transaminase & bilirubin ? CBD narrowing Displaced right wrist hardware mild dementia, stasis dermatitis of legs, hypertension, hyperlipidemia, hand arthritis. s/p cholecystectomy Fatty liver Chronic Hepatitis B Biliary stricture RECOMMENDATION: HIV test negative Continue Zosyn until tonight Waiting for hep B viral load Subjective ROS Limited/Unobtainable: No Constitutional: Reports: no symptoms Respiratory: Reports: no symptoms Cardiovascular: Reports: no symptoms Gastrointestinal/Abdominal: Reports: no symptoms Genitourinary: Reports: no symptoms Musculoskeletal: Reports: pain, other - in left leg Allergies: Coded Allergies: No Known Allergies (Unverified , 06/22/14) Objective Vital Signs Last 24 Hour Vital Signs Date Time Temp Pulse Resp B/P (MAP) Pulse Ox O2 Delivery O2 Flow Rate FiO2 09/16/19 12:00 97.7 85 18 105/69 (81) 96 09/16/19 09:00 Room Air 09/16/19 08:00 97.5 88 18 107/70 (82) 95 09/16/19 04:00 98.1 85 20 94/64 (74) 96 09/16/19 00:00 97.6 80 17 105/67 (80) 95 09/15/19 21:00 Room Air 09/15/19 16:00 98.3 85 16 94/63 (73) 99 Height (Feet): 5 Height (Inches): 9.00 Weight (Pounds): 196 General Appearance: no acute distress HEENT: mucous membranes moist Respiratory/Chest: lungs clear Cardiovascular: normal rate Abdomen: soft, non tender, other - s/p colostomy Extremities: no edema Current Medications Medications (Trade) Dose Ordered Sig/Jl Route PRN Reason Start Time Stop Time Status Last Admin Dose Admin Acetaminophen (Tylenol) 650 mg Q6H PRN ORAL mild pain 09/06/19 16:20 10/06/19 16:19 09/09/19 21:44 Ascorbic Acid (Vitamin C) 500 mg DAILY ORAL 09/06/19 09:00 10/06/19 08:59 09/16/19 08:31 Bisacodyl (Dulcolax) 5 mg TWICE A DAY ORAL 09/06/19 09:00 10/06/19 08:59 09/16/19 08:32 Chlorhexidine Gluconate (Robyn-Hex 2%) 1 applic DAILY@2000 TOPIC 09/13/19 20:00 10/13/19 19:59 09/15/19 21:04 Docusate Sodium (Colace) 250 mg DAILY ORAL 09/06/19 09:00 10/06/19 08:59 09/16/19 08:32 Gabapentin (Neurontin) 300 mg TID ORAL 09/06/19 09:00 10/06/19 08:59 09/16/19 13:19 Heparin Sodium (Porcine) (Heparin 5000 units/ml) 5,000 units EVERY 12 HOURS SUBQ 09/06/19 09:00 10/06/19 08:59 09/16/19 08:29 Magnesium Oxide (Mag-Ox 400mg) 400 mg THREE TIMES A DAY ORAL 09/09/19 13:00 10/09/19 12:59 09/16/19 13:19 Multivitamins (Multivitamins) 1 tab DAILY ORAL 09/07/19 09:00 10/07/19 08:59 09/16/19 08:31 Ondansetron HCl (Zofran) 4 mg Q6H PRN ORAL Nausea & Vomiting 09/05/19 23:00 10/05/19 22:59 Piperacillin Sod/ Tazobactam Sod 3.375 gm/Sodium Chloride 110 ml @ 27.5 mls/hr EVERY 8 HOURS IVPB 09/10/19 14:00 09/16/19 23:59 09/16/19 13:20 Potassium Chloride (K-Dur) 40 meq DAILY ORAL 09/14/19 09:00 10/06/19 08:59 09/16/19 08:33 Spironolactone (Aldactone) 25 mg DAILY ORAL 09/09/19 09:00 10/09/19 08:59 09/16/19 08:32 Tramadol HCl (Ultram) 100 mg Q6H PRN ORAL pain 4-10 09/12/19 10:30 09/19/19 09:08 09/16/19 13:29 Jesus Hernandez MD Sep 16, 2019 13:40
--- NOTE | 2019-09-16 15:31 | Nephrology Progress Note ---
Assessment/Plan Problem List: (1) Hypokalemia (2) Hyponatremia (3) Colostomy care (4) Leukocytosis Assessment Surgical screw in right hand Displaced surgical screw of the right hand Hyponatremia Mild Azotemia Low K h/o UGI bleed Colostomy care Plan kcl dose- 3% saline and Mag IV k and Mag Phos supplement as needed Monitor Lytes adjust diuretics Per orders Subjective ROS Limited/Unobtainable: No Constitutional: Reports: malaise Objective Objective Last 24 Hour Vital Signs Date Time Temp Pulse Resp B/P (MAP) Pulse Ox O2 Delivery O2 Flow Rate FiO2 09/16/19 12:00 97.7 85 18 105/69 (81) 96 09/16/19 09:00 Room Air 09/16/19 08:00 97.5 88 18 107/70 (82) 95 09/16/19 04:00 98.1 85 20 94/64 (74) 96 09/16/19 00:00 97.6 80 17 105/67 (80) 95 09/15/19 21:00 Room Air 09/15/19 16:00 98.3 85 16 94/63 (73) 99 Intake and Output 09/15/19 09/16/19 19:00 07:00 Intake Total 907.5 ml 527.5 ml Output Total 2000 ml Balance 907.5 ml -1472.5 ml Intake Oral 880 ml 500 ml IV Total 27.5 ml 27.5 ml Output Urine Total 2000 ml # Voids 7 # Bowel Movements 1 Height (Feet): 5 Height (Inches): 9.00 Weight (Pounds): 196 General Appearance: no apparent distress Respiratory/Chest: decreased breath sounds Abdomen: distended Objective no change Curtis Lee MD Sep 16, 2019 15:31
[2019-09-16 16:00] VITALS: BP 110/66
[2019-09-16 20:00] VITALS: BP 118/66
[2019-09-16] MEDS: Dyna-Hex 2% Top Sol 2oz TOPIC SCH (20:44)
--- NOTE | 2019-09-16 20:48 | General Progress Note ---
Assessment/Plan Problem List: (1) Hypokalemia ICD Codes: E87.6 - Hypokalemia SNOMED: 77864806 (2) Surgical screw in right hand ICD Codes: Z96.7 - Presence of other bone and tendon implants SNOMED: 893331934 Status: progressing Assessment/Plan: low k improving afebrile no acute events no chills check labs and lytes dc planning Subjective ROS Limited/Unobtainable: Yes Allergies: Coded Allergies: No Known Allergies (Unverified , 06/22/14) Objective Last 24 Hour Vital Signs Date Time Temp Pulse Resp B/P (MAP) Pulse Ox O2 Delivery O2 Flow Rate FiO2 09/16/19 16:00 98.0 82 19 110/66 (81) 97 09/16/19 12:00 97.7 85 18 105/69 (81) 96 09/16/19 09:00 Room Air 09/16/19 08:00 97.5 88 18 107/70 (82) 95 09/16/19 04:00 98.1 85 20 94/64 (74) 96 09/16/19 00:00 97.6 80 17 105/67 (80) 95 09/15/19 21:00 Room Air Intake and Output 09/15/19 09/16/19 19:00 07:00 Intake Total 907.5 ml 527.5 ml Output Total 2000 ml Balance 907.5 ml -1472.5 ml Intake Oral 880 ml 500 ml IV Total 27.5 ml 27.5 ml Output Urine Total 2000 ml # Voids 7 # Bowel Movements 1 Height (Feet): 5 Height (Inches): 9.00 Weight (Pounds): 196 Neck: supple Cardiovascular: normal rate Respiratory/Chest: lungs clear Abdomen: soft Jono Quiros MD Sep 16, 2019 20:48
--- NOTE | 2019-09-16 23:08 | Cardiology Progress Note ---
Assessment/Plan Assessment/Plan 1. Sinus tachycardia, resolved, likely inflammation or infection, leukocytosis is resolved, continue IV ABx as well as hydration. 2. Hx of HTN, on spironolactone. 3. Mechanical fall with no syncope, 2D echo reveals normal LV systolic and diastolic function. 4. GIDEON, resolved. 5. Elevated transaminase, trending down. 6. Hyponatremia, improving. 7. Pressure ulcer. 8. Venous insufficiency. Subjective Subjective No cardiac events are reported. Objective Last 24 Hour Vital Signs Date Time Temp Pulse Resp B/P (MAP) Pulse Ox O2 Delivery O2 Flow Rate FiO2 09/16/19 21:00 Room Air 09/16/19 20:00 98.1 91 18 118/66 (83) 95 09/16/19 16:00 98.0 82 19 110/66 (81) 97 09/16/19 12:00 97.7 85 18 105/69 (81) 96 09/16/19 09:00 Room Air 09/16/19 08:00 97.5 88 18 107/70 (82) 95 09/16/19 04:00 98.1 85 20 94/64 (74) 96 09/16/19 00:00 97.6 80 17 105/67 (80) 95 Intake and Output 09/15/19 09/16/19 19:00 07:00 Intake Total 907.5 ml 527.5 ml Output Total 2000 ml Balance 907.5 ml -1472.5 ml Intake Oral 880 ml 500 ml IV Total 27.5 ml 27.5 ml Output Urine Total 2000 ml # Voids 7 # Bowel Movements 1 2D Echo: LVEF 55%, Normal LV Diastolic Fxn, RVSP 12 mmHg Objective HEENT: Normocephalic, PERRLA, Extraocular muscle intact. NECK: Negative JVD, no carotid bruit, carotid upstroke 2+ B/L. CHEST: Clear to auscultation B/L. CARDIOVASCULAR: Regular rate and rhythm.. Normal S1 S2 No murmurs, gallops or rubs. GASTROINTESTINAL: Soft, nontender, nondistended. No organomegaly. EXTREMITIES: No edema, clubbing or cyanosis. Decreased range of motion and tenderness on the hand. Robert Nina MD Sep 16, 2019 23:08
[2019-09-17] VITALS: BP 109/64
[2019-09-17 04:00] VITALS: BP 116/76
[2019-09-17] MEDS: traMADol 50mg tab ORAL PRN (06:33)
[2019-09-17 07:31] LABS: BASOPHILS % (AUTO) 0.5 % (0.0-2.0); EOSINOPHILS % (AUTO) 2.2 % (0.0-3.0); HEMATOCRIT 33.7 % (42.0-52.0); HEMOGLOBIN 11.4 G/DL (14.2-18.0); LYMPHOCYTES % (AUTO) 27.5 % (20.0-45.0); MEAN CORPUSCULAR VOLUME 80 FL (80-99); MONOCYTES % (AUTO) 5.7 % (1.0-10.0); NEUTROPHILS % (AUTO) 64.2 % (45.0-75.0); PLATELET COUNT 529 K/UL (150-450); RED BLOOD COUNT 4.23 M/UL (4.70-6.10); RED CELL DISTRIBUTION WIDTH 11.7 % (11.6-14.8); WHITE BLOOD COUNT 7.8 K/UL (4.8-10.8)
[2019-09-17 08:00] VITALS: BP 121/79
[2019-09-17 08:00] LABS: PHOSPHORUS 3.2 MG/DL (2.5-4.9)
[2019-09-17 08:15] LABS: ALANINE AMINOTRANSFERASE 81 U/L (12-78); ALBUMIN 2.1 G/DL (3.4-5.0); ALBUMIN/GLOBULIN RATIO 0.4 (1.0-2.7); ALKALINE PHOSPHATASE 137 U/L (46-116); ANION GAP 9 mmol/L (5-15); ASPARTATE AMINO TRANSFERASE 38 U/L (15-37); BILIRUBIN,TOTAL 0.3 MG/DL (0.2-1.0); BLOOD UREA NITROGEN 14 mg/dL (7-18); CALCIUM 8.9 MG/DL (8.5-10.1); CARBON DIOXIDE 27 MMOL/L (21-32); CHLORIDE 100 MMOL/L (98-107); POTASSIUM 4.1 MMOL/L (3.5-5.1); SODIUM 136 MMOL/L (136-145)
--- NOTE | 2019-09-17 08:47 | General Progress Note ---
Assessment/Plan Assessment/Plan: (1) Right wrist pain (2) H/O Right wrist fracture and ORIF (3) Osteoarthritis (4) Hardware displacement Patient will be continued on tramadol and Tylenol as needed D/w Dr. Trevino and he concurred. Subjective Date patient seen: Sep 17, 2019 Time patient seen: 08:00 - am Allergies: Coded Allergies: No Known Allergies (Unverified , 06/22/14) Subjective Constitutional: Reports: weakness HEENT: Reports: no symptoms Cardiovascular: Reports: no symptoms Respiratory: Reports: no symptoms Gastrointestinal/Abdominal: Reports: no symptoms Genitourinary: Reports: no symptoms Neurologic/Psychiatric: Reports: weakness Endocrine: Reports: no symptoms Hematologic/Lymphatic: Reports: no symptoms Subjective Patient is in bed and reports mild pain. No new complaints at this time. Takes the Tramadol as needed. Objective Last 24 Hour Vital Signs Date Time Temp Pulse Resp B/P (MAP) Pulse Ox O2 Delivery O2 Flow Rate FiO2 09/17/19 04:00 97.7 83 18 116/76 (89) 96 09/17/19 00:00 98.1 85 18 109/64 (79) 94 09/16/19 21:00 Room Air 09/16/19 20:00 98.1 91 18 118/66 (83) 95 09/16/19 16:00 98.0 82 19 110/66 (81) 97 09/16/19 12:00 97.7 85 18 105/69 (81) 96 09/16/19 09:00 Room Air Intake and Output 09/16/19 09/17/19 19:00 07:00 Intake Total 1000 ml 2332.5 ml Output Total 1150 ml Balance 1000 ml 1182.5 ml Intake Oral 1000 ml 1000 ml IV Total 132.5 ml Other 1200 ml Output Urine Total 750 ml Stool Total 400 ml Estimated Blood Loss 0 ml # Voids 6 6 # Bowel Movements 1 Laboratory Tests 09/17/19 06:05: White Blood Count 7.8, Red Blood Count 4.23L, Hemoglobin 11.4L, Hematocrit 33.7L , Mean Corpuscular Volume 80, Mean Corpuscular Hemoglobin 27.1, Mean Corpuscular Hemoglobin Concent 33.9, Red Cell Distribution Width 11.7, Platelet Count 529H, Mean Platelet Volume 5.3L, Neutrophils (%) (Auto) 64.2, Lymphocytes (%) (Auto) 27.5, Monocytes (%) (Auto) 5.7, Eosinophils (%) (Auto) 2.2, Basophils (%) (Auto) 0.5, Sodium Level 136, Potassium Level 4.1, Chloride Level 100, Carbon Dioxide Level 27, Anion Gap 9, Blood Urea Nitrogen 14, Creatinine 1.0, Estimat Glomerular Filtration Rate > 60, Glucose Level 96, Calcium Level 8.9, Phosphorus Level 3.2, Magnesium Level 1.4L, Total Bilirubin 0.3, Aspartate Amino Transf (AST/SGOT) 38H, Alanine Aminotransferase (ALT/SGPT) 81H, Alkaline Phosphatase 137H, Total Protein 7.5, Albumin 2.1L, Globulin 5.4, Albumin/ Globulin Ratio 0.4L Height (Feet): 5 Height (Inches): 9.00 Weight (Pounds): 196 Objective General Appearance: no apparent distress, alert EENT: PERRL/EOMI, normal ENT inspection Neck: non-tender, normal alignment Cardiovascular: normal rate, regular rhythm Respiratory/Chest: lungs clear, normal breath sounds Abdomen: non tender, soft Edema: no edema noted Generalized Neurologic: alert, oriented x 3 Skin: normal pigmentation Lokesh Pierce Sep 17, 2019 08:47
[2019-09-17] MEDS ORDERED: Lidocaine 1% MPF 10mg/ml 5ml ONE (09:41)
[2019-09-17] MEDS ORDERED: fentaNYL 100 mcg/2 mL IV ONE (09:41)
[2019-09-17] MEDS ORDERED: Metoclopramide 10mg/2ml Inj ONE (09:41)
[2019-09-17] MEDS ORDERED: Propofol 200mg/20ml IV ONE (09:41)
[2019-09-17] MEDS: Ascorbic Acid 500mg tab ORAL SCH (09:49)
[2019-09-17] MEDS: Docusate 250mg cap ORAL SCH (09:49)
[2019-09-17] MEDS: Bisacodyl EC 5mg tab ORAL SCH (09:49)
[2019-09-17] MEDS: Magnesium Oxide 400mg tab ORAL SCH ×2 (09:50→14:11)
[2019-09-17] MEDS: Spironolactone 25mg tab ORAL SCH (09:50)
[2019-09-17] MEDS: Heparin 5000 units/ml inj SUBQ SCH (09:52)
--- NOTE | 2019-09-17 11:05 | Infectious Diseases Prog Note ---
Assessment/Plan Assessment/Plan IMPRESSION: Leukocytosis,resolved Fever resolved Elevated transaminase & bilirubin ? CBD narrowing Displaced right wrist hardware mild dementia, stasis dermatitis of legs, hypertension, hyperlipidemia, hand arthritis. s/p cholecystectomy Fatty liver Chronic Hepatitis B Biliary stricture RECOMMENDATION: Observe off antibiotic Agree with discharge Waiting for hep B viral load Subjective ROS Limited/Unobtainable: Yes Constitutional: Reports: no symptoms Gastrointestinal/Abdominal: Reports: no symptoms Genitourinary: Reports: no symptoms Musculoskeletal: Reports: pain, other - left leg Allergies: Coded Allergies: No Known Allergies (Unverified , 06/22/14) Objective Vital Signs Last 24 Hour Vital Signs Date Time Temp Pulse Resp B/P (MAP) Pulse Ox O2 Delivery O2 Flow Rate FiO2 09/17/19 04:00 97.7 83 18 116/76 (89) 96 09/17/19 00:00 98.1 85 18 109/64 (79) 94 09/16/19 21:00 Room Air 09/16/19 20:00 98.1 91 18 118/66 (83) 95 09/16/19 16:00 98.0 82 19 110/66 (81) 97 09/16/19 12:00 97.7 85 18 105/69 (81) 96 Height (Feet): 5 Height (Inches): 9.00 Weight (Pounds): 196 General Appearance: no acute distress HEENT: mucous membranes moist Respiratory/Chest: lungs clear Cardiovascular: normal rate Abdomen: soft, non tender Extremities: no edema Neurologic/Psychiatric: alert, responsive Laboratory Tests Test 09/17/19 06:05 White Blood Count 7.8 K/UL (4.8-10.8) Red Blood Count 4.23 M/UL (4.70-6.10) L Hemoglobin 11.4 G/DL (14.2-18.0) L Hematocrit 33.7 % (42.0-52.0) L Mean Corpuscular Volume 80 FL (80-99) Mean Corpuscular Hemoglobin 27.1 PG (27.0-31.0) Mean Corpuscular Hemoglobin Concent 33.9 G/DL (32.0-36.0) Red Cell Distribution Width 11.7 % (11.6-14.8) Platelet Count 529 K/UL (150-450) H Mean Platelet Volume 5.3 FL (6.5-10.1) L Neutrophils (%) (Auto) 64.2 % (45.0-75.0) Lymphocytes (%) (Auto) 27.5 % (20.0-45.0) Monocytes (%) (Auto) 5.7 % (1.0-10.0) Eosinophils (%) (Auto) 2.2 % (0.0-3.0) Basophils (%) (Auto) 0.5 % (0.0-2.0) Sodium Level 136 MMOL/L (136-145) Potassium Level 4.1 MMOL/L (3.5-5.1) Chloride Level 100 MMOL/L (98-107) Carbon Dioxide Level 27 MMOL/L (21-32) Anion Gap 9 mmol/L (5-15) Blood Urea Nitrogen 14 mg/dL (7-18) Creatinine 1.0 MG/DL (0.55-1.30) Estimat Glomerular Filtration Rate > 60 mL/min (>60) Glucose Level 96 MG/DL (74-106) Calcium Level 8.9 MG/DL (8.5-10.1) Phosphorus Level 3.2 MG/DL (2.5-4.9) Magnesium Level 1.4 MG/DL (1.8-2.4) L Total Bilirubin 0.3 MG/DL (0.2-1.0) Aspartate Amino Transf (AST/SGOT) 38 U/L (15-37) H Alanine Aminotransferase (ALT/SGPT) 81 U/L (12-78) H Alkaline Phosphatase 137 U/L (46-116) H Total Protein 7.5 G/DL (6.4-8.2) Albumin 2.1 G/DL (3.4-5.0) L Globulin 5.4 g/dL Albumin/Globulin Ratio 0.4 (1.0-2.7) L Current Medications Medications (Trade) Dose Ordered Sig/Jl Route PRN Reason Start Time Stop Time Status Last Admin Dose Admin Acetaminophen (Tylenol) 650 mg Q6H PRN ORAL mild pain 09/06/19 16:20 10/06/19 16:19 09/09/19 21:44 Ascorbic Acid (Vitamin C) 500 mg DAILY ORAL 09/06/19 09:00 10/06/19 08:59 09/17/19 09:49 Bisacodyl (Dulcolax) 5 mg TWICE A DAY ORAL 09/06/19 09:00 10/06/19 08:59 09/17/19 09:49 Chlorhexidine Gluconate (Robyn-Hex 2%) 1 applic DAILY@2000 TOPIC 09/13/19 20:00 10/13/19 19:59 09/16/19 20:44 Docusate Sodium (Colace) 250 mg DAILY ORAL 09/06/19 09:00 10/06/19 08:59 09/17/19 09:49 Gabapentin (Neurontin) 300 mg TID ORAL 09/06/19 09:00 10/06/19 08:59 09/17/19 09:49 Heparin Sodium (Porcine) (Heparin 5000 units/ml) 5,000 units EVERY 12 HOURS SUBQ 09/06/19 09:00 10/06/19 08:59 09/17/19 09:52 Magnesium Oxide (Mag-Ox 400mg) 400 mg THREE TIMES A DAY ORAL 09/09/19 13:00 10/09/19 12:59 09/17/19 09:50 Multivitamins (Multivitamins) 1 tab DAILY ORAL 09/07/19 09:00 10/07/19 08:59 09/17/19 09:50 Ondansetron HCl (Zofran) 4 mg Q6H PRN ORAL Nausea & Vomiting 09/05/19 23:00 10/05/19 22:59 Potassium Chloride (K-Dur) 40 meq DAILY ORAL 09/14/19 09:00 10/06/19 08:59 09/17/19 09:49 Spironolactone (Aldactone) 25 mg DAILY ORAL 09/09/19 09:00 10/09/19 08:59 09/17/19 09:50 Tramadol HCl (Ultram) 100 mg Q6H PRN ORAL pain 4-10 09/12/19 10:30 09/19/19 09:08 09/17/19 06:33 Jesus Hernandez MD Sep 17, 2019 11:05
[2019-09-17 12:00] VITALS: BP 127/83
--- NOTE | 2019-09-17 13:46 | Nephrology Progress Note ---
Assessment/Plan Problem List: (1) Hypokalemia (2) Hyponatremia (3) Colostomy care (4) Leukocytosis Assessment Surgical screw in right hand Displaced surgical screw of the right hand Hyponatremia Mild Azotemia Low K h/o UGI bleed Colostomy care Plan kcl dose- 3% saline and Mag IV as needed k and Mag Phos supplement as needed Monitor Lytes adjust diuretics Per orders Subjective ROS Limited/Unobtainable: No Objective Objective Last 24 Hour Vital Signs Date Time Temp Pulse Resp B/P (MAP) Pulse Ox O2 Delivery O2 Flow Rate FiO2 09/17/19 12:00 98.0 84 18 127/83 (98) 98 09/17/19 09:00 Room Air 09/17/19 08:00 98.2 80 18 121/79 (93) 97 09/17/19 04:00 97.7 83 18 116/76 (89) 96 09/17/19 00:00 98.1 85 18 109/64 (79) 94 09/16/19 21:00 Room Air 09/16/19 20:00 98.1 91 18 118/66 (83) 95 09/16/19 16:00 98.0 82 19 110/66 (81) 97 Intake and Output 09/16/19 09/17/19 18:59 06:59 Intake Total 1000 ml 2332.5 ml Output Total 1150 ml Balance 1000 ml 1182.5 ml Intake Oral 1000 ml 1000 ml IV Total 132.5 ml Other 1200 ml Output Urine Total 750 ml Stool Total 400 ml Estimated Blood Loss 0 ml # Voids 6 6 # Bowel Movements 1 Laboratory Tests 09/17/19 06:05: White Blood Count 7.8, Red Blood Count 4.23L, Hemoglobin 11.4L, Hematocrit 33.7L , Mean Corpuscular Volume 80, Mean Corpuscular Hemoglobin 27.1, Mean Corpuscular Hemoglobin Concent 33.9, Red Cell Distribution Width 11.7, Platelet Count 529H, Mean Platelet Volume 5.3L, Neutrophils (%) (Auto) 64.2, Lymphocytes (%) (Auto) 27.5, Monocytes (%) (Auto) 5.7, Eosinophils (%) (Auto) 2.2, Basophils (%) (Auto) 0.5, Sodium Level 136, Potassium Level 4.1, Chloride Level 100, Carbon Dioxide Level 27, Anion Gap 9, Blood Urea Nitrogen 14, Creatinine 1.0, Estimat Glomerular Filtration Rate > 60, Glucose Level 96, Calcium Level 8.9, Phosphorus Level 3.2, Magnesium Level 1.4L, Total Bilirubin 0.3, Aspartate Amino Transf (AST/SGOT) 38H, Alanine Aminotransferase (ALT/SGPT) 81H, Alkaline Phosphatase 137H, Total Protein 7.5, Albumin 2.1L, Globulin 5.4, Albumin/ Globulin Ratio 0.4L Height (Feet): 5 Height (Inches): 9.00 Weight (Pounds): 196 General Appearance: no apparent distress Objective no change Curtis Lee MD Sep 17, 2019 13:46
[2019-09-17] MEDS ORDERED: MAGNESIUM400 M1 PO (14:26)
[2019-09-17] MEDS ORDERED: MAGNESIUM400 M2 PO (14:27)
--- NOTE | 2019-09-17 18:56 | Surgery Progress Note ---
Surgery Progress Note Subjective Additional Comments late entry as patient seen and examined this AM comfortable no complaints want to go okay for d/c Objective Last 24 Hour Vital Signs Date Time Temp Pulse Resp B/P (MAP) Pulse Ox O2 Delivery O2 Flow Rate FiO2 09/17/19 12:00 98.0 84 18 127/83 (98) 98 09/17/19 09:00 Room Air 09/17/19 08:00 98.2 80 18 121/79 (93) 97 09/17/19 08:00 98.2 80 18 121/79 (93) 97 09/17/19 04:00 97.7 83 18 116/76 (89) 96 09/17/19 00:00 98.1 85 18 109/64 (79) 94 09/16/19 21:00 Room Air 09/16/19 20:00 98.1 91 18 118/66 (83) 95 I&O Intake and Output 09/16/19 09/17/19 19:00 07:00 Intake Total 1000 ml 2332.5 ml Output Total 1150 ml Balance 1000 ml 1182.5 ml Intake Oral 1000 ml 1000 ml IV Total 132.5 ml Other 1200 ml Output Urine Total 750 ml Stool Total 400 ml Estimated Blood Loss 0 ml # Voids 6 6 # Bowel Movements 1 Dressing: other Wound: other Drains: other Cardiovascular: RSR Respiratory: clear, decreased breath sounds Abdomen: soft, present bowel sounds Extremities: no cyanosis, other Laboratory Tests Test 09/17/19 06:05 White Blood Count 7.8 K/UL (4.8-10.8) Red Blood Count 4.23 M/UL (4.70-6.10) L Hemoglobin 11.4 G/DL (14.2-18.0) L Hematocrit 33.7 % (42.0-52.0) L Mean Corpuscular Volume 80 FL (80-99) Mean Corpuscular Hemoglobin 27.1 PG (27.0-31.0) Mean Corpuscular Hemoglobin Concent 33.9 G/DL (32.0-36.0) Red Cell Distribution Width 11.7 % (11.6-14.8) Platelet Count 529 K/UL (150-450) H Mean Platelet Volume 5.3 FL (6.5-10.1) L Neutrophils (%) (Auto) 64.2 % (45.0-75.0) Lymphocytes (%) (Auto) 27.5 % (20.0-45.0) Monocytes (%) (Auto) 5.7 % (1.0-10.0) Eosinophils (%) (Auto) 2.2 % (0.0-3.0) Basophils (%) (Auto) 0.5 % (0.0-2.0) Sodium Level 136 MMOL/L (136-145) Potassium Level 4.1 MMOL/L (3.5-5.1) Chloride Level 100 MMOL/L (98-107) Carbon Dioxide Level 27 MMOL/L (21-32) Anion Gap 9 mmol/L (5-15) Blood Urea Nitrogen 14 mg/dL (7-18) Creatinine 1.0 MG/DL (0.55-1.30) Estimat Glomerular Filtration Rate > 60 mL/min (>60) Glucose Level 96 MG/DL (74-106) Calcium Level 8.9 MG/DL (8.5-10.1) Phosphorus Level 3.2 MG/DL (2.5-4.9) Magnesium Level 1.4 MG/DL (1.8-2.4) L Total Bilirubin 0.3 MG/DL (0.2-1.0) Aspartate Amino Transf (AST/SGOT) 38 U/L (15-37) H Alanine Aminotransferase (ALT/SGPT) 81 U/L (12-78) H Alkaline Phosphatase 137 U/L (46-116) H Total Protein 7.5 G/DL (6.4-8.2) Albumin 2.1 G/DL (3.4-5.0) L Globulin 5.4 g/dL Albumin/Globulin Ratio 0.4 (1.0-2.7) L Plan Problems: (1) Pressure ulcer Assessment & Plan: DAILY ESTIMATED NEEDS: Needs based on Cardiac, pulm, obese 81.5kg adj 20-25 kcals/kg [id number] total kcals 1-1.5 g protein/kg 82-122 g total protein Fluid per MD, on lasix NUTRITION DIAGNOSIS: * Altered nutrition related lab values R/T clinical status as evidenced by low K(3.3). (CURRENT DIET: GOOD) PO DIET RECOMMENDATIONS: Rec Low NA/ Low Fat ADDITIONAL RECOMMENDATIONS: 1) Rec standing weight for accurate CBW -> OR recalibrated bed scale for accurate CBW -> On lasix, requiring daily wts 2) Check lytes daily for repletion (low K) 3) F/up w/ Wound care eval - etiology unknown MVI (2) Venous stasis ulcer Assessment & Plan: Patient presents with venous stasis ulcer on the left lower extremity. 4 cm x 3 cm x 2 mm deep. No active drainage mild serous oozing. No signs of acute active infection with but does have some erythema in the periwound. No purulent drainage. States he has had it for some time now and has been cared for an outside facility. improved since admission. smaller now and with some granulation tissue Bilateral heel soft. Offload pressure from heels with pillow. Hydrogel impregnated gauze to ulcer bed followed by foam dressing. Wash lower extremities daily and apply skin protectant moisturizer followed by ABD and wrap duplex okay dressings changes daily improving will monitor and f/u with plan (3) Cellulitis (4) Wrist pain, acute Assessment & Plan: Procedure: XRAY Elbow Min 3v R Indication: Right elbow pain Findings: 3 views of the right elbow were obtained. No acute fractures, malalignment, erosions or periostitis are identified. Soft tissue swelling noted posterior part of the elbow. There is no joint effusion identified. Impression: No acute fracture. Soft tissue swelling noted There is severe arthrosis involving the carpal bones. The first carpal row including the scaphoid, lunate appear collapsed. There are multiple lucencies suggestive of cystic changes within the bones. The intercarpal joints are moderately narrowed. There are cystic changes in the base of the third and fourth metacarpals as well. There is a Alexandro screw partially within the scaphoid. This was likely placed for scaphoid fracture but has migrated medially and is partially embedded within the scaphoid and trapezium. There are severe erosive changes present within the intercarpal joints. There are severe erosive changes and deformity characterized by some articular collapse and cyst formation involving the second MCP joint. There is no acute fracture identified. IMPRESSION: No acute fracture identified. Evidence of severe polyarticular inflammatory arthritis characterized by subarticular erosions and cysts involving several of the intercarpal joints and the second MCP joint. Subsequent deformity and superimposed osteoarthritis noted. Displaced Alexandro screw, likely placed for a previous scaphoid fracture. Generalized soft tissue swelling. Findings: 3 views of the right shoulder were obtained. No acute fractures, malalignment, erosions or periostitis are identified. Bones are osteopenic. There is narrowing of the glenohumeral joint consistent with mild osteoarthritis. Soft tissues are unremarkable. Impression: Negative for acute injury displaced screw noted. seemingly chronic. outpatient hand sx consult (5) Status post fall (6) Transaminitis Assessment & Plan: lft's elevated US abd ordered - gb not visualize clinically no symptoms Impression: Cholelithiasis. No gallbladder wall thickening or evidence of pericholecystic inflammation No evidence of choledocholithiasis. However, there is questionably narrowing of the common hepatic duct which if real could indicate stricture or compression by tumor. Left lower quadrant descending colostomy/mucous fistula. There is a peristomal hernia which contains a few loops of small bowel. This does not appear to be obstructed or strangulated Small right pleural effusion Incidental findings as noted, including right interpolar region cyst, 2 upper pole splenic cysts, and scattered hepatic cysts stable parastomal hernia reducible Additional Comments outpatient wound care with above plan than Ricci De Jesus Sep 17, 2019 18:56
--- NOTE | 2019-09-17 19:10 | Cardiology Progress Note ---
Assessment/Plan Assessment/Plan 1. Sinus tachycardia, resolved, likely inflammation or infection, leukocytosis is resolved, continue IV ABx as well as hydration. 2. Hx of HTN, on spironolactone. 3. Mechanical fall with no syncope, 2D echo reveals normal LV systolic and diastolic function. 4. GIDEON, resolved. 5. Elevated transaminase, trending down. 6. Hyponatremia, improving. 7. Pressure ulcer. 8. Venous insufficiency. Subjective Subjective No cardiac events are reported. Objective Last 24 Hour Vital Signs Date Time Temp Pulse Resp B/P (MAP) Pulse Ox O2 Delivery O2 Flow Rate FiO2 09/17/19 12:00 98.0 84 18 127/83 (98) 98 09/17/19 09:00 Room Air 09/17/19 08:00 98.2 80 18 121/79 (93) 97 09/17/19 08:00 98.2 80 18 121/79 (93) 97 09/17/19 04:00 97.7 83 18 116/76 (89) 96 09/17/19 00:00 98.1 85 18 109/64 (79) 94 09/16/19 21:00 Room Air 09/16/19 20:00 98.1 91 18 118/66 (83) 95 Intake and Output 09/16/19 09/17/19 19:00 07:00 Intake Total 1000 ml 2332.5 ml Output Total 1150 ml Balance 1000 ml 1182.5 ml Intake Oral 1000 ml 1000 ml IV Total 132.5 ml Other 1200 ml Output Urine Total 750 ml Stool Total 400 ml Estimated Blood Loss 0 ml # Voids 6 6 # Bowel Movements 1 Laboratory Tests Test 09/17/19 06:05 White Blood Count 7.8 K/UL (4.8-10.8) Red Blood Count 4.23 M/UL (4.70-6.10) L Hemoglobin 11.4 G/DL (14.2-18.0) L Hematocrit 33.7 % (42.0-52.0) L Mean Corpuscular Volume 80 FL (80-99) Mean Corpuscular Hemoglobin 27.1 PG (27.0-31.0) Mean Corpuscular Hemoglobin Concent 33.9 G/DL (32.0-36.0) Red Cell Distribution Width 11.7 % (11.6-14.8) Platelet Count 529 K/UL (150-450) H Mean Platelet Volume 5.3 FL (6.5-10.1) L Neutrophils (%) (Auto) 64.2 % (45.0-75.0) Lymphocytes (%) (Auto) 27.5 % (20.0-45.0) Monocytes (%) (Auto) 5.7 % (1.0-10.0) Eosinophils (%) (Auto) 2.2 % (0.0-3.0) Basophils (%) (Auto) 0.5 % (0.0-2.0) Sodium Level 136 MMOL/L (136-145) Potassium Level 4.1 MMOL/L (3.5-5.1) Chloride Level 100 MMOL/L (98-107) Carbon Dioxide Level 27 MMOL/L (21-32) Anion Gap 9 mmol/L (5-15) Blood Urea Nitrogen 14 mg/dL (7-18) Creatinine 1.0 MG/DL (0.55-1.30) Estimat Glomerular Filtration Rate > 60 mL/min (>60) Glucose Level 96 MG/DL (74-106) Calcium Level 8.9 MG/DL (8.5-10.1) Phosphorus Level 3.2 MG/DL (2.5-4.9) Magnesium Level 1.4 MG/DL (1.8-2.4) L Total Bilirubin 0.3 MG/DL (0.2-1.0) Aspartate Amino Transf (AST/SGOT) 38 U/L (15-37) H Alanine Aminotransferase (ALT/SGPT) 81 U/L (12-78) H Alkaline Phosphatase 137 U/L (46-116) H Total Protein 7.5 G/DL (6.4-8.2) Albumin 2.1 G/DL (3.4-5.0) L Globulin 5.4 g/dL Albumin/Globulin Ratio 0.4 (1.0-2.7) L Objective HEENT: Normocephalic, PERRLA, Extraocular muscle intact. NECK: Negative JVD, no carotid bruit, carotid upstroke 2+ B/L. CHEST: Clear to auscultation B/L. CARDIOVASCULAR: Regular rate and rhythm.. Normal S1 S2 No murmurs, gallops or rubs. GASTROINTESTINAL: Soft, nontender, nondistended. No organomegaly. EXTREMITIES: No edema, clubbing or cyanosis. Decreased range of motion and tenderness on the hand. Robert Nina MD Sep 17, 2019 19:10
--- NOTE | 2019-09-17 22:53 | General Progress Note ---
Assessment/Plan Assessment/Plan: Assessment - Abnormal LFT, likely due to chronic hep B - possible narrowing of hepatic duct - negative ERCP - LLQ buldge around ostomy, abd wall laxity / hernia - mild azotemia Recommendations - check Hep B quantitative PCR - d/c planning per PMD - can start Viread if PCR > 2000 copies per quantitative PCR assay - ostomy care - avoid hepatotoxic meds - outpatient f/u Subjective Allergies: Coded Allergies: No Known Allergies (Unverified , 06/22/14) Subjective Seen this am feeling OK no abd pain for d/c today Objective Last 24 Hour Vital Signs Date Time Temp Pulse Resp B/P (MAP) Pulse Ox O2 Delivery O2 Flow Rate FiO2 09/17/19 12:00 98.0 84 18 127/83 (98) 98 09/17/19 09:00 Room Air 09/17/19 08:00 98.2 80 18 121/79 (93) 97 09/17/19 08:00 98.2 80 18 121/79 (93) 97 09/17/19 04:00 97.7 83 18 116/76 (89) 96 09/17/19 00:00 98.1 85 18 109/64 (79) 94 Intake and Output 09/16/19 09/17/19 19:00 07:00 Intake Total 1000 ml 2332.5 ml Output Total 1150 ml Balance 1000 ml 1182.5 ml Intake Oral 1000 ml 1000 ml IV Total 132.5 ml Other 1200 ml Output Urine Total 750 ml Stool Total 400 ml Estimated Blood Loss 0 ml # Voids 6 6 # Bowel Movements 1 Laboratory Tests 09/17/19 06:05: White Blood Count 7.8, Red Blood Count 4.23L, Hemoglobin 11.4L, Hematocrit 33.7L , Mean Corpuscular Volume 80, Mean Corpuscular Hemoglobin 27.1, Mean Corpuscular Hemoglobin Concent 33.9, Red Cell Distribution Width 11.7, Platelet Count 529H, Mean Platelet Volume 5.3L, Neutrophils (%) (Auto) 64.2, Lymphocytes (%) (Auto) 27.5, Monocytes (%) (Auto) 5.7, Eosinophils (%) (Auto) 2.2, Basophils (%) (Auto) 0.5, Sodium Level 136, Potassium Level 4.1, Chloride Level 100, Carbon Dioxide Level 27, Anion Gap 9, Blood Urea Nitrogen 14, Creatinine 1.0, Estimat Glomerular Filtration Rate > 60, Glucose Level 96, Calcium Level 8.9, Phosphorus Level 3.2, Magnesium Level 1.4L, Total Bilirubin 0.3, Aspartate Amino Transf (AST/SGOT) 38H, Alanine Aminotransferase (ALT/SGPT) 81H, Alkaline Phosphatase 137H, Total Protein 7.5, Albumin 2.1L, Globulin 5.4, Albumin/ Globulin Ratio 0.4L Height (Feet): 5 Height (Inches): 9.00 Weight (Pounds): 196 Objective WDWN NCAT supple CTA RR abd soft, NT, (+) LLQ ostomy no edema Jeramy Colon MD Sep 17, 2019 22:53
--- NOTE | 2019-09-18 11:03 | Discharge Summary ---
Discharge Summary Discharge Summary _ DATE OF ADMISSION: 09/05/2019 DATE OF DISCHARGE: 09/17/2019 DISCHARGED BY: REASON FOR ADMISSION: 59 years old male with past medical history of hypertension, hypercholesterolemia, congestive heart failure, gout, peripheral vascular disease, venous stasis ulcers. dementia, schizophrenia, gout, presented after mechanical fall complaining of 10 out of 10 pain in the right upper extremity , specifically hand , elbow and shoulder. Patient reported pain , which was exacerbated with movement. Patient also reported swelling. He reported bruises on the right hand. He denied hitting his head or having loss of consciousness. Patient denied midline neck or back pain. Patient denied dizziness and headache. Patient denied nausea and vomiting. Patient denied paresthesia in the affected extremity. No fever or chills. Laboratory work-up revealed leukocytosis with WBC 15.9, stable hemoglobin , hematocrit and platelet count. Sodium 130, potassium 3.3. BUN 23, creatinine 1.3. Glucose 113. Albumin 3.0. X-ray of the right shoulder revealed no acute findings. X-ray of the right hand reveal no acute fracture. Generalized soft tissue swelling. Evidence of severe polyarticular inflammatory arthritis, characterized by articular erosions and cysts involving several of the intercarpal joints and the second MCP joint. Subsequent deformity and superimposed osteoarthritis. Displaced Alexandro screw, likely placed for a previous scaphoid fracture. Generalized soft tissue swelling. X-ray of the right elbow reveal no acute fracture. Soft tissues swelling. Urinalysis revealed +3 protein , no pyuria. In emergency department patient medicated for pain , right thumb spike splint was applied. Patient remained neurovascularly intact . Patient was subsequently admitted for further management. CONSULTANTS: fruit ii farmworker Dr. Nina ID specialist Dr. Moreland GI specialist Dr. Colon director of financial planning Dr. Lee retail consultant/oncologist surgery Dr. Sharpe pain specialist Dr. Trevino [facility] HOSPITAL COURSE: Patient admitted to medical surgical floor. Surgeon seen the patient . X-ray of the right hand w revealed displaced Alexandro screw, likely placed for previous scaphoid fracture. Patient could follow-up with hand surgeon as outpatient. Wound care for venous stasis ulcers left lower extremity provided as per surgeon recommendation . Continue wound care at the facility. Venous duplex bilateral lower extremity revealed no evidence of acute DVT. Echocardiogram demonstrated preserved ejection fraction 55%. No evidence of left ventricular hypertrophy. No evidence of wall motion abnormality to the extent visualized. No evidence of pericardial effusion. Right ventricular systolic pressure of 12. Exchange Underwriting Consultant followed for initially demonstrated sinus tachycardia, which resolved , and likely was due to inflammation. Blood pressure was managed with the current antihypertensive and remained stable. Chest x-ray demonstrated bibasilar atelectasis versus scaring. No acute disease. Oxygen was on board as needed to keep pulse oximetry above 92 percent. Pulse oximetry was stable on room air prior to discharge. DVT prophylaxis provided. LFT were initially normal , but subsequently noted transaminitis with the highest AST 177 on 09/09 and ALT 185. GI specialist followed. -Abdominal ultrasound revealed nonvisualized gallbladder:either contracted or surgically removed. Liver demonstrated diffusely increased echogenicity consistent with a diffuse hepatocellular disease , most likely fatty changes. Possibly nonobstructive left renal calyceal calculus. -MRI of the abdomen revealed cholelithiasis. No gallbladder wall thickening or evidence of pericholecystic inflammation. No evidence of choledocholithiasis. Questionable narrowing of common hepatic duct , which if real, could indicate stricture or compression by tumor. Left lower quadrant descending colostomy/mucous fistula. There was a peristomal hernia , which contained few loops of small bowel. Not appeared to be obstructed or strangulated. Right pleural effusion. Patient subsequently undergone ERCP on 09/14 for possible biliary structure seen on the MRCP. It revealed normal caliber bile ducts. No evidence of apparent stricture reported on recent MRCP , which was most likely artifactual. Hepatitis panel revealed positive hepatitis B surface antigen. Per GI specialist, abnormal LFT were most likely due to chronic hepatitis B. GI specialist recommended check hepatitis B quantitative PCR as well as start on Viread if PCR more than 20,000 copies per quantitative PCR assay. Colostomy care provided. Hepatotoxic medication were avoided. Recommended outpatient follow-up with GI specialist. HIV test was nonreactive LFT trending down: prior to discharge AST 38 , ALT 81 , bilirubin remains stable. Lipase and amylase remained stable. Appeals Board Referee followed. Renal parameters and electrolytes were closely monitored. Electrolytes corrected as needed. Prior to discharge creatinine down to 1.0 ( creatinine candelario initially to 1.5 during the stay). Blood cultures were negative. Initial leukocytosis resolved. Fevers resolved. Patient was observed off antibiotics . As per ID specialist , leukocytosis was likely due to fall and trauma. Hemoglobin and hematocrit were closely monitored with goal to keep hemoglobin above 7. Anemia work-up was consistent with anemia of chronic disease. Prior to discharge hemoglobin 11.4, hematocrit 33.7. Fall precaution maintained. Patient clinically stabilized and was ready for transfer back to group home facility for continuation of care. FINAL DIAGNOSES: Status post mechanical fall Displaced right wrist hardware Abnormal LFT, likely due to chronic hepatitis B Hernia around colostomy/ no obstruction or strangulation Hyponatremia-resolved Acute kidney injury-resolved Colostomy status Status post ERCP Leukocytosis- resolved /likely secondary to trauma and fall Venous status dermatitis left lower extremity Hypertension Hyperlipidemia Right hand arthritis Sinus tachycardia -resolved History of right wrist fracture and ORIF DISCHARGE MEDICATIONS: See Medication Reconciliation list. DISCHARGE INSTRUCTIONS: Patient was discharged to the group home facility. Follow up with medical doctor at the facility. I have been assigned to dictate discharge summary for this account. I was not involved in the patient's management. Bev Gonzalez NP Sep 18, 2019 11:03
== END 2019-09-17 15:45 | DRG 349 ==
LOC: EDBD 15:01 → EMR 15:33 → 4E 18:35 → EDBEDREQ 20:13 → 4E 09-13 22:28 → 3E 09-15 12:50 → 4E 09-16 01:33
PROC: 0FJB8ZZ Inspection of Hepatobiliary Duct, Via Natural or Artificial Opening Endoscopic (ICD-10-PCS; principal; 2019-09-14 12:58)
DX: T84.220A Displacement of internal fixation device of bones of hand and fingers, initial encounter (principal); E87.1 Hypo-osmolality and hyponatremia; M19.90 Unspecified osteoarthritis, unspecified site; L03.90 Cellulitis, unspecified; E87.6 Hypokalemia; R00.0 Tachycardia, unspecified; I11.0 Hypertensive heart disease with heart failure; I50.9 Heart failure, unspecified; E78.5 Hyperlipidemia, unspecified; Z93.3 Colostomy status; L89.899 Pressure ulcer of other site, unspecified stage; I83.028 Varicose veins of left lower extremity with ulcer other part of lower leg; L97.829 Non-pressure chronic ulcer of other part of left lower leg with unspecified severity; Z91.81 History of falling; L03.119 Cellulitis of unspecified part of limb; N17.9 Acute kidney failure, unspecified; F03.90 Unspecified dementia, unspecified severity, without behavioral disturbance, psychotic disturbance, mood disturbance, and anxiety; K76.0 Fatty (change of) liver, not elsewhere classified; B18.1 Chronic viral hepatitis B without delta-agent
CPT/HCPCS: 29125; 36415; 71045; 74181; 74328; 76000; 76700; 80048; 80053; 80061; 80162; 80202; 81001; 82150; 82248; 82607; 82728; 82746; 82977; 83540; 83550; 83690; 83735; 83880; 84100; 84443; 84550; 85007; 85025; 85610; 85730; 86140; 86703; 86803; 87040; 87081; 87340; 87517; 93005; 93306; 93970; 94003; 94150; 99285; J2405; J2765; J7030; J8499